=== PATIENT | male | born 1960 | race Hispanic/Latino ===

== ENCOUNTER 2016-09-03 15:39 | Emergency (ER) | payer MEDICAID ==
[2016-09-03 15:47] VITALS: BP 128/63; PULSE 74; RESP 16; TEMP 97.8; O2SAT 99
--- NOTE | 2016-09-03 17:23 | ED PDOC ---
Lower Extremity Pain/Injury Time Seen by Provider: 09/03/16 17:20 Chief Complaint (Nursing): Lower Extremity Problem/Injury Chief Complaint (Provider): leg injury History Per: Patient History/Exam Limitations: no limitations Additional Complaint(s): 56yo M in Ed homeless with c/o of b/l feet complaints. pt has been in Ed with similar complaints of feet pain state that his feet often gets wet, attempts to change his socks, but may accidentally step into puddles or get rained on. pt dneies known hx of DM or neuropathy. denies fever or chills. denies swelling or numbness to feet. - Ankle/Foot Feet: 1 - plantar surface of feet b/l with maceration right with some bleeding. Past Medical History Reviewed: Historical Data, Nursing Documentation, Vital Signs Vital Signs: Last Vital Signs Temp 97.8 F 09/03/16 15:43 Pulse 74 09/03/16 15:43 Resp 16 09/03/16 15:43 BP 128/63 09/03/16 15:43 Pulse Ox 99 09/03/16 15:43 - Medical History PMH: Depression, Schizophrenia Denies: Diabetes, Hepatitis, HIV, HTN, Seizures, Sexually Transmitted Disease - Family History Family History: States: Unknown Family Hx - Immunization History Hx Tetanus Toxoid Vaccination: Yes Hx Influenza Vaccination: No Hx Pneumococcal Vaccination: No - Home Medications Home Medications: Ambulatory Orders Medication Instructions Recorded Clotrimazole 1% Cream [Lotrimin 1% 1 applic TOP BID #2 tube 08/17/16 CREAM] Clotrimazole 1% [Lotrimin AF 1%] 10 applic TOP BID #1 bottle 08/23/16 - Allergies Allergies/Adverse Reactions: Allergies Allergy/AdvReac Type Severity Reaction Status Date / Time No Known Allergies Allergy Verified 08/23/16 22:07 Review of Systems ROS Statement: Except As Marked, All Systems Reviewed And Found Negative Constitutional: Negative for: Fever, Chills Musculoskeletal: Positive for: Foot Pain Physical Exam - Reviewed Nursing Documentation Reviewed: Yes Vital Signs Reviewed: Yes - Physical Exam Appears: Positive for: Well, Non-toxic, No Acute Distress Head Exam: Positive for: ATRAUMATIC, NORMAL INSPECTION, NORMOCEPHALIC Skin: Positive for: Normal Color, Warm, DRY Cardiovascular/Chest: Positive for: Regular Rate, Rhythm Respiratory: Positive for: CNT, Normal Breath Sounds Extremity: Positive for: Other (b/l feet: plantar surface-left/right calluses noted, right plantar noted with bleeding and maceration.no foul smell noted. tenderness noted to touch. neruovasc intact) Neurologic/Psych: Positive for: Alert, Oriented - ECG O2 Sat by Pulse Oximetry: 99 - Progress ED Course And Treament: podiatry consulted Medical Decision Making Medical Decision Making: podiatry evaluated pt-pt feet cleaned with NS, scrub and dressing applied with clotrimazole-pt [facility]. Pt given EMLA for pain . pt strongly advise to f.u with podiatry weekly Disposition - Clinical Impression Clinical Impression: Skin maceration, Fungal infection of foot - Patient ED Disposition Is Patient to be Admitted: No Counseled Patient/Family Regarding: Need For Followup - Disposition Referrals: Podiatry Clinic [Outside] Disposition: Routine/Home Disposition Time: 18:57 Condition: STABLE Instructions: Antifungals (On the skin)
--- NOTE | 2016-09-03 18:26 | CP.PCM.CON ---
History of Present Illness - History of Present Illness History of Present Illness: 56 year old homeless male with PMhx of depression was seen in the ED regarding bilateral foot pain. Patient states that he has had this pain for about a month. His feet get wet due to the snow and rain and he does not get to change his shoes and socks often. He states that this problem has happened to him before. He told me he followed up with podiatry clinic a few weeks ago, but no note is seen in [facility]. He states that he got 2 prescriptions for medication for his feet but due to the weather they were destroyed. He admits to some numbness to his feet b/l. He denies n/v/f/c/sob/cp. Past Patient History - Past Social History Smoking Status: Light Smoker < 10 Cigarettes Daily - CARDIAC Hx Hypertension: No - PULMONARY Hx Tuberculosis: No - NEUROLOGICAL Hx Seizures: No - HEMATOLOGICAL/ONCOLOGICAL Hx Human Immunodeficiency Virus (HIV): No - GENITOURINARY/GYNECOLOGICAL Hx Sexually Transmitted Disorders: No - PSYCHIATRIC Hx Depression: Yes Hx Schizophrenia: Yes Hx Substance Use: No - SURGICAL HISTORY Hx Surgeries: No - ANESTHESIA Hx Anesthesia: No Meds Allergies/Adverse Reactions: Allergies Allergy/AdvReac Type Severity Reaction Status Date / Time No Known Allergies Allergy Verified 08/23/16 22:07 Physical Exam - Constitutional Appears: Well, Non-toxic, No Acute Distress - Extremities Exam Additional comments: Vasc: DP and PT pulses palpable 2/4 b/l. CFT < 3 seconds to all digits b/l. Skin temperature warm to warm from proximal to distal b/l. Neuro: Gross sensation intact b/l. Ortho: Tenderness on palpation to plantar aspect of metataral heads and digits, most to 4th digit on the right. Derm: Nails 1-5 b/l are thickened, elongated, discolored, dystrophic. Webspaces 1-4 on the right and 1 on the left are macerated. Plantar aspect of foot are macerated with hyperkeratotic tissue. Right foot has patches of redness over the plantar aspect of the digits and forefoot. Heels b/l are xerotic. - Neurological Exam Neurological exam: Alert, Oriented x3 - Psychiatric Exam Psychiatric exam: Normal Affect, Normal Mood Results - Vital Signs Recent Vital Signs: Last Vital Signs Temp 97.8 F 03/25/17 15:43 Pulse 74 09/03/16 15:43 Resp 16 09/03/16 15:43 BP 128/63 09/03/16 15:43 Pulse Ox 99 09/03/16 17:29 Assessment & Plan - Assessment and Plan (Free Text) Assessment: 56 year old male with painful feet due to cold weather exposure Plan: Patient examined and evaluated Chart and vitals reviewed Discussed in detail with attending, Dr. Davis Patient feet were washed with warm soapy water and toweled dry Macerated webspaces and plantar aspect of the foot cleansed with betadine Rx for clortrimazole given by PA Patient to keep feet clean, and dry, and change socks daily Patient to follow up in Podiatry clinic on Monday, patient to call to make an appointment
[2016-09-03] MEDS ORDERED: Lidocaine/Prilocaine CREAM 5GM TP STA (18:53)
[2016-09-03] MEDS ORDERED: Lidocaine/Prilocaine CREAM 5GM TP ONE (18:55)
== END 2016-09-03 20:02 | disposition home or self-care (01) ==
LOC: H.ER 15:39
DX: B35.3 Tinea pedis (principal); L98.8 Other specified disorders of the skin and subcutaneous tissue; F20.9 Schizophrenia, unspecified; E11.9 Type 2 diabetes mellitus without complications

== ENCOUNTER 2016-09-09 20:33 | Emergency (ER) | payer MEDICAID ==
[2016-09-09 20:44] VITALS: BP 138/80; PULSE 72; RESP 16; TEMP 96; O2SAT 98
--- NOTE | 2016-09-09 22:42 | ED PDOC ---
HPI: General Adult Time Seen by Provider: 09/09/16 22:40 Chief Complaint (Nursing): Medical Clearance Chief Complaint (Provider): medical eval History Per: Patient History/Exam Limitations: no limitations Additional Complaint(s): 56yo M in ED homeless states he is in ED because he is not eating and not sleeping, however it isn't bothering him. he has actual complaint, states he has schizophrenia taking his medication. Pt has been in ed for foot fungal infxn an referred to podiatry clinic for appt but has not followed up. Past Medical History Reviewed: Historical Data, Nursing Documentation, Vital Signs Vital Signs: Last Vital Signs Temp 96.0 F L 09/09/16 20:42 Pulse 72 09/09/16 20:42 Resp 16 09/09/16 20:42 BP 138/80 09/09/16 20:42 Pulse Ox 98 09/09/16 23:35 - Medical History PMH: Depression, Schizophrenia Denies: Diabetes, Hepatitis, HIV, HTN, Seizures, Sexually Transmitted Disease - Family History Family History: States: Unknown Family Hx - Immunization History Hx Tetanus Toxoid Vaccination: Yes Hx Influenza Vaccination: No Hx Pneumococcal Vaccination: No - Home Medications Home Medications: Ambulatory Orders Medication Instructions Recorded Clotrimazole 1% Cream [Lotrimin 1% 1 applic TOP BID #2 tube 08/17/16 CREAM] Clotrimazole 1% [Lotrimin AF 1%] 10 applic TOP BID #1 bottle 08/23/16 Clotrimazole 1% Cream [Lotrimin 1% 1 applic TOP BID #1 tube 09/19/16 CREAM] - Allergies Allergies/Adverse Reactions: Allergies Allergy/AdvReac Type Severity Reaction Status Date / Time No Known Allergies Allergy Verified 08/23/16 22:07 Review of Systems ROS Statement: Except As Marked, All Systems Reviewed And Found Negative Constitutional: Negative for: Fever Cardiovascular: Negative for: Chest Pain Respiratory: Negative for: Cough Gastrointestinal: Negative for: Nausea, Vomiting, Diarrhea, Constipation, Melena , Hematochezia, Hematemesis, Rectal Pain Genitourinary Male: Negative for: Dysuria Physical Exam - Reviewed Nursing Documentation Reviewed: Yes Vital Signs Reviewed: Yes - Physical Exam Appears: Positive for: Well, Non-toxic, No Acute Distress Head Exam: Positive for: ATRAUMATIC, NORMAL INSPECTION, NORMOCEPHALIC Skin: Positive for: Normal Color, Warm, DRY Cardiovascular/Chest: Positive for: Regular Rate, Rhythm Respiratory: Positive for: CNT, Normal Breath Sounds Gastrointestinal/Abdominal: Positive for: Normal Exam, Bowel Sounds, Soft Back: Positive for: Normal Inspection Extremity: Positive for: Normal ROM Neurologic/Psych: Positive for: Alert, Oriented - ECG O2 Sat by Pulse Oximetry: 98 Medical Decision Making Medical Decision Making: pt was evaluated by crisis. pt is in fact following up with outpt tx for mental health. pt states he simply wants to sleep. Disposition - Clinical Impression Clinical Impression: Fungal infection of foot - Disposition Disposition Time: 23:00 Condition: STABLE
== END 2016-09-10 00:05 | disposition home or self-care (01) ==
LOC: H.ER 20:33
DX: F20.9 Schizophrenia, unspecified (principal)

== ENCOUNTER 2016-09-19 04:11 | Emergency (ER) | payer MEDICAID ==
[2016-09-19 04:33] VITALS: BP 139/90; PULSE 78; RESP 17; TEMP 99; O2SAT 98
--- NOTE | 2016-09-19 04:59 | ED PDOC ---
Lower Extremity Pain/Injury Time Seen by Provider: 09/19/16 04:39 Chief Complaint (Nursing): Lower Extremity Problem/Injury Chief Complaint (Provider): foot pain History Per: Patient Additional Complaint(s): pt is homeless, c/o B/L foot aching, burning x several months. no redness, warmth, drainage, numbness, weakness distally. was supposed to see podiatry this past week but did not make appt. Past Medical History Reviewed: Historical Data, Nursing Documentation, Vital Signs Vital Signs: Last Vital Signs Temp 99.0 F 09/19/16 04:31 Pulse 78 09/19/16 04:31 Resp 17 09/19/16 04:31 BP 139/90 09/19/16 04:31 Pulse Ox 98 09/19/16 04:31 - Medical History PMH: Depression, Schizophrenia Denies: Diabetes, Hepatitis, HIV, HTN, Seizures, Sexually Transmitted Disease - Family History Family History: States: No Known Family Hx - Social History Current smoker - smoking cessation education provided: Yes Alcohol: > 2 Drinks/Day Drugs: Denies - Immunization History Hx Tetanus Toxoid Vaccination: Yes Hx Influenza Vaccination: No Hx Pneumococcal Vaccination: No - Home Medications Home Medications: Ambulatory Orders Medication Instructions Recorded Clotrimazole 1% Cream [Lotrimin 1% 1 applic TOP BID #2 tube 08/17/16 CREAM] Clotrimazole 1% [Lotrimin AF 1%] 10 applic TOP BID #1 bottle 08/23/16 Clotrimazole 1% Cream [Lotrimin 1% 1 applic TOP BID #1 tube 09/19/16 CREAM] - Allergies Allergies/Adverse Reactions: Allergies Allergy/AdvReac Type Severity Reaction Status Date / Time No Known Allergies Allergy Verified 08/23/16 22:07 Review of Systems ROS Statement: Except As Marked, All Systems Reviewed And Found Negative Musculoskeletal: Positive for: Foot Pain Physical Exam - Reviewed Nursing Documentation Reviewed: Yes Vital Signs Reviewed: Yes - Physical Exam Appears: Positive for: Well, Non-toxic, No Acute Distress Skin: Positive for: Normal Color, Warm, DRY Cardiovascular/Chest: Positive for: Regular Rate, Rhythm Respiratory: Positive for: CNT, Normal Breath Sounds Gastrointestinal/Abdominal: Positive for: Normal Exam, Bowel Sounds, Soft. Negative for: Tenderness Extremity: Positive for: Other (B/L feet malodorous, scaling, cracking, yellowed. nails thickened, yellow. ) Neurologic/Psych: Positive for: Alert, Oriented. Negative for: Motor/Sensory Deficits - ECG O2 Sat by Pulse Oximetry: 98 Disposition - Clinical Impression Clinical Impression: Fungal infection of foot - Patient ED Disposition Is Patient to be Admitted: No - Disposition Referrals: Podiatry Clinic [Outside] [facility] [Outside] Disposition: Routine/Home Disposition Time: 05:01 Condition: GOOD Prescriptions: Clotrimazole 1% Cream [Lotrimin 1% CREAM] 1 applic TOP BID #1 tube Instructions: Tinea Pedis (ED)
== END 2016-09-19 06:08 | disposition home or self-care (01) ==
LOC: H.ER 04:11
DX: B35.3 Tinea pedis (principal)

== ENCOUNTER 2016-10-08 15:00 | Emergency (ER) | payer MEDICAID ==
--- NOTE | 2016-10-08 15:35 | ED PDOC ---
Lower Extremity Pain/Injury Time Seen by Provider: 10/08/16 15:30 Chief Complaint (Nursing): Lower Extremity Problem/Injury Chief Complaint (Provider): Bilateral Foot Pain History Per: Patient History/Exam Limitations: no limitations Onset/Duration Of Symptoms: Days (chronic) Current Symptoms Are (Timing): Still Present Severity: Moderate Additional Complaint(s): Nazario Lopez is a 56 year old homeless male, with no pertinent past medical history, who presents to the ED on 10/08/16 for the evaluation of moderate acute on chronic bilateral foot pain. Associated feelings of dehydration/ exhaustion also reported, though patient denies any additional complaints. Of note, patient was evaluated within this ED a few days ago for similar, at which time he had been discharged home with Rx for clotramizole cream. Patient admits to not having filled the prescription and has also not yet followed up with the referred clinic as previously instructed. PMD: none Past Medical History Reviewed: Historical Data, Nursing Documentation, Vital Signs Vital Signs: Last Vital Signs Temp 97.5 F L 10/08/16 15:15 Pulse 80 10/08/16 15:15 Resp 20 10/08/16 15:15 BP 121/66 10/08/16 15:15 Pulse Ox 98 10/08/16 15:15 - Medical History PMH: Depression, Schizophrenia Denies: Diabetes, Hepatitis, HIV, HTN, Chronic Kidney Disease, Seizures, Sexually Transmitted Disease - Family History Family History: States: Unknown Family Hx - Immunization History Hx Tetanus Toxoid Vaccination: Yes Hx Influenza Vaccination: No Hx Pneumococcal Vaccination: No - Home Medications Home Medications: Ambulatory Orders Medication Instructions Recorded Clotrimazole 1% Cream [Lotrimin 1% 1 applic TOP BID #2 tube 08/17/16 CREAM] Clotrimazole 1% [Lotrimin AF 1%] 10 applic TOP BID #1 bottle 08/23/16 Clotrimazole 1% Cream [Lotrimin 1% 1 applic TOP BID #1 tube 09/19/16 CREAM] - Allergies Allergies/Adverse Reactions: Allergies Allergy/AdvReac Type Severity Reaction Status Date / Time No Known Allergies Allergy Verified 08/23/16 22:07 Review of Systems Constitutional: Positive for: Other (generalized feelings of dehydration/ exhaustion) Musculoskeletal: Positive for: Foot Pain (bilateral, acute on chronic) Physical Exam - Reviewed Nursing Documentation Reviewed: Yes Vital Signs Reviewed: Yes - Physical Exam Appears: Positive for: Non-toxic, No Acute Distress (disheveled/unkempt) Head Exam: Positive for: ATRAUMATIC, NORMOCEPHALIC Skin: Positive for: Normal Color, Warm, Dry Extremity: Positive for: Normal ROM (FROM x4 extremities). Negative for: Deformity, Swelling (no notable edema/induration to b/l feet, poor podiatric hygeine) Neurologic/Psych: Positive for: Alert, Oriented - Laboratory Results Result Diagrams: 10/08/16 17:25 10/08/16 17:25 Urine dip results: Positive for: Ketones (trace). Negative for: Leukocyte Esterase, Blood, Nitrate, Glucose, Bilirubin, Protein - ECG O2 Sat by Pulse Oximetry: 98 (RA) Pulse Ox Interpretation: Normal Medical Decision Making Medical Decision Makin:30 Initial Impression: acute on chronic foot pain Initial Plan: * Udip * Reevaluation 17:08 Udip shows evidence of trace ketones, will order labs as well as administration of IV NS 1000ml at 1000mls/hr. Scribe Attestation: Documented by Laya Frank, acting as a scribe for Maliha Hathaway MD. Provider Scribe Attestation: All medical record entries made by the Scribe were at my direction and personally dictated by me. I have reviewed the chart and agree that the record accurately reflects my personal performance of the history, physical exam, medical decision making, and the department course for this patient. I have also personally directed, reviewed, and agree with the discharge instructions and disposition. Disposition - Clinical Impression Clinical Impression: Fungal infection of foot - Patient ED Disposition Is Patient to be Admitted: No - Disposition Referrals: [facility] [Outside] Disposition: Routine/Home Disposition Time: 17:52 Condition: STABLE Additional Instructions: FILL PRESCRIPTION YOU RECEIVED. Instructions: Tinea Pedis (ED)
[2016-10-08] MEDS ORDERED: Sodium Chloride 0.9% 1,000 ML IV STA (17:08)
[2016-10-08 17:35] LABS: BASO % 0.2 % (0.0-2.0); EOS # 0.2 K/uL (0.0-0.7); EOS % 3.7 % (0.0-4.0); HEMATOCRIT 49.6 % (35.0-51.0); LYMPH # 2.1 K/uL (1.0-4.3); LYMPH % 37.3 % (20.0-40.0); MEAN CORPUSCULAR HEMOGLOBIN 29.5 pg (27.0-31.0); MEAN CORPUSCULAR HGB CONC 33.5 g/dL (33.0-37.0); MEAN PLATELET VOLUME 7.6 fl (7.2-11.7); MONO # 0.5 K/uL (0.0-0.8); MONO % 9.6 % (0.0-10.0); NEUT # 2.8 K/uL (1.8-7.0); NEUT % 49.2 % (50.0-75.0); NRBC % 0.1 % (0.0-0.0); RED CELL DISTRIBUTION WIDTH 13.5 % (11.5-14.5); WHITE BLOOD COUNT 5.6 K/uL (4.8-10.8)
[2016-10-08 17:49] LABS: ALB/GLOB RATIO 1.1 (1.0-2.1); ALKALINE PHOSPHATASE 65 U/L (38-126); ALT/SGPT 19 U/L (21-72); AST/SGOT 17 U/L (17-59); BILIRUBIN,TOTAL 0.5 mg/dl (0.2-1.3); BLOOD UREA NITROGEN 12 mg/dl (9-20); CARBON DIOXIDE 26 mmol/L (22-30); CHLORIDE 107 mmol/L (98-107); GFR AFRICAN-AMERICAN > 60; GLUCOSE,RANDOM 88 mg/dL (75-110); POTASSIUM 4.1 MMOL/L (3.6-5.0); SODIUM 140 mmol/l (132-148); TOTAL PROTEIN 7.1 G/DL (6.3-8.2)
[2016-10-08 18:11] VITALS: BP 122/71; PULSE 78; RESP 16; TEMP 97
[2016-10-10 10:05] VITALS: O2SAT 98
== END 2016-10-08 18:11 | disposition home or self-care (01) ==
LOC: H.ER 15:00
DX: B35.3 Tinea pedis (principal)

== ENCOUNTER 2016-10-23 00:45 | Emergency (ER) | payer MEDICAID ==
[2016-10-23 01:46] VITALS: BP 132/67; PULSE 69; RESP 14; TEMP 98; O2SAT 98
--- NOTE | 2016-10-23 01:51 | ED PDOC ---
Lower Extremity Pain/Injury Time Seen by Provider: 10/23/16 01:00 Chief Complaint (Nursing): Lower Extremity Problem/Injury History Per: Patient Additional Complaint(s): Pt. states for the past several months he's had pain to both feet along with redness. Reports that he was prescribed a cream but has yet to get prescription filled. Denies fever, calf pain. Past Medical History Reviewed: Historical Data, Nursing Documentation, Vital Signs Vital Signs: Last Vital Signs Temp 98 F 10/23/16 01:45 Pulse 69 10/23/16 01:45 Resp 14 10/23/16 01:45 BP 132/67 10/23/16 01:45 Pulse Ox 98 10/23/16 01:45 - Medical History PMH: Depression, Schizophrenia Denies: Diabetes, Hepatitis, HIV, HTN, Chronic Kidney Disease, Seizures, Sexually Transmitted Disease - Family History Family History: States: No Known Family Hx - Immunization History Hx Tetanus Toxoid Vaccination: Yes Hx Influenza Vaccination: No Hx Pneumococcal Vaccination: No - Home Medications Home Medications: Ambulatory Orders Medication Instructions Recorded Clotrimazole 1% Cream [Lotrimin 1% 1 applic TOP BID #2 tube 08/17/16 CREAM] Clotrimazole 1% [Lotrimin AF 1%] 10 applic TOP BID #1 bottle 08/23/16 Clotrimazole 1% Cream [Lotrimin 1% 1 applic TOP BID #1 tube 09/19/16 CREAM] - Allergies Allergies/Adverse Reactions: Allergies Allergy/AdvReac Type Severity Reaction Status Date / Time No Known Allergies Allergy Verified 08/23/16 22:07 Review of Systems ROS Statement: Except As Marked, All Systems Reviewed And Found Negative Musculoskeletal: Positive for: Foot Pain Physical Exam - Physical Exam Appears: Positive for: Well, Non-toxic, No Acute Distress Skin: Positive for: Normal Color, Warm. Negative for: Rash Pulses-Dorsalis Pedis (L): 2+ Pulses-Dorsalis Pedis (R): 2+ Extremity: Positive for: Other (b/l plantar surface of feet with scaling but no discharge, streaking, or swelling) - ECG O2 Sat by Pulse Oximetry: 98 - Progress ED Course And Treament: Pt. given clotrimazole in ED. Disposition - Clinical Impression Clinical Impression: Tinea pedis - Patient ED Disposition Is Patient to be Admitted: No - Disposition Referrals: [facility] [Outside] Disposition: Routine/Home Disposition Time: 03:05 Condition: STABLE Additional Instructions: Apply Clotrimazole cream to both feet BID x 10 days Instructions: Tinea Pedis (ED)
== END 2016-10-23 06:03 | disposition home or self-care (01) ==
LOC: H.ER 00:45
DX: B35.3 Tinea pedis (principal); F20.9 Schizophrenia, unspecified

== ENCOUNTER 2016-11-29 02:46 | Emergency (ER) | payer MEDICAID ==
[2016-11-29 03:43] VITALS: BP 149/92; PULSE 71; RESP 16; TEMP 97.9; O2SAT 96
--- NOTE | 2016-11-29 04:15 | ED PDOC ---
Lower Extremity Pain/Injury Time Seen by Provider: 11/29/16 04:11 Chief Complaint (Nursing): Dental Pain Chief Complaint (Provider): foot pain History Per: Patient History/Exam Limitations: no limitations Onset/Duration Of Symptoms: Days Current Symptoms Are (Timing): Still Present Additional History Per: Patient Additional Complaint(s): 56 y/o male presents for eval of pain to bottom of both feet x weeks. Patient states he is homeless and does not get to change his socks often. Denies fever , f nausea/vomiting, numbness/weakness lower extremities, calf pain/swelling. Past Medical History Reviewed: Historical Data, Nursing Documentation, Vital Signs Vital Signs: Last Vital Signs Temp 97.9 F 11/29/16 03:40 Pulse 71 11/29/16 03:40 Resp 16 11/29/16 03:40 BP 149/92 H 11/29/16 03:40 Pulse Ox 96 11/29/16 03:40 - Medical History PMH: Depression, Schizophrenia Denies: Diabetes, Hepatitis, HIV, HTN, Chronic Kidney Disease, Seizures, Sexually Transmitted Disease - Family History Family History: States: Unknown Family Hx - Immunization History Hx Tetanus Toxoid Vaccination: Yes Hx Influenza Vaccination: No Hx Pneumococcal Vaccination: No - Home Medications Home Medications: Ambulatory Orders Medication Instructions Recorded Clotrimazole 1% Cream [Lotrimin 1% 1 applic TOP BID #2 tube 08/17/16 CREAM] Clotrimazole 1% [Lotrimin AF 1%] 10 applic TOP BID #1 bottle 08/23/16 Clotrimazole 1% Cream [Lotrimin 1% 1 applic TOP BID #1 tube 09/19/16 CREAM] Clotrimazole 1% Cream [Lotrimin 1%] 1 applic TP BID #1 tube 11/29/16 Ibuprofen [Motrin Tab] 1 tab PO Q6 PRN #15 tab 11/29/16 - Allergies Allergies/Adverse Reactions: Allergies Allergy/AdvReac Type Severity Reaction Status Date / Time No Known Allergies Allergy Verified 08/23/16 22:07 Review of Systems ROS Statement: Except As Marked, All Systems Reviewed And Found Negative Musculoskeletal: Positive for: Foot Pain Physical Exam - Reviewed Nursing Documentation Reviewed: Yes Vital Signs Reviewed: Yes - Physical Exam Appears: Positive for: Well, Non-toxic, No Acute Distress (sleeping) Head Exam: Positive for: ATRAUMATIC, NORMAL INSPECTION, NORMOCEPHALIC Cardiovascular/Chest: Positive for: Regular Rate, Rhythm Respiratory: Positive for: Normal Breath Sounds Pulses-Dorsalis Pedis (L): 2+ Pulses-Dorsalis Pedis (R): 2+ Pulses-Post. Tibialis (L): 2+ Pulses-Post. Tibialis (R): 2+ Extremity: Positive for: Normal ROM, Other (maceration noted inbetween digits. b /l plantar surface with skin softening/blistering (due to moisture?). ) Neurologic/Psych: Positive for: Alert, Oriented - ECG O2 Sat by Pulse Oximetry: 96 - Progress ED Course And Treament: ibuprofen PO Patient given clean pair of socks, educated on keeping feet dry. Rx clotrimazole, ibuprofen provided. Follow up podiatry. Return to ED for worsening/concerning symptoms. Disposition - Clinical Impression Clinical Impression: Foot pain, bilateral, Fungal infection of foot - Patient ED Disposition Is Patient to be Admitted: No Counseled Patient/Family Regarding: Studies Performed, Diagnosis, Need For Followup, Rx Given - Disposition Referrals: Podiatry Clinic [Outside] Disposition: Routine/Home Disposition Time: 05:06 Condition: STABLE Prescriptions: Clotrimazole 1% Cream [Lotrimin 1%] 1 applic TP BID #1 tube Ibuprofen [Motrin Tab] 1 tab PO Q6 PRN #15 tab PRN Reason: Pain, Moderate (4-7) Instructions: Tinea Pedis (ED), Arthralgia (ED)
== END 2016-11-29 05:24 | disposition home or self-care (01) ==
LOC: H.ER 02:46
DX: B35.3 Tinea pedis (principal); F20.9 Schizophrenia, unspecified; F32.9 Major depressive disorder, single episode, unspecified

== ENCOUNTER 2016-12-05 02:44 | Emergency (ER) | payer MEDICAID ==
[2016-12-05 03:03] VITALS: BP 100/63; PULSE 86; RESP 16; TEMP 98; O2SAT 98
--- NOTE | 2016-12-05 03:13 | ED PDOC ---
Lower Extremity Pain/Injury Time Seen by Provider: 12/05/16 02:59 Chief Complaint (Nursing): Lower Extremity Problem/Injury Chief Complaint (Provider): Foot pain History Per: Patient Additional Complaint(s): 56 y/o male presents for eval of pain to bottom of both feet x weeks. Patient states he is homeless and does not get to change his socks often. Denies fever , f nausea/vomiting, numbness/weakness lower extremities, calf pain/swelling. Past Medical History Reviewed: Historical Data, Nursing Documentation, Vital Signs Vital Signs: Last Vital Signs Temp 98.0 F 12/05/16 03:01 Pulse 86 12/05/16 03:01 Resp 16 12/05/16 03:01 BP 100/63 12/05/16 03:01 Pulse Ox 98 12/05/16 03:01 - Medical History PMH: Depression, Schizophrenia Denies: Diabetes, Hepatitis, HIV, HTN, Chronic Kidney Disease, Seizures, Sexually Transmitted Disease - Surgical History Surgical History: No Surg Hx - Family History Family History: States: Unknown Family Hx - Living Arrangements Living Arrangements: Other - Social History Current smoker - smoking cessation education provided: No Alcohol: None Drugs: Denies - Immunization History Hx Tetanus Toxoid Vaccination: Yes Hx Influenza Vaccination: No Hx Pneumococcal Vaccination: No - Home Medications Home Medications: Ambulatory Orders Medication Instructions Recorded Clotrimazole 1% Cream [Lotrimin 1% 1 applic TOP BID #2 tube 08/17/16 CREAM] Clotrimazole 1% [Lotrimin AF 1%] 10 applic TOP BID #1 bottle 08/23/16 Clotrimazole 1% Cream [Lotrimin 1% 1 applic TOP BID #1 tube 09/19/16 CREAM] Clotrimazole 1% Cream [Lotrimin 1%] 1 applic TP BID #1 tube 11/29/16 Ibuprofen [Motrin Tab] 1 tab PO Q6 PRN #15 tab 11/29/16 - Allergies Allergies/Adverse Reactions: Allergies Allergy/AdvReac Type Severity Reaction Status Date / Time No Known Allergies Allergy Verified 08/23/16 22:07 Review of Systems ROS Statement: Except As Marked, All Systems Reviewed And Found Negative Physical Exam - Reviewed Nursing Documentation Reviewed: Yes Vital Signs Reviewed: Yes - Physical Exam Appears: Positive for: Well, Non-toxic, No Acute Distress Head Exam: Positive for: ATRAUMATIC, NORMAL INSPECTION, NORMOCEPHALIC Skin: Positive for: Normal Color, Warm, DRY Eye Exam: Positive for: EOMI, Normal appearance, PERRL ENT: Positive for: Normal ENT Inspection Neck: Positive for: Normal, Painless ROM Cardiovascular/Chest: Positive for: Regular Rate, Rhythm Respiratory: Positive for: CNT, Normal Breath Sounds Gastrointestinal/Abdominal: Positive for: Normal Exam, Bowel Sounds, Soft Back: Positive for: Normal Inspection Extremity: Positive for: Normal ROM Neurologic/Psych: Positive for: Alert, Oriented - ECG O2 Sat by Pulse Oximetry: 98 Medical Decision Making Medical Decision Making: medicated while in ED. Stable for discharge in am Disposition - Clinical Impression Clinical Impression: Trench foot - Patient ED Disposition Is Patient to be Admitted: No - Disposition Disposition: Routine/Home Disposition Time: 05:34 Condition: STABLE Instructions: Tinea Pedis (ED)
== END 2016-12-05 06:04 | disposition home or self-care (01) ==
LOC: H.ER 02:44
DX: T69.021A Immersion foot, right foot, initial encounter (principal); T69.022A Immersion foot, left foot, initial encounter

== ENCOUNTER 2017-01-13 10:00 | Emergency (ER) | payer MEDICAID ==
[2017-01-13 10:16] VITALS: BP 140/64; PULSE 70; RESP 20; TEMP 98.5; O2SAT 98
--- NOTE | 2017-01-13 10:58 | ED PDOC ---
HPI: General Adult Time Seen by Provider: 01/13/17 10:28 Chief Complaint (Nursing): Lower Extremity Problem/Injury History Per: Patient Additional Complaint(s): Pt. states for > 6 months he's had b/l foot irritation, redness, and swelling. Reports that last night while it was raining his feet became wet and is concerned that his condition has worsened. Reports that he's had a difficult time getting to the podiatry clinic as he is currently homeless. He has used Clotrimazole cream in the past without much relief. Denies fever, trauma, numbness, tingling, hx of DM. Past Medical History Reviewed: Historical Data, Nursing Documentation, Vital Signs Vital Signs: Last Vital Signs Temp 98.5 F 01/13/17 10:16 Pulse 70 01/13/17 10:16 Resp 20 01/13/17 10:16 BP 140/64 01/13/17 10:16 Pulse Ox 98 01/13/17 12:21 - Medical History PMH: Depression, Schizophrenia Denies: Diabetes, Hepatitis, HIV, HTN, Chronic Kidney Disease, Seizures, Sexually Transmitted Disease - Family History Family History: States: No Known Family Hx - Immunization History Hx Tetanus Toxoid Vaccination: Yes Hx Influenza Vaccination: No Hx Pneumococcal Vaccination: No - Allergies Allergies/Adverse Reactions: Allergies Allergy/AdvReac Type Severity Reaction Status Date / Time No Known Allergies Allergy Verified 08/23/16 22:07 Review of Systems ROS Statement: Except As Marked, All Systems Reviewed And Found Negative Physical Exam - Physical Exam Appears: Positive for: Well, Non-toxic, No Acute Distress Skin: Positive for: Normal Color, Warm. Negative for: Rash Pulses-Dorsalis Pedis (L): 2+ Pulses-Dorsalis Pedis (R): 2+ Extremity: Positive for: Other (b/l plantar surface of feet with erythema and maceration; hyperpigmentation to all nails). Negative for: Pedal Edema (b/l), Calf Tenderness (b/l) - ECG O2 Sat by Pulse Oximetry: 98 - Progress ED Course And Treament: Pt. evaluated by podiatry resident, Ceci, who discussed case with Dr. Marquez who trimmed pt.'s nails and cleaned pt.'s foot. Requests that pt. be prescribed Clotrimazole cream. Clotrimazole cream given in ED. Disposition - Clinical Impression Clinical Impression: Tinea pedis - Patient ED Disposition Is Patient to be Admitted: No - Disposition Referrals: Podiatry Clinic [Outside] Disposition: Routine/Home Disposition Time: 12:00 Condition: STABLE Instructions: Tinea Pedis (ED) Forms: [employer] (Turkmen)
--- NOTE | 2017-01-13 11:40 | CP.PCM.CON ---
History of Present Illness - History of Present Illness History of Present Illness: 56 year old homeless male with PMhx of depression and schizophrenia was seen in the ED for bilaterally foot pain. Patient states the pain started in Mar 2016. Describes the pain as a burning pain on his feet. Worse with weather changes or when it's raining like today. He reports his socks and shoes getting wet. Patient denies any surgical history and is currently not taking any medications. Asked about prescription prescribed in the last ED visit for similar problem but states he did not get them. Denies f/sob/cp/chills or v. Reports being nausea. Haven't had much to eaten. PSH: denies Allergies: NKDA FH: denies SH: smokes 5 cigs/day for +10 years Meds: denies Past Patient History - Infectious Disease Hx of Infectious Diseases: None - Past Social History Smoking Status: Light Smoker < 10 Cigarettes Daily - CARDIAC Hx Hypertension: No - PULMONARY Hx Respiratory Disorders: No Hx Tuberculosis: No - NEUROLOGICAL Hx Seizures: No - HEENT Hx HEENT Problems: No - RENAL Hx Chronic Kidney Disease: No - ENDOCRINE/METABOLIC Hx Endocrine Disorders: No - HEMATOLOGICAL/ONCOLOGICAL Hx Human Immunodeficiency Virus (HIV): No - INTEGUMENTARY Hx Dermatological Problems: No - MUSCULOSKELETAL/RHEUMATOLOGICAL Hx Musculoskeletal Disorders: No - GASTROINTESTINAL Hx Gastrointestinal Disorders: No - GENITOURINARY/GYNECOLOGICAL Hx Sexually Transmitted Disorders: No - PSYCHIATRIC Hx Depression: Yes Hx Schizophrenia: Yes - SURGICAL HISTORY Hx Surgeries: No - ANESTHESIA Hx Anesthesia: No Meds Allergies/Adverse Reactions: Allergies Allergy/AdvReac Type Severity Reaction Status Date / Time No Known Allergies Allergy Verified 08/23/16 22:07 Physical Exam - Constitutional Appears: Well, Non-toxic, No Acute Distress - Extremities Exam Additional comments: Vasc: DP and PT pulses palpable 2/4 b/l. CFT < 3 seconds to all digits b/l. Skin temperature warm to warm from proximal to distal b/l. Neuro: Gross sensation intact b/l. Ortho: Moderate tenderness elicited with palpation of the plantar feel and dorsal digits bilaterally, MM is 5/5 in all four compartments bilaterally Derm: Nails 1-5 b/l are thickened, elongated, discolored, dystrophic. Webspaces 1-4 on the right and 1 on the left are mildly macerated. Plantar aspect of foot are macerated with hyperkeratotic tissue, intact with open lesions. Redness over the entire plantar aspect of the bilaterally foot. Superfical abrasions on dorsum L digits 2nd, 4th and 5th digits and R 5th digit. Heels b/l are xerotic. No flucatance, no malodor, no ascending streaking noted. - Neurological Exam Neurological exam: Alert, Oriented x3 - Psychiatric Exam Psychiatric exam: Flat Affect, Normal Mood Results - Vital Signs Recent Vital Signs: Last Vital Signs Temp 98.5 F 01/13/17 10:16 Pulse 70 01/13/17 10:16 Resp 20 01/13/17 10:16 BP 140/64 01/13/17 10:16 Pulse Ox 98 01/13/17 10:59 Assessment & Plan - Assessment and Plan (Free Text) Assessment: 56 year old male with clinical signs most consistent with painful tinea pedis bilaterally. Plan: Patient examined and evaluated Chart and vitals reviewed Discussed plan in detail with attending, Dr. Marquez Patient's feet were washed with warm soapy water and toweled dry Macerated webspaces and plantar aspect of the foot cleansed with betadine Rx for clortrimazole given by ELIZABETH Clotrimazole applied to bilaterally feet Patient instructed to keep feet clean, and dry, and change socks daily Patient to follow up in Podiatry clinic
[2017-01-13] MEDS ORDERED: Povidone Iodine Topical 10% Sol ONE (12:00)
== END 2017-01-13 13:02 | disposition home or self-care (01) ==
LOC: H.ER 10:00
DX: B35.3 Tinea pedis (principal); Z59.0 Homelessness; F20.9 Schizophrenia, unspecified

== ENCOUNTER 2017-01-14 09:34 | Emergency (ER) | payer MEDICAID ==
[2017-01-14 09:42] VITALS: BMI 21.5
[2017-01-14 09:43] VITALS: BP 152/83; PULSE 72; RESP 17; TEMP 97.6; O2SAT 97
--- NOTE | 2017-01-14 10:05 | ED PDOC ---
Lower Extremity Pain/Injury Time Seen by Provider: 01/14/17 09:52 Chief Complaint (Nursing): Lower Extremity Problem/Injury Chief Complaint (Provider): Lower Extremity Problem/Injury History Per: Patient History/Exam Limitations: no limitations Onset/Duration Of Symptoms: Days Current Symptoms Are (Timing): Still Present Additional Complaint(s): 56 y/o female presents to the emergency department with a complaint of a soreness, blistering, and painful sensation to the feet bilaterally. States pain to the left is greater than the right. Patient was seen here multiple times for the same symptoms. Denies fever. Past Medical History Vital Signs: Last Vital Signs Temp 97.6 F 01/14/17 09:41 Pulse 72 01/14/17 09:41 Resp 17 01/14/17 09:41 BP 152/83 H 01/14/17 09:41 Pulse Ox 97 01/14/17 09:41 - Medical History PMH: Depression, Schizophrenia Denies: Diabetes, Hepatitis, HIV, HTN, Chronic Kidney Disease, Seizures, Sexually Transmitted Disease - Family History Family History: States: Unknown Family Hx - Immunization History Hx Tetanus Toxoid Vaccination: Yes Hx Influenza Vaccination: No Hx Pneumococcal Vaccination: No - Home Medications Home Medications: Ambulatory Orders Medication Instructions Recorded Clotrimazole 1% Cream [Lotrimin 1% 15 applic EXT BID #1 tube 01/14/17 CREAM] - Allergies Allergies/Adverse Reactions: Allergies Allergy/AdvReac Type Severity Reaction Status Date / Time No Known Allergies Allergy Verified 01/14/17 09:53 Review of Systems ROS Statement: Except As Marked, All Systems Reviewed And Found Negative Constitutional: Negative for: Fever Musculoskeletal: Positive for: Foot Pain (Soreness, blistering and pain of the foot bilaterally) Physical Exam - Reviewed Nursing Documentation Reviewed: Yes Vital Signs Reviewed: Yes - Physical Exam Appears: Positive for: Well, Non-toxic, No Acute Distress Head Exam: Positive for: ATRAUMATIC, NORMOCEPHALIC Skin: Positive for: Normal Color, Warm, Dry Extremity: Positive for: Normal ROM, Other (Erythema and cracking between the toes. Excoriations with multple fungal changes to nails (all digits). ) Neurologic/Psych: Positive for: Alert, Oriented - ECG O2 Sat by Pulse Oximetry: 97 (RA) Pulse Ox Interpretation: Normal Medical Decision Making Medical Decision Making: Time: 09:52 Initial impression: Soreness and blistering of feet bilaterally Time: 10:30 Patient is medically stable, and requires no further treatment in the ED at this time. Patient will be discharged home with Rx for Lotrimin 1 % Cream. Counseling was provided and all questions were answered regarding diagnosis and need for follow up with podiatry clinic. There is agreement to discharge plan. Return if symptoms persist or worsen. Clinical Impression: Tinea Pedis Scribe Attestation: Documented by Lora Bender, acting as a scribe for Tr Liao MD. Provider Scribe Attestation: All medical record entries made by the Scribe were at my direction and personally dictated by me. I have reviewed the chart and agree that the record accurately reflects my personal performance of the history, physical exam, medical decision making, and the department course for this patient. I have also personally directed, reviewed, and agree with the discharge instructions and disposition. Disposition - Clinical Impression Clinical Impression: Tinea pedis - Patient ED Disposition Is Patient to be Admitted: No Counseled Patient/Family Regarding: Diagnosis, Need For Followup, Rx Given - Disposition Referrals: Podiatry Clinic [Outside] Disposition: Routine/Home Disposition Time: 10:30 Condition: FAIR Prescriptions: Clotrimazole 1% Cream [Lotrimin 1% CREAM] 15 applic EXT BID #1 tube Instructions: Tinea Pedis (ED) Forms: [employer] (British)
[2017-01-14] MEDS ORDERED: Povidone Iodine Oint 10% Foilpak UD ONE (10:19)
--- NOTE | 2017-01-14 10:41 | CP.PCM.CON ---
History of Present Illness - History of Present Illness History of Present Illness: Patient is a 56 year old male who presents to the ED today complaining of pain in his feet when he walks. Patient is a relatively poor historian but states that this pain has been present for many weeks now, especially when he walks. He states that he came to the ED yesterday complaining of the same problem and was given a cream to put on his feet. Patient denies any pertinent past medical history, medications, allergies, or surgical history. Patient admits to living in a homeless group home. Patient admits to smoking roughly 8 cigarettes a day for multiple years and denies EtOH consumption. Patient denies any further pedal complaints at this time. Patient denies V/F/C/CP/SOB. Review of Systems - Review of Systems Review of Systems: Review of systems unremarkable outside of HPI Past Patient History - Infectious Disease Hx of Infectious Diseases: None - Past Social History Smoking Status: Light Smoker < 10 Cigarettes Daily - CARDIAC Hx Hypertension: No - PULMONARY Hx Respiratory Disorders: No Hx Tuberculosis: No - NEUROLOGICAL Hx Seizures: No - HEENT Hx HEENT Problems: No - RENAL Hx Chronic Kidney Disease: No - ENDOCRINE/METABOLIC Hx Endocrine Disorders: No - HEMATOLOGICAL/ONCOLOGICAL Hx Human Immunodeficiency Virus (HIV): No - INTEGUMENTARY Hx Dermatological Problems: No - MUSCULOSKELETAL/RHEUMATOLOGICAL Hx Musculoskeletal Disorders: No - GASTROINTESTINAL Hx Gastrointestinal Disorders: No - GENITOURINARY/GYNECOLOGICAL Hx Sexually Transmitted Disorders: No - PSYCHIATRIC Hx Depression: Yes Hx Schizophrenia: Yes - SURGICAL HISTORY Hx Surgeries: No - ANESTHESIA Hx Anesthesia: No Meds Home Medications: Home Medication List Medication Instructions Recorded Confirmed Type Clotrimazole 1% Cream [Lotrimin 1% 15 applic EXT BID #1 tube 01/14/17 Rx CREAM] Allergies/Adverse Reactions: Allergies Allergy/AdvReac Type Severity Reaction Status Date / Time No Known Allergies Allergy Verified 01/14/17 09:53 Physical Exam - Constitutional Appears: Non-toxic, No Acute Distress, Unkempt - Extremities Exam Additional comments: Bilateral lower extremity focused exam: Vasc: DP/PT pulses fully palpable 2/4 b/l. CFT<3 seconds to digits 1-5 b/l. Skin temperature warm to warm from proximal to distal Neuro: Epicritic and protective sensation grossly intact Derm: Multiple superficial abrasions not to b/l LE. No erythema, drainage, malodor or other clincal signs of infection noted to abrasions at this time. Diffuse areas of hypertrophic macerated skin noted to plantar aspect of b/l feet and in interdigital spaces. Chronic onychomycosis and tinea pedis noted to distal digits and nails. Nails noted to be hypertrophic, elongated and dystrophic as well. MSK: Mild POP noted diffusely to b/l LE. ROM at b/l ankle and STJ limited. Muscle strength 4/5 to all major muscle groups secondary to b/l LE pain. - Neurological Exam Neurological exam: Oriented x3 - Psychiatric Exam Psychiatric exam: Normal Affect, Normal Mood Results - Vital Signs Recent Vital Signs: Last Vital Signs Temp 97.6 F 01/14/17 09:41 Pulse 72 01/14/17 09:41 Resp 17 01/14/17 09:41 BP 152/83 H 01/14/17 09:41 Pulse Ox 97 01/14/17 10:31 Assessment & Plan - Assessment and Plan (Free Text) Assessment: 56 year old male with clinical signs most consistent with painful tinea pedis bilaterally. Plan: Patient examined and evaluated Chart and vitals reviewed Macerated webspaces and plantar aspect of the foot cleansed with betadine Rx for clortrimazole given Clean pair of socks given to patient Patient instructed to keep feet clean, and dry, and change socks daily Patient to follow up in Podiatry clinic - Date & Time Date: 01/14/17 Time: 10:50
== END 2017-01-14 11:14 | disposition home or self-care (01) ==
LOC: H.ER 09:34
DX: B35.3 Tinea pedis (principal); F20.9 Schizophrenia, unspecified; F32.9 Major depressive disorder, single episode, unspecified

== ENCOUNTER 2017-01-16 14:10 | Emergency (ER) | payer MEDICAID ==
[2017-01-16 14:11] VITALS: BMI 21.5
[2017-01-16 14:17] VITALS: BP 139/74; PULSE 83; RESP 18; TEMP 98; O2SAT 97
--- NOTE | 2017-01-16 14:30 | ED PDOC ---
Lower Extremity Pain/Injury Time Seen by Provider: 01/16/17 14:17 Chief Complaint (Nursing): Lower Extremity Problem/Injury Chief Complaint (Provider): Bilat foot rash History Per: Patient History/Exam Limitations: no limitations Current Symptoms Are (Timing): Still Present Additional Complaint(s): Nazario Lopez is a 56 y/o non-domiciled male, with a past medical history of chronic fungal infection to his feet bilaterally, presenting today to the ER on 01/16/2017 with a rash on his feet that has been exacerbated because of the rain. He states the rain worsened the rash because he has been walking around with wet socks. Denies any fever or chills. Patient is able to ambulate without limitations. Past Medical History Reviewed: Historical Data, Nursing Documentation, Vital Signs Vital Signs: Last Vital Signs Temp 98.0 F 01/16/17 14:14 Pulse 83 01/16/17 14:14 Resp 18 01/16/17 14:14 BP 139/74 01/16/17 14:14 Pulse Ox 97 01/16/17 14:14 - Medical History PMH: Depression, Schizophrenia, Sexually Transmitted Disease - Surgical History Surgical History: No Surg Hx - Family History Family History: States: No Known Family Hx - Living Arrangements Living Arrangements: Other (non-domiciled) - Social History Current smoker - smoking cessation education provided: Yes Alcohol: None Drugs: Denies - Home Medications Home Medications: Ambulatory Orders Medication Instructions Recorded Clotrimazole 1% Cream [Lotrimin 1% 15 applic EXT BID #1 tube 01/14/17 CREAM] Clotrimazole 1% Cream [Lotrimin 1% 15 applic TOP BID #1 tube 01/16/17 CREAM] - Allergies Allergies/Adverse Reactions: Allergies Allergy/AdvReac Type Severity Reaction Status Date / Time No Known Allergies Allergy Verified 01/14/17 09:53 Wells Criteria for PE - Wells Criteria for Pulmonary Embolism Clinical Signs and Symptoms of DVT: No P.E is #1 Diagnosis, or Equally Likely: No Heart Rate >100: No Immobilization at least 3 days;Surgery previous 4 weeks: No Previous, objectively diagnosed PE or DVT: No Hemoptysis: No Malignancy w/treatment within 6 months, or palliative: No Total Score: 0 Review of Systems ROS Statement: Except As Marked, All Systems Reviewed And Found Negative Constitutional: Negative for: Fever, Chills Skin: Positive for: Rash ((+) feet b/l ) Physical Exam - Reviewed Nursing Documentation Reviewed: Yes Vital Signs Reviewed: Yes - Physical Exam Appears: Positive for: Non-toxic, No Acute Distress Head Exam: Positive for: ATRAUMATIC, NORMOCEPHALIC Eye Exam: Positive for: Normal appearance Neck: Positive for: Painless ROM, Supple Cardiovascular/Chest: Positive for: Regular Rate, Rhythm. Negative for: Murmur Respiratory: Positive for: Normal Breath Sounds. Negative for: Respiratory Distress Extremity: Positive for: Normal ROM, Other (Chronic tinea pedis noted to both feet with no acute suppurative infection ). Negative for: Deformity, Swelling Neurologic/Psych: Positive for: Alert, Oriented, Gait (steady ). Negative for: Motor/Sensory Deficits - ECG O2 Sat by Pulse Oximetry: 97 Pulse Ox Interpretation: Normal Medical Decision Making Medical Decision Makin:17 Initial Impression- 56 y/o male with bilat foot rash Previous records reviewed. Patient was seen for same complaint 2 days ago and was seen in ED by podiatry who recommended rx lotrimin cream and follow up with clinic. Patient states he lost the rx for the cream given on his last visit. Plan: Pt will be given Clotrimazole cream and referred to the podiatry clinic for a follow-up. Patient was also given new pair of socks. Documented by Anthony Paige, acting as a scribe for Cristal Avila PA-C All medical record entries made by the Scribe were at my direction and personally dictated by me. I have reviewed the chart and agree that the record accurately reflects my personal performance of the history, physical exam, medical decision making, and the department course for this patient. I have also personally directed, reviewed, and agree with the discharge instructions and disposition. Disposition - Clinical Impression Clinical Impression: Fungal infection of foot - Patient ED Disposition Is Patient to be Admitted: No Counseled Patient/Family Regarding: Diagnosis, Need For Followup, Rx Given - Disposition Referrals: Podiatry Clinic [Outside] Disposition: Routine/Home Disposition Time: 14:37 Condition: STABLE Additional Instructions: Apply cream as directed. Follow up with podiatry clinic in 2-3 days. Prescriptions: Clotrimazole 1% Cream [Lotrimin 1% CREAM] 15 applic TOP BID #1 tube Instructions: Tinea Pedis (ED) Forms: [employer] (Estonian)
== END 2017-01-16 14:42 | disposition home or self-care (01) ==
LOC: H.ER 14:10
DX: B35.3 Tinea pedis (principal)

== ENCOUNTER 2017-01-24 16:19 | Emergency (ER) | payer MEDICAID ==
[2017-01-24 16:19] VITALS: BMI 21.5
[2017-01-24 16:28] VITALS: PULSE 76; RESP 16; TEMP 97.6; O2SAT 100
--- NOTE | 2017-01-24 17:24 | ED PDOC ---
HPI: CCC, URI, Sore Throat Time Seen by Provider: 01/24/17 16:28 Chief Complaint (Nursing): ENT Problem Chief Complaint (Provider): Sore throat History Per: Patient History/Exam Limitations: no limitations Have you had recent travel within the past 21 days to any of the following countries: [place], [place], [place] or [place]?: No Onset/Duration Of Symptoms: Days Current Symptoms Are (Timing): Gone Now Location Of Pain: Throat Sick Contacts (Context): None Associated Symptoms: denies: Fever Additional Complaint(s): The patient is a 56yo male, presents to the ED complaining of throat irritation because he felt as if there was " a vegetable stuck" in his throat. He denies any throat. Patient currently states he does not have any pain or discomfort at present but is feeling a little anxious. No other medical complaints. Past Medical History Reviewed: Historical Data, Nursing Documentation, Vital Signs Vital Signs: Last Vital Signs Temp 97.6 F 01/24/17 16:25 Pulse 76 01/24/17 16:25 Resp 16 01/24/17 16:25 BP 157/78 H 01/24/17 16:25 Pulse Ox 100 01/24/17 16:25 - Medical History PMH: Depression, Schizophrenia, Sexually Transmitted Disease Denies: Diabetes, Hepatitis, HIV, HTN, Chronic Kidney Disease, Seizures - Surgical History Surgical History: No Surg Hx - Family History Family History: States: Unknown Family Hx - Immunization History Hx Tetanus Toxoid Vaccination: Yes Hx Influenza Vaccination: No Hx Pneumococcal Vaccination: No - Home Medications Home Medications: Ambulatory Orders Medication Instructions Recorded Clotrimazole 1% Cream [Lotrimin 1% 15 applic EXT BID #1 tube 01/14/17 CREAM] Clotrimazole 1% Cream [Lotrimin 1% 15 applic TOP BID #1 tube 01/16/17 CREAM] - Allergies Allergies/Adverse Reactions: Allergies Allergy/AdvReac Type Severity Reaction Status Date / Time No Known Allergies Allergy Verified 01/14/17 09:53 Review of Systems ROS Statement: Except As Marked, All Systems Reviewed And Found Negative Constitutional: Negative for: Fever ENT: Positive for: Throat Pain (thought he had vegetable in his throat, symptoms gone now) Psych: Positive for: Anxiety Physical Exam - Reviewed Nursing Documentation Reviewed: Yes Vital Signs Reviewed: Yes - Physical Exam Appears: Positive for: Non-toxic Head Exam: Positive for: ATRAUMATIC Skin: Positive for: Normal Color Eye Exam: Positive for: Normal appearance ENT: Positive for: Normal ENT Inspection Neck: Positive for: Normal Respiratory: Negative for: Respiratory Distress Neurologic/Psych: Positive for: Alert, Oriented. Negative for: Motor/Sensory Deficits - ECG O2 Sat by Pulse Oximetry: 100 (RA) Pulse Ox Interpretation: Normal Medical Decision Making Medical Decision Making: Time: 1700 Impression: Throat irritation Plan: -- Ativan 1 mg PO Reassess Scribe Attestation: Documented by Leia Lassiter acting as a scribe for ELIZABETH Solano Provider Attestation: All medical record entries made by the Scribe were at my direction and personally dictated by me. I have reviewed the chart and agree that the record accurately reflects my personal performance of the history, physical exam, medical decision making, and the department course for this patient. I have also personally directed, reviewed, and agree with the discharge instructions and disposition. Disposition - Disposition Forms: [employer] (Saudi Arabian)
[2017-01-24 17:35] VITALS: BP 139/87
== END 2017-01-24 17:34 | disposition home or self-care (01) ==
LOC: H.ER 16:19
DX: J02.9 Acute pharyngitis, unspecified (principal)

== ENCOUNTER 2017-02-07 23:47 | Emergency (ER) | payer MEDICAID ==
[2017-02-07 23:48] VITALS: BMI 21.5
[2017-02-07 23:56] VITALS: BP 122/67; PULSE 86; RESP 16; TEMP 98; O2SAT 100
--- NOTE | 2017-02-08 00:36 | ED PDOC ---
HPI: Abdomen Time Seen by Provider: 02/08/17 00:01 Chief Complaint (Nursing): Abdominal Pain Chief Complaint (Provider): Abdominal pain History Per: Patient History/Exam Limitations: no limitations Onset/Duration Of Symptoms: Days Outside of [place] travel?: No Current Symptoms Are (Timing): Still Present Location Of Pain/Discomfort: Diffuse Additional History Per: Patient Additional Complaint(s): The patient is a 56yo male, well known to the ED by staff and provider for multiple visits, presents to the ED today with complaints of abdominal pain present for the past week. Patient also reports he is tired as he has been outside in the rain all day today; patient states he needs a dry place to stay and is currently asking for food. Patient was sleeping under the blanket in room and upon examination, had to be physically aroused to answer questions. He does not offer any other medical complaints. Past Medical History Reviewed: Historical Data, Nursing Documentation, Vital Signs Vital Signs: Last Vital Signs Temp 98.0 F 02/07/17 23:54 Pulse 86 02/07/17 23:54 Resp 16 02/07/17 23:54 BP 122/67 02/07/17 23:54 Pulse Ox 100 02/08/17 03:02 - Medical History PMH: Depression, Schizophrenia, Sexually Transmitted Disease Denies: Diabetes, Hepatitis, HIV, HTN, Chronic Kidney Disease, Seizures - Surgical History Surgical History: No Surg Hx - Family History Family History: States: Unknown Family Hx - Immunization History Hx Tetanus Toxoid Vaccination: Yes Hx Influenza Vaccination: No Hx Pneumococcal Vaccination: No - Home Medications Home Medications: Ambulatory Orders Medication Instructions Recorded Clotrimazole 1% Cream [Lotrimin 1% 15 applic EXT BID #1 tube 01/14/17 CREAM] Clotrimazole 1% Cream [Lotrimin 1% 15 applic TOP BID #1 tube 01/16/17 CREAM] - Allergies Allergies/Adverse Reactions: Allergies Allergy/AdvReac Type Severity Reaction Status Date / Time No Known Allergies Allergy Verified 02/07/17 23:54 Review of Systems ROS Statement: Except As Marked, All Systems Reviewed And Found Negative Gastrointestinal: Positive for: Abdominal Pain Physical Exam - Reviewed Nursing Documentation Reviewed: Yes Vital Signs Reviewed: Yes - Physical Exam Appears: Positive for: Non-toxic, No Acute Distress. Negative for: Well ( patient with poor hygeine, disheveled) Head Exam: Positive for: ATRAUMATIC, NORMAL INSPECTION, NORMOCEPHALIC Skin: Positive for: Normal Color Eye Exam: Positive for: Normal appearance Neck: Positive for: Normal Cardiovascular/Chest: Positive for: Regular Rate, Rhythm Respiratory: Positive for: Normal Breath Sounds. Negative for: Respiratory Distress Gastrointestinal/Abdominal: Positive for: Soft. Negative for: Tenderness Neurologic/Psych: Positive for: Alert, Oriented. Negative for: Motor/Sensory Deficits - ECG O2 Sat by Pulse Oximetry: 100 (RA) Pulse Ox Interpretation: Normal Medical Decision Making Medical Decision Making: Time: 9 Impression: Homelessness Plan: -- Maalox plus 30ml PO -- Pepcid 20 mg PO -- Lidocaine 2% viscous 15ml PO Reassess Scribe Attestation: Documented by Leia Lassiter acting as a scribe for Yevgeniy Morris MD. Provider Attestation: All medical record entries made by the Scribe were at my direction and personally dictated by me. I have reviewed the chart and agree that the record accurately reflects my personal performance of the history, physical exam, medical decision making, and the department course for this patient. I have also personally directed, reviewed, and agree with the discharge instructions and disposition. ED OBSERVATION Date of observation admission: 02/08/17 Time of observation admission: 01:00 - Progress Note Progress Note: 02/08/17 01:00 Patient resting in room, vitals stable. 02/08/17 02:30 Patient resting in room, vitals stable. Disposition - Clinical Impression Clinical Impression: Homelessness - Disposition Disposition Time: 04:56 Condition: STABLE Instructions: Acute Abdominal Pain (ED) Forms: [employer] (Luxembourgish)
[2017-02-08] MEDS ORDERED: Alum-Mag Hydrox-Simethicone Susp (30 mL) ONE (01:01)
[2017-02-08] MEDS: Alum-Mag Hydrox-Simethicone Susp (30 mL) PO STA (01:05)
== END 2017-02-08 05:18 | disposition home or self-care (01) ==
LOC: H.ER 23:47
DX: R10.9 Unspecified abdominal pain (principal); Z59.0 Homelessness; F20.9 Schizophrenia, unspecified; F32.9 Major depressive disorder, single episode, unspecified

== ENCOUNTER 2017-02-12 05:34 | Emergency (ER) | payer MEDICAID ==
[2017-02-12 05:34] VITALS: BMI 21.5
--- NOTE | 2017-02-12 05:56 | ED PDOC ---
HPI: Abdomen Time Seen by Provider: 02/12/17 05:47 Chief Complaint (Provider): burning abdominal pain History Per: Patient History/Exam Limitations: no limitations Onset/Duration Of Symptoms: Days (2 weeks), Waxing/Waning, Intermittent Episodes Outside of US travel?: No Current Symptoms Are (Timing): Still Present Context: Other (hunger) Severity: Moderate Pain Scale Rating Of: 5 Associated Symptoms: denies: Fever, Nausea, Vomiting, Diarrhea, Constipation, Urinary Symptoms Exacerbating Factors: Other (hunger) Alleviating Factors: Other (food) Additional History Per: Patient Additional Complaint(s): 56 y/o pleasant homeless male, well known to the [facility] ER presenting with burning intermittent abdominal pain for the past 2 weeks. Not associated with n/ v/d/bloody stools/f/c/sob/cp. Pain aggravated by hunger, alleviated by antacids and food. He does not offer any other medical complaints. Past Medical History Vital Signs: Last Vital Signs Temp 98.7 F 02/12/17 06:00 Pulse 97 H 02/12/17 06:00 Resp 16 02/12/17 06:00 BP 152/87 H 02/12/17 06:00 Pulse Ox 100 02/12/17 06:00 - Medical History PMH: Depression, Schizophrenia, Sexually Transmitted Disease Denies: Diabetes, Hepatitis, HIV, HTN, Chronic Kidney Disease, Seizures - Family History Family History: States: Unknown Family Hx - Immunization History Hx Tetanus Toxoid Vaccination: Yes Hx Influenza Vaccination: No Hx Pneumococcal Vaccination: No - Home Medications Home Medications: Ambulatory Orders Medication Instructions Recorded Clotrimazole 1% Cream [Lotrimin 1% 15 applic EXT BID #1 tube 01/14/17 CREAM] Clotrimazole 1% Cream [Lotrimin 1% 15 applic TOP BID #1 tube 01/16/17 CREAM] - Allergies Allergies/Adverse Reactions: Allergies Allergy/AdvReac Type Severity Reaction Status Date / Time No Known Allergies Allergy Verified 02/07/17 23:54 Review of Systems ROS Statement: Except As Marked, All Systems Reviewed And Found Negative Physical Exam - Reviewed Vital Signs Reviewed: Yes - Physical Exam Appears: Positive for: Non-toxic, No Acute Distress (disheveled) Head Exam: Positive for: ATRAUMATIC Cardiovascular/Chest: Positive for: Regular Rate, Rhythm Respiratory: Positive for: Normal Breath Sounds Gastrointestinal/Abdominal: Positive for: Bowel Sounds, Soft. Negative for: Tenderness, Distended, Guarding Back: Negative for: L CVA Tenderness, R CVA Tenderness - Progress ED Course And Treament: Burning abdominal pain pepcid 40 mg PO Maalox plus 30 ml sandwiches given as patient is homeless Re-evaluation Time: 06:20 Condition: Re-examined, Improving,but remains with symptoms Disposition - Clinical Impression Clinical Impression: Abdominal pain, Gastritis - Patient ED Disposition Is Patient to be Admitted: No - Disposition Referrals: Vonda Pham MD [Medical Doctor] - Disposition: Routine/Home Disposition Time: 08:30 Condition: STABLE Additional Instructions: Patient urged to make appt at [facility] for further follow up of abdominal pain as outpatient Forms: [employer] (Monegasque) Print Language: PORTUGUESE
[2017-02-12 06:03] VITALS: O2SAT 100
[2017-02-12] MEDS ORDERED: Alum-Mag Hydrox-Simethicone Susp (30 mL) PO ONE (06:07)
[2017-02-12 08:42] VITALS: BP 130/75; PULSE 80; RESP 18; TEMP 98
== END 2017-02-12 08:42 | disposition home or self-care (01) ==
LOC: H.ER 05:34
DX: K29.70 Gastritis, unspecified, without bleeding (principal); F20.9 Schizophrenia, unspecified; F32.9 Major depressive disorder, single episode, unspecified

== ENCOUNTER 2017-02-16 05:53 | Emergency (ER) | payer MEDICAID ==
[2017-02-16 05:53] VITALS: BMI 21.5
[2017-02-16 06:24] VITALS: RESP 18; O2SAT 99
--- NOTE | 2017-02-16 06:46 | ED PDOC ---
HPI: Abdomen Chief Complaint (Provider): Abdominal pain History Per: Patient History/Exam Limitations: no limitations Onset/Duration Of Symptoms: Persistent Outside of US travel?: No Current Symptoms Are (Timing): Still Present Additional History Per: Patient <Eloisa Kee - Last Filed: 02/16/17 06:46> <Kaushal Gottlieb Jr. - Last Filed: 02/16/17 08:37> Time Seen by Provider: 02/16/17 06:28 Chief Complaint (Nursing): Abdominal Pain Additional Complaint(s): The patient is a 56yo male, well known to the ED by staff and provider for multiple visits, presents to the ED today with complaints of abdominal pain present for the past week. Pt also reports he has a dry cough and sore throat, similar to his previous presentations. He denies any nausea, vomiting, diarrhea , fever, chills. Pt is requesting food as well as place to sleep. He does not offer any other medical complaints. (ChilangoEloisa Johnson) Past Medical History Reviewed: Historical Data, Nursing Documentation, Vital Signs - Medical History PMH: Depression, Schizophrenia, Sexually Transmitted Disease Denies: Diabetes, Hepatitis, HIV, HTN, Chronic Kidney Disease, Seizures - Surgical History Surgical History: No Surg Hx - Family History Family History: States: Unknown Family Hx - Social History Current smoker - smoking cessation education provided: No Alcohol: None Drugs: Denies - Immunization History Hx Tetanus Toxoid Vaccination: Yes Hx Influenza Vaccination: No Hx Pneumococcal Vaccination: No <Jhonathan Keetona Johnson - Last Filed: 02/16/17 06:46> <Kaushal Gottlieb Jr. - Last Filed: 02/16/17 08:37> Vital Signs: Last Vital Signs Temp 98.7 F 02/16/17 06:20 Pulse 86 02/16/17 06:20 Resp 18 02/16/17 06:20 BP 143/81 02/16/17 06:20 Pulse Ox 99 02/16/17 06:58 - Home Medications Home Medications: Ambulatory Orders Medication Instructions Recorded Clotrimazole 1% Cream [Lotrimin 1% 15 applic EXT BID #1 tube 01/14/17 CREAM] Clotrimazole 1% Cream [Lotrimin 1% 15 applic TOP BID #1 tube 01/16/17 CREAM] Ranitidine HCl [Zantac] 1 tab PO BID #30 tablet 02/16/17 - Allergies Allergies/Adverse Reactions: Allergies Allergy/AdvReac Type Severity Reaction Status Date / Time No Known Allergies Allergy Verified 02/07/17 23:54 Review of Systems ROS Statement: Except As Marked, All Systems Reviewed And Found Negative Constitutional: Negative for: Fever, Chills ENT: Positive for: Throat Pain Gastrointestinal: Positive for: Abdominal Pain. Negative for: Nausea, Vomiting , Diarrhea <Eloisa Kee A - Last Filed: 02/16/17 06:46> Physical Exam - Reviewed Nursing Documentation Reviewed: Yes Vital Signs Reviewed: Yes - Physical Exam Appears: Positive for: Non-toxic. Negative for: Well (disheveled) Head Exam: Positive for: ATRAUMATIC, NORMAL INSPECTION, NORMOCEPHALIC Skin: Positive for: Normal Color Eye Exam: Positive for: Normal appearance ENT: Positive for: Normal ENT Inspection. Negative for: Pharyngeal Erythema, Tonsillar Exudate, Tonsillar Swelling Neck: Positive for: Normal Cardiovascular/Chest: Positive for: Regular Rate, Rhythm Respiratory: Positive for: Normal Breath Sounds. Negative for: Respiratory Distress Gastrointestinal/Abdominal: Positive for: Normal Exam, Soft. Negative for: Tenderness Extremity: Positive for: Normal ROM. Negative for: Deformity, Swelling Neurologic/Psych: Positive for: Alert, Oriented. Negative for: Motor/Sensory Deficits <Eloisa Kee A - Last Filed: 02/16/17 06:46> - ECG O2 Sat by Pulse Oximetry: 99 (RA) Pulse Ox Interpretation: Normal <Eloisa Kee A - Last Filed: 02/16/17 06:46> Medical Decision Making <Eloisa Kee A - Last Filed: 02/16/17 06:46> <Kaushal Gottlieb Jr. - Last Filed: 02/16/17 08:37> Medical Decision Making: Time: 0640 Impression: Chronic abdominal pain Plan: -- Pepcid 20 mg PO -- Maalox 30 ml PO --Reassess Time: 0700 Pt to be signed out to Dr. Gottlieb pending re-evaluation and disposition. Scribe Attestation: Documented by Leia Lassiter acting as a scribe for Eloisa Kee MD Provider Scribe Attestation: All medical record entries made by the Scribe were at my direction and personally dictated by me. I have reviewed the chart and agree that the record accurately reflects my personal performance of the history, physical exam, medical decision making, and the department course for this patient. I have also personally directed, reviewed, and agree with the discharge instructions and disposition. (Eloisa Kee) Disposition - Patient ED Disposition Is Patient to be Admitted: Transfer of Care - Disposition Disposition: Transfer of Care Disposition Time: 07:00 Patient Signed Over To: Kaushal Gottlieb Jr. Handoff Comments: Pending reeval and dispo <Eloisa Kee - Last Filed: 02/16/17 06:46> - Patient ED Disposition Is Patient to be Admitted: No Counseled Patient/Family Regarding: Diagnosis, Need For Followup - Disposition Disposition: Routine/Home - POA Present On Arrival: None <Kaushal Gottlieb Jr. - Last Filed: 02/16/17 08:37> - Clinical Impression Clinical Impression: Abdominal discomfort - Disposition Referrals: [facility] [Outside] Condition: STABLE Additional Instructions: Mr. Cooley, thank you for letting us take care of you today. Return to the ER if your symptoms worsen, or if any problems. Take the medication listed below as prescribed. Call the [facility] at the phone number listed below to make a follow up appointment. Prescriptions: Ranitidine HCl [Zantac] 1 tab PO BID #30 tablet Instructions: Abdominal Pain (ED) Print Language: SIER[place] LEONEAN
[2017-02-16] MEDS ORDERED: Alum-Mag Hydrox-Simethicone Susp (30 mL) PO ONE (06:56)
[2017-02-16] MEDS ORDERED: Alum-Mag Hydrox-Simethicone Susp (30 mL) ONE (07:10)
[2017-02-16 08:47] VITALS: BP 138/78; PULSE 8; TEMP 98
== END 2017-02-16 08:50 | disposition home or self-care (01) ==
LOC: H.ER 05:53
DX: R10.9 Unspecified abdominal pain (principal)

== ENCOUNTER 2017-03-25 20:07 | Emergency (ER) | payer MEDICAID ==
[2017-03-25 20:07] VITALS: BMI 21.5
[2017-03-25 20:12] VITALS: BP 119/55; PULSE 96; RESP 18; O2SAT 99
--- NOTE | 2017-03-25 20:24 | ED PDOC ---
HPI: General Adult Time Seen by Provider: 03/25/17 20:13 Chief Complaint (Nursing): Lower Extremity Problem/Injury History Per: Patient Onset/Duration Of Symptoms: Unknown Current Symptoms Are (Timing): Still Present Additional History Per: Patient Additional Complaint(s): 57 y/o male who states that he is homeless. He complains that he has difficulty finding a restroom and after some time is unable to hold his urine. When he has ready access to a facility, the patient denies any trouble with holding urine. Denies any leg swelling, but reports that his pants are heavy secondary to being soaked with urine. Denies any back pain, abdominal pain, dysuria, hematuria, fecal incontinence, calf pain, or calf swelling. No other complaints at this time. Pt. is requesting food and clothing. Past Medical History Reviewed: Historical Data, Nursing Documentation, Vital Signs Vital Signs: Last Vital Signs Temp Pulse 96 H 03/25/17 20:09 Resp 18 03/25/17 20:09 BP 119/55 L 03/25/17 20:09 Pulse Ox 99 03/25/17 21:20 - Medical History PMH: Depression, Schizophrenia, Sexually Transmitted Disease Denies: Diabetes, Hepatitis, HIV, HTN, Chronic Kidney Disease, Seizures - Family History Family History: States: No Known Family Hx - Immunization History Hx Tetanus Toxoid Vaccination: Yes Hx Influenza Vaccination: No Hx Pneumococcal Vaccination: No - Home Medications Home Medications: Ambulatory Orders Medication Instructions Recorded Clotrimazole 1% Cream [Lotrimin 1% 15 applic EXT BID #1 tube 01/14/17 CREAM] Clotrimazole 1% Cream [Lotrimin 1% 15 applic TOP BID #1 tube 01/16/17 CREAM] Ranitidine HCl [Zantac] 1 tab PO BID #30 tablet 02/16/17 - Allergies Allergies/Adverse Reactions: Allergies Allergy/AdvReac Type Severity Reaction Status Date / Time No Known Allergies Allergy Verified 02/07/17 23:54 Review of Systems ROS Statement: Except As Marked, All Systems Reviewed And Found Negative Constitutional: Negative for: Fever Gastrointestinal: Negative for: Abdominal Pain Genitourinary Male: Negative for: Incontinence, Hematuria Musculoskeletal: Negative for: Back Pain, Leg Pain Physical Exam - Physical Exam Appears: Positive for: No Acute Distress (disheveled) Skin: Positive for: Normal Color, Warm, Dry Pulses-Dorsalis Pedis (L): 2+ Pulses-Dorsalis Pedis (R): 2+ Gastrointestinal/Abdominal: Positive for: Normal Exam, Bowel Sounds, Soft. Negative for: Tenderness Back: Positive for: Normal Inspection. Negative for: L CVA Tenderness, R CVA Tenderness Extremity: Positive for: Normal ROM. Negative for: Tenderness, Calf Tenderness (b/l), Deformity, Swelling - Laboratory Results Urine dip results: Positive for: Ketones (trace). Negative for: Leukocyte Esterase, Blood, Nitrate, Glucose, Bilirubin, Protein - ECG O2 Sat by Pulse Oximetry: 99 Medical Decision Making Medical Decision Making: Plan: - UA ~ Scribe Attestation: Documented by~Ella Hairston, acting as a scribe for ELIZABETH Morgan. Provider Scribe Attestation: All medical record entries made by the Scribe were at my direction and personally dictated by me. I have reviewed the chart and agree that the record accurately reflects my personal performance of the history, physical exam, medical decision making, and the department course for this patient. I have also personally directed, reviewed, and agree with the discharge instructions and disposition. Disposition - Clinical Impression Clinical Impression: Homeless - Patient ED Disposition Is Patient to be Admitted: No - Disposition Disposition: Routine/Home Disposition Time: 21:19 Condition: STABLE Instructions: Normal Exam (ED) Forms: [employer] (Greenlandic)
== END 2017-03-25 21:54 | disposition home or self-care (01) ==
LOC: H.ER 20:07
DX: Z59.0 Homelessness (principal); Z86.59 Personal history of other mental and behavioral disorders

== ENCOUNTER 2017-03-27 06:07 | Emergency (ER) | payer MEDICAID ==
[2017-03-27 06:07] VITALS: BMI 21.5
--- NOTE | 2017-03-27 06:31 | ED PDOC ---
HPI: Male Pain Time Seen by Provider: 03/27/17 06:17 Chief Complaint (Nursing): Male Genitourinary Chief Complaint (Provider): urinary incontinence, abdominal pain, and chills for the last two days History Per: Patient History/Exam Limitations: no limitations Onset/Duration Of Symptoms: Days (2) Current Symptoms Are (Timing): Still Present Severity: Moderate Quality Of Discomfort: "Pain" Associated Symptoms: Chills, Back Pain, Urinary Symptoms. denies: Fever, Nausea , Vomiting, Diarrhea, Loss Of Appetite, Chest Pain, Constipation Alleviating Factors: None Additional History Per: Patient Additional Complaint(s): 57 y/o male who is well known for multiple visits. Today he presents complaining of urinary incontinence, back pain, abdominal pain, and chills for the last two days. Patient denies fever, vomiting, nausea, or diarrhea. He also complains of nonproductive cough and also has a history of COPD. Past Medical History Vital Signs: Last Vital Signs Temp 97.9 F 03/27/17 06:11 Pulse 69 03/27/17 06:11 Resp 16 03/27/17 06:11 BP 132/69 03/27/17 06:11 Pulse Ox 96 03/27/17 06:11 - Medical History PMH: COPD, Depression, Schizophrenia, Sexually Transmitted Disease Denies: Diabetes, Hepatitis, HIV, HTN, Chronic Kidney Disease, Seizures - Surgical History Surgical History: No Surg Hx - Family History Family History: States: Unknown Family Hx - Living Arrangements Living Arrangements: Other (Homeless) - Social History Current smoker - smoking cessation education provided: Yes - Immunization History Hx Tetanus Toxoid Vaccination: Yes Hx Influenza Vaccination: No Hx Pneumococcal Vaccination: No - Home Medications Home Medications: Ambulatory Orders Medication Instructions Recorded Clotrimazole 1% Cream [Lotrimin 1% 15 applic EXT BID #1 tube 01/14/17 CREAM] Clotrimazole 1% Cream [Lotrimin 1% 15 applic TOP BID #1 tube 01/16/17 CREAM] Ranitidine HCl [Zantac] 1 tab PO BID #30 tablet 02/16/17 - Allergies Allergies/Adverse Reactions: Allergies Allergy/AdvReac Type Severity Reaction Status Date / Time No Known Allergies Allergy Verified 02/07/17 23:54 Review of Systems ROS Statement: Except As Marked, All Systems Reviewed And Found Negative Constitutional: Positive for: Chills Gastrointestinal: Positive for: Abdominal Pain Genitourinary Male: Positive for: Incontinence Musculoskeletal: Positive for: Back Pain Physical Exam - Reviewed Nursing Documentation Reviewed: Yes Vital Signs Reviewed: Yes - Physical Exam Appears: Positive for: No Acute Distress (Poor hygiene ) Head Exam: Positive for: ATRAUMATIC, NORMAL INSPECTION, NORMOCEPHALIC Skin: Positive for: Normal Color, Warm, DRY Eye Exam: Positive for: EOMI, Normal appearance, PERRL ENT: Positive for: Normal ENT Inspection Neck: Positive for: Normal, Painless ROM Cardiovascular/Chest: Positive for: Regular Rate, Rhythm Respiratory: Positive for: CNT, Normal Breath Sounds Gastrointestinal/Abdominal: Positive for: Normal Exam, Bowel Sounds, Soft, Tenderness (suprapubic) Back: Positive for: Normal Inspection, R CVA Tenderness Extremity: Positive for: Normal ROM Neurologic/Psych: Positive for: Alert, Oriented - ECG O2 Sat by Pulse Oximetry: 96 (RA) Pulse Ox Interpretation: Normal Medical Decision Making Medical Decision Making: Impression: 57 y/o male with urinary symptoms, chills, and abdominal pain Plan: - Labs - XR - EKG Patient s/o to Dr Kee at 7AM Scribe Attestation: Documented by Ella Hairston, acting as a scribe for Navjot Mehta MD Provider Scribe Attestation: All medical record entries made by the Scribe were at my direction and personally dictated by me. I have reviewed the chart and agree that the record accurately reflects my personal performance of the history, physical exam, medical decision making, and the department course for this patient. I have also personally directed, reviewed, and agree with the discharge instructions and disposition. Disposition - Clinical Impression Clinical Impression: Urinary incontinence - Patient ED Disposition Is Patient to be Admitted: Transfer of Care - Disposition Disposition: Transfer of Care Disposition Time: 07:00 Condition: FAIR Forms: [employer] ([place]) Patient Signed Over To: Eloisa Kee Handoff Comments: pending labs and re-evaluation
--- NOTE | 2017-03-27 07:28 | ED PDOC ---
- Laboratory Results Result Diagrams: 03/27/17 07:24 03/27/17 08:24 - ECG O2 Sat by Pulse Oximetry: 96 (RA) Pulse Ox Interpretation: Normal Medical Decision Making Medical Decision Makin:00 Patient signed over to me from Dr. Mehta. Labs pending. 09:01 Chest X-ray reviewed. Findings noted as follows: LUNGS: No active pulmonary disease. PLEURA: No significant pleural effusion identified, no pneumothorax apparent. CARDIOVASCULAR: Normal. OSSEOUS STRUCTURES: No significant abnormalities. VISUALIZED UPPER ABDOMEN: Normal. OTHER FINDINGS: None. IMPRESSION: No interval acute cardiopulmonary disease appreciated. 09:22 CT A/P scan reviewed. Findings noted as follows: LOWER THORAX: Unremarkable. LIVER: Unremarkable. No gross lesion or ductal dilatation. GALLBLADDER AND BILE DUCTS: Gallbladder is contracted. No radiodense cholelithiasis is related. PANCREAS: Unremarkable. No gross lesion or ductal dilatation. SPLEEN: Unremarkable. ADRENALS: Unremarkable. No massA 2.3 x 2.1 cm lucent lesion is seen at the left adrenal gland measuring -3 Hounsfield units compatible with a benign adrenal adenoma. The right adrenal gland appears normal. . KIDNEYS AND URETERS: Unremarkable. No hydronephrosis. No radiodense urolithiasis. VASCULATURE: Minimally atherosclerotic abdominal aorta and bilateral visualized iliofemoral arteries. BOWEL: Unremarkable. No obstruction. No gross mural thickening. APPENDIX: Retrocecal normal appearing appendix appreciated. PERITONEUM: Unremarkable. No free fluid. No free air. LYMPH NODES: Unremarkable. No enlarged lymph nodes. BLADDER: Inderjit bladder appears somewhat thick-walled and moderately distended. Consider potential cystitis though this is not definite. Clinically correlate further. No pericystic reactive change or peritoneal fluid collection identified. REPRODUCTIVE: Mildly enlarged prostate gland is appreciated. BONES: No acute fracture. OTHER FINDINGS: None. IMPRESSION: 1. No obstructive uropathy or radiodense urolithiasis appreciated bilaterally. 2. A mildly thick-walled urinary bladder is identified without pericystic reaction or radiodense urolithiasis associated. No focal nodularity or other masslike appearance. Clinically correlate nevertheless for potential cystitis though this is not definite. 3. Mildly enlarged prostate gland. 4. 2.3 cm benign adrenal adenoma left adrenal gland. 5. No bowel obstruction, mesenteric edema, ascites or free intrarenal gas. No definite colonic diverticulosis. Scribe Attestation: Documented by Alexus Harrington, acting as a scribe for Eloisa Kee MD. Provider Scribe Attestation: All medical record entries made by the Scribe were at my direction and personally dictated by me. I have reviewed the chart and agree that the record accurately reflects my personal performance of the history, physical exam, medical decision making, and the department course for this patient. I have also personally directed, reviewed, and agree with the discharge instructions and disposition. Disposition Doctor Will See Patient In The: Office Counseled Patient/Family Regarding: Studies Performed, Diagnosis, Need For Followup - Clinical Impression Clinical Impression: Urinary incontinence, Urinary tract infection - POA Present On Arrival: None - Disposition Referrals: [facility] [Outside] Disposition: Routine/Home Disposition Time: 12:38 Condition: GOOD Additional Instructions: Follow up with your PCP in 2-3 days. Prescriptions: Nitrofurantoin Macrocrystals [Macrobid] 100 mg PO BID #14 cap Instructions: Urinary Tract Infection in Men (DC)
[2017-03-27 07:56] LABS: BASO # 0.1 K/uL (0.0-0.2); BASO % 1.5 % (0.0-2.0); EOS # 0.2 K/uL (0.0-0.7); HEMATOCRIT 46.2 % (35.0-51.0); LYMPH # 2.3 K/uL (1.0-4.3); LYMPH % 32.9 % (20.0-40.0); MEAN CELL VOLUME 87.6 fl (80.0-94.0); MEAN CORPUSCULAR HEMOGLOBIN 29.5 pg (27.0-31.0); MEAN CORPUSCULAR HGB CONC 33.6 g/dL (33.0-37.0); MEAN PLATELET VOLUME 7.9 fl (7.2-11.7); MONO # 0.6 K/uL (0.0-0.8); MONO % 8.1 % (0.0-10.0); NEUT # 3.8 K/uL (1.8-7.0); NEUT % 54.5 % (50.0-75.0); NRBC % 0.1 % (0.0-0.0); RED CELL DISTRIBUTION WIDTH 13.6 % (11.5-14.5); WHITE BLOOD COUNT 6.9 K/uL (4.8-10.8)
[2017-03-27 08:11] LABS: ALB/GLOB RATIO 1.3 (1.0-2.1); ALKALINE PHOSPHATASE 73 U/L (38-126); ALT/SGPT 16 U/L (21-72); AST/SGOT 19 U/L (17-59); BILIRUBIN,TOTAL 0.2 mg/dl (0.2-1.3); BLOOD UREA NITROGEN 11 mg/dl (9-20); CARBON DIOXIDE 28 mmol/L (22-30); CHLORIDE 104 mmol/L (98-107); GFR AFRICAN-AMERICAN > 60; GLUCOSE,RANDOM 114 mg/dL (75-110); POTASSIUM 3.5 MMOL/L (3.6-5.0); SODIUM 142 mmol/l (132-148); TOTAL PROTEIN 6.4 G/DL (6.3-8.2)
[2017-03-27 08:31] LABS: RBC URINE < 1 /hpf (0-3); URINE BILIRUBIN NEGATIVE (NEGATIVE); URINE BLOOD NEGATIVE (NEGATIVE); URINE COLOR YELLOW (YELLOW); URINE GLUCOSE (UA) NEG (Normal); URINE KETONE NEGATIVE (NEGATIVE); URINE LEUKOCYTE ESTERASE NEG Leu/uL (Negative); URINE PROTEIN NEGATIVE (NEGATIVE); WBC URINE 1 /hpf (0-5)
--- NOTE | 2017-03-27 09:02 | RAD ---
HISTORY: chills COMPARISON: Chest radiograph 05/21/2013. FINDINGS: LUNGS: No active pulmonary disease. PLEURA: No significant pleural effusion identified, no pneumothorax apparent. CARDIOVASCULAR: Normal. OSSEOUS STRUCTURES: No significant abnormalities. VISUALIZED UPPER ABDOMEN: Normal. OTHER FINDINGS: None. IMPRESSION: No interval acute cardiopulmonary disease appreciated.
--- NOTE | 2017-03-27 09:23 | CT ---
PROCEDURE: CT Abdomen and Pelvis without intravenous contrast HISTORY: lower abd pain COMPARISON: None. TECHNIQUE: [employer] Helical CT of the abdomen and pelvis was performed without oral or intravenous contrast as per referring physician request . Contrast Dose: None Radiation dose: Total exam DLP = 1153.93 mGy-cm. This CT exam was performed using one or more of the following dose reduction techniques: Automated exposure control, adjustment of the mA and/or kV according to patient size, and/or use of iterative reconstruction technique. FINDINGS: LOWER THORAX: Unremarkable. LIVER: Unremarkable. No gross lesion or ductal dilatation. GALLBLADDER AND BILE DUCTS: Gallbladder is contracted. No radiodense cholelithiasis is related. PANCREAS: Unremarkable. No gross lesion or ductal dilatation. SPLEEN: Unremarkable. ADRENALS: Unremarkable. No massA 2.3 x 2.1 cm lucent lesion is seen at the left adrenal gland measuring -3 Hounsfield units compatible with a benign adrenal adenoma. The right adrenal gland appears normal. . KIDNEYS AND URETERS: Unremarkable. No hydronephrosis. No radiodense urolithiasis. VASCULATURE: Minimally atherosclerotic abdominal aorta and bilateral visualized iliofemoral arteries. BOWEL: Unremarkable. No obstruction. No gross mural thickening. APPENDIX: Retrocecal normal appearing appendix appreciated. PERITONEUM: Unremarkable. No free fluid. No free air. LYMPH NODES: Unremarkable. No enlarged lymph nodes. BLADDER: Inderjit bladder appears somewhat thick-walled and moderately distended. Consider potential cystitis though this is not definite. Clinically correlate further. No pericystic reactive change or peritoneal fluid collection identified. REPRODUCTIVE: Mildly enlarged prostate gland is appreciated. BONES: No acute fracture. OTHER FINDINGS: None. IMPRESSION: 1. No obstructive uropathy or radiodense urolithiasis appreciated bilaterally. 2. A mildly thick-walled urinary bladder is identified without pericystic reaction or radiodense urolithiasis associated. No focal nodularity or other masslike appearance. Clinically correlate nevertheless for potential cystitis though this is not definite. 3. Mildly enlarged prostate gland. 4. 2.3 cm benign adrenal adenoma left adrenal gland. 5. No bowel obstruction, mesenteric edema, ascites or free intrarenal gas. No definite colonic diverticulosis.
[2017-03-27 12:59] VITALS: BP 133/70; PULSE 76; RESP 18; TEMP 98; O2SAT 100
--- NOTE | 2017-03-27 16:30 | CARD ---
APPROVED REPORT EKG Measurement Heart [id number] <Conclusion> Normal sinus rhythm ? Lateral Wall HI Abnormal ECG
== END 2017-03-27 13:00 | disposition home or self-care (01) ==
LOC: H.ER 06:07
DX: R32 Unspecified urinary incontinence (principal); N39.0 Urinary tract infection, site not specified; F20.9 Schizophrenia, unspecified; F17.200 Nicotine dependence, unspecified, uncomplicated; F32.9 Major depressive disorder, single episode, unspecified; J44.9 Chronic obstructive pulmonary disease, unspecified

== ENCOUNTER 2017-03-28 01:44 | Emergency (ER) | payer MEDICAID ==
[2017-03-28 01:45] VITALS: BMI 21.5
[2017-03-28 02:02] VITALS: BP 138/78; PULSE 82; RESP 16; TEMP 98.7; O2SAT 98
--- NOTE | 2017-03-28 02:14 | ED PDOC ---
HPI: General Adult Time Seen by Provider: 03/28/17 02:12 Chief Complaint (Nursing): Upper Extremity Problem/Injury Chief Complaint (Provider): COLD History Per: Patient (57 Y/O MALE UNDOMICILED HERE FOR RETIREMENT. STATES HE HAS BEEN OUTSIDE IN COLD 'FOR TOO LONG' AND DOES NOT FEEL HE CAN WITHSTAND 12-14 HOURS.) Past Medical History Reviewed: Historical Data, Nursing Documentation, Vital Signs Vital Signs: Last Vital Signs Temp 98.7 F 03/28/17 02:01 Pulse 82 03/28/17 02:01 Resp 16 03/28/17 02:01 BP 138/78 03/28/17 02:01 Pulse Ox 98 03/28/17 02:01 - Medical History PMH: COPD, Depression, Schizophrenia, Sexually Transmitted Disease Denies: Diabetes, Hepatitis, HIV, HTN, Chronic Kidney Disease, Seizures - Family History Family History: States: Unknown Family Hx - Immunization History Hx Tetanus Toxoid Vaccination: Yes Hx Influenza Vaccination: No Hx Pneumococcal Vaccination: No - Home Medications Home Medications: Ambulatory Orders Medication Instructions Recorded Clotrimazole 1% Cream [Lotrimin 1% 15 applic EXT BID #1 tube 01/14/17 CREAM] Clotrimazole 1% Cream [Lotrimin 1% 15 applic TOP BID #1 tube 01/16/17 CREAM] Ranitidine HCl [Zantac] 1 tab PO BID #30 tablet 02/16/17 Nitrofurantoin Macrocrystals 100 mg PO BID #14 cap 03/27/17 [Macrobid] - Allergies Allergies/Adverse Reactions: Allergies Allergy/AdvReac Type Severity Reaction Status Date / Time No Known Allergies Allergy Verified 02/07/17 23:54 Review of Systems ROS Statement: Except As Marked, All Systems Reviewed And Found Negative Physical Exam - Reviewed Nursing Documentation Reviewed: Yes Vital Signs Reviewed: Yes - Physical Exam Appears: Positive for: Well, Non-toxic, No Acute Distress Head Exam: Positive for: ATRAUMATIC, NORMAL INSPECTION, NORMOCEPHALIC Skin: Positive for: Normal Color, Warm, DRY Eye Exam: Positive for: EOMI, Normal appearance, PERRL ENT: Positive for: Normal ENT Inspection Neck: Positive for: Normal, Painless ROM Cardiovascular/Chest: Positive for: Regular Rate, Rhythm Respiratory: Positive for: CNT, Normal Breath Sounds Gastrointestinal/Abdominal: Positive for: Normal Exam, Bowel Sounds, Soft Back: Positive for: Normal Inspection Extremity: Positive for: Normal ROM Neurologic/Psych: Positive for: Alert, Oriented - ECG O2 Sat by Pulse Oximetry: 98 Disposition - Clinical Impression Clinical Impression: Homeless - Patient ED Disposition Is Patient to be Admitted: No - Disposition Disposition: Routine/Home Disposition Time: 02:19 Condition: GOOD Instructions: Normal Exam (ED)
== END 2017-03-28 05:16 | disposition home or self-care (01) ==
LOC: H.ER 01:44
DX: Z59.0 Homelessness (principal); F20.9 Schizophrenia, unspecified; F32.9 Major depressive disorder, single episode, unspecified; J44.9 Chronic obstructive pulmonary disease, unspecified

== ENCOUNTER 2017-04-04 21:58 | Emergency (ER) | payer MEDICAID ==
[2017-04-04 21:59] VITALS: BMI 21.5
[2017-04-04 22:18] VITALS: BP 136/80; PULSE 78; RESP 18; TEMP 98.2; O2SAT 98
--- NOTE | 2017-04-04 23:43 | ED PDOC ---
Upper Extremity Pain/Injury Time Seen by Provider: 04/04/17 22:21 Chief Complaint (Nursing): Upper Extremity Problem/Injury Past Medical History Vital Signs: Last Vital Signs Temp 98.2 F 04/04/17 22:14 Pulse 78 04/04/17 22:14 Resp 18 04/04/17 22:14 BP 136/80 04/04/17 22:14 Pulse Ox 98 04/04/17 22:14 - Medical History PMH: COPD, Depression, Schizophrenia, Sexually Transmitted Disease Denies: Diabetes, Hepatitis, HIV, HTN, Chronic Kidney Disease, Seizures - Family History Family History: States: Unknown Family Hx - Immunization History Hx Tetanus Toxoid Vaccination: Yes Hx Influenza Vaccination: No Hx Pneumococcal Vaccination: No - Home Medications Home Medications: Ambulatory Orders Medication Instructions Recorded Clotrimazole 1% Cream [Lotrimin 1% 15 applic EXT BID #1 tube 01/14/17 CREAM] Clotrimazole 1% Cream [Lotrimin 1% 15 applic TOP BID #1 tube 01/16/17 CREAM] Ranitidine HCl [Zantac] 1 tab PO BID #30 tablet 02/16/17 Nitrofurantoin Macrocrystals 100 mg PO BID #14 cap 03/27/17 [Macrobid] - Allergies Allergies/Adverse Reactions: Allergies Allergy/AdvReac Type Severity Reaction Status Date / Time No Known Allergies Allergy Verified 02/07/17 23:54 - ECG O2 Sat by Pulse Oximetry: 98 Medical Decision Making Medical Decision Making: EKG - Normal Disposition - Clinical Impression Clinical Impression: Chronic shoulder pain - Patient ED Disposition Is Patient to be Admitted: No Counseled Patient/Family Regarding: Diagnosis, Need For Followup - Disposition Disposition: Routine/Home Disposition Time: 23:43 Condition: GOOD Instructions: Chronic Pain (ED) Forms: [employer] (Lao)
== END 2017-04-04 23:56 | disposition home or self-care (01) ==
LOC: H.ER 21:58
DX: M25.512 Pain in left shoulder (principal)

== ENCOUNTER 2017-04-06 05:16 | Emergency (ER) | payer MEDICAID ==
[2017-04-06 05:17] VITALS: BMI 21.5
[2017-04-06 05:37] VITALS: BP 114/62; PULSE 89; RESP 16; TEMP 98; O2SAT 98
--- NOTE | 2017-04-06 05:46 | ED PDOC ---
HPI: Male Pain Time Seen by Provider: 04/06/17 05:28 Chief Complaint (Nursing): Male Genitourinary Chief Complaint (Provider): urinary incontinence History Per: Patient History/Exam Limitations: no limitations Onset/Duration Of Symptoms: Persistent Current Symptoms Are (Timing): Still Present Associated Symptoms: Other (difficulty walking) Additional Complaint(s): 57 year old male presents to the ED with a chief complaint of urinary incontinence that has been persistent for the past couple of weeks. The patient has a history of multiple ED visits and displays bed seeking behavior because the patient is homeless. Of note, patient was seen a week ago, had a full workup with no acute findings and was discharged home. (+) back pain, gait difficulty, urinary incontinence. Past Medical History Reviewed: Historical Data, Nursing Documentation, Vital Signs Vital Signs: Last Vital Signs Temp 98 F 04/06/17 05:35 Pulse 89 04/06/17 05:35 Resp 16 04/06/17 05:35 BP 114/62 04/06/17 05:35 Pulse Ox 98 04/06/17 05:35 - Medical History PMH: COPD, Depression, Schizophrenia, Sexually Transmitted Disease Denies: Diabetes, Hepatitis, HIV, HTN, Chronic Kidney Disease, Seizures - Surgical History Surgical History: No Surg Hx - Family History Family History: States: Unknown Family Hx - Living Arrangements Living Arrangements: Alone - Social History Current smoker - smoking cessation education provided: Yes - Immunization History Hx Tetanus Toxoid Vaccination: Yes Hx Influenza Vaccination: No Hx Pneumococcal Vaccination: No - Home Medications Home Medications: Ambulatory Orders Medication Instructions Recorded Clotrimazole 1% Cream [Lotrimin 1% 15 applic EXT BID #1 tube 01/14/17 CREAM] Clotrimazole 1% Cream [Lotrimin 1% 15 applic TOP BID #1 tube 01/16/17 CREAM] Ranitidine HCl [Zantac] 1 tab PO BID #30 tablet 02/16/17 Nitrofurantoin Macrocrystals 100 mg PO BID #14 cap 03/27/17 [Macrobid] Tamsulosin [Flomax] 0.4 mg PO DAILY #10 cap 04/06/17 - Allergies Allergies/Adverse Reactions: Allergies Allergy/AdvReac Type Severity Reaction Status Date / Time No Known Allergies Allergy Verified 04/06/17 05:35 Review of Systems ROS Statement: Except As Marked, All Systems Reviewed And Found Negative Constitutional: Positive for: Fever Genitourinary Male: Positive for: Incontinence Musculoskeletal: Positive for: Back Pain, Other (difficulty walking) Physical Exam - Reviewed Nursing Documentation Reviewed: Yes Vital Signs Reviewed: Yes - Physical Exam Appears: Positive for: No Acute Distress (Poor Hygiene; Disheveled) Head Exam: Positive for: ATRAUMATIC, NORMAL INSPECTION, NORMOCEPHALIC Skin: Positive for: Normal Color, Warm, DRY Eye Exam: Positive for: Normal appearance Neck: Positive for: Normal, Supple Cardiovascular/Chest: Positive for: Regular Rate, Rhythm Respiratory: Positive for: Normal Breath Sounds Gastrointestinal/Abdominal: Positive for: Normal Exam, Soft Extremity: Positive for: Normal ROM Neurologic/Psych: Positive for: Alert, Oriented, Motor/Sensory Deficits - ECG O2 Sat by Pulse Oximetry: 98 (RA) Pulse Ox Interpretation: Normal Medical Decision Making Medical Decision Making: Time: 527 Initial Impression: old male, urinary complaint, bed seeking behavior Initial Plan: --UDip --Culture Urine --Urinalysis --Reassess U dip reviewed WNL; provider reinforced need for patient to follow up with [facility]; urology referral also provided Dx BPH, Bed seeking behavior Stable Scribe Attestation: Documented by Haris Ball acting as a scribe for Tyson Bryant MD. Provider Scribe Attestation: All medical record entries made by the Scribe were at my direction and personally dictated by me. I have reviewed the chart and agree that the record accurately reflects my personal performance of the history, physical exam, medical decision making, and the department course for this patient. I have also personally directed, reviewed, and agree with the discharge instructions and disposition. Disposition - Clinical Impression Clinical Impression: BPH associated with nocturia, Malingering - Disposition Referrals: [facility] [Outside] Ophelia Case MD [Medical Doctor] - Disposition: Routine/Home Disposition Time: 06:00 Condition: STABLE Prescriptions: Tamsulosin [Flomax] 0.4 mg PO DAILY #10 cap Instructions: Benign Prostatic Hypertrophy (ED) Forms: [employer] (Paraguayan)
[2017-04-06 06:16] LABS: RBC URINE 1 /hpf (0-3); URINE BACTERIA RARE (<OCC); URINE BILIRUBIN NEGATIVE (NEGATIVE); URINE BLOOD NEGATIVE (NEGATIVE); URINE COLOR YELLOW (YELLOW); URINE GLUCOSE (UA) NEG (Normal); URINE KETONE NEGATIVE (NEGATIVE); URINE LEUKOCYTE ESTERASE NEG Leu/uL (Negative); URINE PROTEIN NEGATIVE (NEGATIVE); URINE UROBILINOGEN 0.2-1.0 mg/dL (0.2-1.0); WBC URINE 1 /hpf (0-5)
== END 2017-04-06 06:31 | disposition home or self-care (01) ==
LOC: H.ER 05:16
DX: N40.1 Benign prostatic hyperplasia with lower urinary tract symptoms (principal); Z76.5 Malingerer [conscious simulation]; F20.9 Schizophrenia, unspecified; F32.9 Major depressive disorder, single episode, unspecified; J44.9 Chronic obstructive pulmonary disease, unspecified

== ENCOUNTER 2017-04-06 19:08 | Emergency (ER) | payer MEDICAID ==
[2017-04-06 19:08] VITALS: BMI 21.5
[2017-04-06 19:17] VITALS: BP 160/82; PULSE 89; RESP 18; TEMP 98; O2SAT 99
--- NOTE | 2017-04-06 20:01 | ED PDOC ---
HPI: Abdomen Time Seen by Provider: 04/06/17 19:31 Chief Complaint (Nursing): Abdominal Pain Chief Complaint (Provider): Abdominal Pain History Per: Patient History/Exam Limitations: no limitations Onset/Duration Of Symptoms: Persistent (several months) Current Symptoms Are (Timing): Still Present Additional Complaint(s): Nazario Cooley is a 57 year old non-domiciled male that presents to the ED with a chief complaint of abdominal pain and incontinence when he needs to urinate. Patient reports that he has had this for several months and had a workup in the ED one week ago, which was unremarkable. He reports that he has not followed up with any doctors since then and has not taken any medication for his pain. Past Medical History Reviewed: Historical Data, Nursing Documentation, Vital Signs Vital Signs: Last Vital Signs Temp 98 F 04/06/17 19:14 Pulse 89 04/06/17 19:14 Resp 18 04/06/17 19:14 BP 160/82 H 04/06/17 19:14 Pulse Ox 99 04/06/17 20:44 - Medical History PMH: COPD, Depression, Schizophrenia, Sexually Transmitted Disease Denies: Diabetes, Hepatitis, HIV, HTN, Chronic Kidney Disease, Seizures - Family History Family History: States: Unknown Family Hx - Living Arrangements Living Arrangements: Other (non-domiciled) - Immunization History Hx Tetanus Toxoid Vaccination: Yes Hx Influenza Vaccination: No Hx Pneumococcal Vaccination: No - Home Medications Home Medications: Ambulatory Orders Medication Instructions Recorded Clotrimazole 1% Cream [Lotrimin 1% 15 applic EXT BID #1 tube 01/14/17 CREAM] Clotrimazole 1% Cream [Lotrimin 1% 15 applic TOP BID #1 tube 01/16/17 CREAM] Ranitidine HCl [Zantac] 1 tab PO BID #30 tablet 02/16/17 Nitrofurantoin Macrocrystals 100 mg PO BID #14 cap 03/27/17 [Macrobid] Dicyclomine [Bentyl] 20 mg PO BID PRN #30 tab 04/06/17 Ibuprofen [Motrin Tab] 600 mg PO Q8 PRN #60 tab 04/06/17 Tamsulosin [Flomax] 0.4 mg PO DAILY #10 cap 04/06/17 - Allergies Allergies/Adverse Reactions: Allergies Allergy/AdvReac Type Severity Reaction Status Date / Time No Known Allergies Allergy Verified 04/06/17 05:35 Review of Systems ROS Statement: Except As Marked, All Systems Reviewed And Found Negative Gastrointestinal: Positive for: Abdominal Pain Genitourinary Male: Positive for: Incontinence (when urinating) Physical Exam - Reviewed Nursing Documentation Reviewed: Yes Vital Signs Reviewed: Yes - Physical Exam Appears: Positive for: No Acute Distress (dissheveled and unkempt) Head Exam: Positive for: ATRAUMATIC, NORMOCEPHALIC Eye Exam: Positive for: EOMI, PERRL Gastrointestinal/Abdominal: Positive for: Bowel Sounds, Soft, Tenderness (mild suprapubic and distractible). Negative for: Mass, Distended, Guarding, Rebound Back: Negative for: L CVA Tenderness, R CVA Tenderness - ECG O2 Sat by Pulse Oximetry: 99 (RA) Pulse Ox Interpretation: Normal Medical Decision Making Medical Decision Making: Impression: Chronic Abdominal Pain and Urinary Incontinence Plan: * Tylenol 975 mg PO * Bentyl 20 mg PO * Reevaluation Advised patient to follow up with PMD as well as a urologist. Scribe Attestation: Documented by Altagracia Charles, acting as a scribe for Cristal Acuna MD. Provider Scribe Attestation: All medical record entries made by the Scribe were at my direction and personally dictated by me. I have reviewed the chart and agree that the record accurately reflects my personal performance of the history, physical exam, medical decision making, and the department course for this patient. I have also personally directed, reviewed, and agree with the discharge instructions and disposition. Disposition - Clinical Impression Clinical Impression: Abdominal pain Counseled Patient/Family Regarding: Diagnosis, Need For Followup, Rx Given - Disposition Referrals: [facility] [Outside] - 04/07/17 (YOU NEED TO VISIT THE CLINIC FOR REFERRAL TO THE UROLOGIST) Disposition: Routine/Home Disposition Time: 19:45 Condition: STABLE Prescriptions: Dicyclomine [Bentyl] 20 mg PO BID PRN #30 tab PRN Reason: abdominal pain Ibuprofen [Motrin Tab] 600 mg PO Q8 PRN #60 tab PRN Reason: Pain, Moderate (4-7) Instructions: Abdominal Pain (ED)
== END 2017-04-06 21:54 | disposition home or self-care (01) ==
LOC: H.ER 19:08
DX: R10.9 Unspecified abdominal pain (principal); G89.29 Other chronic pain; F20.9 Schizophrenia, unspecified; F32.9 Major depressive disorder, single episode, unspecified; J44.9 Chronic obstructive pulmonary disease, unspecified; R32 Unspecified urinary incontinence

== ENCOUNTER 2017-04-09 16:57 | Emergency (ER) | payer MEDICAID ==
[2017-04-09 16:57] VITALS: BMI 21.5
[2017-04-09 18:05] VITALS: BP 134/78; PULSE 82; RESP 16; TEMP 98.1; O2SAT 99
--- NOTE | 2017-04-09 18:08 | ED PDOC ---
HPI: General Adult Time Seen by Provider: 04/09/17 17:03 Chief Complaint (Nursing): Abdominal Pain Chief Complaint (Provider): "I need a shower" because I have wet clothing History Per: Patient History/Exam Limitations: no limitations Onset/Duration Of Symptoms: Mins Have you had recent travel within the past 21 days to any of the following countries: [place], [place], [place] or [place]?: No Current Symptoms Are (Timing): Still Present Additional Complaint(s): Denies pain, fever/chills. Also requesting food. Past Medical History Reviewed: Historical Data, Nursing Documentation, Vital Signs Vital Signs: Last Vital Signs Temp 98.1 F 04/09/17 17:30 Pulse 82 04/09/17 17:30 Resp 16 04/09/17 17:30 BP 134/78 04/09/17 17:30 Pulse Ox 99 04/09/17 17:30 - Medical History PMH: COPD, Depression, Schizophrenia, Sexually Transmitted Disease Denies: Diabetes, Hepatitis, HIV, HTN, Chronic Kidney Disease, Seizures - Surgical History Surgical History: No Surg Hx - Family History Family History: States: Unknown Family Hx - Living Arrangements Living Arrangements: With Family - Social History Current smoker - smoking cessation education provided: No Alcohol: None Drugs: Denies - Immunization History Hx Tetanus Toxoid Vaccination: Yes Hx Influenza Vaccination: No Hx Pneumococcal Vaccination: No - Home Medications Home Medications: Ambulatory Orders Medication Instructions Recorded Clotrimazole 1% Cream [Lotrimin 1% 15 applic EXT BID #1 tube 01/14/17 CREAM] Clotrimazole 1% Cream [Lotrimin 1% 15 applic TOP BID #1 tube 01/16/17 CREAM] Ranitidine HCl [Zantac] 1 tab PO BID #30 tablet 02/16/17 Nitrofurantoin Macrocrystals 100 mg PO BID #14 cap 03/27/17 [Macrobid] Dicyclomine [Bentyl] 20 mg PO BID PRN #30 tab 04/06/17 Ibuprofen [Motrin Tab] 600 mg PO Q8 PRN #60 tab 04/06/17 Tamsulosin [Flomax] 0.4 mg PO DAILY #10 cap 04/06/17 - Allergies Allergies/Adverse Reactions: Allergies Allergy/AdvReac Type Severity Reaction Status Date / Time No Known Allergies Allergy Verified 04/08/17 05:55 Review of Systems ROS Statement: Except As Marked, All Systems Reviewed And Found Negative Constitutional: Negative for: Fever, Chills Cardiovascular: Negative for: Chest Pain Respiratory: Negative for: Cough Gastrointestinal: Negative for: Nausea, Vomiting, Abdominal Pain Skin: Negative for: Bruising Psych: Negative for: Depression, Suicidal ideation Physical Exam - Reviewed Nursing Documentation Reviewed: Yes Vital Signs Reviewed: Yes - Physical Exam Appears: Positive for: Well, Non-toxic, No Acute Distress Head Exam: Positive for: ATRAUMATIC, NORMAL INSPECTION, NORMOCEPHALIC Skin: Positive for: Normal Color, Warm, DRY Eye Exam: Positive for: Normal appearance ENT: Positive for: Normal ENT Inspection Neck: Positive for: Normal, Painless ROM Cardiovascular/Chest: Positive for: Regular Rate, Rhythm Respiratory: Positive for: CNT, Normal Breath Sounds Gastrointestinal/Abdominal: Positive for: Normal Exam, Bowel Sounds, Soft. Negative for: Tenderness Back: Positive for: Normal Inspection Extremity: Positive for: Normal ROM Neurologic/Psych: Positive for: Alert, Oriented - ECG O2 Sat by Pulse Oximetry: 99 Pulse Ox Interpretation: Normal Medical Decision Making Medical Decision Making: Pt given a shower and new clothing in ER. Disposition - Clinical Impression Clinical Impression: Homelessness - Disposition Disposition Time: 18:08 Condition: STABLE Forms: [employer] (Danish)
[2017-04-09] MEDS ORDERED: Acetaminophen 160 mg/5 ml UD ONE (22:36)
== END 2017-04-09 18:43 | disposition home or self-care (01) ==
LOC: H.ER 16:57
DX: R10.9 Unspecified abdominal pain (principal); Z59.0 Homelessness; F20.9 Schizophrenia, unspecified; F32.9 Major depressive disorder, single episode, unspecified; J44.9 Chronic obstructive pulmonary disease, unspecified

== ENCOUNTER 2017-04-12 06:36 | Emergency (ER) | payer MEDICAID ==
[2017-04-12 06:36] VITALS: BMI 21.5
[2017-04-12 06:47] VITALS: BP 116/73; PULSE 85; RESP 16; TEMP 97.6; O2SAT 99
--- NOTE | 2017-04-12 07:44 | ED PDOC ---
HPI: Abdomen Time Seen by Provider: 04/12/17 07:03 Chief Complaint (Nursing): Abdominal Pain Chief Complaint (Provider): Abominal Pain History Per: Patient History/Exam Limitations: no limitations Onset/Duration Of Symptoms: Days Current Symptoms Are (Timing): Still Present Location Of Pain/Discomfort: Epigastric Quality Of Discomfort: "Pain" Associated Symptoms: denies: Loss Of Appetite, Back Pain, Constipation, Urinary Symptoms Additional History Per: Prior Records Additional Complaint(s): 57 year old male, with PMHx of COPD, depression, schizophrenia, STD, presents to ED for evaluation of chronic epigastric abdominal pain. Denies any associated vomiting, diarrhea, or fever. No other complaints. Note, pt has multiple visits in the ED for similar complaints. Past Medical History Reviewed: Historical Data, Nursing Documentation, Vital Signs Vital Signs: Last Vital Signs Temp 97.6 F 04/12/17 06:44 Pulse 85 04/12/17 06:44 Resp 16 04/12/17 06:44 BP 116/73 04/12/17 06:44 Pulse Ox 99 04/12/17 07:50 - Medical History PMH: COPD, Depression, Schizophrenia, Sexually Transmitted Disease Denies: Diabetes, Hepatitis, HIV, HTN, Chronic Kidney Disease, Seizures - Family History Family History: States: Unknown Family Hx - Immunization History Hx Tetanus Toxoid Vaccination: Yes Hx Influenza Vaccination: No Hx Pneumococcal Vaccination: No - Home Medications Home Medications: Ambulatory Orders Medication Instructions Recorded Clotrimazole 1% Cream [Lotrimin 1% 15 applic EXT BID #1 tube 01/14/17 CREAM] Clotrimazole 1% Cream [Lotrimin 1% 15 applic TOP BID #1 tube 01/16/17 CREAM] Ranitidine HCl [Zantac] 1 tab PO BID #30 tablet 02/16/17 Nitrofurantoin Macrocrystals 100 mg PO BID #14 cap 03/27/17 [Macrobid] Dicyclomine [Bentyl] 20 mg PO BID PRN #30 tab 04/06/17 Ibuprofen [Motrin Tab] 600 mg PO Q8 PRN #60 tab 04/06/17 Tamsulosin [Flomax] 0.4 mg PO DAILY #10 cap 04/06/17 Famotidine [Pepcid] 20 mg PO Q12 #20 tab 04/12/17 - Allergies Allergies/Adverse Reactions: Allergies Allergy/AdvReac Type Severity Reaction Status Date / Time No Known Allergies Allergy Verified 04/08/17 05:55 Review of Systems ROS Statement: Except As Marked, All Systems Reviewed And Found Negative Constitutional: Negative for: Fever, Chills Gastrointestinal: Positive for: Abdominal Pain. Negative for: Vomiting, Diarrhea, Constipation Genitourinary Male: Negative for: Dysuria, Frequency, Hematuria Physical Exam - Reviewed Nursing Documentation Reviewed: Yes Vital Signs Reviewed: Yes - Physical Exam Appears: Positive for: Non-toxic, No Acute Distress Head Exam: Positive for: ATRAUMATIC, NORMOCEPHALIC Skin: Positive for: Normal Color, Warm, DRY Eye Exam: Positive for: EOMI, Normal appearance, PERRL Neck: Positive for: Normal, Painless ROM, Supple Cardiovascular/Chest: Positive for: Regular Rate, Rhythm Respiratory: Positive for: Normal Breath Sounds. Negative for: Respiratory Distress Gastrointestinal/Abdominal: Positive for: Bowel Sounds, Soft, Tenderness (mild epigastric). Negative for: Guarding, Rebound Back: Positive for: Normal Inspection Extremity: Positive for: Normal ROM. Negative for: Calf Tenderness, Deformity Neurologic/Psych: Positive for: Alert, Oriented Comments: Poor Hygiene - Laboratory Results Result Diagrams: 04/12/17 07:50 04/12/17 07:50 - ECG O2 Sat by Pulse Oximetry: 99 Pulse Ox Interpretation: Normal Medical Decision Making Medical Decision Making: Plan: * CMP, CBC * Pepcid * Reassess and disposition Scribe Attestation: Documented by Micki Donato, acting as a scribe for Tr Liao MD Provider Scribe Attestation: All medical record entries made by the Scribe were at my direction and personally dictated by me. I have reviewed the chart and agree that the record accurately reflects my personal performance of the history, physical exam, medical decision making, and the department course for this patient. I have also personally directed, reviewed, and agree with the discharge instructions and disposition. Disposition - Clinical Impression Clinical Impression: Gastritis - Patient ED Disposition Is Patient to be Admitted: No Counseled Patient/Family Regarding: Studies Performed, Diagnosis, Need For Followup, Rx Given - Disposition Referrals: [facility] [Outside] Disposition: Routine/Home Disposition Time: 08:35 Condition: FAIR Prescriptions: Famotidine [Pepcid] 20 mg PO Q12 #20 tab Instructions: Gastritis (ED) Forms: [facility] (Mohawk)
[2017-04-12 08:07] LABS: BASO % 0.5 % (0.0-2.0); EOS # 0.2 K/uL (0.0-0.7); EOS % 3.6 % (0.0-4.0); HEMATOCRIT 45.4 % (35.0-51.0); LYMPH # 1.7 K/uL (1.0-4.3); LYMPH % 24.9 % (20.0-40.0); MEAN CELL VOLUME 87.8 fl (80.0-94.0); MEAN CORPUSCULAR HEMOGLOBIN 29.2 pg (27.0-31.0); MEAN CORPUSCULAR HGB CONC 33.3 g/dL (33.0-37.0); MEAN PLATELET VOLUME 7.5 fl (7.2-11.7); MONO # 0.6 K/uL (0.0-0.8); MONO % 8.8 % (0.0-10.0); NEUT # 4.1 K/uL (1.8-7.0); NEUT % 62.2 % (50.0-75.0); NRBC % 0.1 % (0.0-0.0); RED CELL DISTRIBUTION WIDTH 13.7 % (11.5-14.5); WHITE BLOOD COUNT 6.6 K/uL (4.8-10.8)
[2017-04-12 08:14] LABS: ALB/GLOB RATIO 1.2 (1.0-2.1); ALKALINE PHOSPHATASE 80 U/L (38-126); ALT/SGPT 21 U/L (21-72); AST/SGOT 14 U/L (17-59); BILIRUBIN,TOTAL 0.2 mg/dl (0.2-1.3); BLOOD UREA NITROGEN 9 mg/dl (9-20); CALCIUM 8.4 mg/dL (8.4-10.2); CARBON DIOXIDE 27 mmol/L (22-30); CHLORIDE 106 mmol/L (98-107); GFR AFRICAN-AMERICAN > 60; GLUCOSE,RANDOM 127 mg/dL (75-110); POTASSIUM 4.5 MMOL/L (3.6-5.0); SODIUM 139 mmol/l (132-148); TOTAL PROTEIN 6.2 G/DL (6.3-8.2)
== END 2017-04-12 09:30 | disposition home or self-care (01) ==
LOC: H.ER 06:36
DX: K29.70 Gastritis, unspecified, without bleeding (principal); F20.9 Schizophrenia, unspecified; F32.9 Major depressive disorder, single episode, unspecified; J44.9 Chronic obstructive pulmonary disease, unspecified

== ENCOUNTER 2017-05-09 23:16 | Emergency (ER) | payer MEDICAID ==
[2017-05-09 23:17] VITALS: BMI 21.5
[2017-05-09 23:21] VITALS: O2SAT 98
--- NOTE | 2017-05-10 03:32 | ED PDOC ---
HPI: General Adult Time Seen by Provider: 05/10/17 00:27 Chief Complaint (Nursing): Lower Extremity Problem/Injury Chief Complaint (Provider): foot pain Additional Complaint(s): 57yo M seen in ED regularly for various chronic complaints in ER for b/l feet pain x several weeks. denies recent injury admits he wants to rest. no other complaints. Past Medical History Reviewed: Historical Data, Nursing Documentation, Vital Signs Vital Signs: Last Vital Signs Temp 98.7 F 05/09/17 23:18 Pulse 82 05/09/17 23:18 Resp 18 05/09/17 23:18 BP 140/60 05/09/17 23:18 Pulse Ox 98 05/10/17 03:32 - Medical History PMH: Back Problems, COPD, Depression, Schizophrenia Denies: Diabetes, Hepatitis, HIV, HTN, Chronic Kidney Disease, Seizures - Family History Family History: States: Unknown Family Hx - Immunization History Hx Tetanus Toxoid Vaccination: Yes Hx Influenza Vaccination: No Hx Pneumococcal Vaccination: No - Home Medications Home Medications: Ambulatory Orders Medication Instructions Recorded Clotrimazole 1% Cream [Lotrimin 1% 15 applic EXT BID #1 tube 01/14/17 CREAM] Clotrimazole 1% Cream [Lotrimin 1% 15 applic TOP BID #1 tube 01/16/17 CREAM] Ranitidine HCl [Zantac] 1 tab PO BID #30 tablet 02/16/17 Nitrofurantoin Macrocrystals 100 mg PO BID #14 cap 03/27/17 [Macrobid] Dicyclomine [Bentyl] 20 mg PO BID PRN #30 tab 04/06/17 Ibuprofen [Motrin Tab] 600 mg PO Q8 PRN #60 tab 04/06/17 Tamsulosin [Flomax] 0.4 mg PO DAILY #10 cap 04/06/17 Famotidine [Pepcid] 20 mg PO Q12 #20 tab 04/12/17 Clotrimazole 1% Cream [Lotrimin 1%] 1 applic TP BID #1 tube 04/18/17 Cyclobenzaprine [Cyclobenzaprine 10 mg PO TID PRN #15 tab 04/22/17 HCl] Acetaminophen [Tylenol 325mg tab] 650 mg PO TID #30 tab 05/01/17 Clotrimazole 1% [Lotrimin AF 1%] 10 applic TOP BID #1 bottle 05/02/17 - Allergies Allergies/Adverse Reactions: Allergies Allergy/AdvReac Type Severity Reaction Status Date / Time No Known Allergies Allergy Verified 04/30/17 20:43 Review of Systems ROS Statement: Except As Marked, All Systems Reviewed And Found Negative Constitutional: Negative for: Fever Gastrointestinal: Negative for: Nausea, Vomiting Physical Exam - Reviewed Nursing Documentation Reviewed: Yes Vital Signs Reviewed: Yes - Physical Exam Appears: Positive for: Well, Non-toxic, No Acute Distress Skin: Positive for: Normal Color, Warm, DRY Cardiovascular/Chest: Positive for: Regular Rate, Rhythm Respiratory: Positive for: CNT, Normal Breath Sounds Extremity: Negative for: Pedal Edema, Deformity, Swelling Neurologic/Psych: Positive for: Alert, Oriented - ECG O2 Sat by Pulse Oximetry: 98 - Progress ED Course And Treament: no action ER intervention required at this time. Medical Decision Making Medical Decision Making: PT will be d/c Disposition - Clinical Impression Clinical Impression: Normal exam, Homelessness - Patient ED Disposition Is Patient to be Admitted: No Counseled Patient/Family Regarding: Diagnosis, Need For Followup - Disposition Disposition: Routine/Home Disposition Time: 05:28 Condition: STABLE Instructions: Arthralgia (ED) Forms: [employer] (Maori)
[2017-05-10 05:54] VITALS: BP 117/79; PULSE 86; RESP 16; TEMP 97.8
== END 2017-05-10 05:50 | disposition home or self-care (01) ==
LOC: H.ER 23:16
DX: Z59.0 Homelessness (principal); F20.9 Schizophrenia, unspecified; F32.9 Major depressive disorder, single episode, unspecified; J44.9 Chronic obstructive pulmonary disease, unspecified

== ENCOUNTER 2017-05-13 22:28 | Emergency (ER) | payer MEDICAID ==
[2017-05-13 22:28] VITALS: BMI 21.5
--- NOTE | 2017-05-13 22:39 | ED PDOC ---
HPI:Nausea, Vomiting, Diarrhea Time Seen by Provider: 05/13/17 22:35 Chief Complaint (Nursing): Back Pain Chief Complaint (Provider): Malingering Disorder, Bed seeking behavior History Per: Patient History/Exam Limitations: no limitations Current Symptoms Are (Timing): Still Present Additional Complaint(s): 57 y/o male, well known to the provider and ED for multiple visits because the patient is homeless and displays bed-seeking behavior, who presents to the ED with multiple complaints, specifically diarrhea on arrival. After speaking with the provider, the patient admits to just wanting a bed, and denies of any complaints. Past Medical History Vital Signs: Last Vital Signs Temp Pulse Resp 16 05/13/17 22:32 BP Pulse Ox - Medical History PMH: Back Problems, COPD, Depression, Schizophrenia Denies: Diabetes, Hepatitis, HIV, HTN, Chronic Kidney Disease, Seizures Other PMH: Malingering Disorder, Bed Seeking behavior - Surgical History Surgical History: No Surg Hx - Family History Family History: States: Unknown Family Hx - Living Arrangements Living Arrangements: Alone - Social History Current smoker - smoking cessation education provided: Yes SMOKER/PACKS PER DAY:: 10 (less than 10 cigarettes daily) Alcohol: None Drugs: Denies - Immunization History Hx Tetanus Toxoid Vaccination: Yes Hx Influenza Vaccination: No Hx Pneumococcal Vaccination: No - Home Medications Home Medications: Ambulatory Orders Medication Instructions Recorded Clotrimazole 1% Cream [Lotrimin 1% 15 applic EXT BID #1 tube 01/14/17 CREAM] Clotrimazole 1% Cream [Lotrimin 1% 15 applic TOP BID #1 tube 01/16/17 CREAM] Ranitidine HCl [Zantac] 1 tab PO BID #30 tablet 02/16/17 Nitrofurantoin Macrocrystals 100 mg PO BID #14 cap 03/27/17 [Macrobid] Dicyclomine [Bentyl] 20 mg PO BID PRN #30 tab 04/06/17 Ibuprofen [Motrin Tab] 600 mg PO Q8 PRN #60 tab 04/06/17 Tamsulosin [Flomax] 0.4 mg PO DAILY #10 cap 04/06/17 Famotidine [Pepcid] 20 mg PO Q12 #20 tab 04/12/17 Clotrimazole 1% Cream [Lotrimin 1%] 1 applic TP BID #1 tube 04/18/17 Cyclobenzaprine [Cyclobenzaprine 10 mg PO TID PRN #15 tab 04/22/17 HCl] Acetaminophen [Tylenol 325mg tab] 650 mg PO TID #30 tab 05/01/17 Clotrimazole 1% [Lotrimin AF 1%] 10 applic TOP BID #1 bottle 05/02/17 - Allergies Allergies/Adverse Reactions: Allergies Allergy/AdvReac Type Severity Reaction Status Date / Time No Known Allergies Allergy Verified 04/30/17 20:43 Review of Systems ROS Statement: Except As Marked, All Systems Reviewed And Found Negative Constitutional: Negative for: Fever Gastrointestinal: Negative for: Diarrhea Physical Exam - Reviewed Nursing Documentation Reviewed: Yes Vital Signs Reviewed: Yes - Physical Exam Appears: Positive for: Well (Poor hygiene), Non-toxic, No Acute Distress Head Exam: Positive for: ATRAUMATIC, NORMOCEPHALIC Skin: Positive for: Normal Color, Warm Eye Exam: Positive for: Normal appearance, EOMI, PERRL Neck: Positive for: Normal, Painless ROM, Supple Cardiovascular/Chest: Positive for: Regular Rate, Rhythm. Negative for: Murmur Respiratory: Positive for: Normal Breath Sounds. Negative for: Respiratory Distress Gastrointestinal/Abdominal: Positive for: Normal Exam, Soft. Negative for: Tenderness Back: Positive for: Normal Inspection Extremity: Positive for: Normal ROM. Negative for: Pedal Edema, Deformity Neurologic/Psych: Positive for: Alert, Oriented. Negative for: Motor/Sensory Deficits - ECG O2 Sat by Pulse Oximetry: 99 (RA) Pulse Ox Interpretation: Normal Medical Decision Making Medical Decision Making: Time: --22:35 Impression: --57 y/o male with malingering disorder and bed-seeking behavior Plan --Discharge Patient Reassess Time: 01:00 --Patient is stable for discharge home. Scribe Attestation: Documented by Haris Ball acting as a scribe for Navjot Mehta MD. Provider Attestation: All medical record entries made by the Scribe were at my direction and personally dictated by me. I have reviewed the chart and agree that the record accurately reflects my personal performance of the history, physical exam, medical decision making, and the department course for this patient. I have also personally directed, reviewed, and agree with the discharge instructions and disposition. Disposition - Clinical Impression Clinical Impression: Homelessness, Malingering - Patient ED Disposition Is Patient to be Admitted: No - Disposition Disposition: Routine/Home Disposition Time: 01:00 Condition: STABLE Forms: [facility] (Andorran)
[2017-05-13 22:59] VITALS: PULSE 88; RESP 18; TEMP 97.1; O2SAT 99
[2017-05-13 23:00] VITALS: BP 121/64
--- NOTE | 2017-05-13 23:17 | ED PDOC ---
HPI: General Adult Time Seen by Provider: 05/13/17 22:35 Chief Complaint (Nursing): Back Pain History Per: Patient Additional Complaint(s): Pt. c/o atraumatic low back pain. Pt. requesting to sleep in bed. Pt. is well known to ED. Denies incontinence, trauma, dysuria, hematuria. Past Medical History Reviewed: Historical Data, Nursing Documentation, Vital Signs Vital Signs: Last Vital Signs Temp 97.1 F L 05/13/17 22:58 Pulse 88 05/13/17 22:58 Resp 18 05/13/17 22:58 BP 121/64 05/13/17 22:59 Pulse Ox 99 05/13/17 23:42 - Medical History PMH: Back Problems, COPD, Depression, Schizophrenia Denies: Diabetes, Hepatitis, HIV, HTN, Chronic Kidney Disease, Seizures - Family History Family History: States: Unknown Family Hx - Immunization History Hx Tetanus Toxoid Vaccination: Yes Hx Influenza Vaccination: No Hx Pneumococcal Vaccination: No - Home Medications Home Medications: Ambulatory Orders Medication Instructions Recorded Clotrimazole 1% Cream [Lotrimin 1% 15 applic EXT BID #1 tube 01/14/17 CREAM] Clotrimazole 1% Cream [Lotrimin 1% 15 applic TOP BID #1 tube 01/16/17 CREAM] Ranitidine HCl [Zantac] 1 tab PO BID #30 tablet 02/16/17 Nitrofurantoin Macrocrystals 100 mg PO BID #14 cap 03/27/17 [Macrobid] Dicyclomine [Bentyl] 20 mg PO BID PRN #30 tab 04/06/17 Ibuprofen [Motrin Tab] 600 mg PO Q8 PRN #60 tab 04/06/17 Tamsulosin [Flomax] 0.4 mg PO DAILY #10 cap 04/06/17 Famotidine [Pepcid] 20 mg PO Q12 #20 tab 04/12/17 Clotrimazole 1% Cream [Lotrimin 1%] 1 applic TP BID #1 tube 04/18/17 Cyclobenzaprine [Cyclobenzaprine 10 mg PO TID PRN #15 tab 04/22/17 HCl] Acetaminophen [Tylenol 325mg tab] 650 mg PO TID #30 tab 05/01/17 Clotrimazole 1% [Lotrimin AF 1%] 10 applic TOP BID #1 bottle 05/02/17 - Allergies Allergies/Adverse Reactions: Allergies Allergy/AdvReac Type Severity Reaction Status Date / Time No Known Allergies Allergy Verified 04/30/17 20:43 Review of Systems ROS Statement: Except As Marked, All Systems Reviewed And Found Negative Musculoskeletal: Positive for: Back Pain Physical Exam - Physical Exam Appears: Positive for: Well, Non-toxic, No Acute Distress Skin: Positive for: Normal Color, Warm. Negative for: Rash Eye Exam: Positive for: Normal appearance Cardiovascular/Chest: Positive for: Regular Rate, Rhythm Respiratory: Positive for: CNT, Normal Breath Sounds Gastrointestinal/Abdominal: Positive for: Normal Exam, Bowel Sounds, Soft. Negative for: Tenderness Back: Positive for: Normal Inspection. Negative for: L CVA Tenderness, R CVA Tenderness Neurologic/Psych: Positive for: Alert, Oriented - ECG O2 Sat by Pulse Oximetry: 99 Disposition - Clinical Impression Clinical Impression: Homelessness, Malingering - Patient ED Disposition Is Patient to be Admitted: No - Disposition Disposition: Routine/Home Disposition Time: 23:00 Condition: STABLE Forms: [employer] (Serbian)
== END 2017-05-13 23:54 | disposition home or self-care (01) ==
LOC: H.ER 22:28
DX: Z59.0 Homelessness (principal); Z76.5 Malingerer [conscious simulation]; F20.9 Schizophrenia, unspecified; F32.9 Major depressive disorder, single episode, unspecified; J44.9 Chronic obstructive pulmonary disease, unspecified

== ENCOUNTER 2017-05-15 21:56 | Emergency (ER) | payer MEDICAID ==
[2017-05-15 21:56] VITALS: BMI 21.5
[2017-05-15 22:23] VITALS: BP 119/60; PULSE 84; RESP 18; TEMP 98.6; O2SAT 97
--- NOTE | 2017-05-16 03:58 | ED PDOC ---
HPI: Back Time Seen by Provider: 05/16/17 03:50 Chief Complaint (Nursing): Back Pain Chief Complaint (Provider): back pain History Per: Patient (57 y/o male undomiciled in ED for back pain ongoing. Noted sleeping in waiting room. Denies any fevers/chills/ urinary symptoms. Denies any falls.) Past Medical History Reviewed: Historical Data, Nursing Documentation, Vital Signs Vital Signs: Last Vital Signs Temp 98.6 F 05/15/17 22:15 Pulse 84 05/15/17 22:15 Resp 18 05/15/17 22:15 BP 119/60 05/15/17 22:15 Pulse Ox 97 05/15/17 22:15 - Medical History PMH: Back Problems, COPD, Depression, Schizophrenia Denies: Diabetes, Hepatitis, HIV, HTN, Chronic Kidney Disease, Seizures - Family History Family History: States: Unknown Family Hx - Immunization History Hx Tetanus Toxoid Vaccination: Yes Hx Influenza Vaccination: No Hx Pneumococcal Vaccination: No - Home Medications Home Medications: Ambulatory Orders Medication Instructions Recorded Clotrimazole 1% Cream [Lotrimin 1% 15 applic EXT BID #1 tube 01/14/17 CREAM] Clotrimazole 1% Cream [Lotrimin 1% 15 applic TOP BID #1 tube 01/16/17 CREAM] Ranitidine HCl [Zantac] 1 tab PO BID #30 tablet 02/16/17 Nitrofurantoin Macrocrystals 100 mg PO BID #14 cap 03/27/17 [Macrobid] Dicyclomine [Bentyl] 20 mg PO BID PRN #30 tab 04/06/17 Ibuprofen [Motrin Tab] 600 mg PO Q8 PRN #60 tab 04/06/17 Tamsulosin [Flomax] 0.4 mg PO DAILY #10 cap 04/06/17 Famotidine [Pepcid] 20 mg PO Q12 #20 tab 04/12/17 Clotrimazole 1% Cream [Lotrimin 1%] 1 applic TP BID #1 tube 04/18/17 Cyclobenzaprine [Cyclobenzaprine 10 mg PO TID PRN #15 tab 04/22/17 HCl] Acetaminophen [Tylenol 325mg tab] 650 mg PO TID #30 tab 05/01/17 Clotrimazole 1% [Lotrimin AF 1%] 10 applic TOP BID #1 bottle 05/02/17 - Allergies Allergies/Adverse Reactions: Allergies Allergy/AdvReac Type Severity Reaction Status Date / Time No Known Allergies Allergy Verified 05/15/17 22:23 Review of Systems ROS Statement: Except As Marked, All Systems Reviewed And Found Negative Physical Exam - Reviewed Nursing Documentation Reviewed: Yes Vital Signs Reviewed: Yes - Physical Exam Appears: Positive for: Well, Non-toxic, No Acute Distress Head Exam: Positive for: ATRAUMATIC, NORMAL INSPECTION, NORMOCEPHALIC Skin: Positive for: Normal Color, Warm, DRY Eye Exam: Positive for: EOMI, Normal appearance, PERRL ENT: Positive for: Normal ENT Inspection Neck: Positive for: Normal, Painless ROM Cardiovascular/Chest: Positive for: Regular Rate, Rhythm Respiratory: Positive for: CNT, Normal Breath Sounds Gastrointestinal/Abdominal: Positive for: Normal Exam, Bowel Sounds, Soft Back: Positive for: Normal Inspection Extremity: Positive for: Normal ROM Neurologic/Psych: Positive for: Alert, Oriented - ECG O2 Sat by Pulse Oximetry: 97 - Progress ED Course And Treament: Patient sleeping comfortably in ED. No distress noted. Disposition - Clinical Impression Clinical Impression: Low back pain - Patient ED Disposition Is Patient to be Admitted: No - Disposition Referrals: [facility] [Outside] Disposition: Routine/Home Disposition Time: 03:58 Condition: FAIR Instructions: Acute Low Back Pain (DC)
== END 2017-05-16 07:00 | disposition home or self-care (01) ==
LOC: H.ER 21:56
DX: M54.5 Low back pain (principal); F20.9 Schizophrenia, unspecified; F32.9 Major depressive disorder, single episode, unspecified; J44.9 Chronic obstructive pulmonary disease, unspecified

== ENCOUNTER 2017-05-16 21:24 | Emergency (ER) | payer MEDICAID ==
[2017-05-16 21:24] VITALS: BMI 21.5
[2017-05-16 21:52] VITALS: BP 120/65; PULSE 80; RESP 16; TEMP 97.1; O2SAT 99
--- NOTE | 2017-05-16 22:04 | ED PDOC ---
HPI: Back Time Seen by Provider: 05/16/17 21:34 Chief Complaint (Nursing): Back Pain Chief Complaint (Provider): Chronic back pain, denies new injury or trauma Onset/Duration Of Symptoms: Days Current Symptoms Are (Timing): Still Present Additional Complaint(s): Seen frequently in ER for the same. Past Medical History Reviewed: Historical Data, Nursing Documentation, Vital Signs Vital Signs: Last Vital Signs Temp 97.1 F L 05/16/17 21:52 Pulse 80 05/16/17 21:52 Resp 16 05/16/17 21:52 BP 120/65 05/16/17 21:52 Pulse Ox 99 05/16/17 21:52 - Medical History PMH: Back Problems, COPD, Depression, Schizophrenia Denies: Diabetes, Hepatitis, HIV, HTN, Chronic Kidney Disease, Seizures - Surgical History Surgical History: No Surg Hx - Family History Family History: States: Unknown Family Hx - Living Arrangements Living Arrangements: With Family - Social History Current smoker - smoking cessation education provided: No - Immunization History Hx Tetanus Toxoid Vaccination: Yes Hx Influenza Vaccination: No Hx Pneumococcal Vaccination: No - Home Medications Home Medications: Ambulatory Orders Medication Instructions Recorded Clotrimazole 1% Cream [Lotrimin 1% 15 applic EXT BID #1 tube 01/14/17 CREAM] Clotrimazole 1% Cream [Lotrimin 1% 15 applic TOP BID #1 tube 01/16/17 CREAM] Ranitidine HCl [Zantac] 1 tab PO BID #30 tablet 02/16/17 Nitrofurantoin Macrocrystals 100 mg PO BID #14 cap 03/27/17 [Macrobid] Dicyclomine [Bentyl] 20 mg PO BID PRN #30 tab 04/06/17 Ibuprofen [Motrin Tab] 600 mg PO Q8 PRN #60 tab 04/06/17 Tamsulosin [Flomax] 0.4 mg PO DAILY #10 cap 04/06/17 Famotidine [Pepcid] 20 mg PO Q12 #20 tab 04/12/17 Clotrimazole 1% Cream [Lotrimin 1%] 1 applic TP BID #1 tube 04/18/17 Cyclobenzaprine [Cyclobenzaprine 10 mg PO TID PRN #15 tab 04/22/17 HCl] Acetaminophen [Tylenol 325mg tab] 650 mg PO TID #30 tab 05/01/17 Clotrimazole 1% [Lotrimin AF 1%] 10 applic TOP BID #1 bottle 05/02/17 - Allergies Allergies/Adverse Reactions: Allergies Allergy/AdvReac Type Severity Reaction Status Date / Time No Known Allergies Allergy Verified 05/15/17 22:23 Review of Systems ROS Statement: Except As Marked, All Systems Reviewed And Found Negative Constitutional: Negative for: Fever, Chills Musculoskeletal: Positive for: Back Pain Physical Exam - Reviewed Nursing Documentation Reviewed: Yes Vital Signs Reviewed: Yes - Physical Exam Appears: Positive for: Well, Non-toxic, No Acute Distress Head Exam: Positive for: ATRAUMATIC, NORMAL INSPECTION, NORMOCEPHALIC Skin: Positive for: Normal Color, Warm, DRY Eye Exam: Positive for: Normal appearance ENT: Positive for: Normal ENT Inspection Neck: Positive for: Normal, Painless ROM Cardiovascular/Chest: Positive for: Regular Rate, Rhythm Respiratory: Positive for: CNT, Normal Breath Sounds Gastrointestinal/Abdominal: Positive for: Normal Exam, Bowel Sounds, Soft Back: Positive for: Normal Inspection Extremity: Positive for: Normal ROM Neurologic/Psych: Positive for: Alert, Oriented - ECG O2 Sat by Pulse Oximetry: 99 Disposition - Clinical Impression Clinical Impression: Chronic back pain - Patient ED Disposition Is Patient to be Admitted: No Counseled Patient/Family Regarding: Diagnosis, Need For Followup - Disposition Disposition: Routine/Home Disposition Time: 22:05 Condition: STABLE Instructions: Back Pain (ED)
== END 2017-05-16 23:37 | disposition home or self-care (01) ==
LOC: H.ER 21:24
DX: M54.9 Dorsalgia, unspecified (principal); F20.9 Schizophrenia, unspecified; F32.9 Major depressive disorder, single episode, unspecified; G89.29 Other chronic pain; J44.9 Chronic obstructive pulmonary disease, unspecified

== ENCOUNTER 2017-05-17 08:18 | Emergency (ER) | payer MEDICAID ==
[2017-05-17 08:18] VITALS: BMI 21.5
--- NOTE | 2017-05-17 10:01 | ED PDOC ---
HPI: Back Time Seen by Provider: 05/17/17 09:00 Chief Complaint (Nursing): Back Pain Chief Complaint (Provider): back pain, chronic History Per: Patient History/Exam Limitations: no limitations Onset/Duration Of Symptoms: Days (years) Current Symptoms Are (Timing): Still Present Severity: Mild Additional Complaint(s): Pt is undomiciled and states today was cold and he has pain all over his body. no cough or fever. states also that he has chronic back pain. been in this ER multiple times for the same. Past Medical History Vital Signs: Last Vital Signs Temp 96.2 F L 05/17/17 08:46 Pulse 71 05/17/17 08:46 Resp 16 05/17/17 08:46 BP 165/84 H 05/17/17 08:46 Pulse Ox 98 05/17/17 08:46 - Medical History PMH: Back Problems, COPD, Depression, Schizophrenia Denies: Diabetes, Hepatitis, HIV, HTN, Chronic Kidney Disease, Seizures - Surgical History Surgical History: No Surg Hx - Family History Family History: States: Unknown Family Hx - Social History Current smoker - smoking cessation education provided: No Alcohol: None Drugs: Denies - Immunization History Hx Tetanus Toxoid Vaccination: Yes Hx Influenza Vaccination: No Hx Pneumococcal Vaccination: No - Home Medications Home Medications: Ambulatory Orders Medication Instructions Recorded Ranitidine HCl [Zantac] 1 tab PO BID #30 tablet 02/16/17 Dicyclomine [Bentyl] 20 mg PO BID PRN #30 tab 04/06/17 Ibuprofen [Motrin Tab] 600 mg PO Q8 PRN #60 tab 04/06/17 Tamsulosin [Flomax] 0.4 mg PO DAILY #10 cap 04/06/17 Famotidine [Pepcid] 20 mg PO Q12 #20 tab 04/12/17 Cyclobenzaprine [Cyclobenzaprine 10 mg PO TID PRN #15 tab 04/22/17 HCl] Acetaminophen [Tylenol 325mg tab] 650 mg PO TID #30 tab 05/01/17 Clotrimazole 1% [Lotrimin AF 1%] 10 applic TOP BID #1 bottle 05/02/17 Clotrimazole/Betamethasone 15 gm EXT BID #1 tube 05/18/17 [Lotrisone] - Allergies Allergies/Adverse Reactions: Allergies Allergy/AdvReac Type Severity Reaction Status Date / Time No Known Allergies Allergy Verified 05/18/17 10:59 Physical Exam - Physical Exam Appears: Positive for: Well, Non-toxic, No Acute Distress Head Exam: Positive for: ATRAUMATIC, NORMAL INSPECTION, NORMOCEPHALIC Skin: Positive for: Normal Color, Warm, DRY Cardiovascular/Chest: Positive for: Regular Rate, Rhythm Respiratory: Positive for: CNT, Normal Breath Sounds Gastrointestinal/Abdominal: Positive for: Normal Exam, Bowel Sounds, Soft Extremity: Positive for: Normal ROM Neurologic/Psych: Positive for: Alert, Oriented - Laboratory Results Result Diagrams: 05/17/17 12:25 05/17/17 12:25 - ECG ECG Rhythm: Positive for: Sinus Bradycardia. Negative for: ST/T Changes (No ST elevation) Rate: 51 O2 Sat by Pulse Oximetry: 98 Medical Decision Making Medical Decision Making: chief complaint of body pain. pt without fever o rocugh unlikely infectious etiology pt will be given tylenol and reeval 1140 -Patient's temperature was low. His initial vital was 96.2. He was given blankets. Labs were sent out to rule out sepsis. 1350 -Vitals improved and labs are normal. Patient ate a full meal and will b discharged home. Disposition - Clinical Impression Clinical Impression: Back disorder - Patient ED Disposition Is Patient to be Admitted: No - Disposition Referrals: [facility] [Outside] [facility] [Outside] Disposition Time: 13:55 Condition: IMPROVED Additional Instructions: follow up with your primary doctor in 1-2 days return to the ED with any worsening or concerning symptoms. Instructions: Chronic Back Pain (ED), Back Pain (ED) Forms: [employer] (Latvian)
[2017-05-17 11:46] VITALS: BP 131/67; RESP 18
[2017-05-17 11:58] VITALS: O2SAT 98
--- NOTE | 2017-05-17 12:05 | RAD ---
HISTORY: Sepsis Patient COMPARISON: 03/27/2017. FINDINGS: LUNGS: The lungs are well inflated and clear. PLEURA: No significant pleural effusion identified, no pneumothorax apparent. CARDIOVASCULAR: Normal. OSSEOUS STRUCTURES: No significant abnormalities. VISUALIZED UPPER ABDOMEN: Normal. OTHER FINDINGS: None. IMPRESSION: No active pulmonary disease.
[2017-05-17 12:22] LABS: VENOUS BLOOD GAS BASE EXCESS 0.3 mmol/L (0.0-2.0); VENOUS BLOOD GAS PCO2 48 mmHg (40-60); VENOUS BLOOD PH 7.35 (7.32-7.43)
[2017-05-17 12:33] LABS: BASO # 0.1 K/uL (0.0-0.2); BASO % 1.7 % (0.0-2.0); EOS # 0.1 K/uL (0.0-0.7); EOS % 2.5 % (0.0-4.0); LYMPH # 2.6 K/uL (1.0-4.3); LYMPH % 44.8 % (20.0-40.0); MEAN CELL VOLUME 87.5 fl (80.0-94.0); MEAN CORPUSCULAR HEMOGLOBIN 29.1 pg (27.0-31.0); MEAN CORPUSCULAR HGB CONC 33.3 g/dL (33.0-37.0); MEAN PLATELET VOLUME 7.3 fl (7.2-11.7); MONO # 0.4 K/uL (0.0-0.8); MONO % 7.7 % (0.0-10.0); NEUT # 2.5 K/uL (1.8-7.0); NEUT % 43.3 % (50.0-75.0); NRBC % 0.1 % (0.0-0.0); RED CELL DISTRIBUTION WIDTH 13.2 % (11.5-14.5); WHITE BLOOD COUNT 5.8 K/uL (4.8-10.8)
[2017-05-17 12:48] LABS: ALB/GLOB RATIO 1.2 (1.0-2.1); ALKALINE PHOSPHATASE 59 U/L (38-126); ALT/SGPT 21 U/L (21-72); AST/SGOT 22 U/L (17-59); BILIRUBIN,TOTAL 0.7 mg/dl (0.2-1.3); BLOOD UREA NITROGEN 8 mg/dl (9-20); CALCIUM 8.6 mg/dL (8.4-10.2); CARBON DIOXIDE 26 mmol/L (22-30); CHLORIDE 106 mmol/L (98-107); GFR AFRICAN-AMERICAN > 60; GLUCOSE,RANDOM 91 mg/dL (75-110); POTASSIUM 4.2 MMOL/L (3.6-5.0); SODIUM 138 mmol/l (132-148); TOTAL PROTEIN 6.8 G/DL (6.3-8.2)
[2017-05-17 15:19] VITALS: TEMP 97.7
--- NOTE | 2017-05-18 10:40 | CARD ---
APPROVED REPORT EKG Measurement Heart [id number] <Conclusion> Sinus bradycardia with sinus arrhythmia Otherwise normal ECG
[2017-05-18 17:24] VITALS: PULSE 51
== END 2017-05-17 12:00 | disposition home or self-care (01) ==
LOC: H.ER 08:18
DX: M54.9 Dorsalgia, unspecified (principal); G89.29 Other chronic pain; F20.9 Schizophrenia, unspecified; F32.9 Major depressive disorder, single episode, unspecified; J44.9 Chronic obstructive pulmonary disease, unspecified

== ENCOUNTER 2017-05-18 10:31 | Emergency (ER) | payer MEDICAID ==
[2017-05-18 10:37] VITALS: BMI 20.7
[2017-05-18 10:40] VITALS: BP 128/58; PULSE 77; RESP 17; TEMP 97.4; O2SAT 98
--- NOTE | 2017-05-18 10:53 | ED PDOC ---
Lower Extremity Pain/Injury Time Seen by Provider: 05/18/17 10:44 Chief Complaint (Provider): Feet pain History Per: Patient History/Exam Limitations: no limitations Onset/Duration Of Symptoms: Days (x 2) Current Symptoms Are (Timing): Still Present Additional Complaint(s): Nazario Lopez is a 57-year-old non-domiciled male who presents complaining of pain, cracking, and redness to bilateral feet. States he stepped in puddle and has been walking in wet shoes and socks for 2 days. No fever or chills. Past Medical History Reviewed: Historical Data, Nursing Documentation, Vital Signs Vital Signs: Last Vital Signs Temp 97.4 F L 05/18/17 10:38 Pulse 77 05/18/17 10:38 Resp 17 05/18/17 10:38 BP 128/58 L 05/18/17 10:38 Pulse Ox 98 05/18/17 10:38 - Medical History PMH: Back Problems, COPD, Depression, Schizophrenia Denies: Diabetes, Hepatitis, HIV, HTN, Chronic Kidney Disease, Seizures - Surgical History Surgical History: No Surg Hx - Family History Family History: States: Unknown Family Hx - Living Arrangements Living Arrangements: Other (Non domiciled) - Social History Current smoker - smoking cessation education provided: Yes Alcohol: None Drugs: Denies - Immunization History Hx Tetanus Toxoid Vaccination: Yes Hx Influenza Vaccination: No Hx Pneumococcal Vaccination: No - Home Medications Home Medications: Ambulatory Orders Medication Instructions Recorded Ranitidine HCl [Zantac] 1 tab PO BID #30 tablet 02/16/17 Dicyclomine [Bentyl] 20 mg PO BID PRN #30 tab 04/06/17 Ibuprofen [Motrin Tab] 600 mg PO Q8 PRN #60 tab 04/06/17 Tamsulosin [Flomax] 0.4 mg PO DAILY #10 cap 04/06/17 Famotidine [Pepcid] 20 mg PO Q12 #20 tab 04/12/17 Cyclobenzaprine [Cyclobenzaprine 10 mg PO TID PRN #15 tab 04/22/17 HCl] Acetaminophen [Tylenol 325mg tab] 650 mg PO TID #30 tab 05/01/17 Clotrimazole 1% [Lotrimin AF 1%] 10 applic TOP BID #1 bottle 05/02/17 Clotrimazole/Betamethasone 15 gm EXT BID #1 tube 05/18/17 [Lotrisone] - Allergies Allergies/Adverse Reactions: Allergies Allergy/AdvReac Type Severity Reaction Status Date / Time No Known Allergies Allergy Verified 05/18/17 10:59 Review of Systems ROS Statement: Except As Marked, All Systems Reviewed And Found Negative Constitutional: Negative for: Fever, Chills Musculoskeletal: Positive for: Foot Pain (b/l, with cracking and drainage) Physical Exam - Reviewed Nursing Documentation Reviewed: Yes Vital Signs Reviewed: Yes - Physical Exam Appears: Positive for: Non-toxic, No Acute Distress Head Exam: Positive for: ATRAUMATIC, NORMAL INSPECTION, NORMOCEPHALIC Skin: Positive for: Normal Color, Warm, Dry Eye Exam: Positive for: EOMI, Normal appearance, PERRL Neck: Positive for: Normal, Supple Extremity: Positive for: Other (erythema with drainage, cracking, interdigital webbing of feet bilaterally) Neurologic/Psych: Positive for: Alert, Oriented. Negative for: Motor/Sensory Deficits - ECG O2 Sat by Pulse Oximetry: 98 (RA) Pulse Ox Interpretation: Normal Medical Decision Making Medical Decision Making: Time: 10:50 Initial Plan: * Clotrimazole 1% cream applied * Pending reevaluation Upon provider evaluation patient is medically stable, and requires no further treatment in the ED at this time. Patient will be discharged home. Counseling was provided and all questions were answered regarding diagnosis and need for follow up. There is agreement to discharge plan. Return if symptoms persist or worsen. Scribe Attestation: Documented by Brooke Lanza, acting as a scribe for Tr Liao MD Provider Scribe Attestation: All medical record entries made by the Scribe were at my direction and personally dictated by me. I have reviewed the chart and agree that the record accurately reflects my personal performance of the history, physical exam, medical decision making, and the department course for this patient. I have also personally directed, reviewed, and agree with the discharge instructions and disposition. Disposition - Clinical Impression Clinical Impression: Tinea pedis - Patient ED Disposition Is Patient to be Admitted: No Counseled Patient/Family Regarding: Diagnosis, Need For Followup, Rx Given - Disposition [facility]errals: [facility] [Outside] Disposition: Routine/Home Disposition Time: 12:01 Condition: FAIR Prescriptions: Clotrimazole/Betamethasone [Lotrisone] 15 gm EXT BID #1 tube Instructions: Tinea Pedis (ED)
== END 2017-05-18 12:38 | disposition home or self-care (01) ==
LOC: H.ER 10:31
DX: B35.3 Tinea pedis (principal); F20.9 Schizophrenia, unspecified; F32.9 Major depressive disorder, single episode, unspecified; J44.9 Chronic obstructive pulmonary disease, unspecified; F17.200 Nicotine dependence, unspecified, uncomplicated

== ENCOUNTER 2017-05-19 22:58 | Emergency (ER) | payer MEDICAID ==
[2017-05-19 22:58] VITALS: BMI 20.7
[2017-05-19 23:15] VITALS: BP 133/60; PULSE 79; RESP 16; TEMP 98.2; O2SAT 96
--- NOTE | 2017-05-19 23:17 | ED PDOC ---
HPI: Back Time Seen by Provider: 05/19/17 23:16 Chief Complaint (Nursing): Lower Extremity Problem/Injury Chief Complaint (Provider): back pain History Per: Patient Additional Complaint(s): 57-year-old undomiciled male presents to emergency department for evaluation of lower back pain that radiates down his legs. Patient is well-known to the emergency department for frequent visits for same complaints. He denies any recent fall or trauma. Past Medical History Reviewed: Historical Data, Nursing Documentation, Vital Signs Vital Signs: Last Vital Signs Temp 98.2 F 05/19/17 23:11 Pulse 79 05/19/17 23:11 Resp 16 05/19/17 23:11 BP 133/60 05/19/17 23:11 Pulse Ox 96 05/19/17 23:11 - Medical History PMH: Back Problems, COPD, Depression, Schizophrenia - Family History Family History: States: No Known Family Hx - Living Arrangements Living Arrangements: Other (non-domiciled) - Social History Current smoker - smoking cessation education provided: Yes Alcohol: None Drugs: Denies - Home Medications Home Medications: Ambulatory Orders Medication Instructions Recorded Ranitidine HCl [Zantac] 1 tab PO BID #30 tablet 02/16/17 Dicyclomine [Bentyl] 20 mg PO BID PRN #30 tab 04/06/17 Ibuprofen [Motrin Tab] 600 mg PO Q8 PRN #60 tab 04/06/17 Tamsulosin [Flomax] 0.4 mg PO DAILY #10 cap 04/06/17 Famotidine [Pepcid] 20 mg PO Q12 #20 tab 04/12/17 Cyclobenzaprine [Cyclobenzaprine 10 mg PO TID PRN #15 tab 04/22/17 HCl] Acetaminophen [Tylenol 325mg tab] 650 mg PO TID #30 tab 05/01/17 Clotrimazole 1% [Lotrimin AF 1%] 10 applic TOP BID #1 bottle 05/02/17 Clotrimazole/Betamethasone 15 gm EXT BID #1 tube 05/18/17 [Lotrisone] Ibuprofen [Motrin] 600 mg PO Q6 PRN #15 tab 05/19/17 - Allergies Allergies/Adverse Reactions: Allergies Allergy/AdvReac Type Severity Reaction Status Date / Time No Known Allergies Allergy Verified 05/19/17 23:11 Review of Systems ROS Statement: Except As Marked, All Systems Reviewed And Found Negative Constitutional: Negative for: Fever Cardiovascular: Negative for: Chest Pain Respiratory: Negative for: Shortness of Breath Musculoskeletal: Positive for: Back Pain Physical Exam - Reviewed Nursing Documentation Reviewed: Yes Vital Signs Reviewed: Yes - Physical Exam Appears: Positive for: Well, No Acute Distress Skin: Positive for: Normal Color. Negative for: Rash Eye Exam: Positive for: Normal appearance Back: Positive for: Vertebral Tenderness (lumbar) Neurologic/Psych: Positive for: Alert, Oriented, Gait (steady) - ECG O2 Sat by Pulse Oximetry: 96 Pulse Ox Interpretation: Normal Medical Decision Making Medical Decision Making: Impression: chronic back pain Plan: PO motrin Patient is ambulatory with steady gait. Patient was provided with prescription for Motrin and was referred to clinic for follow-up. Disposition - Clinical Impression Clinical Impression: Back pain - Patient ED Disposition Is Patient to be Admitted: No Counseled Patient/Family Regarding: Diagnosis, Need For Followup, Rx Given - Disposition Referrals: [facility] [Outside] Disposition: Routine/Home Disposition Time: 23:27 Condition: STABLE Additional Instructions: Take rx meds as directed. Follow up with clinic. Prescriptions: Ibuprofen [Motrin] 600 mg PO Q6 PRN #15 tab PRN Reason: Pain, Moderate (4-7) Instructions: Back Pain (ED) Forms: [employer] (Macanese)
== END 2017-05-19 23:51 | disposition home or self-care (01) ==
LOC: H.ER 22:58
DX: M54.9 Dorsalgia, unspecified (principal); F20.9 Schizophrenia, unspecified; F32.9 Major depressive disorder, single episode, unspecified; G89.29 Other chronic pain; J44.9 Chronic obstructive pulmonary disease, unspecified

== ENCOUNTER 2017-05-20 12:15 | Emergency (ER) | payer MEDICAID ==
[2017-05-20 12:15] VITALS: BMI 20.7
[2017-05-20 12:23] VITALS: BP 139/80; PULSE 91; RESP 16; TEMP 96.1; O2SAT 100
--- NOTE | 2017-05-20 13:02 | ED PDOC ---
HPI: Back Time Seen by Provider: 05/20/17 12:29 Chief Complaint (Nursing): Back Pain Chief Complaint (Provider): "Homeless and Needs Someplae To Stay" History Per: Patient History/Exam Limitations: no limitations Additional Complaint(s): Nazario Lopez, a 57 year old male, presents to the ED stating that he is homeless and would like a place to stay while it is currently snowing outside. Patient offers no medical complaints at this time. Patient is well known to provider and ED. - Risk Factors AAA Risk Factors: Pos: Older Than 49 Years Of Age Past Medical History Reviewed: Historical Data, Nursing Documentation, Vital Signs Vital Signs: Last Vital Signs Temp 96.1 F L 05/20/17 12:19 Pulse 91 H 05/20/17 12:19 Resp 16 05/20/17 12:19 BP 139/80 05/20/17 12:19 Pulse Ox 100 05/20/17 12:19 - Medical History PMH: Back Problems, COPD, Depression, Schizophrenia Denies: Diabetes, Hepatitis, HIV, HTN, Chronic Kidney Disease, Seizures - Surgical History Surgical History: No Surg Hx - Family History Family History: States: Unknown Family Hx - Social History Current smoker - smoking cessation education provided: Yes (Light Smoker < 10 Cigarettes Daily) Ex-Smoker (has not smoked in the last 12 months): Yes Alcohol: None Drugs: Denies - Immunization History Hx Tetanus Toxoid Vaccination: Yes Hx Influenza Vaccination: No Hx Pneumococcal Vaccination: No - Home Medications Home Medications: Ambulatory Orders Medication Instructions Recorded Ranitidine HCl [Zantac] 1 tab PO BID #30 tablet 02/16/17 Dicyclomine [Bentyl] 20 mg PO BID PRN #30 tab 04/06/17 Ibuprofen [Motrin Tab] 600 mg PO Q8 PRN #60 tab 04/06/17 Tamsulosin [Flomax] 0.4 mg PO DAILY #10 cap 04/06/17 Famotidine [Pepcid] 20 mg PO Q12 #20 tab 04/12/17 Cyclobenzaprine [Cyclobenzaprine 10 mg PO TID PRN #15 tab 04/22/17 HCl] Acetaminophen [Tylenol 325mg tab] 650 mg PO TID #30 tab 05/01/17 Clotrimazole 1% [Lotrimin AF 1%] 10 applic TOP BID #1 bottle 05/02/17 Clotrimazole/Betamethasone 15 gm EXT BID #1 tube 05/18/17 [Lotrisone] Ibuprofen [Motrin] 600 mg PO Q6 PRN #15 tab 05/19/17 - Allergies Allergies/Adverse Reactions: Allergies Allergy/AdvReac Type Severity Reaction Status Date / Time No Known Allergies Allergy Verified 05/19/17 23:11 Review of Systems ROS Statement: Except As Marked, All Systems Reviewed And Found Negative ( patient offers no complaints at this time) Musculoskeletal: Negative for: Back Pain Physical Exam - Reviewed Nursing Documentation Reviewed: Yes Vital Signs Reviewed: Yes - Physical Exam Appears: Positive for: Non-toxic, No Acute Distress Head Exam: Positive for: ATRAUMATIC, NORMAL INSPECTION, NORMOCEPHALIC Skin: Positive for: Normal Color Eye Exam: Positive for: Normal appearance Neck: Positive for: Normal, Painless ROM. Negative for: Decreased ROM Cardiovascular/Chest: Positive for: Regular Rate, Rhythm, Chest Non Tender. Negative for: Tachycardia Respiratory: Positive for: Normal Breath Sounds. Negative for: Wheezing, Respiratory Distress Back: Positive for: Normal Inspection. Negative for: L CVA Tenderness, R CVA Tenderness, Vertebral Tenderness, Decreased ROM, Muscle Spasm Extremity: Positive for: Normal ROM Neurologic/Psych: Positive for: Alert, Oriented, Gait. Negative for: Motor/ Sensory Deficits - ECG O2 Sat by Pulse Oximetry: 100 (RA) Pulse Ox Interpretation: Normal Medical Decision Making Medical Decision Makin Initial Impression 57 y/o male presenting Initial Plan: * Reevaluation Upon provider evaluation patient is medically stable requires no further treatment in the ED at this time. Patient will be discharged home. Scribe Attestation Documented by Diane Stewart acting as a scribe for Grady Yueng PA-C. Scribe Attestation All medical record entries made by the Scribe were at my direction and personally dictated by me. I have reviewed the chart and agree that the record accurately reflects my personal performance of the history, physical exam, medical decision making, and the department course for this patient. I have also personally directed, reviewed, and agree with the discharge instructions and disposition. Disposition - Clinical Impression Clinical Impression: Homelessness - Patient ED Disposition Is Patient to be Admitted: No Counseled Patient/Family Regarding: Studies Performed - Disposition Disposition: Routine/Home Disposition Time: 12:45 Condition: STABLE Instructions: Normal Exam (ED) Forms: [employer] ([place]inyar[place]anda) - POA Present On Arrival: None
== END 2017-05-20 21:20 | disposition home or self-care (01) ==
LOC: H.ER 12:15
DX: Z59.0 Homelessness (principal); F20.9 Schizophrenia, unspecified; F32.9 Major depressive disorder, single episode, unspecified; J44.9 Chronic obstructive pulmonary disease, unspecified; F17.210 Nicotine dependence, cigarettes, uncomplicated

== ENCOUNTER 2017-09-04 21:14 | Emergency (ER) | payer MEDICAID ==
[2017-09-04 22:53] VITALS: BMI 21.5
[2017-09-04 22:56] VITALS: BP 140/56; PULSE 78; RESP 16; TEMP 98.1; O2SAT 97
--- NOTE | 2017-09-05 01:31 | ED PDOC ---
HPI: Back Time Seen by Provider: 09/04/17 21:20 Chief Complaint (Nursing): Back Pain Chief Complaint (Provider): Bed-seeking History Per: Patient History/Exam Limitations: no limitations Onset/Duration Of Symptoms: Sudden Onset Current Symptoms Are (Timing): Still Present Additional Complaint(s): 57 year old homeless male, in a poor state of hygiene, with a past medical history of COPD, who is presenting to the ER with complaints of feeling cold and bed seeking behavior. Patient was in the two nights with the same complaint. He denies any chest pain, shortness of breath, fevers, cough, or nausea, or vomiting. Patient offers no other medical complaints at this time. PMD: none provided Past Medical History Reviewed: Historical Data, Nursing Documentation, Vital Signs Vital Signs: Last Vital Signs Temp 98.1 F 09/04/17 22:54 Pulse 78 09/04/17 22:54 Resp 16 09/04/17 22:54 BP 140/56 L 09/04/17 22:54 Pulse Ox 97 09/04/17 22:54 - Medical History PMH: Back Problems, COPD, Depression, Schizophrenia Denies: Diabetes, Hepatitis, HIV, HTN, Chronic Kidney Disease, Seizures - Surgical History Surgical History: No Surg Hx - Family History Family History: States: Unknown Family Hx - Living Arrangements Living Arrangements: Alone - Social History Current smoker - smoking cessation education provided: Yes (light ) Ex-Smoker (has not smoked in the last 12 months): No Alcohol: Other (yes) Drugs: Other (yes) - Immunization History Hx Tetanus Toxoid Vaccination: Yes Hx Influenza Vaccination: No Hx Pneumococcal Vaccination: No - Home Medications Home Medications: Ambulatory Orders Medication Instructions Recorded Ranitidine HCl [Zantac] 1 tab PO BID #30 tablet 02/16/17 Dicyclomine [Bentyl] 20 mg PO BID PRN #30 tab 04/06/17 Ibuprofen [Motrin Tab] 600 mg PO Q8 PRN #60 tab 04/06/17 Tamsulosin [Flomax] 0.4 mg PO DAILY #10 cap 04/06/17 Famotidine [Pepcid] 20 mg PO Q12 #20 tab 04/12/17 Cyclobenzaprine [Cyclobenzaprine 10 mg PO TID PRN #15 tab 04/22/17 HCl] Acetaminophen [Tylenol 325mg tab] 650 mg PO TID #30 tab 05/01/17 Clotrimazole 1% [Lotrimin AF 1%] 10 applic TOP BID #1 bottle 05/02/17 Clotrimazole/Betamethasone 15 gm EXT BID #1 tube 05/18/17 [Lotrisone] Ibuprofen [Motrin] 600 mg PO Q6 PRN #15 tab 05/19/17 Oseltamivir [Tamiflu] 75 mg PO BID #10 cap 07/08/17 Oseltamivir Phosphate [Tamiflu] 75 mg PO BID #10 capsule 07/10/17 Ciprofloxacin [Cipro] 500 mg PO BID 7 Days tab 07/12/17 Famotidine [Pepcid] 20 mg PO Q12 #20 tab 08/25/17 - Allergies Allergies/Adverse Reactions: Allergies Allergy/AdvReac Type Severity Reaction Status Date / Time No Known Allergies Allergy Verified 09/04/17 22:53 Review of Systems ROS Statement: Except As Marked, All Systems Reviewed And Found Negative Constitutional: Negative for: Fever Cardiovascular: Negative for: Chest Pain Respiratory: Negative for: Cough, Shortness of Breath Gastrointestinal: Negative for: Nausea, Vomiting Physical Exam - Reviewed Nursing Documentation Reviewed: Yes Vital Signs Reviewed: Yes - Physical Exam Appears: Positive for: Well, Non-toxic, No Acute Distress Head Exam: Positive for: ATRAUMATIC, NORMAL INSPECTION, NORMOCEPHALIC Skin: Positive for: Normal Color, Warm, DRY Eye Exam: Positive for: EOMI, Normal appearance, PERRL ENT: Positive for: Normal ENT Inspection Neck: Positive for: Normal, Painless ROM Cardiovascular/Chest: Positive for: Regular Rate, Rhythm. Negative for: Murmur Respiratory: Positive for: Normal Breath Sounds. Negative for: Respiratory Distress Gastrointestinal/Abdominal: Positive for: Normal Exam, Soft. Negative for: Tenderness Back: Positive for: Normal Inspection Extremity: Positive for: Normal ROM. Negative for: Pedal Edema, Deformity Neurologic/Psych: Positive for: Alert, Oriented. 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 Provider Attestation: All medical record entries made by the Scribe were at my direction and personally dictated by me. I have reviewed the chart and agree that the record accurately reflects my personal performance of the history, physical exam, medical decision making, and the department course for this patient. I have also personally directed, reviewed, and agree with the discharge instructions and disposition. Disposition - Clinical Impression Clinical Impression: Malingering - Disposition Disposition: Routine/Home Disposition Time: 00:55 Condition: STABLE Forms: [employer] ([place])
== END 2017-09-05 03:45 | disposition home or self-care (01) ==
LOC: H.ER 21:14
DX: Z76.5 Malingerer [conscious simulation] (principal); Z86.59 Personal history of other mental and behavioral disorders; F17.200 Nicotine dependence, unspecified, uncomplicated; Z59.0 Homelessness; J44.9 Chronic obstructive pulmonary disease, unspecified

== ENCOUNTER 2017-09-08 22:56 | Emergency (ER) | payer MEDICAID ==
[2017-09-08 22:56] VITALS: BMI 21.5
[2017-09-08 23:01] VITALS: BP 135/92; PULSE 87; RESP 16; TEMP 97; O2SAT 97
--- NOTE | 2017-09-08 23:33 | ED PDOC ---
HPI: Back Time Seen by Provider: 09/08/17 23:09 Chief Complaint (Nursing): Back Pain History Per: Patient Additional Complaint(s): 57 yo homeless M reports atraumatic pain in the R lower back with no other associated symptoms. Reports no other complaints. Reports not taking any medication for his pain. Otherwise: (-) urinary symptoms, (-) abdominal pain, ( -) paresthesias, (-) weakness, (-) acute bowel or bladder dysfunction, (-) fever. Past Medical History Vital Signs: Last Vital Signs Temp 97 F L 09/08/17 22:58 Pulse 87 09/08/17 22:58 Resp 16 09/08/17 22:58 BP 135/92 H 09/08/17 22:58 Pulse Ox 97 09/08/17 22:58 - Medical History PMH: Back Problems, COPD, Depression, Schizophrenia Denies: Diabetes, Hepatitis, HIV, HTN, Chronic Kidney Disease, Seizures - Family History Family History: States: No Known Family Hx, Unknown Family Hx - Immunization History Hx Tetanus Toxoid Vaccination: Yes Hx Influenza Vaccination: No Hx Pneumococcal Vaccination: No - Home Medications Home Medications: Ambulatory Orders Medication Instructions Recorded Ranitidine HCl [Zantac] 1 tab PO BID #30 tablet 02/16/17 Dicyclomine [Bentyl] 20 mg PO BID PRN #30 tab 04/06/17 Ibuprofen [Motrin Tab] 600 mg PO Q8 PRN #60 tab 04/06/17 Tamsulosin [Flomax] 0.4 mg PO DAILY #10 cap 04/06/17 Famotidine [Pepcid] 20 mg PO Q12 #20 tab 04/12/17 Cyclobenzaprine [Cyclobenzaprine 10 mg PO TID PRN #15 tab 04/22/17 HCl] Acetaminophen [Tylenol 325mg tab] 650 mg PO TID #30 tab 05/01/17 Clotrimazole 1% [Lotrimin AF 1%] 10 applic TOP BID #1 bottle 05/02/17 Clotrimazole/Betamethasone 15 gm EXT BID #1 tube 05/18/17 [Lotrisone] Ibuprofen [Motrin] 600 mg PO Q6 PRN #15 tab 05/19/17 Oseltamivir [Tamiflu] 75 mg PO BID #10 cap 07/08/17 Oseltamivir Phosphate [Tamiflu] 75 mg PO BID #10 capsule 07/10/17 Ciprofloxacin [Cipro] 500 mg PO BID 7 Days tab 07/12/17 Famotidine [Pepcid] 20 mg PO Q12 #20 tab 08/25/17 - Allergies Allergies/Adverse Reactions: Allergies Allergy/AdvReac Type Severity Reaction Status Date / Time No Known Allergies Allergy Verified 09/04/17 22:53 Review of Systems Constitutional: Negative for: Fever, Chills Cardiovascular: Negative for: Chest Pain, Palpitations, Edema Respiratory: Negative for: Cough, Shortness of Breath Gastrointestinal: Negative for: Vomiting, Abdominal Pain Genitourinary Male: Negative for: Dysuria, Frequency, Incontinence Musculoskeletal: Positive for: Back Pain. Negative for: Neck Pain, Hand Pain, Leg Pain Skin: Negative for: Rash, Lesions, Jaundice Neurological: Negative for: Weakness, Numbness Physical Exam - Physical Exam Comments: GENERAL APPEARANCE: Patient is awake, alert, oriented x 3, in mild painful distress. Patient ambulatory in the emergency room. SKIN: Warm, dry; (-) cyanosis. EYES: (-) conjunctival pallor. ENMT: Mucous membranes moist. NECK: (-) tenderness, (-) stiffness, (-) lymphadenopathy. CHEST AND RESPIRATORY: (-) rales, (-) rhonchi, (-) wheezes; breath sounds equal bilaterally. HEART AND CARDIOVASCULAR: (-) irregularity; (-) murmur, (-) gallop. ABDOMEN AND GI: Soft; (-) tenderness; (-) palpable mass. BACK: (+) mild R paravertebral tenderness, (-) spasm, (-) direct bony tenderness, (-) deformity. EXTREMITIES: (-) deformity, (-) tenderness. Distal pulses good bilaterally. NEURO AND PSYCH: Mental status as above. Intact sensation bilaterally; normal strength in extension of the knees, plantar and dorsiflexion of the toes. - ECG O2 Sat by Pulse Oximetry: 97 Medical Decision Making Medical Decision Making: Impression : low back pain Plan : - Tylenol 975 mg PO Patient ambulatory in the ER. Stable for discharge. Disposition - Clinical Impression Clinical Impression: Low back pain - Patient ED Disposition Is Patient to be Admitted: No Counseled Patient/Family Regarding: Diagnosis, Need For Followup - Disposition Referrals: [facility] [Outside] Disposition: Routine/Home Disposition Time: 23:30 Condition: STABLE Instructions: Low Back Pain in Adults Forms: [employer] (Moroccan)
== END 2017-09-08 23:36 | disposition home or self-care (01) ==
LOC: H.ER 22:56
DX: M54.5 Low back pain (principal); F20.9 Schizophrenia, unspecified; F32.9 Major depressive disorder, single episode, unspecified; J44.9 Chronic obstructive pulmonary disease, unspecified; Z59.0 Homelessness

== ENCOUNTER 2017-09-09 06:03 | Emergency (ER) | payer MEDICAID ==
[2017-09-09 06:04] VITALS: BMI 21.5
[2017-09-09 06:16] VITALS: RESP 16; TEMP 97.3
--- NOTE | 2017-09-09 08:17 | ED PDOC ---
HPI: General Adult Time Seen by Provider: 09/09/17 07:00 Chief Complaint (Nursing): Upper Extremity Problem/Injury Chief Complaint (Provider): "Im hangin in there" History Per: Patient History/Exam Limitations: physical impairment (poor historian) Recently: Seen In ED Additional Complaint(s): 57yo male known to ED for frequent visits presents c/o body aches and need to sleep. He suffers from ongoing lower extremity pains, denies new falls, fever, injury or focal weakness. Sleeping on my arrival to room, on arousal stated he "was hanging in there, just need to sleep". Past Medical History Reviewed: Historical Data, Nursing Documentation, Vital Signs Vital Signs: Last Vital Signs Temp 97.3 F L 09/09/17 06:10 Pulse 89 09/09/17 09:30 Resp 16 09/09/17 09:30 BP 125/80 09/09/17 09:30 Pulse Ox 99 09/09/17 09:30 - Medical History PMH: Back Problems, COPD, Depression, Schizophrenia Denies: Diabetes, Hepatitis, HIV, HTN, Chronic Kidney Disease, Seizures - Family History Family History: States: Unknown Family Hx - Living Arrangements Living Arrangements: Other (homeless) - Immunization History Hx Tetanus Toxoid Vaccination: Yes Hx Influenza Vaccination: No Hx Pneumococcal Vaccination: No - Home Medications Home Medications: Ambulatory Orders Medication Instructions Recorded Ranitidine HCl [Zantac] 1 tab PO BID #30 tablet 02/16/17 Dicyclomine [Bentyl] 20 mg PO BID PRN #30 tab 04/06/17 Ibuprofen [Motrin Tab] 600 mg PO Q8 PRN #60 tab 04/06/17 Tamsulosin [Flomax] 0.4 mg PO DAILY #10 cap 04/06/17 Famotidine [Pepcid] 20 mg PO Q12 #20 tab 04/12/17 Cyclobenzaprine [Cyclobenzaprine 10 mg PO TID PRN #15 tab 04/22/17 HCl] Acetaminophen [Tylenol 325mg tab] 650 mg PO TID #30 tab 05/01/17 Clotrimazole 1% [Lotrimin AF 1%] 10 applic TOP BID #1 bottle 05/02/17 Clotrimazole/Betamethasone 15 gm EXT BID #1 tube 05/18/17 [Lotrisone] Ibuprofen [Motrin] 600 mg PO Q6 PRN #15 tab 05/19/17 Oseltamivir [Tamiflu] 75 mg PO BID #10 cap 07/08/17 Oseltamivir Phosphate [Tamiflu] 75 mg PO BID #10 capsule 07/10/17 Ciprofloxacin [Cipro] 500 mg PO BID 7 Days tab 07/12/17 Famotidine [Pepcid] 20 mg PO Q12 #20 tab 08/25/17 - Allergies Allergies/Adverse Reactions: Allergies Allergy/AdvReac Type Severity Reaction Status Date / Time No Known Allergies Allergy Verified 09/10/17 04:23 Review of Systems Constitutional: Negative for: Fever Respiratory: Negative for: Shortness of Breath Gastrointestinal: Negative for: Abdominal Pain Musculoskeletal: Negative for: Neck Pain Skin: Positive for: Lesions. Negative for: Rash Neurological: Negative for: Weakness, Headache, Dizziness Psych: Negative for: Suicidal ideation Physical Exam - Reviewed Nursing Documentation Reviewed: Yes Vital Signs Reviewed: Yes - Physical Exam Appears: Positive for: Non-toxic (poor hygiene) Head Exam: Positive for: ATRAUMATIC, NORMAL INSPECTION, NORMOCEPHALIC Skin: Positive for: Normal Color, Warm, DRY Eye Exam: Positive for: EOMI, Normal appearance, PERRL Neck: Positive for: Normal, Painless ROM Cardiovascular/Chest: Negative for: Tachycardia Respiratory: Negative for: Wheezing, Respiratory Distress Pulses-Radial (L): 2+ Pulses-Radial (R): 2+ Gastrointestinal/Abdominal: Positive for: Bowel Sounds, Soft. Negative for: Tenderness Back: Positive for: Normal Inspection Extremity: Positive for: Swelling (chroic appearing trace LE edema/erythema). Negative for: Deformity Neurologic/Psych: Positive for: Alert, Oriented, Other (moves all ext with equal tone). Negative for: Motor/Sensory Deficits - ECG O2 Sat by Pulse Oximetry: 98 Medical Decision Making Medical Decision Making: allowed to sleep in ED on re-eval 845a awake, no complaints/ DC from ED Disposition - Clinical Impression Clinical Impression: Chronic back pain - Patient ED Disposition Is Patient to be Admitted: No Counseled Patient/Family Regarding: Studies Performed, Diagnosis, Need For Followup - Disposition Referrals: [facility] [Outside] Disposition: Routine/Home Disposition Time: 09:00 Condition: STABLE Instructions: Chronic Pain Forms: [employer] (Syriac)
[2017-09-09 10:00] VITALS: BP 125/80; PULSE 89
[2017-09-10 12:41] VITALS: O2SAT 98
== END 2017-09-09 10:04 | disposition home or self-care (01) ==
LOC: H.ER 06:03
DX: M54.9 Dorsalgia, unspecified (principal); F20.9 Schizophrenia, unspecified; F32.9 Major depressive disorder, single episode, unspecified; G89.29 Other chronic pain

== ENCOUNTER 2017-09-10 03:59 | Emergency (ER) | payer MEDICAID ==
[2017-09-10 03:59] VITALS: BMI 21.5
[2017-09-10 04:27] VITALS: BP 137/90; PULSE 95; RESP 18; TEMP 98.2; O2SAT 95
--- NOTE | 2017-09-10 05:37 | ED PDOC ---
Lower Extremity Pain/Injury Time Seen by Provider: 09/10/17 04:32 Chief Complaint (Nursing): Lower Extremity Problem/Injury Chief Complaint (Provider): Lower Extremity Problem/Injury History Per: Patient History/Exam Limitations: no limitations Onset/Duration Of Symptoms: Mins (prior to arrival) Current Symptoms Are (Timing): Still Present Additional Complaint(s): Nazario Lopez is a 57 year old homeless male, well known to the ER, with a past medical history of psychiatric and musculoskeletal disorders, who is presenting to the ED with complaints of leg pain. Patient states he walked a lot today and is looking for a place to rest. He offers no other medical complaints at this time. Denies any SOB, cough, dyspnea, abdominal pain, fever, chills, N/V/D, or chest pain. PMD: none provided Past Medical History Reviewed: Historical Data, Nursing Documentation, Vital Signs Vital Signs: Last Vital Signs Temp 98.2 F 09/10/17 04:24 Pulse 95 H 09/10/17 04:24 Resp 18 09/10/17 04:24 BP 137/90 09/10/17 04:24 Pulse Ox 95 09/10/17 04:24 - Medical History PMH: Back Problems, COPD, Depression, Schizophrenia Denies: Diabetes, Hepatitis, HIV, HTN, Chronic Kidney Disease, Seizures - Surgical History Surgical History: No Surg Hx - Family History Family History: States: Unknown Family Hx - Immunization History Hx Tetanus Toxoid Vaccination: Yes - Home Medications Home Medications: Ambulatory Orders Medication Instructions Recorded Ranitidine HCl [Zantac] 1 tab PO BID #30 tablet 02/16/17 Dicyclomine [Bentyl] 20 mg PO BID PRN #30 tab 04/06/17 Ibuprofen [Motrin Tab] 600 mg PO Q8 PRN #60 tab 04/06/17 Tamsulosin [Flomax] 0.4 mg PO DAILY #10 cap 04/06/17 Famotidine [Pepcid] 20 mg PO Q12 #20 tab 04/12/17 Cyclobenzaprine [Cyclobenzaprine 10 mg PO TID PRN #15 tab 04/22/17 HCl] Acetaminophen [Tylenol 325mg tab] 650 mg PO TID #30 tab 05/01/17 Clotrimazole 1% [Lotrimin AF 1%] 10 applic TOP BID #1 bottle 05/02/17 Clotrimazole/Betamethasone 15 gm EXT BID #1 tube 05/18/17 [Lotrisone] Ibuprofen [Motrin] 600 mg PO Q6 PRN #15 tab 05/19/17 Oseltamivir [Tamiflu] 75 mg PO BID #10 cap 07/08/17 Oseltamivir Phosphate [Tamiflu] 75 mg PO BID #10 capsule 07/10/17 Ciprofloxacin [Cipro] 500 mg PO BID 7 Days tab 07/12/17 Famotidine [Pepcid] 20 mg PO Q12 #20 tab 08/25/17 - Allergies Allergies/Adverse Reactions: Allergies Allergy/AdvReac Type Severity Reaction Status Date / Time No Known Allergies Allergy Verified 09/10/17 04:23 Review of Systems ROS Statement: Except As Marked, All Systems Reviewed And Found Negative Constitutional: Positive for: Other (tired, looking for a place to rest) Musculoskeletal: Positive for: Leg Pain Physical Exam - Reviewed Nursing Documentation Reviewed: Yes Vital Signs Reviewed: Yes - Physical Exam Comments: GENERAL APPEARANCE: Patient is awake, alert, oriented x 3, in no acute distress SKIN: Warm, dry; (-) cyanosis. EYES: (-) conjunctival pallor, (-) scleral icterus. ENMT: Mucous membranes moist. NECK: Supple (-) tenderness, (-) stiffness CHEST AND RESPIRATORY: (-) rales, (-) rhonchi, (-) wheezes; breath sounds equal bilaterally. Respirations even and nonlabored. HEART AND CARDIOVASCULAR: (-) irregularity; (-) murmur, (-) gallop. ABDOMEN AND GI: (-) distention (-) tenderness, (-) guarding, (-) rebound (-) CVA tenderness. EXTREMITIES: (-) deformity, (-) edema, (+) distal pulses, (+) ambulatory in ED , (+) full ROM of lower extremities. (-) calf swelling, tenderness. (-) palpable cord. NEURO AND PSYCH: Mental status as above; (-) focal findings, (+) steady gait. - ECG O2 Sat by Pulse Oximetry: 95 (RA) Pulse Ox Interpretation: Normal Medical Decision Making Medical Decision Making: Time: 5:15 Impression: musculoskeletal leg pain, homelessness Based on history, exam and diagnostic results, plan will be for outpatient follow up. Patient instructed to follow-up with pmd / referral provided / the clinic in 1- 2 days without fail. Advised to take OTC medication as needed. Return to the emergency room at any time for any new or worsening symptoms. Patient states he fully agrees with and understands discharge instructions. States that he agrees with the plan and disposition. Verbalized and repeated discharge instructions and plan. I have given the patient opportunity to ask any additional questions. Scribe Attestation: Documented by Angela sEpinoza acting as a scribe for Flor Garcia PA-C., MD Scribe Attestation: All medical record entries made by the Scribe were at my direction and personally dictated by me. I have reviewed the chart and agree that the record accurately reflects my personal performance of the history, physical exam, medical decision making, and the department course for this patient. I have also personally directed, reviewed, and agree with the discharge instructions and disposition. Disposition - Clinical Impression Clinical Impression: Homelessness, Malingering, Musculoskeletal leg pain - Patient ED Disposition Is Patient to be Admitted: No Counseled Patient/Family Regarding: Diagnosis, Need For Followup - Disposition Referrals: [facility] [Outside] Disposition: Routine/Home Disposition Time: 05:40 Condition: FAIR Instructions: Muscle and Bone Pain (DC), General (DC) Forms: [employer] (Croatian) Print Language: ROMANIAN - POA Present On Arrival: None
== END 2017-09-10 06:32 | disposition home or self-care (01) ==
LOC: H.ER 03:59
DX: M79.604 Pain in right leg (principal); Z59.0 Homelessness; Z76.5 Malingerer [conscious simulation]

== ENCOUNTER 2017-09-13 02:02 | Emergency (ER) | payer MEDICAID ==
[2017-09-13 02:02] VITALS: BMI 21.5
[2017-09-13 02:28] VITALS: BP 136/89; PULSE 87; RESP 16; TEMP 98.9; O2SAT 98
--- NOTE | 2017-09-13 03:17 | ED PDOC ---
HPI: General Adult Time Seen by Provider: 09/13/17 02:05 Chief Complaint (Nursing): ENT Problem Chief Complaint (Provider): Cold History Per: Patient History/Exam Limitations: no limitations Onset/Duration Of Symptoms: Hrs Current Symptoms Are (Timing): Still Present Recently: Seen In ED Additional Complaint(s): 57 year old undomiciled male well known to ED complains of being wet. He is known for bed seeking tendencies. PMD: none provided Past Medical History Reviewed: Historical Data, Nursing Documentation, Vital Signs Vital Signs: Last Vital Signs Temp 98.9 F 09/13/17 02:25 Pulse 87 09/13/17 02:25 Resp 16 09/13/17 02:25 BP 136/89 09/13/17 02:25 Pulse Ox 98 09/13/17 03:20 - Medical History PMH: Back Problems, COPD, Depression, Schizophrenia Denies: Diabetes, Hepatitis, HIV, HTN, Chronic Kidney Disease, Seizures - Surgical History Surgical History: No Surg Hx - Family History Family History: States: Unknown Family Hx - Immunization History Hx Tetanus Toxoid Vaccination: Yes Hx Influenza Vaccination: No Hx Pneumococcal Vaccination: No - Home Medications Home Medications: Ambulatory Orders Medication Instructions Recorded Ranitidine HCl [Zantac] 1 tab PO BID #30 tablet 02/16/17 Dicyclomine [Bentyl] 20 mg PO BID PRN #30 tab 04/06/17 Ibuprofen [Motrin Tab] 600 mg PO Q8 PRN #60 tab 04/06/17 Tamsulosin [Flomax] 0.4 mg PO DAILY #10 cap 04/06/17 Famotidine [Pepcid] 20 mg PO Q12 #20 tab 04/12/17 Cyclobenzaprine [Cyclobenzaprine 10 mg PO TID PRN #15 tab 04/22/17 HCl] Acetaminophen [Tylenol 325mg tab] 650 mg PO TID #30 tab 05/01/17 Clotrimazole 1% [Lotrimin AF 1%] 10 applic TOP BID #1 bottle 05/02/17 Clotrimazole/Betamethasone 15 gm EXT BID #1 tube 05/18/17 [Lotrisone] Ibuprofen [Motrin] 600 mg PO Q6 PRN #15 tab 05/19/17 Oseltamivir [Tamiflu] 75 mg PO BID #10 cap 07/08/17 Oseltamivir Phosphate [Tamiflu] 75 mg PO BID #10 capsule 07/10/17 Ciprofloxacin [Cipro] 500 mg PO BID 7 Days tab 07/12/17 Famotidine [Pepcid] 20 mg PO Q12 #20 tab 08/25/17 - Allergies Allergies/Adverse Reactions: Allergies Allergy/AdvReac Type Severity Reaction Status Date / Time No Known Allergies Allergy Verified 09/10/17 04:23 Review of Systems ROS Statement: Except As Marked, All Systems Reviewed And Found Negative ENT: Positive for: Throat Pain Physical Exam - Reviewed Nursing Documentation Reviewed: Yes Vital Signs Reviewed: Yes - Physical Exam Appears: Positive for: No Acute Distress Head Exam: Positive for: ATRAUMATIC, NORMOCEPHALIC Skin: Positive for: Normal Color, Warm, Dry Neck: Positive for: Normal, Painless ROM Cardiovascular/Chest: Positive for: Regular Rate, Rhythm. Negative for: Murmur Respiratory: Positive for: Normal Breath Sounds. Negative for: Respiratory Distress Gastrointestinal/Abdominal: Positive for: Normal Exam, Soft Extremity: Positive for: Normal ROM. Negative for: Deformity Neurologic/Psych: Positive for: Alert, Oriented - ECG O2 Sat by Pulse Oximetry: 98 (RA) Pulse Ox Interpretation: Normal Medical Decision Making Medical Decision Making: Time; 03:19 pt given socks and will be discharged home. Disposition - Clinical Impression Clinical Impression: Homeless - Patient ED Disposition Is Patient to be Admitted: No - Disposition Referrals: [facility] [Outside] [facility] [Outside] Disposition: Routine/Home Disposition Time: 03:00 Condition: IMPROVED Additional Instructions: follow up with your primary doctor in 1-2 days return to the ED with any worsening or concerning symptoms Forms: [employer] (Italian)
== END 2017-09-13 05:39 | disposition home or self-care (01) ==
LOC: H.ER 02:02
DX: Z59.0 Homelessness (principal); Z86.59 Personal history of other mental and behavioral disorders; J44.9 Chronic obstructive pulmonary disease, unspecified

== ENCOUNTER 2017-09-19 20:34 | Emergency (ER) | payer MEDICAID ==
[2017-09-19 20:34] VITALS: BMI 21.5
[2017-09-19 22:09] VITALS: BP 109/71; PULSE 85; RESP 20; TEMP 97.9; O2SAT 95
--- NOTE | 2017-09-19 23:03 | ED PDOC ---
HPI: General Adult Time Seen by Provider: 09/19/17 22:17 Chief Complaint (Nursing): Lower Extremity Problem/Injury Chief Complaint (Provider): cold History Per: Patient Additional Complaint(s): 57 y/o male presents to ED stating he is cold. Patient states he got caught in the rain yesterday and his clothes are wet. Patient requesting to warm up in ED for a little. 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 Past Medical History Reviewed: Historical Data, Nursing Documentation, Vital Signs Vital Signs: Last Vital Signs Temp 97.9 F 09/19/17 22:07 Pulse 85 09/19/17 22:07 Resp 20 09/19/17 22:07 BP 109/71 09/19/17 22:07 Pulse Ox 95 09/19/17 23:03 - Medical History PMH: Back Problems, COPD, Depression, Schizophrenia Denies: Diabetes, Hepatitis, HIV, HTN, Chronic Kidney Disease, Seizures - Family History Family History: States: Unknown Family Hx - Immunization History Hx Tetanus Toxoid Vaccination: Yes Hx Influenza Vaccination: No Hx Pneumococcal Vaccination: No - Home Medications Home Medications: Ambulatory Orders Medication Instructions Recorded Ranitidine HCl [Zantac] 1 tab PO BID #30 tablet 02/16/17 Dicyclomine [Bentyl] 20 mg PO BID PRN #30 tab 04/06/17 Ibuprofen [Motrin Tab] 600 mg PO Q8 PRN #60 tab 04/06/17 Tamsulosin [Flomax] 0.4 mg PO DAILY #10 cap 04/06/17 Famotidine [Pepcid] 20 mg PO Q12 #20 tab 04/12/17 Cyclobenzaprine [Cyclobenzaprine 10 mg PO TID PRN #15 tab 04/22/17 HCl] Acetaminophen [Tylenol 325mg tab] 650 mg PO TID #30 tab 05/01/17 Clotrimazole 1% [Lotrimin AF 1%] 10 applic TOP BID #1 bottle 05/02/17 Clotrimazole/Betamethasone 15 gm EXT BID #1 tube 05/18/17 [Lotrisone] Ibuprofen [Motrin] 600 mg PO Q6 PRN #15 tab 05/19/17 Oseltamivir [Tamiflu] 75 mg PO BID #10 cap 07/08/17 Oseltamivir Phosphate [Tamiflu] 75 mg PO BID #10 capsule 07/10/17 Ciprofloxacin [Cipro] 500 mg PO BID 7 Days tab 07/12/17 Famotidine [Pepcid] 20 mg PO Q12 #20 tab 08/25/17 - Allergies Allergies/Adverse Reactions: Allergies Allergy/AdvReac Type Severity Reaction Status Date / Time No Known Allergies Allergy Verified 09/10/17 04:23 Review of Systems ROS Statement: Except As Marked, All Systems Reviewed And Found Negative Physical Exam - Reviewed Nursing Documentation Reviewed: Yes Vital Signs Reviewed: Yes - Physical Exam Appears: Positive for: Well, Non-toxic, Uncomfortable (unkempt) Head Exam: Positive for: ATRAUMATIC, NORMAL INSPECTION, NORMOCEPHALIC Skin: Positive for: Normal Color Eye Exam: Positive for: Normal appearance ENT: Positive for: Normal ENT Inspection Cardiovascular/Chest: Positive for: Regular Rate, Rhythm Respiratory: Positive for: Normal Breath Sounds Back: Positive for: Normal Inspection Extremity: Positive for: Normal ROM Neurologic/Psych: Positive for: Alert, Oriented - ECG O2 Sat by Pulse Oximetry: 95 - Progress ED Course And Treament: Patient refusing change of clothes, requesting sandwich and juice. Patient states he is feeling better and is stable for discharge. Disposition - Clinical Impression Clinical Impression: Malingerer, Homelessness - Patient ED Disposition Is Patient to be Admitted: No Counseled Patient/Family Regarding: Diagnosis, Need For Followup - Disposition Disposition: Routine/Home Disposition Time: 00:00 Condition: IMPROVED
== END 2017-09-20 00:35 | disposition home or self-care (01) ==
LOC: H.ER 20:34
DX: Z59.0 Homelessness (principal); Z86.59 Personal history of other mental and behavioral disorders; Z76.5 Malingerer [conscious simulation]

== ENCOUNTER 2017-09-25 07:51 | Emergency (ER) | payer MEDICAID ==
[2017-09-25 07:51] VITALS: BMI 21.5
[2017-09-25 08:09] VITALS: BP 155/71; PULSE 78; RESP 19; TEMP 98.4; O2SAT 97
--- NOTE | 2017-09-25 11:12 | ED PDOC ---
HPI: General Adult Time Seen by Provider: 09/25/17 08:11 Chief Complaint (Nursing): Abdominal Pain History Per: Patient History/Exam Limitations: no limitations Onset/Duration Of Symptoms: Days (x 3) Current Symptoms Are (Timing): Still Present Additional Complaint(s): 57-year-old male with generalized body aches and fatigue for 3 days. Denies vomiting, diarrhea or fever. PMD: No Family Provider Past Medical History Reviewed: Historical Data, Nursing Documentation, Vital Signs Vital Signs: Last Vital Signs Temp 98.4 F 09/25/17 08:08 Pulse 78 09/25/17 08:08 Resp 19 09/25/17 08:08 BP 155/71 H 09/25/17 08:08 Pulse Ox 97 09/25/17 11:13 - Medical History PMH: Back Problems, COPD, Depression, Schizophrenia Denies: Diabetes, Hepatitis, HIV, HTN, Chronic Kidney Disease, Seizures - Family History Family History: States: Unknown Family Hx - Immunization History Hx Tetanus Toxoid Vaccination: Yes Hx Influenza Vaccination: No Hx Pneumococcal Vaccination: No - Home Medications Home Medications: Ambulatory Orders Medication Instructions Recorded Ranitidine HCl [Zantac] 1 tab PO BID #30 tablet 02/16/17 Dicyclomine [Bentyl] 20 mg PO BID PRN #30 tab 04/06/17 Ibuprofen [Motrin Tab] 600 mg PO Q8 PRN #60 tab 04/06/17 Tamsulosin [Flomax] 0.4 mg PO DAILY #10 cap 04/06/17 Famotidine [Pepcid] 20 mg PO Q12 #20 tab 04/12/17 Cyclobenzaprine [Cyclobenzaprine 10 mg PO TID PRN #15 tab 04/22/17 HCl] Acetaminophen [Tylenol 325mg tab] 650 mg PO TID #30 tab 05/01/17 Clotrimazole 1% [Lotrimin AF 1%] 10 applic TOP BID #1 bottle 05/02/17 Clotrimazole/Betamethasone 15 gm EXT BID #1 tube 05/18/17 [Lotrisone] Ibuprofen [Motrin] 600 mg PO Q6 PRN #15 tab 05/19/17 Oseltamivir [Tamiflu] 75 mg PO BID #10 cap 07/08/17 Oseltamivir Phosphate [Tamiflu] 75 mg PO BID #10 capsule 07/10/17 Ciprofloxacin [Cipro] 500 mg PO BID 7 Days tab 07/12/17 Famotidine [Pepcid] 20 mg PO Q12 #20 tab 08/25/17 - Allergies Allergies/Adverse Reactions: Allergies Allergy/AdvReac Type Severity Reaction Status Date / Time No Known Allergies Allergy Verified 09/10/17 04:23 Review of Systems ROS Statement: Except As Marked, All Systems Reviewed And Found Negative Constitutional: Positive for: Other (Generalized body aches, fatigue). Negative for: Fever Gastrointestinal: Negative for: Vomiting, Diarrhea Physical Exam - Reviewed Nursing Documentation Reviewed: Yes Vital Signs Reviewed: Yes - Physical Exam Appears: Positive for: Non-toxic Head Exam: Positive for: ATRAUMATIC, NORMAL INSPECTION, NORMOCEPHALIC Skin: Positive for: Normal Color, Warm, Dry Eye Exam: Positive for: Normal appearance, EOMI, PERRL ENT: Positive for: Normal ENT Inspection Neck: Positive for: Normal Cardiovascular/Chest: Positive for: Regular Rate, Rhythm Respiratory: Positive for: Normal Breath Sounds. Negative for: Respiratory Distress Gastrointestinal/Abdominal: Positive for: Normal Exam Back: Positive for: Normal Inspection Extremity: Positive for: Normal ROM. Negative for: Deformity Neurologic/Psych: Positive for: Alert, Oriented (x 3) - ECG O2 Sat by Pulse Oximetry: 97 (RA) Pulse Ox Interpretation: Normal Disposition - Clinical Impression Clinical Impression: Chronic leg pain - Patient ED Disposition Is Patient to be Admitted: No - Disposition Referrals: [facility] [Outside] Disposition: Routine/Home Disposition Time: 12:06 Condition: FAIR Instructions: Low Back Pain (DC) Forms: [employer] (Thai)
== END 2017-09-25 12:51 | disposition home or self-care (01) ==
LOC: H.ER 07:51
DX: M79.606 Pain in leg, unspecified (principal); G89.29 Other chronic pain; F20.9 Schizophrenia, unspecified; F32.9 Major depressive disorder, single episode, unspecified; J44.9 Chronic obstructive pulmonary disease, unspecified

== ENCOUNTER 2017-09-26 05:20 | Emergency (ER) | payer MEDICAID ==
[2017-09-26 05:20] VITALS: BMI 21.5
[2017-09-26 05:43] VITALS: BP 116/72; RESP 18; TEMP 97.6
--- NOTE | 2017-09-26 05:57 | ED PDOC ---
HPI: General Adult Time Seen by Provider: 09/26/17 05:44 Chief Complaint (Nursing): Finger,Hand,&Wrist Chief Complaint (Provider): Bed-Seeking History Per: Patient History/Exam Limitations: no limitations Onset/Duration Of Symptoms: Sudden Onset Additional Complaint(s): 57 year old homeless male, in a poor state of hygiene, with a past medical history of COPD, who is presenting to the ER with complaints of feeling cold and bed seeking behavior. He denies any chest pain, shortness of breath, fevers, cough, or nausea, or vomiting. Patient offers no other medical complaints at this time. Past Medical History Reviewed: Historical Data, Nursing Documentation, Vital Signs Vital Signs: Last Vital Signs Temp 97.6 F 09/26/17 05:41 Pulse 66 09/26/17 05:41 Resp 18 09/26/17 05:41 BP 116/72 09/26/17 05:41 Pulse Ox 96 09/26/17 05:41 - Medical History PMH: Back Problems, COPD, Depression, Schizophrenia Denies: Diabetes, Hepatitis, HIV, HTN, Chronic Kidney Disease, Seizures - Surgical History Surgical History: No Surg Hx - Family History Family History: States: Unknown Family Hx - Social History Current smoker - smoking cessation education provided: Yes Ex-Smoker (has not smoked in the last 12 months): No Alcohol: Other (yes) Drugs: Other (yes) - Immunization History Hx Tetanus Toxoid Vaccination: Yes Hx Influenza Vaccination: No Hx Pneumococcal Vaccination: No - Home Medications Home Medications: Ambulatory Orders Medication Instructions Recorded Ranitidine HCl [Zantac] 1 tab PO BID #30 tablet 02/16/17 Dicyclomine [Bentyl] 20 mg PO BID PRN #30 tab 04/06/17 Ibuprofen [Motrin Tab] 600 mg PO Q8 PRN #60 tab 04/06/17 Tamsulosin [Flomax] 0.4 mg PO DAILY #10 cap 04/06/17 Famotidine [Pepcid] 20 mg PO Q12 #20 tab 04/12/17 Cyclobenzaprine [Cyclobenzaprine 10 mg PO TID PRN #15 tab 04/22/17 HCl] Acetaminophen [Tylenol 325mg tab] 650 mg PO TID #30 tab 05/01/17 Clotrimazole 1% [Lotrimin AF 1%] 10 applic TOP BID #1 bottle 05/02/17 Clotrimazole/Betamethasone 15 gm EXT BID #1 tube 05/18/17 [Lotrisone] Ibuprofen [Motrin] 600 mg PO Q6 PRN #15 tab 05/19/17 Oseltamivir [Tamiflu] 75 mg PO BID #10 cap 07/08/17 Oseltamivir Phosphate [Tamiflu] 75 mg PO BID #10 capsule 07/10/17 Ciprofloxacin [Cipro] 500 mg PO BID 7 Days tab 07/12/17 Famotidine [Pepcid] 20 mg PO Q12 #20 tab 08/25/17 - Allergies Allergies/Adverse Reactions: Allergies Allergy/AdvReac Type Severity Reaction Status Date / Time No Known Allergies Allergy Verified 09/27/17 02:18 Review of Systems ROS Statement: Except As Marked, All Systems Reviewed And Found Negative Constitutional: Positive for: Other (cold, needs a place to stay). Negative for : Fever Cardiovascular: Negative for: Chest Pain Respiratory: Negative for: Cough, Shortness of Breath Gastrointestinal: Negative for: Nausea, Vomiting Physical Exam - Reviewed Nursing Documentation Reviewed: Yes Vital Signs Reviewed: Yes - Physical Exam Appears: Positive for: Well, Non-toxic, No Acute Distress Head Exam: Positive for: ATRAUMATIC, NORMAL INSPECTION, NORMOCEPHALIC Skin: Positive for: Normal Color, Warm, DRY Eye Exam: Positive for: EOMI, Normal appearance, PERRL ENT: Positive for: Normal ENT Inspection Neck: Positive for: Normal, Painless ROM Cardiovascular/Chest: Positive for: Regular Rate, Rhythm. Negative for: Murmur Respiratory: Positive for: Normal Breath Sounds. Negative for: Respiratory Distress Gastrointestinal/Abdominal: Positive for: Normal Exam, Soft. Negative for: Tenderness Back: Positive for: Normal Inspection Extremity: Positive for: Normal ROM. Negative for: Pedal Edema, Deformity Neurologic/Psych: Positive for: Alert, Oriented. 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 Provider Attestation: All medical record entries made by the Scribe were at my direction and personally dictated by me. I have reviewed the chart and agree that the record accurately reflects my personal performance of the history, physical exam, medical decision making, and the department course for this patient. I have also personally directed, reviewed, and agree with the discharge instructions and disposition. Disposition - Clinical Impression Clinical Impression: Malingerer - Disposition Disposition: Routine/Home Disposition Time: 06:30 Condition: STABLE Forms: [employer] (Kittitian)
[2017-09-26 06:22] VITALS: PULSE 66; O2SAT 96
== END 2017-09-26 06:54 | disposition home or self-care (01) ==
LOC: H.ER 05:20
DX: Z76.5 Malingerer [conscious simulation] (principal); Z59.0 Homelessness

== ENCOUNTER 2017-09-27 02:05 | Emergency (ER) | payer MEDICAID ==
[2017-09-27 02:06] VITALS: BMI 21.5
--- NOTE | 2017-09-27 02:16 | ED PDOC ---
HPI: General Adult Time Seen by Provider: 09/27/17 02:14 History Per: Patient History/Exam Limitations: no limitations Additional Complaint(s): 57 year old undomiciled male with medical history of COPD, presents to the emergency department with complaints of feeling cold associated with bed seeking behavior. He denies any chest pain, shortness of breath, fevers, cough, or nausea, or vomiting. PMD: none provided Past Medical History Reviewed: Historical Data, Nursing Documentation, Vital Signs Vital Signs: Last Vital Signs Temp 98.9 F 09/27/17 02:18 Pulse 79 09/27/17 02:18 Resp 16 09/27/17 02:18 BP 140/89 09/27/17 02:18 Pulse Ox 100 09/27/17 02:18 - Medical History PMH: Back Problems, COPD, Depression, Schizophrenia Denies: Diabetes, Hepatitis, HIV, HTN, Chronic Kidney Disease, Seizures - Family History Family History: States: Unknown Family Hx - Immunization History Hx Tetanus Toxoid Vaccination: Yes Hx Influenza Vaccination: No Hx Pneumococcal Vaccination: No - Home Medications Home Medications: Ambulatory Orders Medication Instructions Recorded Ranitidine HCl [Zantac] 1 tab PO BID #30 tablet 02/16/17 Dicyclomine [Bentyl] 20 mg PO BID PRN #30 tab 04/06/17 Ibuprofen [Motrin Tab] 600 mg PO Q8 PRN #60 tab 04/06/17 Tamsulosin [Flomax] 0.4 mg PO DAILY #10 cap 04/06/17 Famotidine [Pepcid] 20 mg PO Q12 #20 tab 04/12/17 Cyclobenzaprine [Cyclobenzaprine 10 mg PO TID PRN #15 tab 04/22/17 HCl] Acetaminophen [Tylenol 325mg tab] 650 mg PO TID #30 tab 05/01/17 Clotrimazole 1% [Lotrimin AF 1%] 10 applic TOP BID #1 bottle 05/02/17 Clotrimazole/Betamethasone 15 gm EXT BID #1 tube 05/18/17 [Lotrisone] Ibuprofen [Motrin] 600 mg PO Q6 PRN #15 tab 05/19/17 Oseltamivir [Tamiflu] 75 mg PO BID #10 cap 07/08/17 Oseltamivir Phosphate [Tamiflu] 75 mg PO BID #10 capsule 07/10/17 Ciprofloxacin [Cipro] 500 mg PO BID 7 Days tab 07/12/17 Famotidine [Pepcid] 20 mg PO Q12 #20 tab 08/25/17 - Allergies Allergies/Adverse Reactions: Allergies Allergy/AdvReac Type Severity Reaction Status Date / Time No Known Allergies Allergy Verified 09/27/17 02:18 Review of Systems ROS Statement: Except As Marked, All Systems Reviewed And Found Negative Constitutional: Positive for: Chills. Negative for: Fever Cardiovascular: Negative for: Chest Pain Respiratory: Negative for: Cough, Shortness of Breath Gastrointestinal: Negative for: Nausea, Vomiting Physical Exam - Reviewed Nursing Documentation Reviewed: Yes Vital Signs Reviewed: Yes - Physical Exam Appears: Positive for: No Acute Distress Head Exam: Positive for: ATRAUMATIC, NORMAL INSPECTION, NORMOCEPHALIC Skin: Positive for: Normal Color Eye Exam: Positive for: Normal appearance ENT: Positive for: Normal ENT Inspection. Negative for: Pharyngeal Erythema Neck: Positive for: Normal Cardiovascular/Chest: Positive for: Regular Rate, Rhythm, Chest Non Tender Respiratory: Positive for: Normal Breath Sounds. Negative for: Decreased Breath Sounds, Wheezing, Respiratory Distress Gastrointestinal/Abdominal: Positive for: Normal Exam, Soft. Negative for: Tenderness Extremity: Positive for: Normal ROM (upper/lower). Negative for: Deformity ( upper/lower) Neurologic/Psych: Positive for: Alert, Oriented. Negative for: Motor/Sensory Deficits Medical Decision Making Medical Decision Making: Initial Impression: 57 y/o undomiciled male with malingering disorder in setting of known COPD Scribe Attestation: Documented by Amie Mcguire, acting as a scribe for Navjot Mehta MD. Provider Scribe Attestation: All medical record entries made by the Scribe were at my direction and personally dictated by me. I have reviewed the chart and agree that the record accurately reflects my personal performance of the history, physical exam, medical decision making, and the department course for this patient. I have also personally directed, reviewed, and agree with the discharge instructions and disposition. Disposition - Clinical Impression Clinical Impression: Malingerer - Disposition Disposition: Routine/Home Disposition Time: 02:30 Condition: STABLE Instructions: General (DC) Forms: [employer] (Gibraltarian)
[2017-09-27 02:20] VITALS: BP 140/89; PULSE 79; RESP 16; TEMP 98.9; O2SAT 100
== END 2017-09-27 03:12 | disposition home or self-care (01) ==
LOC: H.ER 02:05
DX: Z76.5 Malingerer [conscious simulation] (principal); F20.9 Schizophrenia, unspecified; F32.9 Major depressive disorder, single episode, unspecified; J44.9 Chronic obstructive pulmonary disease, unspecified

== ENCOUNTER 2017-09-29 02:47 | Emergency (ER) | payer MEDICAID ==
[2017-09-29 02:48] VITALS: BMI 21.5
[2017-09-29 03:16] VITALS: BP 140/90; PULSE 89; RESP 17; TEMP 98.9; O2SAT 100
--- NOTE | 2017-09-29 03:29 | ED PDOC ---
HPI: General Adult Time Seen by Provider: 09/29/17 03:16 Chief Complaint (Nursing): Medical Clearance Chief Complaint (Provider): eval History Per: Patient Additional Complaint(s): 57 year old non-domiciled male presents to ED stating he is tired and needs to rest. He denies any acute medical or psychiatric complaints. Patient is well known to ED for frequent visits. Past Medical History Reviewed: Historical Data, Nursing Documentation, Vital Signs Vital Signs: Last Vital Signs Temp 98.9 F 09/29/17 03:01 Pulse 89 09/29/17 03:01 Resp 17 09/29/17 03:01 BP 140/90 09/29/17 03:01 Pulse Ox 100 09/29/17 03:01 - Medical History PMH: Back Problems, COPD, Depression, Schizophrenia - Family History Family History: States: No Known Family Hx - Living Arrangements Living Arrangements: Other (non-domiciled) - Social History Current smoker - smoking cessation education provided: No Alcohol: None Drugs: Denies - Home Medications Home Medications: Ambulatory Orders Medication Instructions Recorded Ranitidine HCl [Zantac] 1 tab PO BID #30 tablet 02/16/17 Dicyclomine [Bentyl] 20 mg PO BID PRN #30 tab 04/06/17 Ibuprofen [Motrin Tab] 600 mg PO Q8 PRN #60 tab 04/06/17 Tamsulosin [Flomax] 0.4 mg PO DAILY #10 cap 04/06/17 Famotidine [Pepcid] 20 mg PO Q12 #20 tab 04/12/17 Cyclobenzaprine [Cyclobenzaprine 10 mg PO TID PRN #15 tab 04/22/17 HCl] Acetaminophen [Tylenol 325mg tab] 650 mg PO TID #30 tab 05/01/17 Clotrimazole 1% [Lotrimin AF 1%] 10 applic TOP BID #1 bottle 05/02/17 Clotrimazole/Betamethasone 15 gm EXT BID #1 tube 05/18/17 [Lotrisone] Ibuprofen [Motrin] 600 mg PO Q6 PRN #15 tab 05/19/17 Oseltamivir [Tamiflu] 75 mg PO BID #10 cap 07/08/17 Oseltamivir Phosphate [Tamiflu] 75 mg PO BID #10 capsule 07/10/17 Ciprofloxacin [Cipro] 500 mg PO BID 7 Days tab 07/12/17 Famotidine [Pepcid] 20 mg PO Q12 #20 tab 08/25/17 - Allergies Allergies/Adverse Reactions: Allergies Allergy/AdvReac Type Severity Reaction Status Date / Time No Known Allergies Allergy Verified 09/27/17 02:18 Review of Systems ROS Statement: Except As Marked, All Systems Reviewed And Found Negative Constitutional: Negative for: Fever Cardiovascular: Negative for: Chest Pain Respiratory: Negative for: Cough Gastrointestinal: Negative for: Nausea, Vomiting Musculoskeletal: Positive for: Leg Pain Neurological: Negative for: Weakness, Headache, Dizziness Psych: Negative for: Suicidal ideation Physical Exam - Reviewed Nursing Documentation Reviewed: Yes Vital Signs Reviewed: Yes - Physical Exam Appears: Positive for: Well, Non-toxic, No Acute Distress Skin: Negative for: Rash Eye Exam: Positive for: Normal appearance Cardiovascular/Chest: Positive for: Regular Rate, Rhythm Respiratory: Positive for: Normal Breath Sounds Extremity: Positive for: Normal ROM Neurologic/Psych: Positive for: Alert, Oriented, Gait (steady) - ECG O2 Sat by Pulse Oximetry: 100 Pulse Ox Interpretation: Normal Medical Decision Making Medical Decision Makin57 year old male with leg pain Patient was offered pain meds but he declined. Patient has steady gait, stable vital signs, he is stable for discharge. Disposition - Clinical Impression Clinical Impression: Leg pain - Patient ED Disposition Is Patient to be Admitted: No Counseled Patient/Family Regarding: Need For Followup - Disposition Referrals: [facility] [Outside] Disposition: Routine/Home Disposition Time: 03:25 Condition: STABLE Additional Instructions: Follow up with clinic.
== END 2017-09-29 03:30 | disposition home or self-care (01) ==
LOC: H.ER 02:47
DX: M79.606 Pain in leg, unspecified (principal); Z86.59 Personal history of other mental and behavioral disorders; J44.9 Chronic obstructive pulmonary disease, unspecified; Z59.0 Homelessness

== ENCOUNTER 2017-10-05 13:02 | Emergency (ER) | payer MEDICAID ==
[2017-10-05 13:03] VITALS: BMI 21.5
[2017-10-05 13:21] VITALS: BP 144/68; PULSE 88; RESP 16; TEMP 98; O2SAT 84
--- NOTE | 2017-10-05 13:29 | ED PDOC ---
HPI: General Adult Time Seen by Provider: 10/05/17 13:26 Chief Complaint (Nursing): Medical Clearance Chief Complaint (Provider): eval History Per: Patient, EMS Additional Complaint(s): 57 year old non-domiciled male presents to ED via ambulance. Patient was noted to be sleeping in a park and bystander called police and patient was brought her. Patient states he feels very tired and needs to rest. Past Medical History Reviewed: Historical Data, Nursing Documentation, Vital Signs Vital Signs: Last Vital Signs Temp 98.0 F 10/05/17 13:19 Pulse 88 10/05/17 13:19 Resp 16 10/05/17 13:19 BP 144/68 10/05/17 13:19 Pulse Ox 84 L 10/05/17 13:29 - Medical History PMH: Back Problems, COPD, Depression, Schizophrenia - Family History Family History: States: No Known Family Hx - Living Arrangements Living Arrangements: Other (non-domiciled) - Social History Current smoker - smoking cessation education provided: Yes Alcohol: None Drugs: Denies - Home Medications Home Medications: Ambulatory Orders Medication Instructions Recorded Ranitidine HCl [Zantac] 1 tab PO BID #30 tablet 02/16/17 Dicyclomine [Bentyl] 20 mg PO BID PRN #30 tab 04/06/17 Ibuprofen [Motrin Tab] 600 mg PO Q8 PRN #60 tab 04/06/17 Tamsulosin [Flomax] 0.4 mg PO DAILY #10 cap 04/06/17 Famotidine [Pepcid] 20 mg PO Q12 #20 tab 04/12/17 Cyclobenzaprine [Cyclobenzaprine 10 mg PO TID PRN #15 tab 04/22/17 HCl] Acetaminophen [Tylenol 325mg tab] 650 mg PO TID #30 tab 05/01/17 Clotrimazole 1% [Lotrimin AF 1%] 10 applic TOP BID #1 bottle 05/02/17 Clotrimazole/Betamethasone 15 gm EXT BID #1 tube 05/18/17 [Lotrisone] Ibuprofen [Motrin] 600 mg PO Q6 PRN #15 tab 05/19/17 Oseltamivir [Tamiflu] 75 mg PO BID #10 cap 07/08/17 Oseltamivir Phosphate [Tamiflu] 75 mg PO BID #10 capsule 07/10/17 Ciprofloxacin [Cipro] 500 mg PO BID 7 Days tab 07/12/17 Famotidine [Pepcid] 20 mg PO Q12 #20 tab 08/25/17 - Allergies Allergies/Adverse Reactions: Allergies Allergy/AdvReac Type Severity Reaction Status Date / Time No Known Allergies Allergy Verified 09/27/17 02:18 Review of Systems ROS Statement: Except As Marked, All Systems Reviewed And Found Negative Constitutional: Positive for: Other (fatigue) Psych: Negative for: Depression, Suicidal ideation Physical Exam - Reviewed Nursing Documentation Reviewed: Yes Vital Signs Reviewed: Yes - Physical Exam Appears: Positive for: No Acute Distress. Negative for: Well (unkempt appearing ) Head Exam: Positive for: ATRAUMATIC Skin: Positive for: Normal Color. Negative for: Rash Eye Exam: Positive for: Normal appearance Cardiovascular/Chest: Positive for: Regular Rate, Rhythm Respiratory: Negative for: Wheezing, Respiratory Distress Back: Positive for: Normal Inspection Extremity: Positive for: Normal ROM Neurologic/Psych: Positive for: Alert, Oriented - ECG O2 Sat by Pulse Oximetry: 84 Medical Decision Making Medical Decision Makin57 year old non-domiciled male with fatigue. Patient is well known to ED. Fingerstick: 88 Patient tolerated tray of food without difficulty. He was observed 3 hours, his condition remained stable throughout his stay. 4:30 PM: patient is awake, alert has steady gait, stable for discharge Disposition - Clinical Impression Clinical Impression: Normal exam - Patient ED Disposition Is Patient to be Admitted: No - Disposition Referrals: [facility] [Outside] Disposition: Routine/Home Disposition Time: 16:27 Condition: STABLE Instructions: General (DC) Forms: [employer] (South Korean)
== END 2017-10-05 18:38 | disposition home or self-care (01) ==
LOC: H.ER 13:02
DX: Z00.00 Encounter for general adult medical examination without abnormal findings (principal); F17.200 Nicotine dependence, unspecified, uncomplicated; F20.9 Schizophrenia, unspecified; F32.9 Major depressive disorder, single episode, unspecified; J44.9 Chronic obstructive pulmonary disease, unspecified

== ENCOUNTER 2017-10-06 22:26 | Emergency (ER) | payer MEDICAID ==
[2017-10-06 22:26] VITALS: BMI 21.5
[2017-10-06 22:42] VITALS: RESP 16
--- NOTE | 2017-10-07 00:25 | ED PDOC ---
HPI: General Adult Time Seen by Provider: 10/06/17 23:05 Chief Complaint (Nursing): Lower Extremity Problem/Injury Chief Complaint (Provider): Homelessness History Per: Patient History/Exam Limitations: no limitations Onset/Duration Of Symptoms: Hrs Have you had recent travel within the past 21 days to any of the following countries: [place], [place], [place] or [place]?: No Additional Complaint(s): 57 year old male with medical history of COPD, depression, and schizophrenia presents to the emergency department with complaints of feeling cold and wet from the rain, secondary to being homeless. Patient is well known to ED staff for bed seeking behavior. He denies any chest pain, shortness of breath, fevers , cough, or nausea, or vomiting. PMD: none provided Past Medical History Reviewed: Historical Data, Nursing Documentation, Vital Signs Vital Signs: Last Vital Signs Temp 97.4 F L 10/06/17 22:40 Pulse 88 10/06/17 22:40 Resp 16 10/06/17 22:40 BP 132/90 10/06/17 22:40 Pulse Ox 96 10/07/17 01:44 - Medical History PMH: Back Problems, COPD, Depression, Schizophrenia - Family History Family History: States: Unknown Family Hx - Living Arrangements Living Arrangements: Other (homeless) - Social History Current smoker - smoking cessation education provided: Yes - Home Medications Home Medications: Ambulatory Orders Medication Instructions Recorded Ranitidine HCl [Zantac] 1 tab PO BID #30 tablet 02/16/17 Dicyclomine [Bentyl] 20 mg PO BID PRN #30 tab 04/06/17 Ibuprofen [Motrin Tab] 600 mg PO Q8 PRN #60 tab 04/06/17 Tamsulosin [Flomax] 0.4 mg PO DAILY #10 cap 04/06/17 Famotidine [Pepcid] 20 mg PO Q12 #20 tab 04/12/17 Cyclobenzaprine [Cyclobenzaprine 10 mg PO TID PRN #15 tab 04/22/17 HCl] Acetaminophen [Tylenol 325mg tab] 650 mg PO TID #30 tab 05/01/17 Clotrimazole 1% [Lotrimin AF 1%] 10 applic TOP BID #1 bottle 05/02/17 Clotrimazole/Betamethasone 15 gm EXT BID #1 tube 05/18/17 [Lotrisone] Ibuprofen [Motrin] 600 mg PO Q6 PRN #15 tab 05/19/17 Oseltamivir [Tamiflu] 75 mg PO BID #10 cap 07/08/17 Oseltamivir Phosphate [Tamiflu] 75 mg PO BID #10 capsule 07/10/17 Ciprofloxacin [Cipro] 500 mg PO BID 7 Days tab 07/12/17 Famotidine [Pepcid] 20 mg PO Q12 #20 tab 08/25/17 - Allergies Allergies/Adverse Reactions: Allergies Allergy/AdvReac Type Severity Reaction Status Date / Time No Known Allergies Allergy Verified 09/27/17 02:18 Review of Systems ROS Statement: Except As Marked, All Systems Reviewed And Found Negative Physical Exam - Reviewed Nursing Documentation Reviewed: Yes Vital Signs Reviewed: Yes - Physical Exam Appears: Positive for: Non-toxic (disheveled), No Acute Distress Head Exam: Positive for: NORMOCEPHALIC Eye Exam: Positive for: EOMI, PERRL Neck: Positive for: Painless ROM, Supple Cardiovascular/Chest: Positive for: Regular Rate, Rhythm Respiratory: Positive for: Normal Breath Sounds. Negative for: Decreased Breath Sounds, Accessory Muscle Use, Respiratory Distress Gastrointestinal/Abdominal: Positive for: Soft. Negative for: Tenderness, Mass , Distended, Guarding, Rebound Back: Negative for: L CVA Tenderness, R CVA Tenderness Extremity: Positive for: Normal ROM Neurologic/Psych: Positive for: Alert, Oriented (x3), Gait (steady in ED). Negative for: Aphasia, Facial Droop - ECG O2 Sat by Pulse Oximetry: 96 (RA) Pulse Ox Interpretation: Normal Medical Decision Making Medical Decision Making: Clinical Impression: Homelessness, Malingering PLAN: -Fingerstick= 89 Patient was observed in ED for 3 hours with improvement of symptoms. On exam, patient remains AAOx3, in no acute distress. Lungs clear to auscultation, cardiac RRR, abdomen soft, non-tender, repeat neuro exam shows no focal findings. VSS, stable for discharge. Based on history, exam and diagnostic results, plan will be for outpatient follow up. Patient instructed to follow-up with pmd / referral provided / the clinic in 1- 2 days without fail. Return to the emergency room at any time for any new or worsening symptoms. Patient states he fully agrees with and understands discharge instructions. States that he agrees with the plan and disposition. Verbalized and repeated discharge instructions and plan. I have given the patient opportunity to ask any additional questions. Disposition - Clinical Impression Clinical Impression: Homelessness - Patient ED Disposition Is Patient to be Admitted: No Counseled Patient/Family Regarding: Diagnosis, Need For Followup - Disposition Referrals: [facility] [Outside] Disposition: Routine/Home Disposition Time: 01:41 Condition: STABLE Instructions: General (DC) Forms: [employer] (Lao) Print Language: BOTSWANAN - POA Present On Arrival: None
[2017-10-07 02:45] VITALS: BP 128/86; PULSE 86; TEMP 97.9; O2SAT 98
== END 2017-10-07 02:44 | disposition home or self-care (01) ==
LOC: H.ER 22:26
DX: Z59.0 Homelessness (principal)

== ENCOUNTER 2017-10-22 05:48 | Emergency (ER) | payer MEDICAID ==
[2017-10-22 05:48] VITALS: BMI 21.5
[2017-10-22 06:07] VITALS: BP 143/82; PULSE 73; TEMP 97.6; O2SAT 95
--- NOTE | 2017-10-22 06:39 | ED PDOC ---
HPI: Abdomen Time Seen by Provider: 10/22/17 06:00 Chief Complaint (Nursing): Back Pain Chief Complaint (Provider): Back Pain History Per: Patient History/Exam Limitations: no limitations Onset/Duration Of Symptoms: Sudden Onset Additional Complaint(s): 57 year old undomiciled male, well-known to ED and provider for bed-seeking behavior, presents to the emergency department with complaints of bodyaches, abdominal pain, diarrhea and chills, onset prior to arrival. Patient states he slept in the rain and ate bad food. He denies any nausea or vomiting. PMD: none provided Past Medical History Reviewed: Historical Data, Nursing Documentation, Vital Signs Vital Signs: Last Vital Signs Temp 97.6 F 10/22/17 06:06 Pulse 73 10/22/17 06:06 Resp BP 143/82 10/22/17 06:06 Pulse Ox 95 10/22/17 06:06 - Medical History PMH: Back Problems, COPD, Depression, Schizophrenia - Family History Family History: States: Unknown Family Hx - Home Medications Home Medications: Ambulatory Orders Medication Instructions Recorded Ranitidine HCl [Zantac] 1 tab PO BID #30 tablet 02/16/17 Dicyclomine [Bentyl] 20 mg PO BID PRN #30 tab 04/06/17 Ibuprofen [Motrin Tab] 600 mg PO Q8 PRN #60 tab 04/06/17 Tamsulosin [Flomax] 0.4 mg PO DAILY #10 cap 04/06/17 Famotidine [Pepcid] 20 mg PO Q12 #20 tab 04/12/17 Cyclobenzaprine [Cyclobenzaprine 10 mg PO TID PRN #15 tab 04/22/17 HCl] Acetaminophen [Tylenol 325mg tab] 650 mg PO TID #30 tab 05/01/17 Clotrimazole 1% [Lotrimin AF 1%] 10 applic TOP BID #1 bottle 05/02/17 Clotrimazole/Betamethasone 15 gm EXT BID #1 tube 05/18/17 [Lotrisone] Ibuprofen [Motrin] 600 mg PO Q6 PRN #15 tab 05/19/17 Oseltamivir [Tamiflu] 75 mg PO BID #10 cap 07/08/17 Oseltamivir Phosphate [Tamiflu] 75 mg PO BID #10 capsule 07/10/17 Ciprofloxacin [Cipro] 500 mg PO BID 7 Days tab 07/12/17 Famotidine [Pepcid] 20 mg PO Q12 #20 tab 08/25/17 - Allergies Allergies/Adverse Reactions: Allergies Allergy/AdvReac Type Severity Reaction Status Date / Time No Known Allergies Allergy Verified 09/27/17 02:18 Review of Systems ROS Statement: Except As Marked, All Systems Reviewed And Found Negative Constitutional: Positive for: Chills, Other (bodyaches) Gastrointestinal: Positive for: Abdominal Pain, Diarrhea. Negative for: Nausea , Vomiting Physical Exam - Reviewed Nursing Documentation Reviewed: Yes Vital Signs Reviewed: Yes - Physical Exam Appears: Positive for: Non-toxic, No Acute Distress (with poor state of hygiene) Head Exam: Positive for: ATRAUMATIC, NORMAL INSPECTION, NORMOCEPHALIC Skin: Positive for: Normal Color Eye Exam: Positive for: Normal appearance ENT: Positive for: Normal ENT Inspection Neck: Positive for: Normal, Painless ROM Cardiovascular/Chest: Positive for: Regular Rate, Rhythm Respiratory: Positive for: Normal Breath Sounds. Negative for: Wheezing, Respiratory Distress Gastrointestinal/Abdominal: Positive for: Normal Exam, Soft. Negative for: Tenderness Back: Positive for: Normal Inspection. Negative for: L CVA Tenderness, R CVA Tenderness Extremity: Positive for: Normal ROM (upper/lower). Negative for: Deformity ( upper/lower) Neurologic/Psych: Positive for: Alert, Oriented - ECG O2 Sat by Pulse Oximetry: 95 (RA) Pulse Ox Interpretation: Normal Medical Decision Making Medical Decision Making: Initial Impression: Initial Plan: * Tylenol * Bentyl Scribe Attestation: Documented by Amie Mcguire, acting as a scribe for Navjot Mehta MD. Provider Scribe Attestation: All medical record entries made by the Scribe were at my direction and personally dictated by me. I have reviewed the chart and agree that the record accurately reflects my personal performance of the history, physical exam, medical decision making, and the department course for this patient. I have also personally directed, reviewed, and agree with the discharge instructions and disposition. Disposition - Clinical Impression Clinical Impression: Gastroenteritis - Patient ED Disposition Is Patient to be Admitted: No Counseled Patient/Family Regarding: Diagnosis, Need For Followup - Disposition Disposition: Routine/Home Disposition Time: 06:32 Condition: STABLE Instructions: Gastroenteritis (ED) Forms: [facility] ([place] Arabian)
== END 2017-10-22 06:35 | disposition home or self-care (01) ==
LOC: H.ER 05:48
DX: K52.9 Noninfective gastroenteritis and colitis, unspecified (principal); F20.9 Schizophrenia, unspecified; F32.9 Major depressive disorder, single episode, unspecified; J44.9 Chronic obstructive pulmonary disease, unspecified

== ENCOUNTER 2017-10-23 00:58 | Emergency (ER) | payer MEDICAID ==
--- NOTE | 2017-10-23 02:15 | ED PDOC ---
HPI: General Adult Time Seen by Provider: 10/23/17 01:24 Chief Complaint (Nursing): Lower Extremity Problem/Injury Chief Complaint (Provider): chills History Per: Patient History/Exam Limitations: no limitations Onset/Duration Of Symptoms: Persistent Current Symptoms Are (Timing): Still Present Additional Complaint(s): 57 year old undomiciled male, well-known to ED and provider for bed-seeking behavior, presents with complaints of feeling cold. He denies any further medical complaints. PMD: none provided Past Medical History Reviewed: Historical Data, Nursing Documentation, Vital Signs Vital Signs: Last Vital Signs Temp 97.8 F 10/23/17 06:08 Pulse 70 10/23/17 06:08 Resp 16 10/23/17 06:08 BP 141/86 10/23/17 06:08 Pulse Ox 95 10/23/17 06:08 - Medical History PMH: Back Problems, COPD, Depression, Schizophrenia - Surgical History Surgical History: No Surg Hx - Family History Family History: States: Unknown Family Hx - Social History Alcohol: None Drugs: Denies - Home Medications Home Medications: Ambulatory Orders Medication Instructions Recorded Ranitidine HCl [Zantac] 1 tab PO BID #30 tablet 02/16/17 Dicyclomine [Bentyl] 20 mg PO BID PRN #30 tab 04/06/17 Ibuprofen [Motrin Tab] 600 mg PO Q8 PRN #60 tab 04/06/17 Tamsulosin [Flomax] 0.4 mg PO DAILY #10 cap 04/06/17 Famotidine [Pepcid] 20 mg PO Q12 #20 tab 04/12/17 Cyclobenzaprine [Cyclobenzaprine 10 mg PO TID PRN #15 tab 04/22/17 HCl] Acetaminophen [Tylenol 325mg tab] 650 mg PO TID #30 tab 05/01/17 Clotrimazole 1% [Lotrimin AF 1%] 10 applic TOP BID #1 bottle 05/02/17 Clotrimazole/Betamethasone 15 gm EXT BID #1 tube 05/18/17 [Lotrisone] Ibuprofen [Motrin] 600 mg PO Q6 PRN #15 tab 05/19/17 Oseltamivir [Tamiflu] 75 mg PO BID #10 cap 07/08/17 Oseltamivir Phosphate [Tamiflu] 75 mg PO BID #10 capsule 07/10/17 Ciprofloxacin [Cipro] 500 mg PO BID 7 Days tab 07/12/17 Famotidine [Pepcid] 20 mg PO Q12 #20 tab 08/25/17 - Allergies Allergies/Adverse Reactions: Allergies Allergy/AdvReac Type Severity Reaction Status Date / Time No Known Allergies Allergy Verified 10/23/17 01:27 Review of Systems ROS Statement: Except As Marked, All Systems Reviewed And Found Negative Constitutional: Positive for: Chills Physical Exam - Reviewed Nursing Documentation Reviewed: Yes Vital Signs Reviewed: Yes - Physical Exam Appears: Positive for: Non-toxic, No Acute Distress (poorly groomed) Head Exam: Positive for: ATRAUMATIC, NORMAL INSPECTION, NORMOCEPHALIC Skin: Positive for: Normal Color Eye Exam: Positive for: Normal appearance Neck: Positive for: Normal, Painless ROM, Supple Cardiovascular/Chest: Positive for: Regular Rate, Rhythm Respiratory: Positive for: Normal Breath Sounds. Negative for: Wheezing, Respiratory Distress Gastrointestinal/Abdominal: Positive for: Normal Exam, Soft. Negative for: Tenderness Extremity: Positive for: Normal ROM (upper/lower). Negative for: Deformity ( upper/lower) Neurologic/Psych: Positive for: Alert (x3), Oriented. Negative for: Motor/ Sensory Deficits - ECG O2 Sat by Pulse Oximetry: 98 (RA) Pulse Ox Interpretation: Normal Medical Decision Making Medical Decision Making: Initial Impression: Malingering disorder stable for discharge home Scribe Attestation: Documented by Amie Mcguire, acting as a scribe for Navjot Mehta MD. Provider Scribe Attestation: All medical record entries made by the Scribe were at my direction and personally dictated by me. I have reviewed the chart and agree that the record accurately reflects my personal performance of the history, physical exam, medical decision making, and the department course for this patient. I have also personally directed, reviewed, and agree with the discharge instructions and disposition. Disposition - Clinical Impression Clinical Impression: Homelessness, Malingering - Disposition Disposition: Routine/Home Disposition Time: 04:00 Condition: STABLE Forms: [employer] [facility] [employer] [facility] [employer] (Khmer)
[2017-10-23 06:09] VITALS: BP 141/86; PULSE 70; RESP 16; TEMP 97.8
[2017-10-23 06:44] VITALS: O2SAT 98
== END 2017-10-23 06:07 | disposition home or self-care (01) ==
LOC: H.ER 00:58
DX: Z76.5 Malingerer [conscious simulation] (principal); Z59.0 Homelessness

== ENCOUNTER 2017-10-26 06:39 | Emergency (ER) | payer MEDICAID ==
--- NOTE | 2017-10-26 07:52 | ED PDOC ---
HPI: General Adult Time Seen by Provider: 10/26/17 07:16 Chief Complaint (Nursing): Back Pain Chief Complaint (Provider): General Medical History Per: Patient History/Exam Limitations: no limitations Onset/Duration Of Symptoms: Days (10/26/17) Additional Complaint(s): 57 year old undomiciled male presents to the ED complaining he feels cold and tired. States he was in the rain all night. Denies any other complaints. PMD: no PCP Past Medical History Reviewed: Historical Data, Nursing Documentation, Vital Signs Vital Signs: Last Vital Signs Temp 98.6 F 10/26/17 11:00 Pulse 87 10/26/17 11:00 Resp 19 10/26/17 11:00 BP 132/74 10/26/17 11:00 Pulse Ox 96 11/03/17 16:32 - Medical History PMH: Back Problems, COPD, Depression, Schizophrenia - Family History Family History: States: Unknown Family Hx - Social History Current smoker - smoking cessation education provided: Yes (Light Smoker < 10 Cigarettes Daily) - Home Medications Home Medications: Ambulatory Orders Medication Instructions Recorded Ranitidine HCl [Zantac] 1 tab PO BID #30 tablet 02/16/17 Dicyclomine [Bentyl] 20 mg PO BID PRN #30 tab 04/06/17 Ibuprofen [Motrin Tab] 600 mg PO Q8 PRN #60 tab 04/06/17 Tamsulosin [Flomax] 0.4 mg PO DAILY #10 cap 04/06/17 Famotidine [Pepcid] 20 mg PO Q12 #20 tab 04/12/17 Cyclobenzaprine [Cyclobenzaprine 10 mg PO TID PRN #15 tab 04/22/17 HCl] Acetaminophen [Tylenol 325mg tab] 650 mg PO TID #30 tab 05/01/17 Clotrimazole 1% [Lotrimin AF 1%] 10 applic TOP BID #1 bottle 05/02/17 Clotrimazole/Betamethasone 15 gm EXT BID #1 tube 05/18/17 [Lotrisone] Ibuprofen [Motrin] 600 mg PO Q6 PRN #15 tab 05/19/17 Oseltamivir [Tamiflu] 75 mg PO BID #10 cap 07/08/17 Oseltamivir Phosphate [Tamiflu] 75 mg PO BID #10 capsule 07/10/17 Ciprofloxacin [Cipro] 500 mg PO BID 7 Days tab 07/12/17 Famotidine [Pepcid] 20 mg PO Q12 #20 tab 08/25/17 - Allergies Allergies/Adverse Reactions: Allergies Allergy/AdvReac Type Severity Reaction Status Date / Time No Known Allergies Allergy Verified 10/26/17 07:00 Review of Systems ROS Statement: Except As Marked, All Systems Reviewed And Found Negative Constitutional: Positive for: Other (cold) Physical Exam - Reviewed Nursing Documentation Reviewed: Yes Vital Signs Reviewed: Yes - Physical Exam Appears: Positive for: Well (appears disheveled), Non-toxic, No Acute Distress Head Exam: Positive for: ATRAUMATIC, NORMAL INSPECTION, NORMOCEPHALIC Skin: Positive for: Normal Color, Warm, Dry Eye Exam: Positive for: EOMI, Normal appearance, PERRL ENT: Positive for: Normal ENT Inspection Neck: Positive for: Normal, Painless ROM, Supple. Negative for: Decreased ROM Cardiovascular/Chest: Positive for: Regular Rate, Rhythm. Negative for: Murmur Respiratory: Positive for: Normal Breath Sounds. Negative for: Decreased Breath Sounds, Accessory Muscle Use, Respiratory Distress Gastrointestinal/Abdominal: Positive for: Normal Exam, Bowel Sounds, Soft. Negative for: Tenderness, Guarding, Rebound Extremity: Positive for: Normal ROM. Negative for: Tenderness, Pedal Edema, Deformity Neurologic/Psych: Positive for: Alert, Oriented (x3) - ECG O2 Sat by Pulse Oximetry: 96 (RA) Pulse Ox Interpretation: Normal Medical Decision Making Medical Decision Making: Time: 715 Initial Plan: --Reevaluation Scribe Attestation: Documented by Angella Robertson, acting as a scribe for Maliha Hathaway MD Provider Scribe Attestation: All medical record entries made by the Scribe were at my direction and personally dictated by me. I have reviewed the chart and agree that the record accurately reflects my personal performance of the history, physical exam, medical decision making, and the department course for this patient. I have also personally directed, reviewed, and agree with the discharge instructions and disposition. Disposition - Clinical Impression Clinical Impression: Chronic pain - Disposition Referrals: [facility] [Outside] Disposition: Routine/Home Disposition Time: 10:53 Condition: STABLE Instructions: Chronic Pain (DC) Forms: [employer] (Niuean) - PA / [employer]PERVISOR / Resident Statement MD/DO has reviewed & agrees with the documentation as recorded. MD/DO has examined the patient and agrees with the treatment plan.
[2017-10-26 11:20] VITALS: BP 132/74; PULSE 87; RESP 19; TEMP 98.6
[2017-11-03 16:29] VITALS: O2SAT 96
== END 2017-10-26 11:55 | disposition home or self-care (01) ==
LOC: H.ER 06:39
DX: G89.29 Other chronic pain (principal); F17.210 Nicotine dependence, cigarettes, uncomplicated; Z86.59 Personal history of other mental and behavioral disorders; J44.9 Chronic obstructive pulmonary disease, unspecified

== ENCOUNTER 2017-10-28 12:37 | Emergency (ER) | payer MEDICAID ==
--- NOTE | 2017-10-28 13:57 | ED PDOC ---
HPI: Back Time Seen by Provider: 10/28/17 12:40 Chief Complaint (Nursing): Lower Extremity Problem/Injury Chief Complaint (Provider): Foot pain, months History Per: Patient History/Exam Limitations: no limitations Onset/Duration Of Symptoms: Days Current Symptoms Are (Timing): Still Present Quality Of Discomfort: Dull Additional Complaint(s): 57 yo homeless male with COPD presents with bilateral foot pain for months. Pt was seen outside prior to visit using the restroom and smoking a cigarette outside. Pt states he got wet while he was smoking and then became cold so he came to ER Past Medical History Reviewed: Historical Data, Nursing Documentation, Vital Signs Vital Signs: Last Vital Signs Temp 97 F L 10/28/17 13:00 Pulse 72 10/28/17 13:00 Resp 16 10/28/17 13:00 BP 131/75 10/28/17 13:00 Pulse Ox 100 10/28/17 13:00 - Medical History PMH: Back Problems, COPD, Depression, Schizophrenia - Family History Family History: States: Unknown Family Hx - Home Medications Home Medications: Ambulatory Orders Medication Instructions Recorded Ranitidine HCl [Zantac] 1 tab PO BID #30 tablet 02/16/17 Dicyclomine [Bentyl] 20 mg PO BID PRN #30 tab 04/06/17 Ibuprofen [Motrin Tab] 600 mg PO Q8 PRN #60 tab 04/06/17 Tamsulosin [Flomax] 0.4 mg PO DAILY #10 cap 04/06/17 Famotidine [Pepcid] 20 mg PO Q12 #20 tab 04/12/17 Cyclobenzaprine [Cyclobenzaprine 10 mg PO TID PRN #15 tab 04/22/17 HCl] Acetaminophen [Tylenol 325mg tab] 650 mg PO TID #30 tab 05/01/17 Clotrimazole 1% [Lotrimin AF 1%] 10 applic TOP BID #1 bottle 05/02/17 Clotrimazole/Betamethasone 15 gm EXT BID #1 tube 05/18/17 [Lotrisone] Ibuprofen [Motrin] 600 mg PO Q6 PRN #15 tab 05/19/17 Oseltamivir [Tamiflu] 75 mg PO BID #10 cap 07/08/17 Oseltamivir Phosphate [Tamiflu] 75 mg PO BID #10 capsule 07/10/17 Ciprofloxacin [Cipro] 500 mg PO BID 7 Days tab 07/12/17 Famotidine [Pepcid] 20 mg PO Q12 #20 tab 08/25/17 - Allergies Allergies/Adverse Reactions: Allergies Allergy/AdvReac Type Severity Reaction Status Date / Time No Known Allergies Allergy Verified 10/26/17 07:00 Review of Systems ROS Statement: Except As Marked, All Systems Reviewed And Found Negative Constitutional: Negative for: Fever, Chills Musculoskeletal: Positive for: Foot Pain Skin: Positive for: Other Neurological: Negative for: Weakness, Numbness Physical Exam - Reviewed Nursing Documentation Reviewed: Yes Vital Signs Reviewed: Yes - Physical Exam Appears: Positive for: Well, Non-toxic, No Acute Distress Head Exam: Positive for: ATRAUMATIC, NORMAL INSPECTION, NORMOCEPHALIC Skin: Positive for: Normal Color, Warm, DRY Eye Exam: Positive for: Normal appearance ENT: Positive for: Normal ENT Inspection Neck: Positive for: Normal, Painless ROM Cardiovascular/Chest: Positive for: Regular Rate, Rhythm Respiratory: Positive for: CNT, Normal Breath Sounds Back: Positive for: Normal Inspection Extremity: Positive for: Normal ROM Neurologic/Psych: Positive for: Alert, Oriented - ECG O2 Sat by Pulse Oximetry: 100 Medical Decision Making Medical Decision Making: Tylenol given in ER. Disposition - Clinical Impression Clinical Impression: Foot pain, Homelessness - Patient ED Disposition Is Patient to be Admitted: No Counseled Patient/Family Regarding: Diagnosis, Need For Followup - Disposition Disposition: Routine/Home Disposition Time: 13:58 Condition: STABLE Instructions: Muscle and Bone Pain (DC)
[2017-10-28 14:40] VITALS: BP 126/78; PULSE 74; RESP 18; TEMP 97.2; O2SAT 98
== END 2017-10-28 15:20 | disposition home or self-care (01) ==
LOC: H.ER 12:37
DX: M79.672 Pain in left foot (principal); Z59.0 Homelessness; F20.9 Schizophrenia, unspecified; F32.9 Major depressive disorder, single episode, unspecified; J44.9 Chronic obstructive pulmonary disease, unspecified

== ENCOUNTER 2017-11-01 03:16 | Emergency (ER) | payer MEDICAID ==
[2017-11-01 03:38] VITALS: PULSE 83; RESP 16; TEMP 98; O2SAT 99
[2017-11-01 03:40] VITALS: BP 138/85
--- NOTE | 2017-11-01 03:42 | ED PDOC ---
HPI: General Adult Time Seen by Provider: 11/01/17 03:31 Chief Complaint (Nursing): Back Pain History Per: Patient History/Exam Limitations: no limitations Onset/Duration Of Symptoms: Mins Additional Complaint(s): Patient well known to ER, presenting with leg pain from "Being in the rain", denies injury. No other complaints. Past Medical History Reviewed: Historical Data, Nursing Documentation, Vital Signs Vital Signs: Last Vital Signs Temp 98.0 F 11/01/17 03:31 Pulse 83 11/01/17 03:31 Resp 16 11/01/17 03:31 BP 138/85 11/01/17 03:31 Pulse Ox 99 11/01/17 03:31 - Medical History PMH: Back Problems, COPD, Depression, Schizophrenia - Family History Family History: States: Unknown Family Hx - Home Medications Home Medications: Ambulatory Orders Medication Instructions Recorded Ranitidine HCl [Zantac] 1 tab PO BID #30 tablet 02/16/17 Dicyclomine [Bentyl] 20 mg PO BID PRN #30 tab 04/06/17 Ibuprofen [Motrin Tab] 600 mg PO Q8 PRN #60 tab 04/06/17 Tamsulosin [Flomax] 0.4 mg PO DAILY #10 cap 04/06/17 Famotidine [Pepcid] 20 mg PO Q12 #20 tab 04/12/17 Cyclobenzaprine [Cyclobenzaprine 10 mg PO TID PRN #15 tab 04/22/17 HCl] Acetaminophen [Tylenol 325mg tab] 650 mg PO TID #30 tab 05/01/17 Clotrimazole 1% [Lotrimin AF 1%] 10 applic TOP BID #1 bottle 05/02/17 Clotrimazole/Betamethasone 15 gm EXT BID #1 tube 05/18/17 [Lotrisone] Ibuprofen [Motrin] 600 mg PO Q6 PRN #15 tab 05/19/17 Oseltamivir [Tamiflu] 75 mg PO BID #10 cap 07/08/17 Oseltamivir Phosphate [Tamiflu] 75 mg PO BID #10 capsule 07/10/17 Ciprofloxacin [Cipro] 500 mg PO BID 7 Days tab 07/12/17 Famotidine [Pepcid] 20 mg PO Q12 #20 tab 08/25/17 - Allergies Allergies/Adverse Reactions: Allergies Allergy/AdvReac Type Severity Reaction Status Date / Time No Known Allergies Allergy Verified 10/26/17 07:00 Review of Systems ROS Statement: Except As Marked, All Systems Reviewed And Found Negative Musculoskeletal: Positive for: Leg Pain Physical Exam - Physical Exam Appears: Positive for: Well, Non-toxic, No Acute Distress Head Exam: Positive for: ATRAUMATIC, NORMAL INSPECTION, NORMOCEPHALIC Extremity: Positive for: Normal ROM. Negative for: Tenderness, Pedal Edema, Calf Tenderness, Capillary Refill, Deformity, Swelling - ECG O2 Sat by Pulse Oximetry: 99 Pulse Ox Interpretation: Normal Medical Decision Making Medical Decision Making: Patient having MSK pain from rain, no acute abnormality appreciated. Patient to receive NSAID and f/u w/ PMD. Disposition - Clinical Impression Clinical Impression: Homelessness, Musculoskeletal pain - Patient ED Disposition Is Patient to be Admitted: No - Disposition Referrals: [facility] [Outside] Disposition: Routine/Home Disposition Time: 03:42 Condition: STABLE Instructions: Muscle and Bone Pain (DC)
== END 2017-11-01 05:18 | disposition home or self-care (01) ==
LOC: H.ER 03:16
DX: M79.1 Myalgia (principal); Z59.0 Homelessness

== ENCOUNTER 2017-11-05 08:43 | Emergency (ER) | payer MEDICAID ==
[2017-11-05 08:51] VITALS: BP 132/71; PULSE 78; RESP 20; TEMP 98.1; O2SAT 97
--- NOTE | 2017-11-05 09:19 | ED PDOC ---
HPI: General Adult Time Seen by Provider: 11/05/17 09:10 Chief Complaint (Nursing): Back Pain Chief Complaint (Provider): body pain History Per: Patient History/Exam Limitations: no limitations Onset/Duration Of Symptoms: Other (for years, worse today) Have you had recent travel within the past 21 days to any of the following countries: [place], [place], [place] or [place]?: No Current Symptoms Are (Timing): Still Present Severity: Moderate Additional History Per: Prior Records Additional Complaint(s): pt p/w + years onset of lower back pain; pt is homeless and was sleeping out in the public when the rain fell on him this morning; pt states rain/weather changes seems to worsen his lower back pain; pt also states worsening body cramps/aches where his legs are cramping up on him; pt states no fever/chills/ sweats, no cp/sob/palpitations, persistent mid abd pain, no n/v, no numbness/ tingling, no urinary/bowel changes, no fall/trauma/sick contact, no travel; pt denied other complaints; pt is here for further eval. pt states he does not take medications prescribed to him (unable to afford them? ) pt states NO SI/HI, no hallucinations PCP: NONE pt is homeless Past Medical History Reviewed: Historical Data, Nursing Documentation, Vital Signs Vital Signs: Last Vital Signs Temp 98.1 F 11/05/17 08:51 Pulse 78 11/05/17 08:51 Resp 20 11/05/17 08:51 BP 132/71 11/05/17 08:51 Pulse Ox 97 11/05/17 11:15 - Medical History PMH: Back Problems, COPD, Depression, Schizophrenia - Family History Family History: States: Unknown Family Hx - Living Arrangements Living Arrangements: Other (homelessness) - Social History Current smoker - smoking cessation education provided: Yes Alcohol: Occasional Drugs: Denies - Home Medications Home Medications: Ambulatory Orders Medication Instructions Recorded Ranitidine HCl [Zantac] 1 tab PO BID #30 tablet 02/16/17 Dicyclomine [Bentyl] 20 mg PO BID PRN #30 tab 04/06/17 Ibuprofen [Motrin Tab] 600 mg PO Q8 PRN #60 tab 04/06/17 Tamsulosin [Flomax] 0.4 mg PO DAILY #10 cap 04/06/17 Famotidine [Pepcid] 20 mg PO Q12 #20 tab 04/12/17 Cyclobenzaprine [Cyclobenzaprine 10 mg PO TID PRN #15 tab 04/22/17 HCl] Acetaminophen [Tylenol 325mg tab] 650 mg PO TID #30 tab 05/01/17 Clotrimazole 1% [Lotrimin AF 1%] 10 applic TOP BID #1 bottle 05/02/17 Clotrimazole/Betamethasone 15 gm EXT BID #1 tube 05/18/17 [Lotrisone] Ibuprofen [Motrin] 600 mg PO Q6 PRN #15 tab 05/19/17 Oseltamivir [Tamiflu] 75 mg PO BID #10 cap 07/08/17 Oseltamivir Phosphate [Tamiflu] 75 mg PO BID #10 capsule 07/10/17 Ciprofloxacin [Cipro] 500 mg PO BID 7 Days tab 07/12/17 Famotidine [Pepcid] 20 mg PO Q12 #20 tab 08/25/17 Acetaminophen [Tylenol] 650 mg PO QID PRN #30 capsule 11/05/17 traMADol [Ultram] 50 mg PO TID PRN #10 tab 11/05/17 - Allergies Allergies/Adverse Reactions: Allergies Allergy/AdvReac Type Severity Reaction Status Date / Time No Known Allergies Allergy Verified 11/05/17 08:58 Review of Systems ROS Statement: Except As Marked, All Systems Reviewed And Found Negative Constitutional: Negative for: Fever, Chills, Sweats Eyes: Negative for: Pain ENT: Negative for: Ear Pain Cardiovascular: Negative for: Chest Pain Respiratory: Negative for: Cough, Shortness of Breath Gastrointestinal: Negative for: Nausea, Vomiting, Abdominal Pain Genitourinary Male: Negative for: Dysuria Musculoskeletal: Positive for: Back Pain. Negative for: Neck Pain Skin: Negative for: Rash Neurological: Negative for: Weakness, Headache Physical Exam - Reviewed Nursing Documentation Reviewed: Yes Vital Signs Reviewed: Yes (WNL) - Physical Exam Comments: General: alert/awake, GCS = 15, oriented x 2 (not to date/time), resting in bed , uncomfortable, cooperative, interactive; NAD; unkempt Head: NC/AT; mild bi-temporal wasting EYE: PERRLA, EOMI, sclera anicteric, no nystagmus, no photophobia; visual field intact b/l Facial: WNL Oral: uvula/tongue are midline, no exudate/lesions, no drooling/stridor, no dysphonia; poor dentitions; mild dry oral mucosa NECK: intact ROM, no midline tenderness, no nuchal rigidity, no meningeal signs ; no step off Chest: CTA b/l, no w/r/r; no tachypenia, no accessory muscle use noted; no focal tenderness on exam; no crepitus; no gross deformities noted Cardiac: +S1, +S2, no m/r/r, no tachycardia Abdominal: +BS, soft/nd/nt, well nourished patient; no masses/rebound/guarding/ rigidity; no sims's sign, no mcburney's point tenderness Extremities: intact ROM, strength 5/5 grossly intact in all limbs, neurovasc intact b/l; + ambulatory, able to stand and bear weight with ease; reflex +2/2; intact distal pulses noted BACK: no step off, no midline tenderness, NO crepitus, no gross deformities noted; Intact ROM SKIN: cap refill ~ 1 sec, no ulcerations, no petechiae, no rashes NEURO: CNII-XII WNL, no facial asymmetries, no slurr speech, oriented x 2 (not to date/time) NIH stroke scale ~ 0 Psych: normal insight, flat affect; slight poor concentration; follows command with ease - ECG O2 Sat by Pulse Oximetry: 97 Pulse Ox Interpretation: Normal - Radiology X-Ray: Viewed By Me, Read By Radiologist - Progress ED Course And Treament: PROCEDURE: Radiographs of the Lumbar Spine. HISTORY: atrumatic lower back pain COMPARISON: No prior. FINDINGS: BONES: There is normal alignment of the lumbar vertebral bodies. There is normal lumbar lordosis. There is no acute fracture, spondylolysis or spondylolisthesis. Bone mineralization is normal. DISC SPACES: There is multilevel degenerative disc disease with anterior osteophytes, reduced disc heights and multilevel facet arthropathy, worse at L5-S1. OTHER FINDINGS: There are no pathologic soft tissue calcifications. Both sacroiliac joints are normal. IMPRESSION: No acute fracture, spondylolysis or spondylolisthesis. Multilevel degenerative disc disease, worse at L5-S1. pt is soundly asleep in his bed pt tolerated po pt is comfortable, NOT in any distress pt remains ambulatory, able to bear weight with ease 11:15am - pt is made aware of his medical results pt is encouraged no heavy lifting pt is encouraged no prolonged standing/walking pt is encouraged to go to the nearest [facility] pt will f/u as directed pt will be discharged home Re-evaluation Time: 11:18 Condition: Improved Medical Decision Making Medical Decision Making: Impression: lower back pain (chronic); homelessness, medication non-compliance i have consider all the differential diagnosis regarding pt's chief medical complaints/clinical findings, including but are not limited to: lower back pain (chronic); homelessness, medication non-compliance A/P: lower back pain (chronic); homelessness, medication non-compliance - xray - ua? - supportive care - observe/reevaluation Disposition - Clinical Impression Clinical Impression: Lower back pain, General medical exam, Homeless, Non compliance w medication regimen - Patient ED Disposition Is Patient to be Admitted: No Counseled Patient/Family Regarding: Studies Performed, Diagnosis, Need For Followup, Rx Given - Disposition Referrals: [facility],NO [[facility]Staff[facility] [Outside] [facility] [Outside] [facility] [Outside] Disposition: Routine/Home Disposition Time: 11:30 Condition: STABLE Additional Instructions: Make sure to see your doctor in 1-2 days DRINK PLENTY OF FLUIDS take your medications as prescribed RETURN TO ED IF worse pain, cant breath, persistent vomiting, high fever >101- 102 for hours, altered behavior, slurr speech, facial changes, focal weakness ( arm/leg or both), unable to urinate, heavy/persistent bleeding, passing out, chest pain, or other medical emergencies Prescriptions: Acetaminophen [Tylenol] 650 mg PO QID PRN #30 capsule PRN Reason: Pain, Mild (1-3) traMADol [Ultram] 50 mg PO TID PRN #10 tab PRN Reason: Pain, Moderate (4-7) Instructions: Low Back Pain in Adults, Chronic Pain, Yearly Physical for Adults Forms: [employer] (Latvian) Print Language: OCCITAN
--- NOTE | 2017-11-05 09:47 | RAD ---
PROCEDURE: Radiographs of the Lumbar Spine. HISTORY: atrumatic lower back pain COMPARISON: No prior. FINDINGS: BONES: There is normal alignment of the lumbar vertebral bodies. There is normal lumbar lordosis. There is no acute fracture, spondylolysis or spondylolisthesis. Bone mineralization is normal. DISC SPACES: There is multilevel degenerative disc disease with anterior osteophytes, reduced disc heights and multilevel facet arthropathy, worse at L5-S1. OTHER FINDINGS: There are no pathologic soft tissue calcifications. Both sacroiliac joints are normal. IMPRESSION: No acute fracture, spondylolysis or spondylolisthesis. Multilevel degenerative disc disease, worse at L5-S1.
[2017-11-05 11:10] LABS: URINE BILIRUBIN NEGATIVE (NEGATIVE); URINE BLOOD NEGATIVE (NEGATIVE); URINE CLARITY SLIGHTY-CLOUDY (Clear); URINE COLOR AMBER (YELLOW); URINE GLUCOSE (UA) NEG (Normal); URINE LEUKOCYTE ESTERASE NEG Leu/uL (Negative); URINE PROTEIN NEGATIVE (NEGATIVE)
== END 2017-11-05 14:55 | disposition home or self-care (01) ==
LOC: H.ER 08:43
DX: M54.5 Low back pain (principal); Z59.0 Homelessness; Z91.14 Patient's other noncompliance with medication regimen; F20.9 Schizophrenia, unspecified; F32.9 Major depressive disorder, single episode, unspecified; G89.29 Other chronic pain; J44.9 Chronic obstructive pulmonary disease, unspecified; M51.37 Other intervertebral disc degeneration, lumbosacral region; F17.200 Nicotine dependence, unspecified, uncomplicated

== ENCOUNTER 2017-11-06 04:23 | Emergency (ER) | payer MEDICAID ==
[2017-11-06 04:41] VITALS: RESP 18
--- NOTE | 2017-11-06 04:46 | ED PDOC ---
HPI: General Adult Time Seen by Provider: 11/06/17 04:26 Chief Complaint (Nursing): Lower Extremity Problem/Injury Chief Complaint (Provider): Tired, cold History Per: Patient History/Exam Limitations: no limitations Onset/Duration Of Symptoms: Days Have you had recent travel within the past 21 days to any of the following countries: [place], [place], [place] or [place]?: No Current Symptoms Are (Timing): Still Present Additional Complaint(s): 57 yo male, well known to ER, presents after being outside in the cold because he is tired and cold. Pt also asks for information for dental clinic and health clinic. Past Medical History Reviewed: Historical Data, Nursing Documentation, Vital Signs Vital Signs: Last Vital Signs Temp 96 F L 11/06/17 04:37 Pulse 70 11/06/17 04:37 Resp 18 11/06/17 04:37 BP 134/71 11/06/17 04:37 Pulse Ox 99 11/06/17 04:37 - Medical History PMH: Back Problems, COPD, Depression, Schizophrenia - Surgical History Surgical History: No Surg Hx - Family History Family History: States: Unknown Family Hx - Living Arrangements Living Arrangements: With Family - Social History Current smoker - smoking cessation education provided: No - Home Medications Home Medications: Ambulatory Orders Medication Instructions Recorded Ranitidine HCl [Zantac] 1 tab PO BID #30 tablet 02/16/17 Dicyclomine [Bentyl] 20 mg PO BID PRN #30 tab 04/06/17 Ibuprofen [Motrin Tab] 600 mg PO Q8 PRN #60 tab 04/06/17 Tamsulosin [Flomax] 0.4 mg PO DAILY #10 cap 04/06/17 Famotidine [Pepcid] 20 mg PO Q12 #20 tab 04/12/17 Cyclobenzaprine [Cyclobenzaprine 10 mg PO TID PRN #15 tab 04/22/17 HCl] Acetaminophen [Tylenol 325mg tab] 650 mg PO TID #30 tab 05/01/17 Clotrimazole 1% [Lotrimin AF 1%] 10 applic TOP BID #1 bottle 05/02/17 Clotrimazole/Betamethasone 15 gm EXT BID #1 tube 05/18/17 [Lotrisone] Ibuprofen [Motrin] 600 mg PO Q6 PRN #15 tab 05/19/17 Oseltamivir [Tamiflu] 75 mg PO BID #10 cap 07/08/17 Oseltamivir Phosphate [Tamiflu] 75 mg PO BID #10 capsule 07/10/17 Ciprofloxacin [Cipro] 500 mg PO BID 7 Days tab 07/12/17 Famotidine [Pepcid] 20 mg PO Q12 #20 tab 08/25/17 Acetaminophen [Tylenol] 650 mg PO QID PRN #30 capsule 11/05/17 traMADol [Ultram] 50 mg PO TID PRN #10 tab 11/05/17 - Allergies Allergies/Adverse Reactions: Allergies Allergy/AdvReac Type Severity Reaction Status Date / Time No Known Allergies Allergy Verified 11/06/17 04:37 Review of Systems ROS Statement: Except As Marked, All Systems Reviewed And Found Negative Constitutional: Negative for: Fever, Chills ENT: Negative for: Ear Pain, Ear Discharge Cardiovascular: Negative for: Chest Pain, Palpitations Respiratory: Negative for: Cough Skin: Negative for: Rash Psych: Positive for: Other Physical Exam - Reviewed Nursing Documentation Reviewed: Yes Vital Signs Reviewed: Yes - Physical Exam Appears: Positive for: Well, Non-toxic, No Acute Distress Head Exam: Positive for: ATRAUMATIC, NORMAL INSPECTION, NORMOCEPHALIC Skin: Positive for: Normal Color, Warm, DRY Eye Exam: Positive for: Normal appearance ENT: Positive for: Normal ENT Inspection Neck: Positive for: Normal, Painless ROM Cardiovascular/Chest: Positive for: Regular Rate, Rhythm Respiratory: Positive for: CNT, Normal Breath Sounds Gastrointestinal/Abdominal: Positive for: Normal Exam, Soft Back: Positive for: Normal Inspection Extremity: Positive for: Normal ROM Neurologic/Psych: Positive for: Alert, Oriented Medical Decision Making Medical Decision Making: PT seen and examined by Dr. Mehta. Disposition - Clinical Impression Clinical Impression: Homelessness - Patient ED Disposition Is Patient to be Admitted: No - Disposition Referrals: [facility] [Outside] Disposition: Routine/Home Disposition Time: 04:50 Condition: STABLE
[2017-11-06 05:59] VITALS: BP 156/77; PULSE 63; TEMP 96.4; O2SAT 98
== END 2017-11-06 06:05 | disposition home or self-care (01) ==
LOC: H.ER 04:23
DX: R25.2 Cramp and spasm (principal)

== ENCOUNTER 2017-11-06 20:49 | Emergency (ER) | payer MEDICAID ==
--- NOTE | 2017-11-06 21:08 | ED PDOC ---
Lower Extremity Pain/Injury Time Seen by Provider: 11/06/17 21:02 Chief Complaint (Nursing): Lower Extremity Problem/Injury Chief Complaint (Provider): leg pain History Per: Patient Additional Complaint(s): 57 year old non-domiciled male presents to ED with chronic low back and bilateral leg pain ongoing for several months. Patient denies any fall or trauma. He was seen here for same yesterday and the day before and was given rx for pain meds but he did not fill the meds. Patient is well known to ED for frequent visits. PMD: none Past Medical History Reviewed: Historical Data, Nursing Documentation, Vital Signs Vital Signs: Last Vital Signs Temp 97.9 F 11/06/17 20:52 Pulse 77 11/06/17 20:52 Resp 18 11/06/17 20:52 BP 172/96 H 11/06/17 20:52 Pulse Ox 100 11/06/17 20:52 - Medical History PMH: Back Problems, COPD, Depression, Schizophrenia - Family History Family History: States: No Known Family Hx - Living Arrangements Living Arrangements: Other (non-domiciled) - Social History Current smoker - smoking cessation education provided: Yes Alcohol: > 2 Drinks/Day - Home Medications Home Medications: Ambulatory Orders Medication Instructions Recorded Ranitidine HCl [Zantac] 1 tab PO BID #30 tablet 02/16/17 Dicyclomine [Bentyl] 20 mg PO BID PRN #30 tab 04/06/17 Ibuprofen [Motrin Tab] 600 mg PO Q8 PRN #60 tab 04/06/17 Tamsulosin [Flomax] 0.4 mg PO DAILY #10 cap 04/06/17 Famotidine [Pepcid] 20 mg PO Q12 #20 tab 04/12/17 Cyclobenzaprine [Cyclobenzaprine 10 mg PO TID PRN #15 tab 04/22/17 HCl] Acetaminophen [Tylenol 325mg tab] 650 mg PO TID #30 tab 05/01/17 Clotrimazole 1% [Lotrimin AF 1%] 10 applic TOP BID #1 bottle 05/02/17 Clotrimazole/Betamethasone 15 gm EXT BID #1 tube 05/18/17 [Lotrisone] Ibuprofen [Motrin] 600 mg PO Q6 PRN #15 tab 05/19/17 Oseltamivir [Tamiflu] 75 mg PO BID #10 cap 07/08/17 Oseltamivir Phosphate [Tamiflu] 75 mg PO BID #10 capsule 07/10/17 Ciprofloxacin [Cipro] 500 mg PO BID 7 Days tab 07/12/17 Famotidine [Pepcid] 20 mg PO Q12 #20 tab 08/25/17 Acetaminophen [Tylenol] 650 mg PO QID PRN #30 capsule 11/05/17 traMADol [Ultram] 50 mg PO TID PRN #10 tab 11/05/17 - Allergies Allergies/Adverse Reactions: Allergies Allergy/AdvReac Type Severity Reaction Status Date / Time No Known Allergies Allergy Verified 11/06/17 04:37 Wells Criteria for PE - Wells Criteria for Pulmonary Embolism Clinical Signs and Symptoms of DVT: No P.E is #1 Diagnosis, or Equally Likely: No Heart Rate >100: No Immobilization at least 3 days;Surgery previous 4 weeks: No Previous, objectively diagnosed PE or DVT: No Hemoptysis: No Malignancy w/treatment within 6 months, or palliative: No Total Score: 0 Review of Systems ROS Statement: Except As Marked, All Systems Reviewed And Found Negative Constitutional: Negative for: Fever Cardiovascular: Negative for: Chest Pain Respiratory: Negative for: Cough Gastrointestinal: Negative for: Nausea, Vomiting Musculoskeletal: Positive for: Back Pain, Leg Pain Neurological: Negative for: Headache, Dizziness Physical Exam - Reviewed Nursing Documentation Reviewed: Yes Vital Signs Reviewed: Yes - Physical Exam Appears: Positive for: Non-toxic, No Acute Distress. Negative for: Well ( unkempt) Head Exam: Positive for: ATRAUMATIC, NORMAL INSPECTION, NORMOCEPHALIC Skin: Negative for: Rash Eye Exam: Positive for: Normal appearance Cardiovascular/Chest: Positive for: Regular Rate, Rhythm Respiratory: Positive for: Normal Breath Sounds Neurologic/Psych: Positive for: Alert, Oriented, Gait (steady gait) - ECG O2 Sat by Pulse Oximetry: 100 Pulse Ox Interpretation: Normal Medical Decision Making Medical Decision Makin57 year old non-domiciled male with chronic leg and back pain Plan: ED observation Disposition - Clinical Impression Clinical Impression: Leg pain - Patient ED Disposition Is Patient to be Admitted: Transfer of Care - Disposition Disposition: Transfer of Care Disposition Time: 23:55 Condition: FAIR Forms: [employer] ([place]) Patient Signed Over To: Krystina Reynolds Handoff Comments: pending final disposition
--- NOTE | 2017-11-07 05:15 | ED PDOC ---
- ECG O2 Sat by Pulse Oximetry: 100 - Progress ED Course And Treament: Case endorsed to card writer hand from Margarita ARRIAGA pending re-eval Patient ambulating with steady gait on re-eval Stable for discharge Disposition - Clinical Impression Clinical Impression: Leg pain - POA Present On Arrival: None - Disposition Disposition: Routine/Home Disposition Time: 03:00 Condition: STABLE Instructions: Muscle and Bone Pain (DC)
[2017-11-07 06:09] VITALS: RESP 16
[2017-11-07 06:11] VITALS: BP 126/76; PULSE 76; TEMP 97.8; O2SAT 95
== END 2017-11-07 05:40 | disposition home or self-care (01) ==
LOC: H.ER 20:49
DX: M79.606 Pain in leg, unspecified (principal); F20.9 Schizophrenia, unspecified; F32.9 Major depressive disorder, single episode, unspecified; J44.9 Chronic obstructive pulmonary disease, unspecified; F17.200 Nicotine dependence, unspecified, uncomplicated

== ENCOUNTER 2017-11-13 01:04 | Emergency (ER) | payer MEDICAID ==
--- NOTE | 2017-11-13 02:24 | ED PDOC ---
HPI: General Adult Time Seen by Provider: 11/13/17 01:18 Chief Complaint (Nursing): Medical Clearance Chief Complaint (Provider): Medical Clearance History Per: Patient History/Exam Limitations: no limitations Additional Complaint(s): 57 year old male presents to ED seeking fpc from the rain and denies having any medical complaints. Patient is well known to this provider for multiple ED visits and bed-seeking behavior. PCP: None Past Medical History Reviewed: Historical Data, Nursing Documentation, Vital Signs Vital Signs: Last Vital Signs Temp 97.9 F 11/13/17 05:38 Pulse 71 11/13/17 05:38 Resp BP 162/72 H 11/13/17 05:38 Pulse Ox 89 L 11/13/17 05:38 - Medical History PMH: Back Problems, COPD, Depression, Schizophrenia - Family History Family History: States: Unknown Family Hx - Living Arrangements Living Arrangements: Other (Homeless) - Home Medications Home Medications: Ambulatory Orders Medication Instructions Recorded Ranitidine HCl [Zantac] 1 tab PO BID #30 tablet 02/16/17 Dicyclomine [Bentyl] 20 mg PO BID PRN #30 tab 04/06/17 Ibuprofen [Motrin Tab] 600 mg PO Q8 PRN #60 tab 04/06/17 Tamsulosin [Flomax] 0.4 mg PO DAILY #10 cap 04/06/17 Famotidine [Pepcid] 20 mg PO Q12 #20 tab 04/12/17 Cyclobenzaprine [Cyclobenzaprine 10 mg PO TID PRN #15 tab 04/22/17 HCl] Acetaminophen [Tylenol 325mg tab] 650 mg PO TID #30 tab 05/01/17 Clotrimazole 1% [Lotrimin AF 1%] 10 applic TOP BID #1 bottle 05/02/17 Clotrimazole/Betamethasone 15 gm EXT BID #1 tube 05/18/17 [Lotrisone] Ibuprofen [Motrin] 600 mg PO Q6 PRN #15 tab 05/19/17 Oseltamivir [Tamiflu] 75 mg PO BID #10 cap 07/08/17 Oseltamivir Phosphate [Tamiflu] 75 mg PO BID #10 capsule 07/10/17 Ciprofloxacin [Cipro] 500 mg PO BID 7 Days tab 07/12/17 Famotidine [Pepcid] 20 mg PO Q12 #20 tab 08/25/17 Acetaminophen [Tylenol] 650 mg PO QID PRN #30 capsule 11/05/17 traMADol [Ultram] 50 mg PO TID PRN #10 tab 11/05/17 - Allergies Allergies/Adverse Reactions: Allergies Allergy/AdvReac Type Severity Reaction Status Date / Time No Known Allergies Allergy Verified 11/13/17 01:08 Review of Systems ROS Statement: Except As Marked, All Systems Reviewed And Found Negative (No medical complaints) Physical Exam - Reviewed Nursing Documentation Reviewed: Yes Vital Signs Reviewed: Yes - Physical Exam Appears: Positive for: Non-toxic, No Acute Distress Skin: Positive for: Normal Color, Warm, Dry Cardiovascular/Chest: Positive for: Regular Rate, Rhythm. Negative for: Bradycardia Respiratory: Positive for: Normal Breath Sounds. Negative for: Respiratory Distress Gastrointestinal/Abdominal: Positive for: Normal Exam, Soft. Negative for: Tenderness Neurologic/Psych: Positive for: Alert, Oriented. Negative for: Motor/Sensory Deficits - ECG O2 Sat by Pulse Oximetry: 98 (RA) Pulse Ox Interpretation: Normal Medical Decision Making Medical Decision Makin Initial impression: homelessness Initial plan: Plan for discharge Scribe Attestation: Documented by Margaret Ma acting as a scribe for Yevgeniy Morris MD. Scribe Attestation: All medical record entries made by the Scribe were at my direction and personally dictated by me. I have reviewed the chart and agree that the record accurately reflects my personal performance of the history, physical exam, medical decision making, and the department course for this patient. I have also personally directed, reviewed, and agree with the discharge instructions and disposition. Disposition - Clinical Impression Clinical Impression: Homelessness - Disposition Referrals: [facility] [Outside] Disposition Time: :18 Condition: STABLE Instructions: General (DC) Forms: [employer] (Nigerien)
[2017-11-13 05:38] VITALS: BP 162/72; PULSE 71; TEMP 97.9
[2017-11-13 05:53] VITALS: O2SAT 98
[2017-11-13 06:40] VITALS: RESP 18
== END 2017-11-13 06:05 | disposition home or self-care (01) ==
LOC: H.ER 01:04
DX: Z76.5 Malingerer [conscious simulation] (principal); Z59.0 Homelessness; Z86.59 Personal history of other mental and behavioral disorders; J44.9 Chronic obstructive pulmonary disease, unspecified

== ENCOUNTER 2017-12-27 06:17 | Emergency (ER) | payer MEDICAID ==
[2017-12-27 07:16] VITALS: RESP 18
--- NOTE | 2017-12-27 07:26 | ED PDOC ---
Lower Extremity Pain/Injury Time Seen by Provider: 12/27/17 07:02 Chief Complaint (Nursing): Lower Extremity Problem/Injury Chief Complaint (Provider): b/l feet pain History Per: Patient History/Exam Limitations: no limitations Onset/Duration Of Symptoms: Days (chronic) Current Symptoms Are (Timing): Still Present Additional Complaint(s): Nazario Lopez is a 57 year old male, with a past medical history of back problems and COPD, who presents to the emergency department complaining of a chronic bilateral foot pain. Patient is nondomicile and denies any injuries. He denies any fever, chills or other medical complaints. PMD: None Past Medical History Reviewed: Historical Data, Nursing Documentation, Vital Signs Vital Signs: Last Vital Signs Temp 98.1 F 12/27/17 06:34 Pulse 60 12/27/17 06:34 Resp 18 12/27/17 06:34 BP 129/74 12/27/17 06:34 Pulse Ox 94 L 12/27/17 06:34 - Medical History PMH: Back Problems, COPD, Depression, Schizophrenia - Surgical History Surgical History: No Surg Hx - Family History Family History: States: Unknown Family Hx - Social History Current smoker - smoking cessation education provided: Yes (light smoker <10 cigarettes daily) - Home Medications Home Medications: Ambulatory Orders Medication Instructions Recorded Ranitidine HCl [Zantac] 1 tab PO BID #30 tablet 02/16/17 Dicyclomine [Bentyl] 20 mg PO BID PRN #30 tab 04/06/17 Ibuprofen [Motrin Tab] 600 mg PO Q8 PRN #60 tab 04/06/17 Tamsulosin [Flomax] 0.4 mg PO DAILY #10 cap 04/06/17 Famotidine [Pepcid] 20 mg PO Q12 #20 tab 04/12/17 Cyclobenzaprine [Cyclobenzaprine 10 mg PO TID PRN #15 tab 04/22/17 HCl] Acetaminophen [Tylenol 325mg tab] 650 mg PO TID #30 tab 05/01/17 Clotrimazole 1% [Lotrimin AF 1%] 10 applic TOP BID #1 bottle 05/02/17 Clotrimazole/Betamethasone 15 gm EXT BID #1 tube 05/18/17 [Lotrisone] Ibuprofen [Motrin] 600 mg PO Q6 PRN #15 tab 05/19/17 Oseltamivir [Tamiflu] 75 mg PO BID #10 cap 07/08/17 Oseltamivir Phosphate [Tamiflu] 75 mg PO BID #10 capsule 07/10/17 Ciprofloxacin [Cipro] 500 mg PO BID 7 Days tab 07/12/17 Famotidine [Pepcid] 20 mg PO Q12 #20 tab 08/25/17 Acetaminophen [Tylenol] 650 mg PO QID PRN #30 capsule 11/05/17 traMADol [Ultram] 50 mg PO TID PRN #10 tab 11/05/17 Clotrimazole 1% Cream [Lotrimin 1%] 1 appful TP BID #1 tube 12/27/17 - Allergies Allergies/Adverse Reactions: Allergies Allergy/AdvReac Type Severity Reaction Status Date / Time No Known Allergies Allergy Verified 12/27/17 06:36 Review of Systems ROS Statement: Except As Marked, All Systems Reviewed And Found Negative Constitutional: Negative for: Fever, Chills Musculoskeletal: Positive for: Foot Pain (b/l ) Physical Exam - Reviewed Nursing Documentation Reviewed: Yes Vital Signs Reviewed: Yes - Physical Exam Appears: Positive for: Non-toxic, No Acute Distress Head Exam: Positive for: ATRAUMATIC, NORMAL INSPECTION, NORMOCEPHALIC Skin: Positive for: Normal Color, Warm, Dry Eye Exam: Positive for: Normal appearance, EOMI, PERRL Neck: Positive for: Painless ROM Respiratory: Negative for: Respiratory Distress Extremity: Positive for: Normal ROM (upper and lower extremities), Other (Mild excoriation to lower extremities. Poor hygiene, no blisters, no drainage or infection). Negative for: Deformity, Swelling Neurologic/Psych: Positive for: Alert, Oriented. Negative for: Motor/Sensory Deficits - ECG O2 Sat by Pulse Oximetry: 94 (RA) Pulse Ox Interpretation: Abnormal Medical Decision Making Medical Decision Making: Time: 07:02 Initial Impression: Chronic feet pain Initial Plan: --Reevaluation ----- Scribe Attestation: Documented by Carlos Price, acting as a scribe for Tr Liao MD. Provider Scribe Attestation: All medical record entries made by the Scribe were at my direction and personally dictated by me. I have reviewed the chart and agree that the record accurately reflects my personal performance of the history, physical exam, medical decision making, and the department course for this patient. I have also personally directed, reviewed, and agree with the discharge instructions and disposition. Disposition - Clinical Impression Clinical Impression: Tinea pedis - Patient ED Disposition Is Patient to be Admitted: No - Disposition Referrals: [facility]iatry Clinic [Outside] Disposition: Routine/Home Disposition Time: 07:41 Condition: FAIR Prescriptions: Clotrimazole 1% Cream [Lotrimin 1%] 1 appful TP BID #1 tube Instructions: Athlete's Foot Forms: [facility] (Austrian)
[2017-12-27 09:34] VITALS: BP 122/70; PULSE 61; TEMP 98.2; O2SAT 96
== END 2017-12-27 10:58 | disposition home or self-care (01) ==
LOC: H.ER 06:17
DX: B35.3 Tinea pedis (principal)

== ENCOUNTER 2017-12-30 23:01 | Emergency (ER) | payer MEDICAID ==
--- NOTE | 2017-12-31 02:18 | ED PDOC ---
HPI: Trauma/Fall - HPI Time Seen by Provider: 12/30/17 23:37 Chief Complaint (Nursing): Trauma Chief Complaint (Provider): Trauma History Per: Patient History/Exam Limitations: no limitations Onset/Duration Of Symptoms: Mins Additional Complaint(s): 57 y/o male presents to the ED complaining of lower back pain s/p fall, onset prior to arrival. Patient states it was raining outside when he slipped and fell thus injuring his lower back and hitting his head. Patient is not sure if he passed out. Patient also reports of headache. Otherwise: (-) nausea, (-) neck pain, (-) chest pain, (-) abdominal pain, (-) other injuries/complaints. Past Medical History Reviewed: Historical Data, Nursing Documentation, Vital Signs Vital Signs: Last Vital Signs Temp 97 F L 12/30/17 23:24 Pulse 72 12/30/17 23:24 Resp 20 12/30/17 23:24 BP 129/70 12/30/17 23:24 Pulse Ox 98 12/30/17 23:24 - Medical History PMH: Back Problems, COPD, Depression, Schizophrenia - Surgical History Surgical History: No Surg Hx - Family History Family History: States: Unknown Family Hx - Home Medications Home Medications: Ambulatory Orders Medication Instructions Recorded Ranitidine HCl [Zantac] 1 tab PO BID #30 tablet 02/16/17 Dicyclomine [Bentyl] 20 mg PO BID PRN #30 tab 04/06/17 Ibuprofen [Motrin Tab] 600 mg PO Q8 PRN #60 tab 04/06/17 Tamsulosin [Flomax] 0.4 mg PO DAILY #10 cap 04/06/17 Famotidine [Pepcid] 20 mg PO Q12 #20 tab 04/12/17 Cyclobenzaprine [Cyclobenzaprine 10 mg PO TID PRN #15 tab 04/22/17 HCl] Acetaminophen [Tylenol 325mg tab] 650 mg PO TID #30 tab 05/01/17 Clotrimazole 1% [Lotrimin AF 1%] 10 applic TOP BID #1 bottle 05/02/17 Clotrimazole/Betamethasone 15 gm EXT BID #1 tube 05/18/17 [Lotrisone] Ibuprofen [Motrin] 600 mg PO Q6 PRN #15 tab 05/19/17 Oseltamivir [Tamiflu] 75 mg PO BID #10 cap 07/08/17 Oseltamivir Phosphate [Tamiflu] 75 mg PO BID #10 capsule 07/10/17 Ciprofloxacin [Cipro] 500 mg PO BID 7 Days tab 07/12/17 Famotidine [Pepcid] 20 mg PO Q12 #20 tab 08/25/17 Acetaminophen [Tylenol] 650 mg PO QID PRN #30 capsule 11/05/17 traMADol [Ultram] 50 mg PO TID PRN #10 tab 11/05/17 Clotrimazole 1% Cream [Lotrimin 1%] 1 appful TP BID #1 tube 12/27/17 - Allergies Allergies/Adverse Reactions: Allergies Allergy/AdvReac Type Severity Reaction Status Date / Time No Known Allergies Allergy Verified 12/30/17 23:22 Review of Systems ROS Statement: Except As Marked, All Systems Reviewed And Found Negative Gastrointestinal: Negative for: Nausea Musculoskeletal: Positive for: Back Pain (low). Negative for: Neck Pain Neurological: Positive for: Headache Physical Exam - Reviewed Nursing Documentation Reviewed: Yes Vital Signs Reviewed: Yes - Physical Exam Comments: GENERAL APPEARANCE: Patient is awake, alert, oriented x 3, in no acute distress , ill kempt. SKIN: Warm, dry; (-) cyanosis. HEAD: (-) swelling and tenderness, with no palpable bony defect. EYES: (-) conjunctival pallor, (-) scleral icterus, (-) nystagmus. ENMT: Mucous membranes moist. Nose: (-) tenderness. Pharynx clear. Airway patent : (-) stridor. Full ROM of mandible without pain. NECK: (-) vertebral tenderness, (-) lymphadenopathy. CHEST AND RESPIRATORY: (-) chest wall tenderness. Lungs: (-) rales, (-) rhonchi , (-) wheezes; breath sounds equal bilaterally. HEART AND CARDIOVASCULAR: (-) irregularity; (-) murmur, (-) gallop. ABDOMEN AND GI: Soft; (-) tenderness. BACK: (+) tenderness to lumbar spine. EXTREMITIES: (-) deformity, (-) tenderness, (-) edema, (-) ecchymosis, (-) limitation of motion, distal pulses 2+. NEURO AND PSYCH: GCS=15. Mental status as above. Has full memory of episode; rn disease management : Pupils equal & reactive . EOMI. (-) facial asymmetry. Strength 5/5 in all extremities. No gross sensory deficits. - ECG O2 Sat by Pulse Oximetry: 98 (RA) Pulse Ox Interpretation: Normal Medical Decision Making Medical Decision Making: Time: 47 Plan: -- CT Head w/o Contrast -- Tylenol 650 mg PO -- LS Spine AP/LAT XR Time: 135 CT HEAD : FINDINGS: Brain: Prominence of the sulci and ventricular system consistent with atrophy. Hypodensity in the white matter consistent with chronic small vessel ischemic change. No intracranial mass, mass effect, or midline shift. No hemorrhage. Ventricles: Unremarkable. No ventriculomegaly. Bones/joints: Unremarkable. No acute fracture. Soft tissues: Unremarkable. Sinuses: Unremarkable as visualized. No acute sinusitis. Mastoid air cells: Unremarkable as visualized. No mastoid effusion. IMPRESSION: No acute intracranial abnormality. Thank you for allowing us to participate in the care of your patient. Dictated and Authenticated by: Stew Dubois MD 12/31/2017 1:36 AM Eastern Time ([place] & [place]) XR L spine : no fracture, as read by ELIZABETH. On re-evaluation, patient remains AAOx3, in no acute distress. Offers no additional complaints at this time. Diagnostic results d/w the patient in great detail. Based on history, exam and diagnostic results, plan will be for outpatient follow up. Patient instructed to follow-up with the clinic in 1-2 days without fail. Return to the emergency room at any time for any new or worsening symptoms. Patient states he fully agrees with and understands discharge instructions. States that he agrees with the plan and disposition. Verbalized and repeated discharge instructions and plan. I have given the patient opportunity to ask any additional questions. Scribe Attestation: Documented by Teresa Mason acting as a scribe for Stefania Diaz PA-C. Provider Scribe Attestation: All medical record entries made by the Scribe were at my direction and personally dictated by me. I have reviewed the chart and agree that the record accurately reflects my personal performance of the history, physical exam, medical decision making, and the department course for this patient. I have also personally directed, reviewed, and agree with the discharge instructions and disposition. Disposition - Clinical Impression Clinical Impression: Low back pain, Fall, Head injury - Patient ED Disposition Is Patient to be Admitted: No Counseled Patient/Family Regarding: Studies Performed, Diagnosis, Need For Followup - Disposition Referrals: [facility] [Outside] Disposition: Routine/Home Disposition Time: 02:30 Condition: STABLE Instructions: Low Back Pain (DC), Closed Head Injury (DC) Forms: [facility] (Albanian)
[2017-12-31 06:12] VITALS: BP 122/68; PULSE 82; RESP 18; TEMP 97.8; O2SAT 99
--- NOTE | 2017-12-31 11:59 | RAD ---
Date of service: 12/31/2017 PROCEDURE: Radiographs of the Lumbar Spine. HISTORY: pain COMPARISON: No prior. FINDINGS: BONES: Normal alignment. No listhesis. No fracture. DISC SPACES: Unremarkable. OTHER FINDINGS: None. IMPRESSION: Unremarkable radiographs of the lumbar spine.
--- NOTE | 2017-12-31 13:58 | CT ---
Date of service: 12/31/2017 PROCEDURE: CT HEAD WITHOUT CONTRAST. HISTORY: fall COMPARISON: 05/21/2013 TECHNIQUE: Axial computed tomography images were obtained through the head/brain without intravenous contrast. Radiation dose: Total exam DLP = 924.35 mGy-cm. This CT exam was performed using one or more of the following dose reduction techniques: Automated exposure control, adjustment of the mA and/or kV according to patient size, and/or use of iterative reconstruction technique. FINDINGS: HEMORRHAGE: No intracranial hemorrhage. BRAIN: No mass effect or edema. No atrophy or chronic microvascular ischemic changes. VENTRICLES: Unremarkable. No hydrocephalus. CALVARIUM: Unremarkable. PARANASAL SINUSES: Unremarkable as visualized. No significant inflammatory changes. MASTOID AIR CELLS: Unremarkable as visualized. No inflammatory changes. OTHER FINDINGS: None. IMPRESSION: No intracranial hemorrhage. Unremarkable examination. The preliminary findings for this examination were reported by [email or web address] at 1:36 a.m. on 12/31/2017. There is concurrence of this report with the preliminary findings.
== END 2017-12-31 06:11 | disposition home or self-care (01) ==
LOC: H.ER 23:01
DX: S09.90XA Unspecified injury of head, initial encounter (principal); M54.5 Low back pain; Z86.59 Personal history of other mental and behavioral disorders; J44.9 Chronic obstructive pulmonary disease, unspecified; W01.0XXA Fall on same level from slipping, tripping and stumbling without subsequent striking against object, initial encounter

== ENCOUNTER 2018-01-13 00:10 | Emergency (ER) | payer MEDICAID ==
[2018-01-13 00:20] VITALS: BP 127/70; PULSE 82; RESP 18; TEMP 97.9; O2SAT 97
[2018-01-13] MEDS ORDERED: Alum-Mag Hydrox-Simethicone Susp (30 mL) PO STA (00:52)
--- NOTE | 2018-01-13 01:00 | ED PDOC ---
HPI: Abdomen Time Seen by Provider: 01/13/18 00:26 Chief Complaint (Nursing): Abdominal Pain Chief Complaint (Provider): Abdominal Pain History Per: Patient History/Exam Limitations: no limitations Onset/Duration Of Symptoms: Hrs Additional Complaint(s): Patient is a 57 y/o male well known to this ED for multiple visits with various complaints including body ache who presents today complaining of abdominal pain with associated urinary problems which he believes is from an infection. Patient reports his last meal was several hours ago and does not want anything to eat or drink at this time. He denies fever, cough, headache, or chest pain. PMD: none provided Past Medical History Reviewed: Historical Data, Nursing Documentation, Vital Signs Vital Signs: Last Vital Signs Temp 97.9 F 01/13/18 00:18 Pulse 82 01/13/18 00:18 Resp 18 01/13/18 00:18 BP 127/70 01/13/18 00:18 Pulse Ox 97 01/13/18 01:05 - Medical History PMH: Back Problems, COPD, Depression, Gastritis, Schizophrenia - Surgical History Surgical History: No Surg Hx - Family History Family History: States: Unknown Family Hx - Social History Current smoker - smoking cessation education provided: Yes Alcohol: None - Home Medications Home Medications: Ambulatory Orders Medication Instructions Recorded Ranitidine HCl [Zantac] 1 tab PO BID #30 tablet 02/16/17 Dicyclomine [Bentyl] 20 mg PO BID PRN #30 tab 04/06/17 Ibuprofen [Motrin Tab] 600 mg PO Q8 PRN #60 tab 04/06/17 Tamsulosin [Flomax] 0.4 mg PO DAILY #10 cap 04/06/17 Famotidine [Pepcid] 20 mg PO Q12 #20 tab 04/12/17 Cyclobenzaprine [Cyclobenzaprine 10 mg PO TID PRN #15 tab 04/22/17 HCl] Acetaminophen [Tylenol 325mg tab] 650 mg PO TID #30 tab 05/01/17 Clotrimazole 1% [Lotrimin AF 1%] 10 applic TOP BID #1 bottle 05/02/17 Clotrimazole/Betamethasone 15 gm EXT BID #1 tube 05/18/17 [Lotrisone] Ibuprofen [Motrin] 600 mg PO Q6 PRN #15 tab 05/19/17 Oseltamivir [Tamiflu] 75 mg PO BID #10 cap 07/08/17 Oseltamivir Phosphate [Tamiflu] 75 mg PO BID #10 capsule 07/10/17 Ciprofloxacin [Cipro] 500 mg PO BID 7 Days tab 07/12/17 Famotidine [Pepcid] 20 mg PO Q12 #20 tab 08/25/17 Acetaminophen [Tylenol] 650 mg PO QID PRN #30 capsule 11/05/17 traMADol [Ultram] 50 mg PO TID PRN #10 tab 11/05/17 Clotrimazole 1% Cream [Lotrimin 1%] 1 appful TP BID #1 tube 12/27/17 - Allergies Allergies/Adverse Reactions: Allergies Allergy/AdvReac Type Severity Reaction Status Date / Time No Known Allergies Allergy Verified 12/30/17 23:22 Review of Systems ROS Statement: Except As Marked, All Systems Reviewed And Found Negative Constitutional: Negative for: Fever Cardiovascular: Negative for: Chest Pain Respiratory: Negative for: Cough Gastrointestinal: Positive for: Abdominal Pain Genitourinary Male: Positive for: Dysuria Neurological: Negative for: Headache Physical Exam - Reviewed Nursing Documentation Reviewed: Yes Vital Signs Reviewed: Yes - Physical Exam Appears: Positive for: Non-toxic, No Acute Distress (disheveled) Head Exam: Positive for: ATRAUMATIC, NORMOCEPHALIC Skin: Positive for: Normal Color, Warm, Dry Eye Exam: Positive for: Normal appearance, EOMI, PERRL ENT: Positive for: Normal ENT Inspection Neck: Positive for: Normal, Painless ROM, Supple Cardiovascular/Chest: Positive for: Regular Rate, Rhythm. Negative for: Murmur Respiratory: Positive for: Normal Breath Sounds. Negative for: Respiratory Distress Gastrointestinal/Abdominal: Positive for: Normal Exam, Soft, Tenderness ( epigastric and suprapubic) Extremity: Positive for: Normal ROM. Negative for: Pedal Edema, Deformity Neurologic/Psych: Positive for: Alert, Oriented. Negative for: Motor/Sensory Deficits - Laboratory Results Result Diagrams: 01/13/18 01:15 01/13/18 01:15 - ECG O2 Sat by Pulse Oximetry: 97 (RA) Pulse Ox Interpretation: Normal - Progress Re-evaluation Time: 04:00 Condition: Re-examined, Improved Medical Decision Making Medical Decision Making: Time: 00:52 Initial Impression: abdominal pain Differential diagnosis included but not limited to acute and chronic gastritis, UTI; r/o pancreatitis and other abdominal pathologies Initial Plan: --CMP --Lipase --CBC w/ differential --Lidocaine --Maalox --Pepcid Scribe Attestation: Documented by Chip Vinson, acting as a scribe for Eloisa Kee MD. Provider Scribe Attestation: All medical record entries made by the Scribe were at my direction and personally dictated by me. I have reviewed the chart and agree that the record accurately reflects my personal performance of the history, physical exam, medical decision making, and the department course for this patient. I have also personally directed, reviewed, and agree with the discharge instructions and disposition. Disposition - Clinical Impression Clinical Impression: Abdominal pain - Patient ED Disposition Is Patient to be Admitted: No - Disposition Referrals: [facility] [Outside] Disposition: Routine/Home Disposition Time: 04:00 Condition: GOOD Additional Instructions: Follow up with your PCP in 2-3 days. Instructions: Stomach Ache and Stomach Upset
[2018-01-13] MEDS ORDERED: Alum-Mag Hydrox-Simethicone Susp (30 mL) ONE (01:08)
[2018-01-13 01:20] LABS: BASO # 0.1 K/uL (0.0-0.2); EOS # 0.2 K/uL (0.0-0.7); EOS % 3.2 % (0.0-4.0); HEMOGLOBIN 14.4 g/dL (12.0-18.0); LYMPH # 1.7 K/uL (1.0-4.3); LYMPH % 24.9 % (20.0-40.0); MEAN CELL VOLUME 87.3 fl (80.0-94.0); MEAN CORPUSCULAR HEMOGLOBIN 30.5 pg (27.0-31.0); MEAN PLATELET VOLUME 7.4 fl (7.2-11.7); MONO # 0.5 K/uL (0.0-0.8); MONO % 7.6 % (0.0-10.0); NEUT # 4.3 K/uL (1.8-7.0); NEUT % 62.3 % (50.0-75.0); RBC 4.72 Mil/uL (4.40-5.90); RED CELL DISTRIBUTION WIDTH 13.9 % (11.5-14.5); WHITE BLOOD COUNT 6.9 K/uL (4.8-10.8)
[2018-01-13 01:29] LABS: ALB/GLOB RATIO 1.3 (1.0-2.1); ALBUMIN 3.6 g/dL (3.5-5.0); ALT/SGPT 17 U/L (21-72); AST/SGOT 12 U/L (17-59); BLOOD UREA NITROGEN 8 mg/dl (9-20); CALCIUM 8.5 mg/dL (8.4-10.2); GFR AFRICAN-AMERICAN > 60; GFR NON-AFRICAN AMERICAN > 60; LIPASE 73 U/L (23-300)
== END 2018-01-13 05:34 | disposition home or self-care (01) ==
LOC: H.ER 00:10
DX: R10.9 Unspecified abdominal pain (principal)

== ENCOUNTER 2018-01-23 10:19 | Emergency (ER) | payer MEDICAID ==
[2018-01-23 10:41] VITALS: BMI 20.7
[2018-01-23 13:18] LABS: URINE BACTERIA RARE (<OCC); URINE BILIRUBIN NEGATIVE (NEGATIVE); URINE BLOOD NEGATIVE (NEGATIVE); URINE CLARITY SLIGHTY-CLOUDY (Clear); URINE COLOR YELLOW (YELLOW); URINE GLUCOSE (UA) NEG (Normal); URINE LEUKOCYTE ESTERASE NEG Leu/uL (Negative); URINE PROTEIN NEGATIVE (NEGATIVE)
--- NOTE | 2018-01-23 13:19 | ED PDOC ---
HPI: Abdomen Time Seen by Provider: 01/23/18 10:39 Chief Complaint (Nursing): Abdominal Pain History Per: Patient Additional Complaint(s): Pt. states since yesterday he's had urinary frequency and pelvic pain. Reports he noticed that symptoms developed while it was raining yesterday. Denies dysuria, hematuria, back pain, N/V/D, fever, chest pain, SOB, abdominal pain, incontinence, flank pain. Past Medical History Vital Signs: Last Vital Signs Temp 97.3 F L 01/23/18 14:56 Pulse 77 01/23/18 16:19 Resp 17 01/23/18 16:19 BP 154/78 H 01/23/18 16:19 Pulse Ox 98 01/23/18 16:19 - Medical History PMH: Back Problems, COPD, Depression, Gastritis, Schizophrenia - Family History Family History: States: Unknown Family Hx - Home Medications Home Medications: Ambulatory Orders Medication Instructions Recorded Ranitidine HCl [Zantac] 1 tab PO BID #30 tablet 02/16/17 Dicyclomine [Bentyl] 20 mg PO BID PRN #30 tab 04/06/17 Ibuprofen [Motrin Tab] 600 mg PO Q8 PRN #60 tab 04/06/17 Tamsulosin [Flomax] 0.4 mg PO DAILY #10 cap 04/06/17 Famotidine [Pepcid] 20 mg PO Q12 #20 tab 04/12/17 Cyclobenzaprine [Cyclobenzaprine 10 mg PO TID PRN #15 tab 04/22/17 HCl] Acetaminophen [Tylenol 325mg tab] 650 mg PO TID #30 tab 05/01/17 Clotrimazole 1% [Lotrimin AF 1%] 10 applic TOP BID #1 bottle 05/02/17 Clotrimazole/Betamethasone 15 gm EXT BID #1 tube 05/18/17 [Lotrisone] Ibuprofen [Motrin] 600 mg PO Q6 PRN #15 tab 05/19/17 Oseltamivir [Tamiflu] 75 mg PO BID #10 cap 07/08/17 Oseltamivir Phosphate [Tamiflu] 75 mg PO BID #10 capsule 07/10/17 Ciprofloxacin [Cipro] 500 mg PO BID 7 Days tab 07/12/17 Famotidine [Pepcid] 20 mg PO Q12 #20 tab 08/25/17 Acetaminophen [Tylenol] 650 mg PO QID PRN #30 capsule 11/05/17 traMADol [Ultram] 50 mg PO TID PRN #10 tab 11/05/17 Clotrimazole 1% Cream [Lotrimin 1%] 1 appful TP BID #1 tube 12/27/17 - Allergies Allergies/Adverse Reactions: Allergies Allergy/AdvReac Type Severity Reaction Status Date / Time No Known Allergies Allergy Verified 12/30/17 23:22 Review of Systems ROS Statement: Except As Marked, All Systems Reviewed And Found Negative Genitourinary Male: Positive for: Frequency Physical Exam - Physical Exam Appears: Positive for: Well, Non-toxic, No Acute Distress Skin: Positive for: Normal Color, Warm. Negative for: Rash Eye Exam: Positive for: Normal appearance Cardiovascular/Chest: Positive for: Regular Rate, Rhythm Respiratory: Positive for: Normal Breath Sounds. Negative for: Respiratory Distress Gastrointestinal/Abdominal: Positive for: Normal Exam, Soft. Negative for: Tenderness Back: Positive for: Normal Inspection. Negative for: L CVA Tenderness, R CVA Tenderness Extremity: Negative for: Calf Tenderness (b/l) Neurologic/Psych: Positive for: Alert, Oriented, Gait (steady, unassisted). Negative for: Aphasia, Facial Droop - ECG O2 Sat by Pulse Oximetry: 98 Disposition - Clinical Impression Clinical Impression: Frequency of urination - Patient ED Disposition Is Patient to be Admitted: No - Disposition Disposition: Routine/Home Disposition Time: 15:59 Condition: STABLE Additional Instructions: YAHAIRA PETTIT, thank you for letting us take care of you today. Your provider was Maliha Hathaway MD and you were treated for ABD PAIN. The emergency medical care you received today was directed at your acute symptoms. If you were prescribed any medication, please fill it and take as directed. It may take several days for your symptoms to resolve. Return to the Emergency Department if your symptoms worsen, do not improve, or if you have any other problems. Please contact your doctor or call one of the physicians/clinics you have been referred to that are listed on the Patient Visit Information form that is included in your discharge packet. Bring any paperwork you were given at discharge with you along with any medications you are taking to your follow up visit. Our treatment cannot replace ongoing medical care by a primary care provider outside of the emergency department. Thank you for allowing the [facility] team to be part of your care today. If you had an X-Ray or CT scan: A Radiologist will review the ED reading if any change in treatment is needed we will contact you. If you had a blood, urine, or wound culture: It will take several days for the results, if any change in treatment is needed we will contact you. If you had an STI test: It will take 48 hours for the results. Please call after 1 week if you have not heard back. Forms: [facility] (Malian) Print Language: POLISH
[2018-01-23 15:10] VITALS: TEMP 97.3
[2018-01-23 16:19] VITALS: BP 154/78; PULSE 77; RESP 17; O2SAT 98
== END 2018-01-23 16:21 | disposition home or self-care (01) ==
LOC: H.ER 10:19
DX: R35.0 Frequency of micturition (principal); Z86.59 Personal history of other mental and behavioral disorders; J44.9 Chronic obstructive pulmonary disease, unspecified

== ENCOUNTER 2018-02-10 03:48 | Emergency (ER) | payer MEDICAID ==
[2018-02-10 03:48] VITALS: BMI 20.7
[2018-02-10 04:33] VITALS: O2SAT 98
--- NOTE | 2018-02-10 05:09 | ED PDOC ---
History of Present Illness History of Present Illness: 57 year old homeless male well known to the ED for frequent visits and bed seeking behavior presents to the ED for evaluation of generalized body aches. Patient has no other complaints at this time. PMD: none provided HPI: Influenza Time Seen by Provider: 02/10/18 03:57 Chief Complaint: Cough, Cold, Congestion Chief Complaint (Provider): Body Aches History Per: Patient Exam Limitations: no limitations Onset/Duration Of Symptoms: Days (x1) Past Medical History Reviewed: Historical Data, Nursing Documentation, Vital Signs Vital Signs: Last Vital Signs Temp 98.0 F 02/10/18 03:54 Pulse 67 02/10/18 03:54 Resp 17 02/10/18 03:54 BP 120/73 02/10/18 03:54 Pulse Ox 98 02/10/18 03:54 - Medical History PMH: Back Problems, COPD, Depression, Gastritis, Schizophrenia - Surgical History Surgical History: No Surg Hx - Family History Family History: States: Unknown Family Hx - Social History Current smoker - smoking cessation education provided: No Alcohol: None Drugs: Denies - Home Medications Home Medications: Ambulatory Orders Medication Instructions Recorded Ranitidine HCl [Zantac] 1 tab PO BID #30 tablet 02/16/17 Dicyclomine [Bentyl] 20 mg PO BID PRN #30 tab 04/06/17 Ibuprofen [Motrin Tab] 600 mg PO Q8 PRN #60 tab 04/06/17 Tamsulosin [Flomax] 0.4 mg PO DAILY #10 cap 04/06/17 Famotidine [Pepcid] 20 mg PO Q12 #20 tab 04/12/17 Cyclobenzaprine [Cyclobenzaprine 10 mg PO TID PRN #15 tab 04/22/17 HCl] Acetaminophen [Tylenol 325mg tab] 650 mg PO TID #30 tab 05/01/17 Clotrimazole 1% [Lotrimin AF 1%] 10 applic TOP BID #1 bottle 05/02/17 Clotrimazole/Betamethasone 15 gm EXT BID #1 tube 05/18/17 [Lotrisone] Ibuprofen [Motrin] 600 mg PO Q6 PRN #15 tab 05/19/17 Oseltamivir [Tamiflu] 75 mg PO BID #10 cap 07/08/17 Oseltamivir Phosphate [Tamiflu] 75 mg PO BID #10 capsule 07/10/17 Ciprofloxacin [Cipro] 500 mg PO BID 7 Days tab 07/12/17 Famotidine [Pepcid] 20 mg PO Q12 #20 tab 08/25/17 Acetaminophen [Tylenol] 650 mg PO QID PRN #30 capsule 11/05/17 traMADol [Ultram] 50 mg PO TID PRN #10 tab 11/05/17 Clotrimazole 1% Cream [Lotrimin 1%] 1 appful TP BID #1 tube 12/27/17 - Allergies Allergies/Adverse Reactions: Allergies Allergy/AdvReac Type Severity Reaction Status Date / Time No Known Allergies Allergy Verified 12/30/17 23:22 Review of Systems ROS Statement: Except As Marked, All Systems Reviewed And Found Negative Constitutional: Positive for: Other (body aches) Physical Exam - Reviewed Nursing Documentation Reviewed: Yes Vital Signs Reviewed: Yes - Physical Exam Appears: Positive for: No Acute Distress (but poor hygiene) Head Exam: Positive for: ATRAUMATIC, NORMOCEPHALIC Skin: Positive for: Normal Color, Warm, Dry Eye Exam: Positive for: Normal appearance ENT: Positive for: Normal ENT Inspection Neck: Positive for: Normal, Painless ROM, Supple Cardiovascular/Chest: Positive for: Regular Rate, Rhythm Respiratory: Positive for: Normal Breath Sounds Gastrointestinal/Abdominal: Positive for: Normal Exam, Soft. 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 Scribe Attestation: Documented by Daysi Recinos, acting as a scribe for Navjot Mehta MD. Provider Scribe Attestation: All medical record entries made by the Scribe were at my direction and personally dictated by me. I have reviewed the chart and agree that the record accurately reflects my personal performance of the history, physical exam, medical decision making, and the department course for this patient. I have also personally directed, reviewed, and agree with the discharge instructions and disposition. - ECG O2 Sat by Pulse Oximetry: 98 (RA) Pulse Ox Interpretation: Normal Disposition - Clinical Impression Clinical Impression: Homelessness - Disposition Disposition: Routine/Home Disposition Time: 05:09 Condition: STABLE Forms: [employer] (Hungarian)
[2018-02-10 09:38] VITALS: BP 124/62; PULSE 72; RESP 16; TEMP 97.5
== END 2018-02-10 08:30 | disposition home or self-care (01) ==
LOC: H.ER 03:48
DX: Z59.0 Homelessness (principal)

== ENCOUNTER 2018-03-06 16:38 | Emergency (ER) | payer MEDICAID ==
[2018-03-06 16:38] VITALS: BMI 20.7
[2018-03-06 16:47] VITALS: TEMP 97.5
--- NOTE | 2018-03-06 17:50 | ED PDOC ---
HPI: General Adult History Per: Patient <Grady Yeung - Last Filed: 03/06/18 17:46> <Flor Roque - Last Filed: 03/10/18 11:57> Time Seen by Provider: 03/06/18 16:58 Chief Complaint (Nursing): Back Pain Additional Complaint(s): Pt. is homeless and states he got caught in the rain outside and now all his clothes are wet. Denies back pain and weakness contrary to triage note. Pt. states she has to get to the halfway before 7pm or else who will not be able to get a bed. Requesting food. Offers no complaints at this time. (Grady Yeung) Pt. is homeless and states he got caught in the rain outside and now all his clothes are wet. Denies back pain and weakness contrary to triage note. Pt. states she has to get to the halfway before 7pm or else who will not be able to get a bed. Requesting food. Offers no complaints at this time. (Flor Roque) Supervising Attending Note - Supervising Attending Note The Documented history was done by the: Physician Finishing Department Supervisor The documented physical exam was done by the: Physician Finishing Department Supervisor - Attestation: I have personally seen and examined this patient.: No I have fully participated in the care of the patient.: Yes I have reviewed all pertinent clinical information, including history, physical exam and plan: Yes <Flor Roque - Last Filed: 03/10/18 11:57> Past Medical History Reviewed: Historical Data, Nursing Documentation, Vital Signs - Medical History PMH: Back Problems, COPD, Depression, Gastritis, Schizophrenia - Family History Family History: States: No Known Family Hx <Grady Yeung - Last Filed: 03/06/18 17:46> <Flor Roque - Last Filed: 03/10/18 11:57> Vital Signs: Last Vital Signs Temp 97.5 F L 03/06/18 16:45 Pulse 78 03/06/18 22:20 Resp 17 03/06/18 22:20 BP 118/78 03/06/18 18:52 Pulse Ox 100 03/06/18 22:20 - Home Medications Home Medications: Ambulatory Orders Medication Instructions Recorded Ranitidine HCl [Zantac] 1 tab PO BID #30 tablet 02/16/17 Dicyclomine [Bentyl] 20 mg PO BID PRN #30 tab 04/06/17 RX: Ibuprofen [Motrin Tab] 600 mg PO Q8 PRN #60 tab 04/06/17 Tamsulosin [Flomax] 0.4 mg PO DAILY #10 cap 04/06/17 Famotidine [Pepcid] 20 mg PO Q12 #20 tab 04/12/17 Cyclobenzaprine [Cyclobenzaprine 10 mg PO TID PRN #15 tab 04/22/17 HCl] Acetaminophen [Tylenol 325mg tab] 650 mg PO TID #30 tab 05/01/17 RX: Clotrimazole 1% [Lotrimin AF 10 applic TOP BID #1 bottle 05/02/17 1%] Clotrimazole/Betamethasone 15 gm EXT BID #1 tube 05/18/17 [Lotrisone] Ibuprofen [Motrin] 600 mg PO Q6 PRN #15 tab 05/19/17 Oseltamivir [Tamiflu] 75 mg PO BID #10 cap 07/08/17 Oseltamivir Phosphate [Tamiflu] 75 mg PO BID #10 capsule 07/10/17 Ciprofloxacin [Cipro] 500 mg PO BID 7 Days tab 07/12/17 Famotidine [Pepcid] 20 mg PO Q12 #20 tab 08/25/17 Acetaminophen [Tylenol] 650 mg PO QID PRN #30 capsule 11/05/17 RX: traMADol [Ultram] 50 mg PO TID PRN #10 tab 11/05/17 Clotrimazole 1% Cream [Lotrimin 1%] 1 appful TP BID #1 tube 12/27/17 Butenafine HCl [Lotrimin Ultra] 0.5 gm TP BID #30 cream..g. 03/09/18 - Allergies Allergies/Adverse Reactions: Allergies Allergy/AdvReac Type Severity Reaction Status Date / Time No Known Allergies Allergy Verified 03/09/18 04:08 Review of Systems ROS Statement: Except As Marked, All Systems Reviewed And Found Negative <Grady Yeung - Last Filed: 03/06/18 17:46> Physical Exam - Physical Exam Appears: Positive for: Well, Non-toxic, No Acute Distress Head Exam: Positive for: ATRAUMATIC, NORMAL INSPECTION, NORMOCEPHALIC Skin: Positive for: Normal Color, Warm. Negative for: Rash Eye Exam: Positive for: Normal appearance Cardiovascular/Chest: Positive for: Regular Rate, Rhythm Respiratory: Positive for: Normal Breath Sounds Gastrointestinal/Abdominal: Positive for: Soft. Negative for: Tenderness Back: Positive for: Normal Inspection. Negative for: L CVA Tenderness, R CVA Tenderness, Vertebral Tenderness Neurologic/Psych: Positive for: Alert, Oriented (x3), Gait (Steady, unassisted). Negative for: Aphasia, Facial Droop <Grady Yeung - Last Filed: 03/06/18 17:46> <Grady Yeung - Last Filed: 03/06/18 17:46> <Flor Roque - Last Filed: 03/10/18 11:57> - Progress ED Course And Treament: Given food and new clothes. (Grady Yeung) Given food and new clothes. (Flor Roque) Disposition - Patient ED Disposition Is Patient to be Admitted: No - Disposition Disposition: Routine/Home Disposition Time: 17:51 <Grady Yeung - Last Filed: 03/06/18 17:46> <Flor Roque - Last Filed: 03/10/18 11:57> - Clinical Impression Clinical Impression: Homelessness - Disposition Referrals: [facility] [Outside] Condition: STABLE Additional Instructions: YAHAIRA PETTIT, thank you for letting us take care of you today. Your provider was Flor Roque MD and you were treated for WEAKNESS. The emergency medical care you received today was directed at your acute symptoms. If you were prescribed any medication, please fill it and take as directed. It may take several days for your symptoms to resolve. Return to the Emergency Department if your symptoms worsen, do not improve, or if you have any other problems. Please contact your doctor or call one of the physicians/clinics you have been referred to that are listed on the Patient Visit Information form that is included in your discharge packet. Bring any paperwork you were given at discharge with you along with any medications you are taking to your follow up visit. Our treatment cannot replace ongoing medical care by a primary care provider outside of the emergency department. Thank you for allowing the [facility] team to be part of your care today. If you had an X-Ray or CT scan: A Radiologist will review the ED reading if any change in treatment is needed we will contact you. If you had a blood, urine, or wound culture: It will take several days for the results, if any change in treatment is needed we will contact you. If you had an STI test: It will take 48 hours for the results. Please call after 1 week if you have not heard back.
[2018-03-06 18:53] VITALS: BP 118/78
[2018-03-06 19:47] VITALS: PULSE 78; O2SAT 100
[2018-03-07 03:57] VITALS: RESP 17
== END 2018-03-06 22:25 | disposition home or self-care (01) ==
LOC: H.ER 16:38
DX: Z59.0 Homelessness (principal)

== ENCOUNTER 2018-03-09 03:45 | Emergency (ER) | payer MEDICAID ==
[2018-03-09 03:45] VITALS: BMI 20.7
[2018-03-09 04:10] VITALS: RESP 16
--- NOTE | 2018-03-09 04:23 | ED PDOC ---
Lower Extremity Pain/Injury Time Seen by Provider: 03/09/18 04:21 Chief Complaint (Nursing): Lower Extremity Problem/Injury Chief Complaint (Provider): bilateral foot pain History Per: Patient (58 y/o undomiciled here with bilateral lower extremity burning sensation. Patient notes he has had wet boots/socks recently and is unsure if this is worsening symptoms. ) Past Medical History Reviewed: Historical Data, Nursing Documentation, Vital Signs Vital Signs: Last Vital Signs Temp 98.9 F 03/09/18 04:08 Pulse 74 03/09/18 04:08 Resp 16 03/09/18 04:08 BP 136/89 03/09/18 04:08 Pulse Ox 98 03/09/18 04:08 - Medical History PMH: Back Problems, COPD, Depression, Gastritis, Schizophrenia - Family History Family History: States: Unknown Family Hx - Home Medications Home Medications: Ambulatory Orders Medication Instructions Recorded Ranitidine HCl [Zantac] 1 tab PO BID #30 tablet 02/16/17 Dicyclomine [Bentyl] 20 mg PO BID PRN #30 tab 04/06/17 Ibuprofen [Motrin Tab] 600 mg PO Q8 PRN #60 tab 04/06/17 Tamsulosin [Flomax] 0.4 mg PO DAILY #10 cap 04/06/17 Famotidine [Pepcid] 20 mg PO Q12 #20 tab 04/12/17 Cyclobenzaprine [Cyclobenzaprine 10 mg PO TID PRN #15 tab 04/22/17 HCl] Acetaminophen [Tylenol 325mg tab] 650 mg PO TID #30 tab 05/01/17 Clotrimazole 1% [Lotrimin AF 1%] 10 applic TOP BID #1 bottle 05/02/17 Clotrimazole/Betamethasone 15 gm EXT BID #1 tube 05/18/17 [Lotrisone] Ibuprofen [Motrin] 600 mg PO Q6 PRN #15 tab 05/19/17 Oseltamivir [Tamiflu] 75 mg PO BID #10 cap 07/08/17 Oseltamivir Phosphate [Tamiflu] 75 mg PO BID #10 capsule 07/10/17 Ciprofloxacin [Cipro] 500 mg PO BID 7 Days tab 07/12/17 Famotidine [Pepcid] 20 mg PO Q12 #20 tab 08/25/17 Acetaminophen [Tylenol] 650 mg PO QID PRN #30 capsule 11/05/17 traMADol [Ultram] 50 mg PO TID PRN #10 tab 11/05/17 Clotrimazole 1% Cream [Lotrimin 1%] 1 appful TP BID #1 tube 12/27/17 Butenafine HCl [Lotrimin Ultra] 0.5 gm TP BID #30 cream..g. 03/09/18 - Allergies Allergies/Adverse Reactions: Allergies Allergy/AdvReac Type Severity Reaction Status Date / Time No Known Allergies Allergy Verified 03/09/18 04:08 Review of Systems ROS Statement: Except As Marked, All Systems Reviewed And Found Negative Physical Exam - Reviewed Nursing Documentation Reviewed: Yes Vital Signs Reviewed: Yes - Physical Exam Appears: Positive for: Well, Non-toxic, No Acute Distress Head Exam: Positive for: ATRAUMATIC, NORMAL INSPECTION, NORMOCEPHALIC Skin: Positive for: Normal Color, Warm, DRY Eye Exam: Positive for: EOMI, Normal appearance, PERRL ENT: Positive for: Normal ENT Inspection Neck: Positive for: Normal, Painless ROM Cardiovascular/Chest: Positive for: Regular Rate, Rhythm Respiratory: Positive for: CNT, Normal Breath Sounds Gastrointestinal/Abdominal: Positive for: Normal Exam, Soft Back: Positive for: Normal Inspection Extremity: Positive for: Normal ROM, Other (onchymycosis noted with multiple toe nails. ) Neurologic/Psych: Positive for: Alert, Oriented - ECG O2 Sat by Pulse Oximetry: 98 - Progress ED Course And Treament: Lotrimin 1% ordered to apply in ED Disposition - Clinical Impression Clinical Impression: Foot pain, bilateral, Onychomycosis - Patient ED Disposition Is Patient to be Admitted: No - Disposition Referrals: [facility] [Outside] Disposition: Routine/Home Disposition Time: 04:24 Condition: FAIR Prescriptions: Butenafine HCl [Lotrimin Ultra] 0.5 gm TP BID #30 cream..g. Instructions: Fungal Nail Infections, Ringworm, Athlete's Foot, and Jock Itch
[2018-03-09 06:55] VITALS: BP 115/63; PULSE 67; TEMP 98.1; O2SAT 97
== END 2018-03-09 06:00 | disposition home or self-care (01) ==
LOC: H.ER 03:45
DX: M79.673 Pain in unspecified foot (principal); B35.1 Tinea unguium

== ENCOUNTER 2018-03-09 12:26 | Emergency (ER) | payer MEDICAID ==
[2018-03-09 12:27] VITALS: BMI 20.7
--- NOTE | 2018-03-09 13:53 | RAD ---
Date of service: 03/09/2018 HISTORY: cough COMPARISON: 07/07/2017 FINDINGS: LUNGS: No active pulmonary disease. PLEURA: No significant pleural effusion identified, no pneumothorax apparent. CARDIOVASCULAR: Normal. OSSEOUS STRUCTURES: No significant abnormalities. VISUALIZED UPPER ABDOMEN: Normal. OTHER FINDINGS: None. IMPRESSION: No active disease.
--- NOTE | 2018-03-09 14:37 | ED PDOC ---
HPI: General Adult Time Seen by Provider: 03/09/18 12:58 Chief Complaint (Nursing): Lower Extremity Problem/Injury Chief Complaint (Provider): Burning Sensation to Lower Extremities History Per: Patient History/Exam Limitations: no limitations Onset/Duration Of Symptoms: Days Current Symptoms Are (Timing): Still Present Recently: Seen In ED Additional Complaint(s): Nazario Lopez is a 58 year old male, with a past medical history of depression, schizophrenia and COPD, who presents to the emergency department for evaluation of a burning sensation to bilateral lower extremities. Patient was seen here earlier this morning for the same complaint and was discharged at 04:30. Patient states he never filled his prescriptions. He also reports a dry cough onset for x3 weeks. Patient is nondomicile and well known to ED staff for multiple, frequent visits. No further medical complaints. Denies fever. PMD: None provided. Past Medical History Reviewed: Nursing Documentation, Vital Signs Vital Signs: Last Vital Signs Temp 95.5 F L 03/09/18 12:39 Pulse 66 03/09/18 12:39 Resp 19 03/09/18 12:39 BP 130/79 03/09/18 12:39 Pulse Ox 97 03/09/18 12:39 - Medical History PMH: Back Problems, COPD, Depression, Gastritis, Schizophrenia - Surgical History Surgical History: No Surg Hx - Family History Family History: States: Unknown Family Hx - Social History Current smoker - smoking cessation education provided: Yes (light smoker <10 cigarettes daily) - Home Medications Home Medications: Ambulatory Orders Medication Instructions Recorded Ranitidine HCl [Zantac] 1 tab PO BID #30 tablet 02/16/17 Dicyclomine [Bentyl] 20 mg PO BID PRN #30 tab 04/06/17 RX: Ibuprofen [Motrin Tab] 600 mg PO Q8 PRN #60 tab 04/06/17 Tamsulosin [Flomax] 0.4 mg PO DAILY #10 cap 04/06/17 Famotidine [Pepcid] 20 mg PO Q12 #20 tab 04/12/17 Cyclobenzaprine [Cyclobenzaprine 10 mg PO TID PRN #15 tab 04/22/17 HCl] Acetaminophen [Tylenol 325mg tab] 650 mg PO TID #30 tab 05/01/17 RX: Clotrimazole 1% [Lotrimin AF 10 applic TOP BID #1 bottle 05/02/17 1%] Clotrimazole/Betamethasone 15 gm EXT BID #1 tube 05/18/17 [Lotrisone] Ibuprofen [Motrin] 600 mg PO Q6 PRN #15 tab 05/19/17 Oseltamivir [Tamiflu] 75 mg PO BID #10 cap 07/08/17 Oseltamivir Phosphate [Tamiflu] 75 mg PO BID #10 capsule 07/10/17 Ciprofloxacin [Cipro] 500 mg PO BID 7 Days tab 07/12/17 Famotidine [Pepcid] 20 mg PO Q12 #20 tab 08/25/17 Acetaminophen [Tylenol] 650 mg PO QID PRN #30 capsule 11/05/17 RX: traMADol [Ultram] 50 mg PO TID PRN #10 tab 11/05/17 Clotrimazole 1% Cream [Lotrimin 1%] 1 appful TP BID #1 tube 12/27/17 Butenafine HCl [Lotrimin Ultra] 0.5 gm TP BID #30 cream..g. 03/09/18 - Allergies Allergies/Adverse Reactions: Allergies Allergy/AdvReac Type Severity Reaction Status Date / Time No Known Allergies Allergy Verified 03/09/18 04:08 Review of Systems ROS Statement: Except As Marked, All Systems Reviewed And Found Negative Respiratory: Positive for: Cough (dry ) Musculoskeletal: Positive for: Other (burning sensation to lower extremities) Physical Exam - Reviewed Nursing Documentation Reviewed: Yes Vital Signs Reviewed: Yes - Physical Exam Appears: Positive for: Non-toxic (disheveled), No Acute Distress Head Exam: Positive for: ATRAUMATIC, NORMOCEPHALIC Skin: Positive for: Normal Color, Warm, Dry Eye Exam: Positive for: EOMI, PERRL ENT: Positive for: Other (Airway patent, (-) stridor.) Neck: Positive for: Painless ROM, Supple Cardiovascular/Chest: Positive for: Regular Rate, Rhythm Respiratory: Positive for: Normal Breath Sounds. Negative for: Respiratory Dis tress Extremity: Positive for: Normal ROM, Other (onychomycosis noted to multiple toe nails (+) tinea pedis (+) poor foot hygiene). Negative for: Tenderness, Pedal Edema, Calf Tenderness Neurologic/Psych: Positive for: Alert, Oriented (x3), Gait (steady in ED). Negative for: Aphasia, Facial Droop - ECG O2 Sat by Pulse Oximetry: 97 (RA) Pulse Ox Interpretation: Normal Medical Decision Making Medical Decision Making: Time: 12:55 Initial Impression: Tinea pedis, Cough Initial Plan: --Chest portable [RAD] --Reevaluation 13:51 CXR FINDINGS: LUNGS: No active pulmonary disease. PLEURA: No significant pleural effusion identified, no pneumothorax apparent. CARDIOVASCULAR: Normal. OSSEOUS STRUCTURES: No significant abnormalities. VISUALIZED UPPER ABDOMEN: Normal. OTHER FINDINGS: None. IMPRESSION: No active disease. 1445 On re-evaluation, patient offers no additional complaints. On exam, patient remains AAOx3, in no acute distress. Lungs CTA, cardiac RRR, repeat neuro exam shows no focal findings. Vitals stable. Lab/Diagnostic results d/w with the patient in great detail. Diagnosis of cough, tinea pedis d/w patient. Based on history, exam, and diagnostic results, plan will be for outpatient follow up . Patient instructed to follow up with PMD / referral provided / the clinic in 1-2 days without fail. Advised to take medication as prescribed from previous ED visit. Return to the emergency room at any time for any new or worsening symptoms. Patient states he agrees with and understandings discharge instructions. States that he agrees with the plan and disposition. Verbalized and repeated discharge instructions and plan. I have given the patient opportunity to ask any additional questions. Scribe Attestation: Documented by Carlos Price, acting as a scribe for Flor Garcia PA-C. Provider Scribe Attestation: All medical record entries made by the Scribe were at my direction and personally dictated by me. I have reviewed the chart and agree that the record accurately reflects my personal performance of the history, physical exam, medical decision making, and the department course for this patient. I have also personally directed, reviewed, and agree with the discharge instructions and disposition. Disposition - Clinical Impression Clinical Impression: Tinea pedis, Fungal nail infection, Cough - Patient ED Disposition Is Patient to be Admitted: No Counseled Patient/Family Regarding: Studies Performed, Diagnosis, Need For Followup - Disposition [facility]] Disposition: Routine/Home Disposition Time: 14:47 Condition: STABLE Additional Instructions: USE RX FROM PREVIOUS ED VISIT TODAY. The emergency medical care you received today was directed towards your acute symptoms. If you were prescribed medication, please fill it at the pharmacy and take it as directed. It may take several days for your symptoms to resolve. Return to emergency department if your symptoms worsen, do not improve, or if you have any other problems. Please contact your doctor / referred provider / clinic in 2 days for further evaluation. The treatement in the emergency department cannot replace ongoing medical care by a primary doctor outside of the emergency department. Instructions: Ringworm, Athlete's Foot, and Jock Itch, Fungal Nail Infections, Cough, Adult (DC) Forms: [employer] (Hungarian) Print Language: GREENLANDIC - POA Present On Arrival: None
[2018-03-09 16:05] VITALS: BP 136/68; PULSE 68; RESP 18; TEMP 97.6
[2018-03-10 00:43] VITALS: O2SAT 97
== END 2018-03-09 15:50 | disposition home or self-care (01) ==
LOC: H.ER 12:26
DX: B35.3 Tinea pedis (principal); B35.1 Tinea unguium; R05 Cough

== ENCOUNTER 2018-03-10 03:12 | Emergency (ER) | payer MEDICAID ==
[2018-03-10 03:14] VITALS: BMI 20.7
[2018-03-10 04:36] VITALS: TEMP 98.3
--- NOTE | 2018-03-10 06:29 | ED PDOC ---
HPI: General Adult Time Seen by Provider: 03/10/18 03:41 Chief Complaint (Nursing): Abdominal Pain History Per: Patient History/Exam Limitations: no limitations Onset/Duration Of Symptoms: Mins Additional Complaint(s): Homeless M presenting with multiple complaints: states he's having total body pain, feet pain, and also has been urinating more than normal, but has not urinated once since being in the ED. PMD: non Past Medical History Reviewed: Historical Data, Nursing Documentation, Vital Signs Vital Signs: Last Vital Signs Temp 98.3 F 03/10/18 04:32 Pulse 65 03/10/18 04:32 Resp 16 03/10/18 04:32 BP 142/87 03/10/18 04:32 Pulse Ox 97 03/10/18 04:32 - Medical History PMH: Back Problems, COPD, Depression, Gastritis, Schizophrenia - Family History Family History: States: Unknown Family Hx - Home Medications Home Medications: Ambulatory Orders Medication Instructions Recorded Ranitidine HCl [Zantac] 1 tab PO BID #30 tablet 02/16/17 Dicyclomine [Bentyl] 20 mg PO BID PRN #30 tab 04/06/17 Ibuprofen [Motrin Tab] 600 mg PO Q8 PRN #60 tab 04/06/17 Tamsulosin [Flomax] 0.4 mg PO DAILY #10 cap 04/06/17 Famotidine [Pepcid] 20 mg PO Q12 #20 tab 04/12/17 Cyclobenzaprine [Cyclobenzaprine 10 mg PO TID PRN #15 tab 04/22/17 HCl] Acetaminophen [Tylenol 325mg tab] 650 mg PO TID #30 tab 05/01/17 Clotrimazole 1% [Lotrimin AF 1%] 10 applic TOP BID #1 bottle 05/02/17 Clotrimazole/Betamethasone 15 gm EXT BID #1 tube 05/18/17 [Lotrisone] Ibuprofen [Motrin] 600 mg PO Q6 PRN #15 tab 05/19/17 Oseltamivir [Tamiflu] 75 mg PO BID #10 cap 07/08/17 Oseltamivir Phosphate [Tamiflu] 75 mg PO BID #10 capsule 07/10/17 Ciprofloxacin [Cipro] 500 mg PO BID 7 Days tab 07/12/17 Famotidine [Pepcid] 20 mg PO Q12 #20 tab 08/25/17 Acetaminophen [Tylenol] 650 mg PO QID PRN #30 capsule 11/05/17 traMADol [Ultram] 50 mg PO TID PRN #10 tab 11/05/17 Clotrimazole 1% Cream [Lotrimin 1%] 1 appful TP BID #1 tube 12/27/17 Butenafine HCl [Lotrimin Ultra] 0.5 gm TP BID #30 cream..g. 03/09/18 - Allergies Allergies/Adverse Reactions: Allergies Allergy/AdvReac Type Severity Reaction Status Date / Time No Known Allergies Allergy Verified 03/09/18 04:08 Review of Systems ROS Statement: Except As Marked, All Systems Reviewed And Found Negative Constitutional: Negative for: Fever, Chills Gastrointestinal: Positive for: Abdominal Pain Musculoskeletal: Positive for: Shoulder Pain, Leg Pain Neurological: Positive for: Weakness Physical Exam - Reviewed Nursing Documentation Reviewed: Yes Vital Signs Reviewed: Yes - Physical Exam Appears: Positive for: Non-toxic, No Acute Distress. Negative for: Well (Disheveled) Head Exam: Positive for: ATRAUMATIC, NORMAL INSPECTION, NORMOCEPHALIC Skin: Positive for: Normal Color, Warm, DRY Eye Exam: Positive for: EOMI, Normal appearance, PERRL ENT: Positive for: Normal ENT Inspection Neck: Positive for: Normal, Painless ROM Cardiovascular/Chest: Positive for: Regular Rate, Rhythm Respiratory: Positive for: CNT, Normal Breath Sounds Gastrointestinal/Abdominal: Positive for: Normal Exam, Bowel Sounds, Soft. Negative for: Tenderness, Organomegaly, Mass, Distended, Guarding, Rebound Back: Positive for: Normal Inspection Extremity: Positive for: Normal ROM Neurologic/Psych: Positive for: Alert, Oriented - ECG O2 Sat by Pulse Oximetry: 97 Pulse Ox Interpretation: Normal Medical Decision Making Medical Decision Making: Patient presents with multiple non-acute complaints --Patient has normal vitals --Sleeping soundly prior to interview --Will discharge home Disposition - Clinical Impression Clinical Impression: Homelessness - Patient ED Disposition Is Patient to be Admitted: No - Disposition Referrals: [facility] [Outside] Disposition: Routine/Home Disposition Time: 06:33 Condition: IMPROVED
[2018-03-10 06:38] VITALS: BP 131/89; PULSE 70; RESP 24; O2SAT 100
== END 2018-03-10 06:42 | disposition home or self-care (01) ==
LOC: H.ER 03:12
DX: J44.9 Chronic obstructive pulmonary disease, unspecified (principal); Z86.59 Personal history of other mental and behavioral disorders; Z59.0 Homelessness

== ENCOUNTER 2018-03-23 01:54 | Emergency (ER) | payer MEDICAID ==
[2018-03-23 01:55] VITALS: BMI 20.7
[2018-03-23 02:25] VITALS: RESP 16; TEMP 98.8; O2SAT 98
--- NOTE | 2018-03-23 02:59 | ED PDOC ---
HPI: General Adult Time Seen by Provider: 03/23/18 02:05 Chief Complaint (Nursing): Lower Extremity Problem/Injury Chief Complaint (Provider): leg cramps History Per: Patient History/Exam Limitations: no limitations Onset/Duration Of Symptoms: Hrs (today) Additional Complaint(s): 58 year old homeless male, with no significant past medical history, who presents to the emergency department complaining of body aches and leg cramps onset today. Patient is well known to the ED for frequent visits and bed seeking behavior. Patient has no other complaints at this time. PMD: none provided Past Medical History Reviewed: Historical Data, Nursing Documentation, Vital Signs Vital Signs: Last Vital Signs Temp 98.8 F 03/23/18 02:23 Pulse 90 03/23/18 02:23 Resp 16 03/23/18 02:23 BP 138/86 03/23/18 02:23 Pulse Ox 98 03/23/18 02:23 - Medical History PMH: Back Problems, COPD, Depression, Gastritis, Schizophrenia - Surgical History Surgical History: No Surg Hx - Family History Family History: States: Unknown Family Hx - Home Medications Home Medications: Ambulatory Orders Medication Instructions Recorded Ranitidine HCl [Zantac] 1 tab PO BID #30 tablet 02/16/17 Dicyclomine [Bentyl] 20 mg PO BID PRN #30 tab 04/06/17 RX: Ibuprofen [Motrin Tab] 600 mg PO Q8 PRN #60 tab 04/06/17 Tamsulosin [Flomax] 0.4 mg PO DAILY #10 cap 04/06/17 Famotidine [Pepcid] 20 mg PO Q12 #20 tab 04/12/17 Cyclobenzaprine [Cyclobenzaprine 10 mg PO TID PRN #15 tab 04/22/17 HCl] Acetaminophen [Tylenol 325mg tab] 650 mg PO TID #30 tab 05/01/17 RX: Clotrimazole 1% [Lotrimin AF 10 applic TOP BID #1 bottle 05/02/17 1%] Clotrimazole/Betamethasone 15 gm EXT BID #1 tube 05/18/17 [Lotrisone] Ibuprofen [Motrin] 600 mg PO Q6 PRN #15 tab 05/19/17 Oseltamivir [Tamiflu] 75 mg PO BID #10 cap 07/08/17 Oseltamivir Phosphate [Tamiflu] 75 mg PO BID #10 capsule 07/10/17 Ciprofloxacin [Cipro] 500 mg PO BID 7 Days tab 07/12/17 Famotidine [Pepcid] 20 mg PO Q12 #20 tab 08/25/17 Acetaminophen [Tylenol] 650 mg PO QID PRN #30 capsule 11/05/17 RX: traMADol [Ultram] 50 mg PO TID PRN #10 tab 11/05/17 Clotrimazole 1% Cream [Lotrimin 1%] 1 appful TP BID #1 tube 12/27/17 Butenafine HCl [Lotrimin Ultra] 0.5 gm TP BID #30 cream..g. 03/09/18 - Allergies Allergies/Adverse Reactions: Allergies Allergy/AdvReac Type Severity Reaction Status Date / Time No Known Allergies Allergy Verified 03/23/18 02:23 Review of Systems ROS Statement: Except As Marked, All Systems Reviewed And Found Negative Musculoskeletal: Positive for: Leg Pain Physical Exam - Reviewed Nursing Documentation Reviewed: Yes Vital Signs Reviewed: Yes - Physical Exam Appears: Positive for: No Acute Distress Head Exam: Positive for: ATRAUMATIC, NORMAL INSPECTION, NORMOCEPHALIC Skin: Positive for: Normal Color, Warm, Dry Eye Exam: Positive for: Normal appearance, EOMI, PERRL Neck: Positive for: Painless ROM Cardiovascular/Chest: Positive for: Regular Rate, Rhythm. Negative for: Murmur Respiratory: Positive for: Normal Breath Sounds. Negative for: Respiratory Distress Gastrointestinal/Abdominal: Positive for: Normal Exam, Soft. Negative for: Tenderness Back: Positive for: Normal Inspection. Negative for: Vertebral Tenderness Extremity: Positive for: Normal ROM (all extremities). Negative for: Deformity, Swelling Neurologic/Psych: Positive for: Alert, Oriented, Gait (steady) - ECG O2 Sat by Pulse Oximetry: 98 (RA) Pulse Ox Interpretation: Normal Medical Decision Making Medical Decision Making: Time: 02:05 Initial Impression: Malingering Initial Plan: --Tylenol 325mg tab 975 mg PO --Reevaluation 04:35 Patient is medically stable for discharge and requires no further treatment in the ED at this time. Diagnosis of malingering. ----- Scribe Attestation: Documented by Carlos Price, acting as a scribe for Navjot Mehta MD. Provider Scribe Attestation: All medical record entries made by the Scribe were at my direction and personally dictated by me. I have reviewed the chart and agree that the record accurately reflects my personal performance of the history, physical exam, medical decision making, and the department course for this patient. I have also personally directed, reviewed, and agree with the discharge instructions and disposition. Disposition - Clinical Impression Clinical Impression: Homelessness - Disposition Disposition: Routine/Home Disposition Time: 04:35 Condition: STABLE Forms: [employer] (Hungarian)
[2018-03-23 06:55] VITALS: BP 140/85; PULSE 88
== END 2018-03-23 06:32 | disposition home or self-care (01) ==
LOC: H.ER 01:54
DX: Z59.0 Homelessness (principal)

== ENCOUNTER 2018-03-26 06:46 | Emergency (ER) | payer MEDICAID ==
[2018-03-26 06:47] VITALS: BMI 20.7
[2018-03-26 07:32] VITALS: TEMP 97.8
--- NOTE | 2018-03-26 13:41 | ED PDOC ---
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 Denies chest pain, headache or abd pain. Past Medical History Reviewed: Historical Data, Nursing Documentation, Vital Signs Vital Signs: Last Vital Signs Temp 97.8 F 03/26/18 07:27 Pulse 67 03/26/18 07:27 Resp 18 03/26/18 07:27 BP 149/74 03/26/18 07:27 Pulse Ox - Medical History PMH: Back Problems, COPD, Depression, Gastritis, Schizophrenia - Family History Family History: States: Unknown Family Hx - Immunization History Hx Tetanus Toxoid Vaccination: No Hx Influenza Vaccination: No Hx Pneumococcal Vaccination: No - Home Medications Home Medications: Ambulatory Orders Medication Instructions Recorded Ranitidine HCl [Zantac] 1 tab PO BID #30 tablet 02/16/17 Dicyclomine [Bentyl] 20 mg PO BID PRN #30 tab 04/06/17 Ibuprofen [Motrin Tab] 600 mg PO Q8 PRN #60 tab 04/06/17 Tamsulosin [Flomax] 0.4 mg PO DAILY #10 cap 04/06/17 Famotidine [Pepcid] 20 mg PO Q12 #20 tab 04/12/17 Cyclobenzaprine [Cyclobenzaprine 10 mg PO TID PRN #15 tab 04/22/17 HCl] Acetaminophen [Tylenol 325mg tab] 650 mg PO TID #30 tab 05/01/17 Clotrimazole 1% [Lotrimin AF 1%] 10 applic TOP BID #1 bottle 05/02/17 Clotrimazole/Betamethasone 15 gm EXT BID #1 tube 05/18/17 [Lotrisone] Ibuprofen [Motrin] 600 mg PO Q6 PRN #15 tab 05/19/17 Oseltamivir [Tamiflu] 75 mg PO BID #10 cap 07/08/17 Oseltamivir Phosphate [Tamiflu] 75 mg PO BID #10 capsule 07/10/17 Ciprofloxacin [Cipro] 500 mg PO BID 7 Days tab 07/12/17 Famotidine [Pepcid] 20 mg PO Q12 #20 tab 08/25/17 Acetaminophen [Tylenol] 650 mg PO QID PRN #30 capsule 11/05/17 traMADol [Ultram] 50 mg PO TID PRN #10 tab 11/05/17 Clotrimazole 1% Cream [Lotrimin 1%] 1 appful TP BID #1 tube 12/27/17 Butenafine HCl [Lotrimin Ultra] 0.5 gm TP BID #30 cream..g. 03/09/18 - Allergies Allergies/Adverse Reactions: Allergies Allergy/AdvReac Type Severity Reaction Status Date / Time No Known Allergies Allergy Verified 03/23/18 02:23 Review of Systems ROS Statement: Except As Marked, All Systems Reviewed And Found Negative Constitutional: Negative for: Fever Cardiovascular: Negative for: Chest Pain Respiratory: Negative for: Shortness of Breath Gastrointestinal: Negative for: Abdominal Pain Musculoskeletal: Positive for: Arm Pain, Back Pain, Leg Pain, Foot Pain, Other (myalgias) Skin: Negative for: Rash, Lesions, Jaundice Neurological: Negative for: Weakness, Numbness, Seizures Medical Decision Making Medical Decision Making: prior charts reviewed pt slept 5hrs comfortably, arousable to baseline Disposition - Clinical Impression Clinical Impression: Homelessness, Myalgia - Patient ED Disposition Is Patient to be Admitted: No Counseled Patient/Family Regarding: Studies Performed - Disposition Referrals: [facility] [Outside] Disposition: Routine/Home Disposition Time: 13:40 Condition: STABLE Instructions: Muscle and Bone Pain (DC) Forms: [employer] (Iraqi)
[2018-03-26 13:50] VITALS: BP 146/70; PULSE 72; RESP 16; O2SAT 99
== END 2018-03-26 13:50 | disposition home or self-care (01) ==
LOC: H.ER 06:46
DX: M79.10 Myalgia, unspecified site (principal); Z59.0 Homelessness

== ENCOUNTER 2018-03-27 23:33 | Emergency (ER) | payer MEDICAID ==
[2018-03-27 23:34] VITALS: BMI 20.7
[2018-03-28] VITALS: O2SAT 98
--- NOTE | 2018-03-28 04:56 | ED PDOC ---
HPI: General Adult Time Seen by Provider: 03/28/18 00:00 Chief Complaint (Nursing): Cough, Cold, Congestion Chief Complaint (Provider): Seeking Refugee History Per: Patient History/Exam Limitations: no limitations Onset/Duration Of Symptoms: Hrs Current Symptoms Are (Timing): Better Additional Complaint(s): 58 year old undomicile male presents to the ER seeking refugee from the cold. Denies any complaints. PMD: No Family Provider Past Medical History Reviewed: Historical Data, Nursing Documentation, Vital Signs Vital Signs: Last Vital Signs Temp 97.4 F L 03/27/18 23:58 Pulse 99 H 03/27/18 23:58 Resp 16 03/27/18 23:58 BP 154/68 H 03/27/18 23:58 Pulse Ox 98 03/27/18 23:58 - Medical History PMH: Back Problems, COPD, Depression, Gastritis, Schizophrenia - Family History Family History: States: Unknown Family Hx - Social History Current smoker - smoking cessation education provided: Yes Alcohol: Occasional - Immunization History Hx Tetanus Toxoid Vaccination: No Hx Influenza Vaccination: No Hx Pneumococcal Vaccination: No - Home Medications Home Medications: Ambulatory Orders Medication Instructions Recorded Ranitidine HCl [Zantac] 1 tab PO BID #30 tablet 02/16/17 Dicyclomine [Bentyl] 20 mg PO BID PRN #30 tab 04/06/17 Ibuprofen [Motrin Tab] 600 mg PO Q8 PRN #60 tab 04/06/17 Tamsulosin [Flomax] 0.4 mg PO DAILY #10 cap 04/06/17 Famotidine [Pepcid] 20 mg PO Q12 #20 tab 04/12/17 Cyclobenzaprine [Cyclobenzaprine 10 mg PO TID PRN #15 tab 04/22/17 HCl] Acetaminophen [Tylenol 325mg tab] 650 mg PO TID #30 tab 05/01/17 Clotrimazole 1% [Lotrimin AF 1%] 10 applic TOP BID #1 bottle 05/02/17 Clotrimazole/Betamethasone 15 gm EXT BID #1 tube 05/18/17 [Lotrisone] Ibuprofen [Motrin] 600 mg PO Q6 PRN #15 tab 05/19/17 Oseltamivir [Tamiflu] 75 mg PO BID #10 cap 07/08/17 Oseltamivir Phosphate [Tamiflu] 75 mg PO BID #10 capsule 07/10/17 Ciprofloxacin [Cipro] 500 mg PO BID 7 Days tab 07/12/17 Famotidine [Pepcid] 20 mg PO Q12 #20 tab 08/25/17 Acetaminophen [Tylenol] 650 mg PO QID PRN #30 capsule 11/05/17 traMADol [Ultram] 50 mg PO TID PRN #10 tab 11/05/17 Clotrimazole 1% Cream [Lotrimin 1%] 1 appful TP BID #1 tube 12/27/17 Butenafine HCl [Lotrimin Ultra] 0.5 gm TP BID #30 cream..g. 03/09/18 - Allergies Allergies/Adverse Reactions: Allergies Allergy/AdvReac Type Severity Reaction Status Date / Time No Known Allergies Allergy Verified 03/23/18 02:23 Review of Systems ROS Statement: Except As Marked, All Systems Reviewed And Found Negative Constitutional: Negative for: Fever Cardiovascular: Negative for: Chest Pain Respiratory: Negative for: Cough, Shortness of Breath Gastrointestinal: Negative for: Nausea, Vomiting, Abdominal Pain, Diarrhea Psych: Negative for: Suicidal ideation (homicidal ideation) Physical Exam - Reviewed Nursing Documentation Reviewed: Yes Vital Signs Reviewed: Yes - Physical Exam Appears: Positive for: Well, Non-toxic, No Acute Distress Head Exam: Positive for: ATRAUMATIC, NORMAL INSPECTION, NORMOCEPHALIC Skin: Positive for: Normal Color, Warm, Dry. Negative for: Rash Neurologic/Psych: Positive for: Alert, Oriented (x3). Negative for: Motor/Sensory Deficits - ECG O2 Sat by Pulse Oximetry: 98 (RA) Pulse Ox Interpretation: Normal Medical Decision Making Medical Decision Making: No acute ER intervention necessary at this point. Scribe Attestation: Documented by Angella Robertson acting as a scribe for Yevgeniy Morris MD Provider Scribe Attestation: All medical record entries made by the Scribe were at my direction and personally dictated by me. I have reviewed the chart and agree that the record accurately reflects my personal performance of the history, physical exam, medical decision making, and the department course for this patient. I have also personally directed, reviewed, and agree with the discharge instructions and disposition. Disposition - Clinical Impression Clinical Impression: Homelessness - Disposition Disposition: Routine/Home Disposition Time: 06:51 Condition: STABLE Forms: [employer] (Kosovan)
[2018-03-28 07:11] VITALS: BP 141/82; PULSE 79; RESP 18; TEMP 97.9
== END 2018-03-28 06:20 | disposition home or self-care (01) ==
LOC: H.ER 23:33
DX: Z59.0 Homelessness (principal)

== ENCOUNTER 2018-03-30 05:41 | Emergency (ER) | payer MEDICAID ==
[2018-03-30 05:42] VITALS: BMI 20.7
[2018-03-30 06:12] VITALS: BP 125/73; PULSE 75; RESP 17; TEMP 97.7; O2SAT 100
--- NOTE | 2018-03-30 06:27 | ED PDOC ---
Lower Extremity Pain/Injury Time Seen by Provider: 03/30/18 06:10 Chief Complaint (Nursing): Lower Extremity Problem/Injury Chief Complaint (Provider): Lower Extremity Problem/Injury History Per: Patient History/Exam Limitations: no limitations Additional Complaint(s): 58 years old homeless male well known to provider with bed seeking behavior presents to ER for evaluation of pain to legs due to walking exac erbation and feeling cold due to change in weather. He reports an episode of diarrhea. Patient denies any nausea, chest pain, shortness of breath, fever or vomiting. PMD: non provided Past Medical History Reviewed: Historical Data, Nursing Documentation, Vital Signs Vital Signs: Last Vital Signs Temp 97.7 F 03/30/18 06:10 Pulse 75 03/30/18 06:10 Resp 17 03/30/18 06:10 BP 125/73 03/30/18 06:10 Pulse Ox 100 03/30/18 06:10 - Medical History PMH: Back Problems, COPD, Depression, Gastritis, Schizophrenia - Surgical History Surgical History: No Surg Hx - Family History Family History: States: Unknown Family Hx - Immunization History Hx Tetanus Toxoid Vaccination: No Hx Influenza Vaccination: No Hx Pneumococcal Vaccination: No - Home Medications Home Medications: Ambulatory Orders Medication Instructions Recorded Ranitidine HCl [Zantac] 1 tab PO BID #30 tablet 02/16/17 Dicyclomine [Bentyl] 20 mg PO BID PRN #30 tab 04/06/17 RX: Ibuprofen [Motrin Tab] 600 mg PO Q8 PRN #60 tab 04/06/17 Tamsulosin [Flomax] 0.4 mg PO DAILY #10 cap 04/06/17 Famotidine [Pepcid] 20 mg PO Q12 #20 tab 04/12/17 Cyclobenzaprine [Cyclobenzaprine 10 mg PO TID PRN #15 tab 04/22/17 HCl] Acetaminophen [Tylenol 325mg tab] 650 mg PO TID #30 tab 05/01/17 RX: Clotrimazole 1% [Lotrimin AF 10 applic TOP BID #1 bottle 05/02/17 1%] Clotrimazole/Betamethasone 15 gm EXT BID #1 tube 05/18/17 [Lotrisone] Ibuprofen [Motrin] 600 mg PO Q6 PRN #15 tab 05/19/17 Oseltamivir [Tamiflu] 75 mg PO BID #10 cap 07/08/17 Oseltamivir Phosphate [Tamiflu] 75 mg PO BID #10 capsule 07/10/17 Ciprofloxacin [Cipro] 500 mg PO BID 7 Days tab 07/12/17 Famotidine [Pepcid] 20 mg PO Q12 #20 tab 08/25/17 Acetaminophen [Tylenol] 650 mg PO QID PRN #30 capsule 11/05/17 RX: traMADol [Ultram] 50 mg PO TID PRN #10 tab 11/05/17 Clotrimazole 1% Cream [Lotrimin 1%] 1 appful TP BID #1 tube 12/27/17 Butenafine HCl [Lotrimin Ultra] 0.5 gm TP BID #30 cream..g. 03/09/18 - Allergies Allergies/Adverse Reactions: Allergies Allergy/AdvReac Type Severity Reaction Status Date / Time No Known Allergies Allergy Verified 03/23/18 02:23 Review of Systems ROS Statement: Except As Marked, All Systems Reviewed And Found Negative Constitutional: Negative for: Fever Cardiovascular: Negative for: Chest Pain Respiratory: Negative for: Shortness of Breath Gastrointestinal: Positive for: Diarrhea. Negative for: Nausea, Vomiting Musculoskeletal: Positive for: Leg Pain (bilateral) Physical Exam - Reviewed Nursing Documentation Reviewed: Yes Vital Signs Reviewed: Yes - Physical Exam Appears: Positive for: Non-toxic, No Acute Distress Head Exam: Positive for: ATRAUMATIC, NORMOCEPHALIC Skin: Positive for: Normal Color, Warm, Dry Eye Exam: Positive for: Normal appearance, EOMI, PERRL Neck: Positive for: Normal, Painless ROM, Supple Cardiovascular/Chest: Positive for: Regular Rate, Rhythm. Negative for: Murmur Respiratory: Positive for: Normal Breath Sounds. Negative for: Wheezing Gastrointestinal/Abdominal: Positive for: Normal Exam, Soft. Negative for: Tenderness Extremity: Positive for: Normal ROM. Negative for: Pedal Edema, Swelling Neurologic/Psych: Positive for: Alert, Oriented (x3) - ECG O2 Sat by Pulse Oximetry: 100 (RA) Pulse Ox Interpretation: Normal Medical Decision Making Medical Decision Making: Time: 614 Initial Impression: 58 years old male with chronic leg pain and malingering disorder. Initial Plan: --Bentyl 20 mg PO --Tylenol 325 mg PO ----- Scribe Attestation: Documented by Rosemarie Da Silva, acting as a scribe for Navjot Mehta MD. Provider Scribe Attestation: All medical record entries made by the Scribe were at my direction and pers onally dictated by me. I have reviewed the chart and agree that the record accurately reflects my personal performance of the history, physical exam, medical decision making, and the department course for this patient. I have also personally directed, reviewed, and agree with the discharge instructions and disposition. Disposition - Clinical Impression Clinical Impression: Homelessness, Chronic leg pain - Patient ED Disposition Is Patient to be Admitted: No - Disposition Disposition: Routine/Home Disposition Time: 06:30 Condition: STABLE Forms: [employer] (Monegasque)
== END 2018-03-30 07:03 | disposition home or self-care (01) ==
LOC: H.ER 05:41
DX: Z59.0 Homelessness (principal); G89.29 Other chronic pain

== ENCOUNTER 2018-03-31 00:02 | Emergency (ER) | payer MEDICAID ==
[2018-03-31 00:02] VITALS: BMI 20.7
[2018-03-31 00:19] VITALS: BP 111/67; PULSE 75; RESP 17; TEMP 98.2; O2SAT 99
--- NOTE | 2018-03-31 00:21 | ED PDOC ---
HPI: General Adult Time Seen by Provider: 03/31/18 00:20 Chief Complaint (Nursing): Pain, Chronic Chief Complaint (Provider): pain History Per: Patient Additional Complaint(s): 58-year-old non-domiciled male presents with generalized body aches ongoing for several days. Patient states he has been walking a lot and feels cold secondary to the change in weather. He denies any chest pain, shortness of breath or dyspnea on exertion, no nausea, vomiting, diarrhea or constipation. Past Medical History Reviewed: Historical Data, Nursing Documentation, Vital Signs Vital Signs: Last Vital Signs Temp 98.2 F 03/31/18 00:17 Pulse 75 03/31/18 00:17 Resp 17 03/31/18 00:17 BP 111/67 03/31/18 00:17 Pulse Ox 99 03/31/18 00:17 - Medical History PMH: Back Problems, COPD, Depression, Gastritis, Schizophrenia - Family History Family History: States: No Known Family Hx - Living Arrangements Living Arrangements: Other (non-domiciled) - Social History Current smoker - smoking cessation education provided: Yes Alcohol: None Drugs: Denies - Home Medications Home Medications: Ambulatory Orders Medication Instructions Recorded Ranitidine HCl [Zantac] 1 tab PO BID #30 tablet 02/16/17 Dicyclomine [Bentyl] 20 mg PO BID PRN #30 tab 04/06/17 Ibuprofen [Motrin Tab] 600 mg PO Q8 PRN #60 tab 04/06/17 Tamsulosin [Flomax] 0.4 mg PO DAILY #10 cap 04/06/17 Famotidine [Pepcid] 20 mg PO Q12 #20 tab 04/12/17 Cyclobenzaprine [Cyclobenzaprine 10 mg PO TID PRN #15 tab 04/22/17 HCl] Acetaminophen [Tylenol 325mg tab] 650 mg PO TID #30 tab 05/01/17 Clotrimazole 1% [Lotrimin AF 1%] 10 applic TOP BID #1 bottle 05/02/17 Clotrimazole/Betamethasone 15 gm EXT BID #1 tube 05/18/17 [Lotrisone] Ibuprofen [Motrin] 600 mg PO Q6 PRN #15 tab 05/19/17 Oseltamivir [Tamiflu] 75 mg PO BID #10 cap 07/08/17 Oseltamivir Phosphate [Tamiflu] 75 mg PO BID #10 capsule 07/10/17 Ciprofloxacin [Cipro] 500 mg PO BID 7 Days tab 07/12/17 Famotidine [Pepcid] 20 mg PO Q12 #20 tab 08/25/17 Acetaminophen [Tylenol] 650 mg PO QID PRN #30 capsule 11/05/17 traMADol [Ultram] 50 mg PO TID PRN #10 tab 11/05/17 Clotrimazole 1% Cream [Lotrimin 1%] 1 appful TP BID #1 tube 12/27/17 Butenafine HCl [Lotrimin Ultra] 0.5 gm TP BID #30 cream..g. 03/09/18 - Allergies Allergies/Adverse Reactions: Allergies Allergy/AdvReac Type Severity Reaction Status Date / Time No Known Allergies Allergy Verified 03/31/18 00:19 Review of Systems ROS Statement: Except As Marked, All Systems Reviewed And Found Negative Constitutional: Positive for: Other (body pain). Negative for: Fever, Chills Cardiovascular: Negative for: Chest Pain Respiratory: Negative for: Shortness of Breath Gastrointestinal: Negative for: Nausea, Vomiting Neurological: Negative for: Headache, Dizziness Physical Exam - Reviewed Nursing Documentation Reviewed: Yes Vital Signs Reviewed: Yes - Physical Exam Appears: Positive for: Well, Non-toxic, No Acute Distress Skin: Positive for: Normal Color. Negative for: Rash Eye Exam: Positive for: Normal appearance Cardiovascular/Chest: Positive for: Regular Rate, Rhythm Respiratory: Positive for: Normal Breath Sounds Extremity: Positive for: Normal ROM Neurologic/Psych: Positive for: Alert, Oriented, Gait (steady) - ECG O2 Sat by Pulse Oximetry: 99 Pulse Ox Interpretation: Normal Medical Decision Making Medical Decision Makin58 year old male with body pain, (+) bed seeking behavior Plan: PO motrin Patient was observed in emergency room for several hours. His condition remained stable throughout his stay. 6:00 am - patient is awake, alert, stable for discharge. Disposition - Clinical Impression Clinical Impression: Chronic back pain - Patient ED Disposition Is Patient to be Admitted: No Counseled Patient/Family Regarding: Need For Followup - Disposition Referrals: [facility] [Outside] Disposition: Routine/Home Disposition Time: 06:00 Condition: STABLE Instructions: Chronic Pain Forms: [employer] (Italian)
[2018-03-31] MEDS ORDERED: Alum-Mag Hydrox-Simethicone Susp (30 mL) PO STA (01:03)
[2018-03-31] MEDS ORDERED: Alum-Mag Hydrox-Simethicone Susp (30 mL) ONE (01:05)
== END 2018-03-31 05:30 | disposition home or self-care (01) ==
LOC: H.ER 00:02
DX: M54.9 Dorsalgia, unspecified (principal); G89.29 Other chronic pain; J44.9 Chronic obstructive pulmonary disease, unspecified; F17.200 Nicotine dependence, unspecified, uncomplicated; Z86.59 Personal history of other mental and behavioral disorders

== ENCOUNTER 2018-04-07 09:05 | Emergency (ER) | payer MEDICAID ==
[2018-04-07 09:10] VITALS: BMI 22.2
--- NOTE | 2018-04-07 09:20 | ED PDOC ---
HPI: General Adult Time Seen by Provider: 04/07/18 09:17 Chief Complaint (Provider): body aches History Per: Patient Additional Complaint(s): 58 y/o non-domiciled male presents with generalized body aches. Patient has been outside in the rain and has been walking a lot. He denies any fever or chills. Patient denies fall or trauma. No chest pain, shortness of breath, headache or dizziness. PMD: none Past Medical History Reviewed: Historical Data, Nursing Documentation, Vital Signs Vital Signs: Last Vital Signs Temp 97.5 F L 04/07/18 09:12 Pulse 66 04/07/18 09:12 Resp 17 04/07/18 09:12 BP 145/78 04/07/18 09:12 Pulse Ox - Medical History PMH: Back Problems, COPD, Depression, Gastritis, Schizophrenia - Family History Family History: States: No Known Family Hx - Living Arrangements Living Arrangements: Other (non-domiciled) - Social History Current smoker - smoking cessation education provided: Yes Alcohol: None Drugs: Denies - Home Medications Home Medications: Ambulatory Orders Medication Instructions Recorded Ranitidine HCl [Zantac] 1 tab PO BID #30 tablet 02/16/17 Dicyclomine [Bentyl] 20 mg PO BID PRN #30 tab 04/06/17 Ibuprofen [Motrin Tab] 600 mg PO Q8 PRN #60 tab 04/06/17 Tamsulosin [Flomax] 0.4 mg PO DAILY #10 cap 04/06/17 Famotidine [Pepcid] 20 mg PO Q12 #20 tab 04/12/17 Cyclobenzaprine [Cyclobenzaprine 10 mg PO TID PRN #15 tab 04/22/17 HCl] Acetaminophen [Tylenol 325mg tab] 650 mg PO TID #30 tab 05/01/17 Clotrimazole 1% [Lotrimin AF 1%] 10 applic TOP BID #1 bottle 05/02/17 Clotrimazole/Betamethasone 15 gm EXT BID #1 tube 05/18/17 [Lotrisone] Ibuprofen [Motrin] 600 mg PO Q6 PRN #15 tab 05/19/17 Oseltamivir [Tamiflu] 75 mg PO BID #10 cap 07/08/17 Oseltamivir Phosphate [Tamiflu] 75 mg PO BID #10 capsule 07/10/17 Ciprofloxacin [Cipro] 500 mg PO BID 7 Days tab 07/12/17 Famotidine [Pepcid] 20 mg PO Q12 #20 tab 08/25/17 Acetaminophen [Tylenol] 650 mg PO QID PRN #30 capsule 11/05/17 traMADol [Ultram] 50 mg PO TID PRN #10 tab 11/05/17 Clotrimazole 1% Cream [Lotrimin 1%] 1 appful TP BID #1 tube 12/27/17 Butenafine HCl [Lotrimin Ultra] 0.5 gm TP BID #30 cream..g. 03/09/18 - Allergies Allergies/Adverse Reactions: Allergies Allergy/AdvReac Type Severity Reaction Status Date / Time No Known Allergies Allergy Verified 04/07/18 09:24 Review of Systems ROS Statement: Except As Marked, All Systems Reviewed And Found Negative Constitutional: Positive for: Other (body aches). Negative for: Fever, Chills Cardiovascular: Negative for: Chest Pain Respiratory: Negative for: Cough Gastrointestinal: Negative for: Nausea, Vomiting Neurological: Negative for: Weakness, Headache, Dizziness Physical Exam - Reviewed Nursing Documentation Reviewed: Yes Vital Signs Reviewed: Yes - Physical Exam Appears: Positive for: Well, Non-toxic, No Acute Distress Skin: Positive for: Normal Color. Negative for: Rash Eye Exam: Positive for: Normal appearance Cardiovascular/Chest: Positive for: Regular Rate, Rhythm Respiratory: Positive for: Normal Breath Sounds. Negative for: Wheezing, Respiratory Distress Back: Negative for: L CVA Tenderness, R CVA Tenderness Extremity: Positive for: Normal ROM Neurologic/Psych: Positive for: Alert, Oriented, Gait (steady) - ECG Pulse Ox Interpretation: Normal Medical Decision Making Medical Decision Makin58 y/o male with body aches Patient is afebrile, well appearing Plan: PO motrin and tylenol Patient states he feels better after meds given. He was advised to continue with NSAIDs and follow-up with clinic. Disposition - Clinical Impression Clinical Impression: Low back pain - Patient ED Disposition Is Patient to be Admitted: No Counseled Patient/Family Regarding: Diagnosis, Need For Followup - Disposition Referrals: [facility] [Outside] Disposition: Routine/Home Disposition Time: 12:11 Condition: STABLE Additional Instructions: Tylenol or Motrin for pain as needed. Follow-up with clinic. Instructions: Low Back Pain in Adults, Chronic Pain (DC)
[2018-04-07 10:21] VITALS: O2SAT 97
[2018-04-07 15:00] VITALS: BP 116/60; PULSE 60; RESP 14; TEMP 98.8
== END 2018-04-07 14:44 | disposition home or self-care (01) ==
LOC: H.ER 09:05
DX: M54.5 Low back pain (principal); F17.200 Nicotine dependence, unspecified, uncomplicated; J44.9 Chronic obstructive pulmonary disease, unspecified; Z86.59 Personal history of other mental and behavioral disorders

== ENCOUNTER 2018-04-11 03:58 | Emergency (ER) | payer MEDICAID ==
[2018-04-11 03:58] VITALS: BMI 22.2
[2018-04-11 04:22] VITALS: BP 125/70; PULSE 67; RESP 15; TEMP 97.5; O2SAT 95
--- NOTE | 2018-04-11 04:42 | ED PDOC ---
HPI: General Adult Time Seen by Provider: 04/11/18 04:09 Chief Complaint (Nursing): Back Pain Chief Complaint (Provider): Back Pain History Per: Patient History/Exam Limitations: no limitations Current Symptoms Are (Timing): Still Present Additional Complaint(s): 58 year old undomiciled male, well known to the ED and this provider for bed seeking behavior presents to the ED via EMS without medical complaints. Patient states that he was cold. PMD: [facility] Past Medical History Reviewed: Historical Data, Nursing Documentation, Vital Signs Vital Signs: Last Vital Signs Temp 97.5 F L 04/11/18 04:16 Pulse 67 04/11/18 04:16 Resp 15 04/11/18 04:16 BP 125/70 04/11/18 04:16 Pulse Ox 95 04/11/18 04:16 - Medical History PMH: Back Problems, COPD, Depression, Gastritis, Schizophrenia - Surgical History Surgical History: No Surg Hx - Family History Family History: States: Unknown Family Hx - Home Medications Home Medications: Ambulatory Orders Medication Instructions Recorded Ranitidine HCl [Zantac] 1 tab PO BID #30 tablet 02/16/17 Dicyclomine [Bentyl] 20 mg PO BID PRN #30 tab 04/06/17 Ibuprofen [Motrin Tab] 600 mg PO Q8 PRN #60 tab 04/06/17 Tamsulosin [Flomax] 0.4 mg PO DAILY #10 cap 04/06/17 Famotidine [Pepcid] 20 mg PO Q12 #20 tab 04/12/17 Cyclobenzaprine [Cyclobenzaprine 10 mg PO TID PRN #15 tab 04/22/17 HCl] Acetaminophen [Tylenol 325mg tab] 650 mg PO TID #30 tab 05/01/17 Clotrimazole 1% [Lotrimin AF 1%] 10 applic TOP BID #1 bottle 05/02/17 Clotrimazole/Betamethasone 15 gm EXT BID #1 tube 05/18/17 [Lotrisone] Ibuprofen [Motrin] 600 mg PO Q6 PRN #15 tab 05/19/17 Oseltamivir [Tamiflu] 75 mg PO BID #10 cap 07/08/17 Oseltamivir Phosphate [Tamiflu] 75 mg PO BID #10 capsule 07/10/17 Ciprofloxacin [Cipro] 500 mg PO BID 7 Days tab 07/12/17 Famotidine [Pepcid] 20 mg PO Q12 #20 tab 08/25/17 Acetaminophen [Tylenol] 650 mg PO QID PRN #30 capsule 11/05/17 traMADol [Ultram] 50 mg PO TID PRN #10 tab 11/05/17 Clotrimazole 1% Cream [Lotrimin 1%] 1 appful TP BID #1 tube 12/27/17 Butenafine HCl [Lotrimin Ultra] 0.5 gm TP BID #30 cream..g. 03/09/18 - Allergies Allergies/Adverse Reactions: Allergies Allergy/AdvReac Type Severity Reaction Status Date / Time No Known Allergies Allergy Verified 04/11/18 04:17 Review of Systems ROS Statement: Except As Marked, All Systems Reviewed And Found Negative Physical Exam - Reviewed Nursing Documentation Reviewed: Yes Vital Signs Reviewed: Yes - Physical Exam Appears: Positive for: Non-toxic, No Acute Distress Head Exam: Positive for: ATRAUMATIC, NORMAL INSPECTION, NORMOCEPHALIC Skin: Positive for: Normal Color, Warm, Dry Eye Exam: Positive for: EOMI, Normal appearance, PERRL Neck: Positive for: Normal, Painless ROM, Supple Cardiovascular/Chest: Positive for: Regular Rate, Rhythm Respiratory: Positive for: CNT, Normal Breath Sounds Extremity: Positive for: Normal ROM (x 4) Neurologic/Psych: Positive for: Alert, Oriented. Negative for: Motor/Sensory Deficits - ECG O2 Sat by Pulse Oximetry: 95 (RA) Pulse Ox Interpretation: Normal Medical Decision Making Medical Decision Makin:20 Impression: malingering Initial Plan: --Tylenol 975 mg PO Scribe Attestation: Documented by Yessi Rosa, acting as a scribe for Navjot Mehta MD Provider Scribe Attestation: All medical record entries made by the Scribe were at my direction and personally dictated by me. I have reviewed the chart and agree that the record accurately reflects my personal performance of the history, physical exam, medical decision making, and the department course for this patient. I have also personally directed, reviewed, and agree with the discharge instructions and disposition. Disposition - Clinical Impression Clinical Impression: Malingering, Homeless single person - Patient ED Disposition Is Patient to be Admitted: No - Disposition Disposition: Routine/Home Disposition Time: 04:45 Condition: STABLE Forms: [employer] (Telugu)
== END 2018-04-11 07:15 | disposition home or self-care (01) ==
LOC: H.ER 03:58
DX: M54.9 Dorsalgia, unspecified (principal)

== ENCOUNTER 2018-04-15 02:44 | Emergency (ER) | payer MEDICAID ==
[2018-04-15 02:45] VITALS: BMI 22.2
[2018-04-15 03:38] VITALS: BP 135/86; PULSE 89; RESP 18; TEMP 98.6; O2SAT 98
--- NOTE | 2018-04-15 04:41 | ED PDOC ---
HPI: General Adult Time Seen by Provider: 04/15/18 03:33 Chief Complaint (Nursing): Medical Clearance Chief Complaint (Provider): Medical Clearance History Per: Patient History/Exam Limitations: no limitations Additional Complaint(s): 58 year old undomiciled male, well known to the ED and this provider for bed seeking behavior presents to the ED via EMS without medical complaints. Patient states that he was cold. PMD: [facility] Past Medical History Reviewed: Historical Data, Nursing Documentation, Vital Signs Vital Signs: Last Vital Signs Temp 98.6 F 04/15/18 03:36 Pulse 89 04/15/18 03:36 Resp 18 04/15/18 03:36 BP 135/86 04/15/18 03:36 Pulse Ox 98 04/15/18 03:36 - Medical History PMH: Back Problems, COPD, Depression, Gastritis, Schizophrenia - Family History Family History: States: Unknown Family Hx - Home Medications Home Medications: Ambulatory Orders Medication Instructions Recorded Ranitidine HCl [Zantac] 1 tab PO BID #30 tablet 02/16/17 Dicyclomine [Bentyl] 20 mg PO BID PRN #30 tab 04/06/17 RX: Ibuprofen [Motrin Tab] 600 mg PO Q8 PRN #60 tab 04/06/17 Tamsulosin [Flomax] 0.4 mg PO DAILY #10 cap 04/06/17 Famotidine [Pepcid] 20 mg PO Q12 #20 tab 04/12/17 Cyclobenzaprine [Cyclobenzaprine 10 mg PO TID PRN #15 tab 04/22/17 HCl] Acetaminophen [Tylenol 325mg tab] 650 mg PO TID #30 tab 05/01/17 RX: Clotrimazole 1% [Lotrimin AF 10 applic TOP BID #1 bottle 05/02/17 1%] Clotrimazole/Betamethasone 15 gm EXT BID #1 tube 05/18/17 [Lotrisone] Ibuprofen [Motrin] 600 mg PO Q6 PRN #15 tab 05/19/17 Oseltamivir [Tamiflu] 75 mg PO BID #10 cap 07/08/17 Oseltamivir Phosphate [Tamiflu] 75 mg PO BID #10 capsule 07/10/17 Ciprofloxacin [Cipro] 500 mg PO BID 7 Days tab 07/12/17 Famotidine [Pepcid] 20 mg PO Q12 #20 tab 03/16/18 Acetaminophen [Tylenol] 650 mg PO QID PRN #30 capsule 11/05/17 RX: traMADol [Ultram] 50 mg PO TID PRN #10 tab 11/05/17 Clotrimazole 1% Cream [Lotrimin 1%] 1 appful TP BID #1 tube 12/27/17 Butenafine HCl [Lotrimin Ultra] 0.5 gm TP BID #30 cream..g. 03/09/18 - Allergies Allergies/Adverse Reactions: Allergies Allergy/AdvReac Type Severity Reaction Status Date / Time No Known Allergies Allergy Verified 04/11/18 04:17 Review of Systems ROS Statement: Except As Marked, All Systems Reviewed And Found Negative Physical Exam - Reviewed Nursing Documentation Reviewed: Yes Vital Signs Reviewed: Yes - Physical Exam Appears: Positive for: Well, Non-toxic, No Acute Distress Head Exam: Positive for: ATRAUMATIC, NORMAL INSPECTION, NORMOCEPHALIC Skin: Positive for: Normal Color, Warm, Dry Eye Exam: Positive for: EOMI, Normal appearance, PERRL Neck: Positive for: Normal, Painless ROM Cardiovascular/Chest: Positive for: Regular Rate, Rhythm. Negative for: Murmur Respiratory: Positive for: Normal Breath Sounds. Negative for: Respiratory Distress Extremity: Positive for: Normal ROM. Negative for: Pedal Edema, Deformity Neurologic/Psych: Positive for: Alert, Oriented. Negative for: Motor/Sensory Deficits - ECG O2 Sat by Pulse Oximetry: 98 (RA) Pulse Ox Interpretation: Normal Medical Decision Making Medical Decision Making: Time: 03:33 Initial Impression: Malingering Initial Plan: Patient is exhibiting bed seeking behavior. He is stable for discharge. Scribe Attestation: Documented by Chip Vinson acting as a scribe for aNvjot Mehta MD Provider Scribe Attestation: All medical record entries made by the Scribe were at my direction and personally dictated by me. I have reviewed the chart and agree that the record accurately reflects my personal performance of the history, physical exam, medical decision making, and the department course for this patient. I have also personally directed, reviewed, and agree with the discharge instructions and disposition. Disposition - Clinical Impression Clinical Impression: Homelessness - Disposition Disposition: Routine/Home Disposition Time: 04:51 Condition: STABLE Instructions: General (DC) Forms: [employer] (Prydeinig)
== END 2018-04-15 06:07 | disposition home or self-care (01) ==
LOC: H.ER 02:44
DX: Z76.5 Malingerer [conscious simulation] (principal)

== ENCOUNTER 2018-04-16 23:45 | Emergency (ER) | payer MEDICAID ==
[2018-04-16 23:45] VITALS: BMI 22.2
[2018-04-17 00:21] VITALS: TEMP 98.6; O2SAT 98
--- NOTE | 2018-04-17 00:50 | ED PDOC ---
HPI: General Adult Time Seen by Provider: 04/17/18 00:36 Chief Complaint (Nursing): Cough, Cold, Congestion Chief Complaint (Provider): cold History Per: Patient Additional Complaint(s): 58 y/o male presents to ED stating it is cold outside. Patient requesting new socks, a warm blanket, and a urinal. Contrary to triage note, patient denies acute medical complaints. Past Medical History Reviewed: Historical Data, Nursing Documentation, Vital Signs Vital Signs: Last Vital Signs Temp 98.6 F 04/17/18 00:19 Pulse 92 H 04/17/18 00:19 Resp 16 04/17/18 00:19 BP 116/68 04/17/18 00:19 Pulse Ox 98 04/17/18 00:19 - Medical History PMH: Back Problems, COPD, Depression, Gastritis, Schizophrenia - Family History Family History: States: Unknown Family Hx - Home Medications Home Medications: Ambulatory Orders Medication Instructions Recorded Ranitidine HCl [Zantac] 1 tab PO BID #30 tablet 02/16/17 Dicyclomine [Bentyl] 20 mg PO BID PRN #30 tab 04/06/17 Ibuprofen [Motrin Tab] 600 mg PO Q8 PRN #60 tab 04/06/17 Tamsulosin [Flomax] 0.4 mg PO DAILY #10 cap 04/06/17 Famotidine [Pepcid] 20 mg PO Q12 #20 tab 04/12/17 Cyclobenzaprine [Cyclobenzaprine 10 mg PO TID PRN #15 tab 04/22/17 HCl] Acetaminophen [Tylenol 325mg tab] 650 mg PO TID #30 tab 05/01/17 Clotrimazole 1% [Lotrimin AF 1%] 10 applic TOP BID #1 bottle 05/02/17 Clotrimazole/Betamethasone 15 gm EXT BID #1 tube 05/18/17 [Lotrisone] Ibuprofen [Motrin] 600 mg PO Q6 PRN #15 tab 05/19/17 Oseltamivir [Tamiflu] 75 mg PO BID #10 cap 07/08/17 Oseltamivir Phosphate [Tamiflu] 75 mg PO BID #10 capsule 07/10/17 Ciprofloxacin [Cipro] 500 mg PO BID 7 Days tab 07/12/17 Famotidine [Pepcid] 20 mg PO Q12 #20 tab 08/25/17 Acetaminophen [Tylenol] 650 mg PO QID PRN #30 capsule 11/05/17 traMADol [Ultram] 50 mg PO TID PRN #10 tab 11/05/17 Clotrimazole 1% Cream [Lotrimin 1%] 1 appful TP BID #1 tube 12/27/17 Butenafine HCl [Lotrimin Ultra] 0.5 gm TP BID #30 cream..g. 03/09/18 - Allergies Allergies/Adverse Reactions: Allergies Allergy/AdvReac Type Severity Reaction Status Date / Time No Known Allergies Allergy Verified 04/17/18 00:19 Review of Systems ROS Statement: Except As Marked, All Systems Reviewed And Found Negative Physical Exam - Reviewed Nursing Documentation Reviewed: Yes Vital Signs Reviewed: Yes - Physical Exam Appears: Positive for: Well, Non-toxic, No Acute Distress Head Exam: Positive for: ATRAUMATIC, NORMAL INSPECTION, NORMOCEPHALIC Skin: Positive for: Normal Color Eye Exam: Positive for: Normal appearance ENT: Positive for: Normal ENT Inspection Cardiovascular/Chest: Positive for: Regular Rate, Rhythm Respiratory: Positive for: Normal Breath Sounds Gastrointestinal/Abdominal: Positive for: Normal Exam Back: Positive for: Normal Inspection Extremity: Positive for: Normal ROM Neurologic/Psych: Positive for: Alert, Oriented (x3) - ECG O2 Sat by Pulse Oximetry: 98 - Progress ED Course And Treament: Patient given food, new socks and states he is now feeling better and ready to be discharged Patient requires no further intervention in the ED and is stable for discharge at this time Return precautions given Disposition - Clinical Impression Clinical Impression: Malingerer - Patient ED Disposition Is Patient to be Admitted: No Counseled Patient/Family Regarding: Diagnosis, Need For Followup - Disposition Disposition: Routine/Home Disposition Time: 05:00 Condition: IMPROVED
[2018-04-17 05:18] VITALS: BP 120/77; PULSE 77; RESP 14
== END 2018-04-17 05:00 | disposition home or self-care (01) ==
LOC: H.ER 23:45
DX: Z76.5 Malingerer [conscious simulation] (principal); Z86.59 Personal history of other mental and behavioral disorders; J44.9 Chronic obstructive pulmonary disease, unspecified

== ENCOUNTER 2018-04-20 21:00 | Emergency (ER) | payer MEDICAID ==
[2018-04-20 21:00] VITALS: BMI 22.2
--- NOTE | 2018-04-20 22:17 | ED PDOC ---
HPI: General Adult Time Seen by Provider: 04/20/18 22:15 Chief Complaint (Nursing): Medical Clearance Chief Complaint (Provider): FOOT PAIN History Per: Patient (58 Y/O UNDOMICILED MALE HERE WITH BILATERAL FEET PAIN ONGOING. NOTES HE IS COLD DUE TO BEING CAUGHT IN RAIN. NO OTHER COMPLAINTS.) Past Medical History Reviewed: Historical Data, Nursing Documentation, Vital Signs Vital Signs: Last Vital Signs Temp 97.8 F 04/20/18 21:31 Pulse 87 04/20/18 21:31 Resp 16 04/20/18 21:31 BP 148/92 H 04/20/18 21:31 Pulse Ox 97 04/20/18 21:31 - Medical History PMH: Back Problems, COPD, Depression, Gastritis, Schizophrenia - Family History Family History: States: Unknown Family Hx - Home Medications Home Medications: Ambulatory Orders Medication Instructions Recorded Ranitidine HCl [Zantac] 1 tab PO BID #30 tablet 02/16/17 Dicyclomine [Bentyl] 20 mg PO BID PRN #30 tab 04/06/17 Ibuprofen [Motrin Tab] 600 mg PO Q8 PRN #60 tab 04/06/17 Tamsulosin [Flomax] 0.4 mg PO DAILY #10 cap 04/06/17 Famotidine [Pepcid] 20 mg PO Q12 #20 tab 04/12/17 Cyclobenzaprine [Cyclobenzaprine 10 mg PO TID PRN #15 tab 04/22/17 HCl] Acetaminophen [Tylenol 325mg tab] 650 mg PO TID #30 tab 05/01/17 Clotrimazole 1% [Lotrimin AF 1%] 10 applic TOP BID #1 bottle 05/02/17 Clotrimazole/Betamethasone 15 gm EXT BID #1 tube 05/18/17 [Lotrisone] Ibuprofen [Motrin] 600 mg PO Q6 PRN #15 tab 05/19/17 Oseltamivir [Tamiflu] 75 mg PO BID #10 cap 07/08/17 Oseltamivir Phosphate [Tamiflu] 75 mg PO BID #10 capsule 07/10/17 Ciprofloxacin [Cipro] 500 mg PO BID 7 Days tab 07/12/17 Famotidine [Pepcid] 20 mg PO Q12 #20 tab 08/25/17 Acetaminophen [Tylenol] 650 mg PO QID PRN #30 capsule 11/05/17 traMADol [Ultram] 50 mg PO TID PRN #10 tab 11/05/17 Clotrimazole 1% Cream [Lotrimin 1%] 1 appful TP BID #1 tube 12/27/17 Butenafine HCl [Lotrimin Ultra] 0.5 gm TP BID #30 cream..g. 03/09/18 - Allergies Allergies/Adverse Reactions: Allergies Allergy/AdvReac Type Severity Reaction Status Date / Time No Known Allergies Allergy Verified 04/17/18 00:19 Review of Systems ROS Statement: Except As Marked, All Systems Reviewed And Found Negative Physical Exam - Reviewed Nursing Documentation Reviewed: Yes Vital Signs Reviewed: Yes - Physical Exam Appears: Positive for: Well, Non-toxic, No Acute Distress Head Exam: Positive for: ATRAUMATIC, NORMAL INSPECTION, NORMOCEPHALIC Skin: Positive for: Normal Color, Warm, DRY Eye Exam: Positive for: EOMI, Normal appearance, PERRL ENT: Positive for: Normal ENT Inspection Neck: Positive for: Normal, Painless ROM Cardiovascular/Chest: Positive for: Regular Rate, Rhythm Respiratory: Positive for: CNT, Normal Breath Sounds Gastrointestinal/Abdominal: Positive for: Normal Exam, Soft Back: Positive for: Normal Inspection Extremity: Positive for: Normal ROM, Other (NO ULCERATIVE LESIONS NOTED. MULTIPLE CALLOUSES. PATIENTS' LOWER EXTREMITIES NOTED MOIST.) Neurologic/Psych: Positive for: Alert, Oriented - ECG O2 Sat by Pulse Oximetry: 97 Disposition - Clinical Impression Clinical Impression: Homelessness, Foot pain, bilateral - Disposition Disposition: Routine/Home Disposition Time: 22:17 Condition: FAIR Instructions: General (DC), Wound Care (DC)
[2018-04-21 05:01] VITALS: BP 136/84; PULSE 79; RESP 18; TEMP 98.1; O2SAT 98
== END 2018-04-21 05:05 | disposition home or self-care (01) ==
LOC: H.ER 21:00
DX: M79.672 Pain in left foot (principal); Z59.0 Homelessness

== ENCOUNTER 2018-05-27 02:08 | Emergency (ER) | payer MEDICAID ==
[2018-05-27 02:45] VITALS: BMI 25.1
[2018-05-27 02:47] VITALS: BP 134/76; PULSE 68; RESP 18; TEMP 97.8; O2SAT 97
--- NOTE | 2018-05-27 04:21 | ED PDOC ---
Lower Extremity Pain/Injury Time Seen by Provider: 05/27/18 02:54 Chief Complaint (Nursing): Lower Extremity Problem/Injury Chief Complaint (Provider): Lower Extemity Problem History Per: Patient History/Exam Limitations: no limitations Onset/Duration Of Symptoms: Days (1x) Current Symptoms Are (Timing): Still Present Severity: Moderate Additional Complaint(s): 58 year old homeless male presents to the ED with complaints of bilateral foot pain that started today from walking too much. Patient is well known to the ED for bed seeking behavior. PMD: Summer Rodriguez MD Past Medical History Reviewed: Historical Data, Nursing Documentation, Vital Signs Vital Signs: Last Vital Signs Temp 97.8 F 05/27/18 02:45 Pulse 68 05/27/18 02:45 Resp 18 05/27/18 02:45 BP 134/76 05/27/18 02:45 Pulse Ox 97 05/27/18 02:45 - Medical History PMH: Back Problems, COPD, Depression, Gastritis, Schizophrenia Denies: Chronic Kidney Disease - Surgical History Surgical History: No Surg Hx - Family History Family History: States: No Known Family Hx - Living Arrangements Living Arrangements: Other (homeless) - Social History Current smoker - smoking cessation education provided: Yes Alcohol: Other (yes) Drugs: Denies - Home Medications Home Medications: Ambulatory Orders Medication Instructions Recorded Ranitidine HCl [Zantac] 1 tab PO BID #30 tablet 02/16/17 Dicyclomine [Bentyl] 20 mg PO BID PRN #30 tab 04/06/17 Ibuprofen [Motrin Tab] 600 mg PO Q8 PRN #60 tab 04/06/17 Tamsulosin [Flomax] 0.4 mg PO DAILY #10 cap 04/06/17 Famotidine [Pepcid] 20 mg PO Q12 #20 tab 04/12/17 Cyclobenzaprine [Cyclobenzaprine 10 mg PO TID PRN #15 tab 04/22/17 HCl] Acetaminophen [Tylenol 325mg tab] 650 mg PO TID #30 tab 05/01/17 Clotrimazole 1% [Lotrimin AF 1%] 10 applic TOP BID #1 bottle 05/02/17 Clotrimazole/Betamethasone 15 gm EXT BID #1 tube 05/18/17 [Lotrisone] Ibuprofen [Motrin] 600 mg PO Q6 PRN #15 tab 05/19/17 Oseltamivir Cap [Tamiflu] 75 mg PO BID #10 cap 07/08/17 Oseltamivir Phosphate [Tamiflu] 75 mg PO BID #10 capsule 07/10/17 Ciprofloxacin [Cipro] 500 mg PO BID 7 Days tab 07/12/17 Famotidine [Pepcid] 20 mg PO Q12 #20 tab 08/25/17 Acetaminophen [Tylenol] 650 mg PO QID PRN #30 capsule 11/05/17 traMADol [Ultram] 50 mg PO TID PRN #10 tab 11/05/17 Clotrimazole 1% Cream [Lotrimin 1%] 1 appful TP BID #1 tube 12/27/17 Butenafine HCl [Lotrimin Ultra] 0.5 gm TP BID #30 cream..g. 03/09/18 - Allergies Allergies/Adverse Reactions: Allergies Allergy/AdvReac Type Severity Reaction Status Date / Time No Known Allergies Allergy Verified 05/27/18 02:45 Review of Systems ROS Statement: Except As Marked, All Systems Reviewed And Found Negative Musculoskeletal: Positive for: Foot Pain (bilateral foot pain) Physical Exam - Reviewed Nursing Documentation Reviewed: Yes Vital Signs Reviewed: Yes - Physical Exam Appears: Positive for: Well, Non-toxic, No Acute Distress Head Exam: Positive for: ATRAUMATIC, NORMOCEPHALIC Skin: Positive for: Normal Color Extremity: Positive for: Other (feet: poor hygeine. (-) swelling, (-) erythema) Neurologic/Psych: Positive for: Alert, Oriented (3x) - ECG O2 Sat by Pulse Oximetry: 97 (RA) Pulse Ox Interpretation: Normal Medical Decision Making Medical Decision Makin:54 Initial impression: 58 year old male with homelessness and bed seeking behavior. Scribe Attestation: Documented Lorraine Andres, acting as a scribe for Yevgeniy Morris MD. Provider Scribe Attestation: All medical record entries made by the Scribe were at my direction and personally dictated by me. I have reviewed the chart and agree that the record accurately reflects my personal performance of the history, physical exam, medical decision making, and the department course for this patient. I have also personally directed, reviewed, and agree with the discharge instructions and disposition. Disposition - Clinical Impression Clinical Impression: Homeless single person - Patient ED Disposition Is Patient to be Admitted: No - Disposition Disposition: Routine/Home Disposition Time: 06:27 Condition: STABLE Forms: [facility] ([place])
== END 2018-05-27 05:30 | disposition home or self-care (01) ==
LOC: H.ER 02:08
DX: Z76.5 Malingerer [conscious simulation] (principal); Z59.0 Homelessness

== ENCOUNTER 2018-05-27 20:49 | Emergency (ER) | payer MEDICAID ==
[2018-05-27 20:49] VITALS: BMI 25.1
[2018-05-27 21:29] VITALS: RESP 16
--- NOTE | 2018-05-27 21:38 | ED PDOC ---
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 Patient is requesting a blanket at this time. Denies other complaints. PMD: none provided Past Medical History Reviewed: Historical Data, Nursing Documentation, Vital Signs Vital Signs: Last Vital Signs Temp 97.5 F L 05/27/18 21:24 Pulse 74 05/27/18 21:24 Resp 16 05/27/18 21:24 BP 139/70 05/27/18 21:24 Pulse Ox 100 05/27/18 21:24 - Medical History PMH: Back Problems, COPD, Depression, Gastritis, Schizophrenia Denies: Chronic Kidney Disease - Family History Family History: States: Unknown Family Hx - Living Arrangements Living Arrangements: Other (homeless) - Home Medications Home Medications: Ambulatory Orders Medication Instructions Recorded Ranitidine HCl [Zantac] 1 tab PO BID #30 tablet 02/16/17 Dicyclomine [Bentyl] 20 mg PO BID PRN #30 tab 04/06/17 Ibuprofen [Motrin Tab] 600 mg PO Q8 PRN #60 tab 04/06/17 Tamsulosin [Flomax] 0.4 mg PO DAILY #10 cap 04/06/17 Famotidine [Pepcid] 20 mg PO Q12 #20 tab 04/12/17 Cyclobenzaprine [Cyclobenzaprine 10 mg PO TID PRN #15 tab 04/22/17 HCl] Acetaminophen [Tylenol 325mg tab] 650 mg PO TID #30 tab 05/01/17 Clotrimazole 1% [Lotrimin AF 1%] 10 applic TOP BID #1 bottle 05/02/17 Clotrimazole/Betamethasone 15 gm EXT BID #1 tube 05/18/17 [Lotrisone] Ibuprofen [Motrin] 600 mg PO Q6 PRN #15 tab 05/19/17 Oseltamivir Cap [Tamiflu] 75 mg PO BID #10 cap 07/08/17 Oseltamivir Phosphate [Tamiflu] 75 mg PO BID #10 capsule 07/10/17 Ciprofloxacin [Cipro] 500 mg PO BID 7 Days tab 07/12/17 Famotidine [Pepcid] 20 mg PO Q12 #20 tab 08/25/17 Acetaminophen [Tylenol] 650 mg PO QID PRN #30 capsule 11/05/17 traMADol [Ultram] 50 mg PO TID PRN #10 tab 11/05/17 Clotrimazole 1% Cream [Lotrimin 1%] 1 appful TP BID #1 tube 12/27/17 Butenafine HCl [Lotrimin Ultra] 0.5 gm TP BID #30 cream..g. 03/09/18 - Allergies Allergies/Adverse Reactions: Allergies Allergy/AdvReac Type Severity Reaction Status Date / Time No Known Allergies Allergy Verified 05/27/18 02:45 Review of Systems ROS Statement: Except As Marked, All Systems Reviewed And Found Negative Constitutional: Positive for: Other (feeling cold and wet) Physical Exam - Reviewed Nursing Documentation Reviewed: Yes Vital Signs Reviewed: Yes - Physical Exam Appears: Positive for: No Acute Distress Skin: Positive for: Normal Color. Negative for: Rash (or lesions noted) Eye Exam: Positive for: Normal appearance Cardiovascular/Chest: Positive for: Regular Rate, Rhythm Respiratory: Positive for: Normal Breath Sounds. Negative for: Respiratory Distress Extremity: Positive for: Normal ROM - ECG O2 Sat by Pulse Oximetry: 100 (RA) Pulse Ox Interpretation: Normal Medical Decision Making Medical Decision Making: Time: 2138 Initial Impression: homelessness, feeling cold Initial Plan: --Patient offered new clothes and will be allowed to stay until he warms up Scribe Attestation: Documented by Daysi Recinos, acting as a scribe for Ara Donato PA-C. Provider Scribe Attestation: All medical record entries made by the Scribe were at my direction and personally dictated by me. I have reviewed the chart and agree that the record accurately reflects my personal performance of the history, physical exam, medical decision making, and the department course for this patient. I have also personally directed, reviewed, and agree with the discharge instructions and disposition. Disposition - Clinical Impression Clinical Impression: Hand pain, Homelessness - Patient ED Disposition Is Patient to be Admitted: No - Disposition Disposition: Routine/Home Disposition Time: 21:45 Condition: FAIR Instructions: General (DC)
[2018-05-28 04:53] VITALS: BP 114/79; PULSE 78; TEMP 97.9; O2SAT 98
== END 2018-05-28 04:30 | disposition home or self-care (01) ==
LOC: H.ER 20:49
DX: M79.643 Pain in unspecified hand (principal); Z59.0 Homelessness

== ENCOUNTER 2018-05-28 21:39 | Emergency (ER) | payer MEDICAID ==
[2018-05-28 21:39] VITALS: BMI 25.1
[2018-05-28 23:39] VITALS: O2SAT 96
--- NOTE | 2018-05-29 00:21 | ED PDOC ---
HPI: General Adult Time Seen by Provider: 05/29/18 00:00 Chief Complaint (Nursing): Lower Extremity Problem/Injury Chief Complaint (Provider): eval Additional Complaint(s): 58 y/o male presents requesting new socks and a bed to rest in for a little while to warm up. Patient well known to ED with frequent visits for same. Past Medical History Reviewed: Historical Data, Nursing Documentation, Vital Signs Vital Signs: Last Vital Signs Temp 97.9 F 05/28/18 23:36 Pulse 68 05/28/18 23:36 Resp 17 05/28/18 23:36 BP 136/69 05/28/18 23:36 Pulse Ox 96 05/28/18 23:36 - Medical History PMH: Back Problems, COPD, Depression, Gastritis, Schizophrenia Denies: Chronic Kidney Disease - Family History Family History: States: Unknown Family Hx - Home Medications Home Medications: Ambulatory Orders Medication Instructions Recorded Ranitidine HCl [Zantac] 1 tab PO BID #30 tablet 02/16/17 Dicyclomine [Bentyl] 20 mg PO BID PRN #30 tab 04/06/17 Ibuprofen [Motrin Tab] 600 mg PO Q8 PRN #60 tab 04/06/17 Tamsulosin [Flomax] 0.4 mg PO DAILY #10 cap 04/06/17 Famotidine [Pepcid] 20 mg PO Q12 #20 tab 04/12/17 Cyclobenzaprine [Cyclobenzaprine 10 mg PO TID PRN #15 tab 04/22/17 HCl] Acetaminophen [Tylenol 325mg tab] 650 mg PO TID #30 tab 05/01/17 Clotrimazole 1% [Lotrimin AF 1%] 10 applic TOP BID #1 bottle 05/02/17 Clotrimazole/Betamethasone 15 gm EXT BID #1 tube 05/18/17 [Lotrisone] Ibuprofen [Motrin] 600 mg PO Q6 PRN #15 tab 05/19/17 Oseltamivir Cap [Tamiflu] 75 mg PO BID #10 cap 07/08/17 Oseltamivir Phosphate [Tamiflu] 75 mg PO BID #10 capsule 07/10/17 Ciprofloxacin [Cipro] 500 mg PO BID 7 Days tab 07/12/17 Famotidine [Pepcid] 20 mg PO Q12 #20 tab 08/25/17 Acetaminophen [Tylenol] 650 mg PO QID PRN #30 capsule 11/05/17 traMADol [Ultram] 50 mg PO TID PRN #10 tab 11/05/17 Clotrimazole 1% Cream [Lotrimin 1%] 1 appful TP BID #1 tube 12/27/17 Butenafine HCl [Lotrimin Ultra] 0.5 gm TP BID #30 cream..g. 03/09/18 - Allergies Allergies/Adverse Reactions: Allergies Allergy/AdvReac Type Severity Reaction Status Date / Time No Known Allergies Allergy Verified 05/28/18 23:39 Review of Systems ROS Statement: Except As Marked, All Systems Reviewed And Found Negative Physical Exam - Reviewed Nursing Documentation Reviewed: Yes Vital Signs Reviewed: Yes - Physical Exam Appears: Positive for: Well, Non-toxic, No Acute Distress Head Exam: Positive for: ATRAUMATIC, NORMAL INSPECTION, NORMOCEPHALIC Skin: Positive for: Normal Color Eye Exam: Positive for: Normal appearance ENT: Positive for: Normal ENT Inspection Cardiovascular/Chest: Positive for: Regular Rate, Rhythm Respiratory: Positive for: Normal Breath Sounds Gastrointestinal/Abdominal: Positive for: Normal Exam Back: Positive for: Normal Inspection Extremity: Positive for: Normal ROM Neurologic/Psych: Positive for: Alert, Oriented (x3) - ECG O2 Sat by Pulse Oximetry: 96 Disposition - Clinical Impression Clinical Impression: [facility] - Patient ED Disposition Is Patient to be Admitted: No - Disposition Disposition Time: 05:00 Condition: IMPROVED
[2018-05-29 05:47] VITALS: BP 114/73; PULSE 70; RESP 18; TEMP 97.5
== END 2018-05-29 05:15 | disposition home or self-care (01) ==
LOC: H.ER 21:39
DX: Z76.5 Malingerer [conscious simulation] (principal); Z86.59 Personal history of other mental and behavioral disorders; J44.9 Chronic obstructive pulmonary disease, unspecified

== ENCOUNTER 2018-05-29 21:41 | Emergency (ER) | payer MEDICAID ==
[2018-05-29 21:41] VITALS: BMI 25.1
[2018-05-29 22:25] VITALS: BP 149/72; PULSE 66; RESP 18; TEMP 98.2; O2SAT 97
--- NOTE | 2018-05-30 01:47 | ED PDOC ---
HPI: General Adult Time Seen by Provider: 05/30/18 00:00 Chief Complaint (Nursing): Finger,Hand,&Wrist Chief Complaint (Provider): cold Additional Complaint(s): 58 y/o male presents to ED seeking [facility] from the cold. 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 Denies acute medical or psychiatric complaints. Past Medical History Reviewed: Historical Data, Nursing Documentation, Vital Signs Vital Signs: Last Vital Signs Temp 98.2 F 05/29/18 22:24 Pulse 66 05/29/18 22:24 Resp 18 05/29/18 22:24 BP 149/72 05/29/18 22:24 Pulse Ox 97 05/29/18 22:24 - Medical History PMH: Back Problems, COPD, Depression, Gastritis, Schizophrenia Denies: Chronic Kidney Disease - Family History Family History: States: Unknown Family Hx - Home Medications Home Medications: Ambulatory Orders Medication Instructions Recorded Ranitidine HCl [Zantac] 1 tab PO BID #30 tablet 02/16/17 Dicyclomine [Bentyl] 20 mg PO BID PRN #30 tab 04/06/17 Ibuprofen [Motrin Tab] 600 mg PO Q8 PRN #60 tab 04/06/17 Tamsulosin [Flomax] 0.4 mg PO DAILY #10 cap 04/06/17 Famotidine [Pepcid] 20 mg PO Q12 #20 tab 04/12/17 Cyclobenzaprine [Cyclobenzaprine 10 mg PO TID PRN #15 tab 04/22/17 HCl] Acetaminophen [Tylenol 325mg tab] 650 mg PO TID #30 tab 05/01/17 Clotrimazole 1% [Lotrimin AF 1%] 10 applic TOP BID #1 bottle 05/02/17 Clotrimazole/Betamethasone 15 gm EXT BID #1 tube 05/18/17 [Lotrisone] Ibuprofen [Motrin] 600 mg PO Q6 PRN #15 tab 05/19/17 Oseltamivir Cap [Tamiflu] 75 mg PO BID #10 cap 07/08/17 Oseltamivir Phosphate [Tamiflu] 75 mg PO BID #10 capsule 07/10/17 Ciprofloxacin [Cipro] 500 mg PO BID 7 Days tab 07/12/17 Famotidine [Pepcid] 20 mg PO Q12 #20 tab 08/25/17 Acetaminophen [Tylenol] 650 mg PO QID PRN #30 capsule 11/05/17 traMADol [Ultram] 50 mg PO TID PRN #10 tab 11/05/17 Clotrimazole 1% Cream [Lotrimin 1%] 1 appful TP BID #1 tube 12/27/17 Butenafine HCl [Lotrimin Ultra] 0.5 gm TP BID #30 cream..g. 03/09/18 - Allergies Allergies/Adverse Reactions: Allergies Allergy/AdvReac Type Severity Reaction Status Date / Time No Known Allergies Allergy Verified 05/30/18 22:44 Review of Systems ROS Statement: Except As Marked, All Systems Reviewed And Found Negative Physical Exam - Reviewed Nursing Documentation Reviewed: Yes Vital Signs Reviewed: Yes - Physical Exam Appears: Positive for: Well, Non-toxic, No Acute Distress Head Exam: Positive for: ATRAUMATIC, NORMAL INSPECTION, NORMOCEPHALIC Skin: Positive for: Normal Color Eye Exam: Positive for: Normal appearance ENT: Positive for: Normal ENT Inspection Cardiovascular/Chest: Positive for: Regular Rate, Rhythm Respiratory: Positive for: Normal Breath Sounds Gastrointestinal/Abdominal: Positive for: Normal Exam Back: Positive for: Normal Inspection Extremity: Positive for: Normal ROM Neurologic/Psych: Positive for: Alert, Oriented (x3) - ECG O2 Sat by Pulse Oximetry: 97 - Progress ED Course And Treament: Patient requires no further intervention in the ED and is stable for discharge at this time Disposition - Clinical Impression Clinical Impression: [facility]aling[facility] - Patient ED Disposition Is Patient to be Admitted: No Counseled Patient/Family Regarding: Diagnosis, Need For Followup - Disposition Disposition: Routine/Home Disposition Time: 04:00 Condition: IMPROVED
== END 2018-05-30 05:43 | disposition home or self-care (01) ==
LOC: H.ER 21:41
DX: Z76.5 Malingerer [conscious simulation] (principal)

== ENCOUNTER 2018-05-30 22:26 | Emergency (ER) | payer MEDICAID ==
[2018-05-30 22:26] VITALS: BMI 25.1
[2018-05-30 22:49] VITALS: RESP 18
--- NOTE | 2018-05-30 23:45 | ED PDOC ---
HPI: General Adult Time Seen by Provider: 05/30/18 23:16 Chief Complaint (Nursing): Lower Extremity Problem/Injury Chief Complaint (Provider): cold History Per: Patient Additional Complaint(s): 58 y/o male presents to ED seeking [facility] from the cold. 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 Denies acute medical or psychiatric complaints. Requesting new socks Past Medical History Reviewed: Historical Data, Nursing Documentation, Vital Signs Vital Signs: Last Vital Signs Temp 98.3 F 05/30/18 22:45 Pulse 76 05/30/18 22:45 Resp 18 05/30/18 22:45 BP 148/70 05/30/18 22:45 Pulse Ox 97 05/30/18 22:45 - Medical History PMH: Back Problems, COPD, Depression, Gastritis, Schizophrenia Denies: Chronic Kidney Disease - Family History Family History: States: Unknown Family Hx - Home Medications Home Medications: Ambulatory Orders Medication Instructions Recorded Ranitidine HCl [Zantac] 1 tab PO BID #30 tablet 02/16/17 Dicyclomine [Bentyl] 20 mg PO BID PRN #30 tab 04/06/17 Ibuprofen [Motrin Tab] 600 mg PO Q8 PRN #60 tab 04/06/17 Tamsulosin [Flomax] 0.4 mg PO DAILY #10 cap 04/06/17 Famotidine [Pepcid] 20 mg PO Q12 #20 tab 04/12/17 Cyclobenzaprine [Cyclobenzaprine 10 mg PO TID PRN #15 tab 04/22/17 HCl] Acetaminophen [Tylenol 325mg tab] 650 mg PO TID #30 tab 05/01/17 Clotrimazole 1% [Lotrimin AF 1%] 10 applic TOP BID #1 bottle 05/02/17 Clotrimazole/Betamethasone 15 gm EXT BID #1 tube 05/18/17 [Lotrisone] Ibuprofen [Motrin] 600 mg PO Q6 PRN #15 tab 05/19/17 Oseltamivir Cap [Tamiflu] 75 mg PO BID #10 cap 07/08/17 Oseltamivir Phosphate [Tamiflu] 75 mg PO BID #10 capsule 07/10/17 Ciprofloxacin [Cipro] 500 mg PO BID 7 Days tab 07/12/17 Famotidine [Pepcid] 20 mg PO Q12 #20 tab 08/25/17 Acetaminophen [Tylenol] 650 mg PO QID PRN #30 capsule 11/05/17 traMADol [Ultram] 50 mg PO TID PRN #10 tab 11/05/17 Clotrimazole 1% Cream [Lotrimin 1%] 1 appful TP BID #1 tube 12/27/17 Butenafine HCl [Lotrimin Ultra] 0.5 gm TP BID #30 cream..g. 03/09/18 - Allergies Allergies/Adverse Reactions: Allergies Allergy/AdvReac Type Severity Reaction Status Date / Time No Known Allergies Allergy Verified 05/30/18 22:44 Review of Systems ROS Statement: Except As Marked, All Systems Reviewed And Found Negative Physical Exam - Reviewed Nursing Documentation Reviewed: Yes Vital Signs Reviewed: Yes - Physical Exam Appears: Positive for: Well, Non-toxic, No Acute Distress Head Exam: Positive for: ATRAUMATIC, NORMAL INSPECTION, NORMOCEPHALIC Skin: Positive for: Normal Color Eye Exam: Positive for: Normal appearance ENT: Positive for: Normal ENT Inspection Cardiovascular/Chest: Positive for: Regular Rate, Rhythm Respiratory: Positive for: Normal Breath Sounds Gastrointestinal/Abdominal: Positive for: Normal Exam Extremity: Positive for: Normal ROM Neurologic/Psych: Positive for: Alert, Oriented (x3) - ECG O2 Sat by Pulse Oximetry: 97 - Progress ED Course And Treament: Patient requires no further intervention in the ED and is stable for discharge at this time Disposition - Clinical Impression Clinical Impression: Maling[facility] - Patient ED Disposition Is Patient to be Admitted: No Counseled Patient/Family Regarding: Diagnosis, Need For Followup - Disposition Disposition: Routine/Home Disposition Time: 03:54 Condition: IMPROVED
[2018-05-31 06:48] VITALS: BP 137/68; PULSE 81; TEMP 98.5; O2SAT 99
== END 2018-05-31 05:50 | disposition home or self-care (01) ==
LOC: H.ER 22:26
DX: Z76.5 Malingerer [conscious simulation] (principal)

== ENCOUNTER 2018-05-31 21:28 | Emergency (ER) | payer MEDICAID ==
[2018-05-31 21:29] VITALS: BMI 25.1
[2018-05-31 21:57] VITALS: O2SAT 99
--- NOTE | 2018-06-01 04:49 | ED PDOC ---
Lower Extremity Pain/Injury Time Seen by Provider: 06/01/18 01:34 Chief Complaint (Nursing): Lower Extremity Problem/Injury Chief Complaint (Provider): Foot pain, asking for blanket and foot Additional Complaint(s): 58 yo male, homeless, presents with foot pain because it has been raining. Pt denies other complaints. PT asking for blanket and juice in ER. NAD Past Medical History Reviewed: Historical Data, Nursing Documentation, Vital Signs Vital Signs: Last Vital Signs Temp 98.2 F 05/31/18 21:56 Pulse 75 05/31/18 21:56 Resp 16 05/31/18 21:56 BP 119/68 05/31/18 21:56 Pulse Ox 99 05/31/18 21:56 - Medical History PMH: Back Problems, COPD, Depression, Gastritis, Schizophrenia Denies: Chronic Kidney Disease - Surgical History Surgical History: No Surg Hx - Family History Family History: States: Unknown Family Hx - Home Medications Home Medications: Ambulatory Orders Medication Instructions Recorded Ranitidine HCl [Zantac] 1 tab PO BID #30 tablet 02/16/17 Dicyclomine [Bentyl] 20 mg PO BID PRN #30 tab 04/06/17 Ibuprofen [Motrin Tab] 600 mg PO Q8 PRN #60 tab 04/06/17 Tamsulosin [Flomax] 0.4 mg PO DAILY #10 cap 04/06/17 Famotidine [Pepcid] 20 mg PO Q12 #20 tab 04/12/17 Cyclobenzaprine [Cyclobenzaprine 10 mg PO TID PRN #15 tab 04/22/17 HCl] Acetaminophen [Tylenol 325mg tab] 650 mg PO TID #30 tab 05/01/17 Clotrimazole 1% [Lotrimin AF 1%] 10 applic TOP BID #1 bottle 05/02/17 Clotrimazole/Betamethasone 15 gm EXT BID #1 tube 05/18/17 [Lotrisone] Ibuprofen [Motrin] 600 mg PO Q6 PRN #15 tab 05/19/17 Oseltamivir Cap [Tamiflu] 75 mg PO BID #10 cap 07/08/17 Oseltamivir Phosphate [Tamiflu] 75 mg PO BID #10 capsule 07/10/17 Ciprofloxacin [Cipro] 500 mg PO BID 7 Days tab 07/12/17 Famotidine [Pepcid] 20 mg PO Q12 #20 tab 08/25/17 Acetaminophen [Tylenol] 650 mg PO QID PRN #30 capsule 11/05/17 traMADol [Ultram] 50 mg PO TID PRN #10 tab 11/05/17 Clotrimazole 1% Cream [Lotrimin 1%] 1 appful TP BID #1 tube 12/27/17 Butenafine HCl [Lotrimin Ultra] 0.5 gm TP BID #30 cream..g. 03/09/18 - Allergies Allergies/Adverse Reactions: Allergies Allergy/AdvReac Type Severity Reaction Status Date / Time No Known Allergies Allergy Verified 05/30/18 22:44 Review of Systems ROS Statement: Except As Marked, All Systems Reviewed And Found Negative Constitutional: Negative for: Fever, Chills Cardiovascular: Negative for: Chest Pain, Palpitations Respiratory: Negative for: Cough, Shortness of Breath Gastrointestinal: Negative for: Nausea, Vomiting, Abdominal Pain, Diarrhea Musculoskeletal: Negative for: Neck Pain, Shoulder Pain Neurological: Negative for: Weakness, Numbness Physical Exam - Reviewed Nursing Documentation Reviewed: Yes Vital Signs Reviewed: Yes - Physical Exam Appears: Positive for: Well, Non-toxic, No Acute Distress Head Exam: Positive for: ATRAUMATIC, NORMAL INSPECTION, NORMOCEPHALIC Skin: Positive for: Normal Color, Warm, DRY Eye Exam: Positive for: Normal appearance ENT: Positive for: Normal ENT Inspection Neck: Positive for: Normal, Painless ROM Cardiovascular/Chest: Positive for: Regular Rate, Rhythm Respiratory: Positive for: Normal Breath Sounds. Negative for: Accessory Muscle Use, Respiratory Distress Back: Positive for: Normal Inspection Extremity: Positive for: Normal ROM Neurologic/Psych: Positive for: Alert, Oriented - ECG O2 Sat by Pulse Oximetry: 99 Disposition - Clinical Impression Clinical Impression: Homelessness, Foot pain, bilateral - Patient ED Disposition Is Patient to be Admitted: No Counseled Patient/Family Regarding: Need For Followup - Disposition Disposition: Routine/Home Disposition Time: 04:49 Condition: GOOD
[2018-06-01 06:57] VITALS: BP 133/72; PULSE 64; RESP 18; TEMP 98.4
== END 2018-06-01 04:55 | disposition home or self-care (01) ==
LOC: H.ER 21:28
DX: M79.673 Pain in unspecified foot (principal); Z59.0 Homelessness

== ENCOUNTER 2018-06-01 21:09 | Emergency (ER) | payer MEDICAID ==
--- NOTE | 2018-06-01 22:53 | ED PDOC ---
HPI: General Adult Time Seen by Provider: 06/01/18 22:52 Chief Complaint (Nursing): Lower Extremity Problem/Injury Chief Complaint (Provider): lower extremity problem History Per: Patient (58 y/o male here undomiciled here with bilateral feet pain. Patient states feet are cold.) Past Medical History Reviewed: Historical Data, Nursing Documentation, Vital Signs - Medical History PMH: Back Problems, COPD, Depression, Gastritis, Schizophrenia Denies: Chronic Kidney Disease - Family History Family History: States: Unknown Family Hx - Home Medications Home Medications: Ambulatory Orders Medication Instructions Recorded Ranitidine HCl [Zantac] 1 tab PO BID #30 tablet 02/16/17 Dicyclomine [Bentyl] 20 mg PO BID PRN #30 tab 04/06/17 Ibuprofen [Motrin Tab] 600 mg PO Q8 PRN #60 tab 04/06/17 Tamsulosin [Flomax] 0.4 mg PO DAILY #10 cap 04/06/17 Famotidine [Pepcid] 20 mg PO Q12 #20 tab 04/12/17 Cyclobenzaprine [Cyclobenzaprine 10 mg PO TID PRN #15 tab 04/22/17 HCl] Acetaminophen [Tylenol 325mg tab] 650 mg PO TID #30 tab 05/01/17 Clotrimazole 1% [Lotrimin AF 1%] 10 applic TOP BID #1 bottle 05/02/17 Clotrimazole/Betamethasone 15 gm EXT BID #1 tube 05/18/17 [Lotrisone] Ibuprofen [Motrin] 600 mg PO Q6 PRN #15 tab 05/19/17 Oseltamivir Cap [Tamiflu] 75 mg PO BID #10 cap 07/08/17 Oseltamivir Phosphate [Tamiflu] 75 mg PO BID #10 capsule 07/10/17 Ciprofloxacin [Cipro] 500 mg PO BID 7 Days tab 07/12/17 Famotidine [Pepcid] 20 mg PO Q12 #20 tab 08/25/17 Acetaminophen [Tylenol] 650 mg PO QID PRN #30 capsule 11/05/17 traMADol [Ultram] 50 mg PO TID PRN #10 tab 11/05/17 Clotrimazole 1% Cream [Lotrimin 1%] 1 appful TP BID #1 tube 12/27/17 Butenafine HCl [Lotrimin Ultra] 0.5 gm TP BID #30 cream..g. 03/09/18 - Allergies Allergies/Adverse Reactions: Allergies Allergy/AdvReac Type Severity Reaction Status Date / Time No Known Allergies Allergy Verified 05/30/18 22:44 Review of Systems ROS Statement: Except As Marked, All Systems Reviewed And Found Negative Physical Exam - Reviewed Nursing Documentation Reviewed: Yes Vital Signs Reviewed: Yes - Physical Exam Appears: Positive for: Well, Non-toxic, No Acute Distress Head Exam: Positive for: ATRAUMATIC, NORMAL INSPECTION, NORMOCEPHALIC Skin: Positive for: Normal Color, Warm, DRY Eye Exam: Positive for: EOMI, Normal appearance, PERRL ENT: Positive for: Normal ENT Inspection Neck: Positive for: Normal, Painless ROM Cardiovascular/Chest: Positive for: Regular Rate, Rhythm Respiratory: Positive for: CNT, Normal Breath Sounds Gastrointestinal/Abdominal: Positive for: Normal Exam, Soft Back: Positive for: Normal Inspection Extremity: Positive for: Normal ROM Neurologic/Psych: Positive for: Alert, Oriented Disposition - Clinical Impression Clinical Impression: Pain in both feet - Patient ED Disposition Is Patient to be Admitted: No - Disposition Disposition: Routine/Home Disposition Time: 22:53 Condition: FAIR Instructions: Muscle and Bone Pain (DC)
[2018-06-01 22:56] VITALS: BP 135/82; PULSE 67; RESP 18; TEMP 98.1; O2SAT 99
== END 2018-06-01 22:58 | disposition home or self-care (01) ==
LOC: H.ER 21:09
DX: M79.672 Pain in left foot (principal); M79.671 Pain in right foot; Z59.0 Homelessness; Z86.59 Personal history of other mental and behavioral disorders; J44.9 Chronic obstructive pulmonary disease, unspecified

== ENCOUNTER 2018-06-02 20:05 | Emergency (ER) | payer MEDICAID ==
[2018-06-02 20:19] VITALS: RESP 16; TEMP 98; O2SAT 97
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
[2018-06-02 23:35] VITALS: BP 121/47; PULSE 63
== END 2018-06-02 23:35 | disposition home or self-care (01) ==
LOC: H.ER 20:05
DX: T69.9XXA Effect of reduced temperature, unspecified, initial encounter (principal); X31.XXXA Exposure to excessive natural cold, initial encounter; Z59.0 Homelessness

== ENCOUNTER 2018-06-03 14:42 | Emergency (ER) | payer MEDICAID ==
--- NOTE | 2018-06-03 15:10 | ED PDOC ---
Lower Extremity Pain/Injury Time Seen by Provider: 06/03/18 15:02 Chief Complaint (Nursing): Lower Extremity Problem/Injury Chief Complaint (Provider): bilateral foot pain History Per: Patient History/Exam Limitations: no limitations Onset/Duration Of Symptoms: Other (months (3months)) Current Symptoms Are (Timing): Still Present Additional Complaint(s): known well to ER for homelessness, reporting his feet hurt from the cold and is seeking relief. PMD None Past Medical History Vital Signs: Last Vital Signs Temp 97.6 F 06/03/18 14:49 Pulse 62 06/03/18 14:49 Resp 19 06/03/18 14:49 BP 138/68 06/03/18 14:49 Pulse Ox 99 06/03/18 14:49 - Medical History PMH: Back Problems, COPD, Depression, Gastritis, Schizophrenia Denies: Chronic Kidney Disease - Family History Family History: States: Unknown Family Hx - Home Medications Home Medications: Ambulatory Orders Medication Instructions Recorded Ranitidine HCl [Zantac] 1 tab PO BID #30 tablet 02/16/17 Dicyclomine [Bentyl] 20 mg PO BID PRN #30 tab 04/06/17 Ibuprofen [Motrin Tab] 600 mg PO Q8 PRN #60 tab 04/06/17 Tamsulosin [Flomax] 0.4 mg PO DAILY #10 cap 04/06/17 Famotidine [Pepcid] 20 mg PO Q12 #20 tab 04/12/17 Cyclobenzaprine [Cyclobenzaprine 10 mg PO TID PRN #15 tab 04/22/17 HCl] Acetaminophen [Tylenol 325mg tab] 650 mg PO TID #30 tab 05/01/17 Clotrimazole 1% [Lotrimin AF 1%] 10 applic TOP BID #1 bottle 05/02/17 Clotrimazole/Betamethasone 15 gm EXT BID #1 tube 05/18/17 [Lotrisone] Ibuprofen [Motrin] 600 mg PO Q6 PRN #15 tab 05/19/17 Oseltamivir Cap [Tamiflu] 75 mg PO BID #10 cap 07/08/17 Oseltamivir Phosphate [Tamiflu] 75 mg PO BID #10 capsule 07/10/17 Ciprofloxacin [Cipro] 500 mg PO BID 7 Days tab 07/12/17 Famotidine [Pepcid] 20 mg PO Q12 #20 tab 08/25/17 Acetaminophen [Tylenol] 650 mg PO QID PRN #30 capsule 11/05/17 traMADol [Ultram] 50 mg PO TID PRN #10 tab 11/05/17 Clotrimazole 1% Cream [Lotrimin 1%] 1 appful TP BID #1 tube 12/27/17 Butenafine HCl [Lotrimin Ultra] 0.5 gm TP BID #30 cream..g. 03/09/18 - Allergies Allergies/Adverse Reactions: Allergies Allergy/AdvReac Type Severity Reaction Status Date / Time No Known Allergies Allergy Verified 05/30/18 22:44 Review of Systems ROS Statement: Except As Marked, All Systems Reviewed And Found Negative Musculoskeletal: Positive for: Foot Pain Physical Exam - Reviewed Vital Signs Reviewed: Yes - Physical Exam Appears: Positive for: No Acute Distress (dissheveled and unkempt) Head Exam: Positive for: ATRAUMATIC, NORMOCEPHALIC Neck: Positive for: Painless ROM Respiratory: Negative for: Respiratory Distress Extremity: Positive for: Other (bilateral feet with chronic skin ruddiness and pedal edema, no deformity, no warmth or lesions) Neurologic/Psych: Positive for: Alert. Negative for: Motor/Sensory Deficits - ECG O2 Sat by Pulse Oximetry: 99 Disposition - Clinical Impression Clinical Impression: Foot pain - Disposition Referrals: [facility] [Outside] Disposition: Routine/Home Disposition Time: 15:13 Condition: STABLE Additional Instructions: PLEASE STAY IN HALFWAY AND WARMING STATIONS TO PREVENT FROSTBITE Instructions: Dependent Edema (DC), Frostbite (DC)
[2018-06-03 19:05] VITALS: BP 118/73; PULSE 78; RESP 16; TEMP 98; O2SAT 98
== END 2018-06-03 19:05 | disposition home or self-care (01) ==
LOC: SUPCPDRO 14:42 → H.ER 14:42
DX: M79.673 Pain in unspecified foot (principal)

== ENCOUNTER 2018-06-04 20:29 | Emergency (ER) | payer MEDICAID ==
[2018-06-04 20:39] VITALS: BP 145/70; PULSE 73; RESP 16; TEMP 98; O2SAT 97
--- NOTE | 2018-06-04 20:49 | ED PDOC ---
HPI: General Adult Time Seen by Provider: 06/04/18 20:40 Chief Complaint (Nursing): Lower Extremity Problem/Injury Chief Complaint (Provider): Medical Problem, General History Per: Patient History/Exam Limitations: no limitations Severity: Mild Additional Complaint(s): 58 year old male, well known to the ED and to provider presents to the ED requesting a place to stay and keep warm. Patient is homeless, and has no complaints at this time contrary to triage note. PMD: None provided Past Medical History Reviewed: Historical Data, Nursing Documentation, Vital Signs Vital Signs: Last Vital Signs Temp 98 F 06/04/18 20:36 Pulse 73 06/04/18 20:36 Resp 16 06/04/18 20:36 BP 145/70 06/04/18 20:36 Pulse Ox 97 06/04/18 20:36 - Medical History PMH: Back Problems, COPD, Depression, Gastritis, Schizophrenia Denies: Chronic Kidney Disease - Family History Family History: States: No Known Family Hx - Living Arrangements Living Arrangements: Other (homeless) - Social History Current smoker - smoking cessation education provided: Yes Alcohol: Other (yes) Drugs: Denies - Home Medications Home Medications: Ambulatory Orders Medication Instructions Recorded Ranitidine HCl [Zantac] 1 tab PO BID #30 tablet 02/16/17 Dicyclomine [Bentyl] 20 mg PO BID PRN #30 tab 04/06/17 Ibuprofen [Motrin Tab] 600 mg PO Q8 PRN #60 tab 04/06/17 Tamsulosin [Flomax] 0.4 mg PO DAILY #10 cap 04/06/17 Famotidine [Pepcid] 20 mg PO Q12 #20 tab 04/12/17 Cyclobenzaprine [Cyclobenzaprine 10 mg PO TID PRN #15 tab 04/22/17 HCl] Acetaminophen [Tylenol 325mg tab] 650 mg PO TID #30 tab 05/01/17 Clotrimazole 1% [Lotrimin AF 1%] 10 applic TOP BID #1 bottle 05/02/17 Clotrimazole/Betamethasone 15 gm EXT BID #1 tube 05/18/17 [Lotrisone] Ibuprofen [Motrin] 600 mg PO Q6 PRN #15 tab 05/19/17 Oseltamivir Cap [Tamiflu] 75 mg PO BID #10 cap 07/08/17 Oseltamivir Phosphate [Tamiflu] 75 mg PO BID #10 capsule 07/10/17 Ciprofloxacin [Cipro] 500 mg PO BID 7 Days tab 07/12/17 Famotidine [Pepcid] 20 mg PO Q12 #20 tab 08/25/17 Acetaminophen [Tylenol] 650 mg PO QID PRN #30 capsule 11/05/17 traMADol [Ultram] 50 mg PO TID PRN #10 tab 11/05/17 Clotrimazole 1% Cream [Lotrimin 1%] 1 appful TP BID #1 tube 12/27/17 Butenafine HCl [Lotrimin Ultra] 0.5 gm TP BID #30 cream..g. 03/09/18 - Allergies Allergies/Adverse Reactions: Allergies Allergy/AdvReac Type Severity Reaction Status Date / Time No Known Allergies Allergy Verified 06/04/18 20:37 Review of Systems ROS Statement: Except As Marked, All Systems Reviewed And Found Negative Physical Exam - Reviewed Nursing Documentation Reviewed: Yes Vital Signs Reviewed: Yes - Physical Exam Appears: Positive for: Well, Non-toxic, No Acute Distress Head Exam: Positive for: ATRAUMATIC, NORMOCEPHALIC Cardiovascular/Chest: Positive for: Regular Rate, Rhythm Respiratory: Positive for: Normal Breath Sounds Neurologic/Psych: Positive for: Alert, Oriented (3x), Gait (steady, unassisted) - ECG O2 Sat by Pulse Oximetry: 97 (RA) Pulse Ox Interpretation: Normal Medical Decision Making Medical Decision Makin:40 Initial impression: 58 year old male requesting a bed. Scribe Attestation: Documented by Flor Andres, acting as a scribe for Grady Corea Provider Scribe Attestation: All medical record entries made by the Scribe were at my direction and personally dictated by me. I have reviewed the chart and agree that the record accurately reflects my personal performance of the history, physical exam, medical decision making, and the department course for this patient. I have also personally directed, reviewed, and agree with the discharge instructions and disposition. Disposition - Clinical Impression Clinical Impression: Malingerer - Patient ED Disposition Is Patient to be Admitted: No - Disposition Disposition: Routine/Home Disposition Time: 21:00 Condition: STABLE Instructions: General (DC) Forms: [employer] (Slovak)
== END 2018-06-04 23:12 | disposition home or self-care (01) ==
LOC: H.ER 20:29
DX: Z76.5 Malingerer [conscious simulation] (principal); Z59.0 Homelessness; F17.200 Nicotine dependence, unspecified, uncomplicated; Z86.59 Personal history of other mental and behavioral disorders; J44.9 Chronic obstructive pulmonary disease, unspecified

== ENCOUNTER 2018-06-05 12:09 | Emergency (ER) | payer MEDICAID ==
[2018-06-05 12:27] VITALS: TEMP 98.1
--- NOTE | 2018-06-05 15:16 | ED PDOC ---
Lower Extremity Pain/Injury Time Seen by Provider: 06/05/18 13:10 Chief Complaint (Nursing): Lower Extremity Problem/Injury Chief Complaint (Provider): lower extremity pain History Per: Patient History/Exam Limitations: no limitations Onset/Duration Of Symptoms: Days, Intermittent Episodes Current Symptoms Are (Timing): Gone Now Severity: None Additional Complaint(s): Pt is well known to this ED and provider as a malingerer and homeless individual that often looks for long-term from the weather. Pt has no symptoms that he can articulate - Risk Factors DVT Risk Factors: Pos: None Past Medical History Reviewed: Historical Data, Nursing Documentation, Vital Signs Vital Signs: Last Vital Signs Temp 98.1 F 06/05/18 12:23 Pulse 85 06/05/18 12:23 Resp 16 06/05/18 12:23 BP 161/84 H 06/05/18 12:23 Pulse Ox 98 06/05/18 12:23 - Medical History PMH: Back Problems, COPD, Depression, Gastritis, Schizophrenia Denies: Chronic Kidney Disease - Family History Family History: States: Unknown Family Hx - Home Medications Home Medications: Ambulatory Orders Medication Instructions Recorded Ranitidine HCl [Zantac] 1 tab PO BID #30 tablet 02/16/17 Dicyclomine [Bentyl] 20 mg PO BID PRN #30 tab 04/06/17 Ibuprofen [Motrin Tab] 600 mg PO Q8 PRN #60 tab 04/06/17 Tamsulosin [Flomax] 0.4 mg PO DAILY #10 cap 04/06/17 Famotidine [Pepcid] 20 mg PO Q12 #20 tab 04/12/17 Cyclobenzaprine [Cyclobenzaprine 10 mg PO TID PRN #15 tab 04/22/17 HCl] Acetaminophen [Tylenol 325mg tab] 650 mg PO TID #30 tab 05/01/17 Clotrimazole 1% [Lotrimin AF 1%] 10 applic TOP BID #1 bottle 05/02/17 Clotrimazole/Betamethasone 15 gm EXT BID #1 tube 05/18/17 [Lotrisone] Ibuprofen [Motrin] 600 mg PO Q6 PRN #15 tab 05/19/17 Oseltamivir Cap [Tamiflu] 75 mg PO BID #10 cap 07/08/17 Oseltamivir Phosphate [Tamiflu] 75 mg PO BID #10 capsule 07/10/17 Ciprofloxacin [Cipro] 500 mg PO BID 7 Days tab 07/12/17 Famotidine [Pepcid] 20 mg PO Q12 #20 tab 08/25/17 Acetaminophen [Tylenol] 650 mg PO QID PRN #30 capsule 11/05/17 traMADol [Ultram] 50 mg PO TID PRN #10 tab 11/05/17 Clotrimazole 1% Cream [Lotrimin 1%] 1 appful TP BID #1 tube 12/27/17 Butenafine HCl [Lotrimin Ultra] 0.5 gm TP BID #30 cream..g. 03/09/18 - Allergies Allergies/Adverse Reactions: Allergies Allergy/AdvReac Type Severity Reaction Status Date / Time No Known Allergies Allergy Verified 06/05/18 12:23 Review of Systems ROS Statement: Except As Marked, All Systems Reviewed And Found Negative Musculoskeletal: Positive for: Foot Pain Physical Exam - Reviewed Nursing Documentation Reviewed: Yes Vital Signs Reviewed: Yes - Physical Exam Appears: Positive for: Well, Non-toxic, No Acute Distress. Negative for: Uncomfortable Head Exam: Positive for: ATRAUMATIC, NORMAL INSPECTION Skin: Positive for: Normal Color, Warm, Dry. Negative for: Diaphoresis, Pallor, Rash Eye Exam: Positive for: Normal appearance. Negative for: Nystagmus, Periorbital swelling, Periorbital tenderness Neck: Positive for: Normal, Painless ROM, Supple. Negative for: Decreased ROM Cardiovascular/Chest: Positive for: Regular Rate, Rhythm Respiratory: Positive for: Normal Breath Sounds Pulses-Carotid (L): 2+ Pulses-Carotid (R): 2+ Pulses-Radial (L): 2+ Pulses-Radial (R): 2+ Extremity: Positive for: Normal ROM, Capillary Refill (<2 seconds). Negative for: Tenderness, Pedal Edema, Calf Tenderness, Deformity, Swelling - ECG O2 Sat by Pulse Oximetry: 98 Medical Decision Making Medical Decision Making: Pt is discharged from the ED with no further treatment necessary at this facility Pt is stable for discharge Disposition - Clinical Impression Clinical Impression: Homeless Doctor Will See Patient In The: Office Counseled Patient/Family Regarding: Studies Performed, Diagnosis, Need For Followup - Disposition Referrals: [facility] [Outside] formerly [facility] [Outside] Disposition: Routine/Home Disposition Time: 15:18 Condition: STABLE Forms: [employer] (Setswana)
[2018-06-05 15:36] VITALS: BP 138/63; PULSE 64; RESP 18; O2SAT 96
== END 2018-06-05 16:20 | disposition home or self-care (01) ==
LOC: H.ER 12:09
DX: Z59.0 Homelessness (principal)

== ENCOUNTER 2018-06-06 20:09 | Emergency (ER) | payer MEDICAID ==
[2018-06-06 20:09] VITALS: BMI 23.1
[2018-06-06 20:21] VITALS: RESP 16
--- NOTE | 2018-06-07 00:14 | ED PDOC ---
HPI: General Adult Time Seen by Provider: 06/06/18 22:37 Chief Complaint (Nursing): Medical Clearance Chief Complaint (Provider): cold outside History Per: Patient History/Exam Limitations: no limitations Additional Complaint(s): 58 y/o male presents seeking care home from the cold. Patient well known to ED with multiple visits for bed seeking behavior; he denies complaints otherwise. Past Medical History Reviewed: Historical Data, Nursing Documentation, Vital Signs Vital Signs: Last Vital Signs Temp 98.2 F 06/06/18 20:21 Pulse 72 06/06/18 20:21 Resp 16 06/06/18 20:21 BP 127/75 06/06/18 20:21 Pulse Ox 95 06/06/18 20:21 - Medical History PMH: Back Problems, COPD, Depression, Gastritis, Schizophrenia Denies: Chronic Kidney Disease - Surgical History Surgical History: No Surg Hx - Family History Family History: States: Unknown Family Hx - Home Medications Home Medications: Ambulatory Orders Medication Instructions Recorded Ranitidine HCl [Zantac] 1 tab PO BID #30 tablet 02/16/17 Dicyclomine [Bentyl] 20 mg PO BID PRN #30 tab 04/06/17 Ibuprofen [Motrin Tab] 600 mg PO Q8 PRN #60 tab 04/06/17 Tamsulosin [Flomax] 0.4 mg PO DAILY #10 cap 04/06/17 Famotidine [Pepcid] 20 mg PO Q12 #20 tab 04/12/17 Cyclobenzaprine [Cyclobenzaprine 10 mg PO TID PRN #15 tab 04/22/17 HCl] Acetaminophen [Tylenol 325mg tab] 650 mg PO TID #30 tab 05/01/17 Clotrimazole 1% [Lotrimin AF 1%] 10 applic TOP BID #1 bottle 05/02/17 Clotrimazole/Betamethasone 15 gm EXT BID #1 tube 05/18/17 [Lotrisone] Ibuprofen [Motrin] 600 mg PO Q6 PRN #15 tab 05/19/17 Oseltamivir Cap [Tamiflu] 75 mg PO BID #10 cap 07/08/17 Oseltamivir Phosphate [Tamiflu] 75 mg PO BID #10 capsule 07/10/17 Ciprofloxacin [Cipro] 500 mg PO BID 7 Days tab 07/12/17 Famotidine [Pepcid] 20 mg PO Q12 #20 tab 03/16/18 Acetaminophen [Tylenol] 650 mg PO QID PRN #30 capsule 11/05/17 traMADol [Ultram] 50 mg PO TID PRN #10 tab 11/05/17 Clotrimazole 1% Cream [Lotrimin 1%] 1 appful TP BID #1 tube 12/27/17 Butenafine HCl [Lotrimin Ultra] 0.5 gm TP BID #30 cream..g. 03/09/18 Clotrimazole 1% Cream [Lotrimin 1% 1 applic EXT BID #2 tube 06/06/18 CREAM] - Allergies Allergies/Adverse Reactions: Allergies Allergy/AdvReac Type Severity Reaction Status Date / Time No Known Allergies Allergy Verified 06/06/18 07:16 Review of Systems ROS Statement: Except As Marked, All Systems Reviewed And Found Negative Physical Exam - Reviewed Nursing Documentation Reviewed: Yes Vital Signs Reviewed: Yes - Physical Exam Appears: Positive for: Well, Non-toxic, No Acute Distress Head Exam: Positive for: ATRAUMATIC, NORMAL INSPECTION, NORMOCEPHALIC Skin: Positive for: Normal Color Eye Exam: Positive for: Normal appearance ENT: Positive for: Normal ENT Inspection Cardiovascular/Chest: Positive for: Regular Rate, Rhythm Respiratory: Positive for: Normal Breath Sounds Gastrointestinal/Abdominal: Positive for: Normal Exam Back: Positive for: Normal Inspection Extremity: Positive for: Normal ROM Neurologic/Psych: Positive for: Alert, Oriented (x3) - ECG O2 Sat by Pulse Oximetry: 95 Disposition - Clinical Impression Clinical Impression: Malingering Counseled Patient/Family Regarding: Diagnosis, Need For Followup - Disposition Disposition: Routine/Home Disposition Time: 03:00 Condition: IMPROVED Instructions: General (DC)
[2018-06-07 06:50] VITALS: BP 120/73; PULSE 71; TEMP 98.4; O2SAT 99
== END 2018-06-07 05:05 | disposition home or self-care (01) ==
LOC: H.ER 20:09
DX: Z76.5 Malingerer [conscious simulation] (principal); Z86.59 Personal history of other mental and behavioral disorders; J44.9 Chronic obstructive pulmonary disease, unspecified

== ENCOUNTER 2018-06-07 21:00 | Emergency (ER) | payer MEDICAID ==
[2018-06-07 21:00] VITALS: BMI 23.1
[2018-06-07 21:53] VITALS: BP 145/74; PULSE 78; RESP 16; TEMP 97.8; O2SAT 98
--- NOTE | 2018-06-07 22:35 | ED PDOC ---
Lower Extremity Pain/Injury Time Seen by Provider: 06/07/18 21:55 Chief Complaint (Nursing): Lower Extremity Problem/Injury History Per: Patient History/Exam Limitations: no limitations Onset/Duration Of Symptoms: Days Current Symptoms Are (Timing): Still Present Severity: Mild Additional Complaint(s): Pt. is homeless with complaint of chronic bilateral feet pain from "being on his feet so much". He reports his feet often get cold additionally. Pt. well known to this ED for bed seeking behavior. Pt. denies any injury or new complaint. Past Medical History Reviewed: Historical Data, Nursing Documentation, Vital Signs Vital Signs: Last Vital Signs Temp 97.8 F 06/07/18 21:49 Pulse 78 06/07/18 21:49 Resp 16 06/07/18 21:49 BP 145/74 06/07/18 21:49 Pulse Ox 98 06/07/18 21:49 - Medical History PMH: Back Problems, COPD, Depression, Gastritis, Schizophrenia Denies: Chronic Kidney Disease - Surgical History Surgical History: No Surg Hx - Family History Family History: States: Unknown Family Hx - Home Medications Home Medications: Ambulatory Orders Medication Instructions Recorded Ranitidine HCl [Zantac] 1 tab PO BID #30 tablet 02/16/17 Dicyclomine [Bentyl] 20 mg PO BID PRN #30 tab 04/06/17 Ibuprofen [Motrin Tab] 600 mg PO Q8 PRN #60 tab 04/06/17 Tamsulosin [Flomax] 0.4 mg PO DAILY #10 cap 04/06/17 Famotidine [Pepcid] 20 mg PO Q12 #20 tab 04/12/17 Cyclobenzaprine [Cyclobenzaprine 10 mg PO TID PRN #15 tab 04/22/17 HCl] Acetaminophen [Tylenol 325mg tab] 650 mg PO TID #30 tab 05/01/17 Clotrimazole 1% [Lotrimin AF 1%] 10 applic TOP BID #1 bottle 05/02/17 Clotrimazole/Betamethasone 15 gm EXT BID #1 tube 05/18/17 [Lotrisone] Ibuprofen [Motrin] 600 mg PO Q6 PRN #15 tab 05/19/17 Oseltamivir Cap [Tamiflu] 75 mg PO BID #10 cap 07/08/17 Oseltamivir Phosphate [Tamiflu] 75 mg PO BID #10 capsule 07/10/17 Ciprofloxacin [Cipro] 500 mg PO BID 7 Days tab 07/12/17 Famotidine [Pepcid] 20 mg PO Q12 #20 tab 08/25/17 Acetaminophen [Tylenol] 650 mg PO QID PRN #30 capsule 11/05/17 traMADol [Ultram] 50 mg PO TID PRN #10 tab 11/05/17 Clotrimazole 1% Cream [Lotrimin 1%] 1 appful TP BID #1 tube 12/27/17 Butenafine HCl [Lotrimin Ultra] 0.5 gm TP BID #30 cream..g. 03/09/18 Clotrimazole 1% Cream [Lotrimin 1% 1 applic EXT BID #2 tube 06/06/18 CREAM] - Allergies Allergies/Adverse Reactions: Allergies Allergy/AdvReac Type Severity Reaction Status Date / Time No Known Allergies Allergy Verified 06/07/18 21:49 Physical Exam - Physical Exam Appears: Positive for: Well, Non-toxic Head Exam: Positive for: ATRAUMATIC Skin: Positive for: Normal Color Eye Exam: Positive for: Normal appearance Respiratory: Positive for: Normal Breath Sounds Extremity: Positive for: Normal ROM, Tenderness (mild tenderness to the plantar forefoot bilaterally, no erythema, no ecchymosis, no skin lestions. cap refill <2sec. toes warm mobile.) - ECG O2 Sat by Pulse Oximetry: 98 Medical Decision Making Medical Decision Making: Pt. well appearing, nontoxic, no evidence of frostbite or infectious process. pt. ambulating with steady gait. Disposition - Clinical Impression Clinical Impression: Chronic foot pain - Patient ED Disposition Is Patient to be Admitted: No - Disposition Disposition: Routine/Home Disposition Time: 22:44 Condition: STABLE Instructions: Metatarsalgia (DC)
== END 2018-06-08 00:13 | disposition home or self-care (01) ==
LOC: H.ER 21:00
DX: M79.673 Pain in unspecified foot (principal)

== ENCOUNTER 2018-06-08 06:53 | Emergency (ER) | payer MEDICAID ==
[2018-06-08 06:53] VITALS: BMI 23.1
--- NOTE | 2018-06-08 08:42 | ED PDOC ---
Lower Extremity Pain/Injury Time Seen by Provider: 06/08/18 07:06 Chief Complaint (Nursing): Lower Extremity Problem/Injury Chief Complaint (Provider): Lower Extremity Problem/Injury History Per: Patient History/Exam Limitations: no limitations Onset/Duration Of Symptoms: Days Current Symptoms Are (Timing): Still Present Additional Complaint(s): 58 y/o male presents to the ED complaining of bilateral foot pain. Patient is well known to ED provider and staff for bilateral foot pain and bed seeking behavior. Patient has been seen in this ED multiple times for same symptoms. PMD: no provider Past Medical History Reviewed: Historical Data, Nursing Documentation, Vital Signs Vital Signs: Last Vital Signs Temp 97.7 F 06/08/18 07:01 Pulse 70 06/08/18 07:01 Resp 17 06/08/18 07:01 BP 138/67 06/08/18 07:01 Pulse Ox 98 06/08/18 07:01 - Medical History PMH: Back Problems, COPD, Depression, Gastritis, Schizophrenia Denies: Chronic Kidney Disease - Surgical History Surgical History: No Surg Hx - Family History Family History: States: Unknown Family Hx - Living Arrangements Living Arrangements: Other (HOMELESS) - Home Medications Home Medications: Ambulatory Orders Medication Instructions Recorded Ranitidine HCl [Zantac] 1 tab PO BID #30 tablet 02/16/17 Dicyclomine [Bentyl] 20 mg PO BID PRN #30 tab 04/06/17 Ibuprofen [Motrin Tab] 600 mg PO Q8 PRN #60 tab 04/06/17 Tamsulosin [Flomax] 0.4 mg PO DAILY #10 cap 04/06/17 Famotidine [Pepcid] 20 mg PO Q12 #20 tab 04/12/17 Cyclobenzaprine [Cyclobenzaprine 10 mg PO TID PRN #15 tab 04/22/17 HCl] Acetaminophen [Tylenol 325mg tab] 650 mg PO TID #30 tab 05/01/17 Clotrimazole 1% [Lotrimin AF 1%] 10 applic TOP BID #1 bottle 05/02/17 Clotrimazole/Betamethasone 15 gm EXT BID #1 tube 05/18/17 [Lotrisone] Ibuprofen [Motrin] 600 mg PO Q6 PRN #15 tab 05/19/17 Oseltamivir Cap [Tamiflu] 75 mg PO BID #10 cap 07/08/17 Oseltamivir Phosphate [Tamiflu] 75 mg PO BID #10 capsule 07/10/17 Ciprofloxacin [Cipro] 500 mg PO BID 7 Days tab 07/12/17 Famotidine [Pepcid] 20 mg PO Q12 #20 tab 08/25/17 Acetaminophen [Tylenol] 650 mg PO QID PRN #30 capsule 11/05/17 traMADol [Ultram] 50 mg PO TID PRN #10 tab 11/05/17 Clotrimazole 1% Cream [Lotrimin 1%] 1 appful TP BID #1 tube 12/27/17 Butenafine HCl [Lotrimin Ultra] 0.5 gm TP BID #30 cream..g. 03/09/18 Clotrimazole 1% Cream [Lotrimin 1% 1 applic EXT BID #2 tube 06/06/18 CREAM] Ibuprofen [Motrin] 600 mg PO Q6H PRN #20 tab 06/08/18 Butenafine HCl [Lotrimin Ultra] 0.5 gm TP BID #30 cream..g. 06/10/18 - Allergies Allergies/Adverse Reactions: Allergies Allergy/AdvReac Type Severity Reaction Status Date / Time No Known Allergies Allergy Verified 06/11/18 08:36 Review of Systems ROS Statement: Except As Marked, All Systems Reviewed And Found Negative Musculoskeletal: Positive for: Foot Pain (BILATERAL) Physical Exam - Reviewed Nursing Documentation Reviewed: Yes Vital Signs Reviewed: Yes - Physical Exam Appears: Positive for: No Acute Distress Head Exam: Positive for: ATRAUMATIC Skin: Positive for: Normal Color, Warm, Dry Eye Exam: Positive for: Normal appearance, EOMI, PERRL Neck: Positive for: Normal, Painless ROM, Supple Cardiovascular/Chest: Positive for: Regular Rate, Rhythm. Negative for: Murmur Respiratory: Positive for: Normal Breath Sounds. Negative for: Respiratory Distress Gastrointestinal/Abdominal: Positive for: Normal Exam, Soft. Negative for: Tenderness Extremity: Positive for: Normal ROM. Negative for: Pedal Edema, Deformity Neurologic/Psych: Positive for: Alert, Oriented. Negative for: Motor/Sensory Deficits - ECG O2 Sat by Pulse Oximetry: 98 (RA) Pulse Ox Interpretation: Normal Medical Decision Making Medical Decision Making: Scribe Attestation: Documented by Teresa Mason, acting as a scribe for Maliha Hathaway MD. Provider Scribe Attestation: All medical record entries made by the Scribe were at my direction and personally dictated by me. I have reviewed the chart and agree that the record accurately reflects my personal performance of the history, physical exam, medical decision making, and the department course for this patient. I have also personally directed, reviewed, and agree with the discharge instructions and disposition. Disposition - Clinical Impression Clinical Impression: Chronic foot pain - Disposition Referrals: Podiatry Clinic [Outside] Disposition: Routine/Home Disposition Time: 12:09 Condition: STABLE Prescriptions: Ibuprofen [Motrin] 600 mg PO Q6H PRN #20 tab PRN Reason: Pain, Moderate (4-7) Instructions: Chronic Pain Forms: [facility] (Korean)
[2018-06-08 12:17] VITALS: BP 130/70; PULSE 79; RESP 18; TEMP 97.8
[2018-06-11 22:44] VITALS: O2SAT 98
== END 2018-06-08 12:35 | disposition home or self-care (01) ==
LOC: H.ER 06:53
DX: G89.29 Other chronic pain (principal)

== ENCOUNTER 2018-06-08 18:04 | Emergency (ER) | payer MEDICAID ==
[2018-06-08 18:05] VITALS: BMI 23.1
[2018-06-08 20:23] VITALS: RESP 18; O2SAT 98
--- NOTE | 2018-06-08 21:57 | ED PDOC ---
Lower Extremity Pain/Injury Time Seen by Provider: 06/08/18 20:29 Chief Complaint (Nursing): Lower Extremity Problem/Injury Chief Complaint (Provider): Bilateral Foot Pain History Per: Patient History/Exam Limitations: no limitations Onset/Duration Of Symptoms: Other (chronic) Current Symptoms Are (Timing): Still Present Additional Complaint(s): 58 year old homeless male well known to the ED for bed seeking behavior and has had frequent visits for his chronic foot pain, presents today for chronic bilateral foot pain and also reports feeling cold bc he was outside in the rain all day. His wet shoes were making his foot pain worse. Patient's feet pain is unchanged from his last visit. PMD: none provided Past Medical History Reviewed: Historical Data, Nursing Documentation, Vital Signs Vital Signs: Last Vital Signs Temp 98.1 F 06/08/18 20:21 Pulse 69 06/08/18 20:21 Resp 18 06/08/18 20:21 BP 133/70 06/08/18 20:21 Pulse Ox 98 06/08/18 20:21 - Medical History PMH: Back Problems, COPD, Depression, Gastritis, Schizophrenia, Chronic Pain (bilateral feet) Denies: Chronic Kidney Disease - Surgical History Surgical History: No Surg Hx - Family History Family History: States: Unknown Family Hx - Living Arrangements Living Arrangements: Other (homeless) - Home Medications Home Medications: Ambulatory Orders Medication Instructions Recorded Ranitidine HCl [Zantac] 1 tab PO BID #30 tablet 02/16/17 Dicyclomine [Bentyl] 20 mg PO BID PRN #30 tab 04/06/17 Ibuprofen [Motrin Tab] 600 mg PO Q8 PRN #60 tab 04/06/17 Tamsulosin [Flomax] 0.4 mg PO DAILY #10 cap 04/06/17 Famotidine [Pepcid] 20 mg PO Q12 #20 tab 04/12/17 Cyclobenzaprine [Cyclobenzaprine 10 mg PO TID PRN #15 tab 04/22/17 HCl] Acetaminophen [Tylenol 325mg tab] 650 mg PO TID #30 tab 05/01/17 Clotrimazole 1% [Lotrimin AF 1%] 10 applic TOP BID #1 bottle 05/02/17 Clotrimazole/Betamethasone 15 gm EXT BID #1 tube 05/18/17 [Lotrisone] Ibuprofen [Motrin] 600 mg PO Q6 PRN #15 tab 05/19/17 Oseltamivir Cap [Tamiflu] 75 mg PO BID #10 cap 07/08/17 Oseltamivir Phosphate [Tamiflu] 75 mg PO BID #10 capsule 07/10/17 Ciprofloxacin [Cipro] 500 mg PO BID 7 Days tab 07/12/17 Famotidine [Pepcid] 20 mg PO Q12 #20 tab 08/25/17 Acetaminophen [Tylenol] 650 mg PO QID PRN #30 capsule 11/05/17 traMADol [Ultram] 50 mg PO TID PRN #10 tab 11/05/17 Clotrimazole 1% Cream [Lotrimin 1%] 1 appful TP BID #1 tube 12/27/17 Butenafine HCl [Lotrimin Ultra] 0.5 gm TP BID #30 cream..g. 03/09/18 Clotrimazole 1% Cream [Lotrimin 1% 1 applic EXT BID #2 tube 06/06/18 CREAM] Ibuprofen [Motrin] 600 mg PO Q6H PRN #20 tab 06/08/18 - Allergies Allergies/Adverse Reactions: Allergies Allergy/AdvReac Type Severity Reaction Status Date / Time No Known Allergies Allergy Verified 06/08/18 20:21 Review of Systems ROS Statement: Except As Marked, All Systems Reviewed And Found Negative Musculoskeletal: Positive for: Foot Pain (bilateral) Physical Exam - Reviewed Nursing Documentation Reviewed: Yes Vital Signs Reviewed: Yes - Physical Exam Appears: Positive for: No Acute Distress Head Exam: Positive for: ATRAUMATIC, NORMOCEPHALIC Skin: Positive for: Normal Color, Warm Cardiovascular/Chest: Positive for: Regular Rate, Rhythm Respiratory: Positive for: Normal Breath Sounds. Negative for: Respiratory Distress Extremity: Positive for: Normal ROM (bilateral feet: no skin changes, no signs of infection.) - ECG O2 Sat by Pulse Oximetry: 98 (RA) Pulse Ox Interpretation: Normal Medical Decision Making Medical Decision Making: Time: 2034 Initial Impression: b/l chronic foot pain, homelessness Pt. ate/drank, sleeping, nontoxic. Scribe Attestation: Documented by Daysi Recinos, acting as a scribe for eHidi Georges PA-C. Provider Scribe Attestation: All medical record entries made by the Scribe were at my direction and personally dictated by me. I have reviewed the chart and agree that the record accurately reflects my personal performance of the history, physical exam, medical decision making, and the department course for this patient. I have also personally directed, reviewed, and agree with the discharge instructions and disposition. Disposition - Clinical Impression Clinical Impression: Chronic foot pain - Patient ED Disposition Is Patient to be Admitted: Transfer of Care (ELIZABETH Reynolds) - Disposition Disposition: Transfer of Care Disposition Time: 22:25 Condition: STABLE Forms: [employer] (Maltese) Patient Signed Over To: Krystina Saravia
--- NOTE | 2018-06-09 03:19 | ED PDOC ---
- ECG O2 Sat by Pulse Oximetry: 98 (RA) - Progress ED Course And Treament: Case endorsed to hand sign writer from José Manuel ARRIAGA pending re-eval On re-eval, patient states he is feeling better and would like to be discharged Patient requires no further intervention in the ED and is stable for discharge at this time Disposition - Clinical Impression Clinical Impression: Chronic foot pain - POA Present On Arrival: None - Disposition Disposition: Routine/Home Disposition Time: 03:17 Condition: IMPROVED
[2018-06-09 04:07] VITALS: BP 120/77; PULSE 72; TEMP 98.7
== END 2018-06-09 04:36 | disposition home or self-care (01) ==
LOC: H.ER 18:04
DX: G89.29 Other chronic pain (principal)

== ENCOUNTER 2018-06-09 22:00 | Emergency (ER) | payer MEDICAID ==
[2018-06-09 22:00] VITALS: BMI 23.1
--- NOTE | 2018-06-09 22:26 | ED PDOC ---
Lower Extremity Pain/Injury Time Seen by Provider: 06/09/18 22:14 Chief Complaint (Nursing): Lower Extremity Problem/Injury Chief Complaint (Provider): Chronic Pain, Homelessness History Per: Patient History/Exam Limitations: no limitations Additional Complaint(s): 58 year old non domiciled male well known to the ED for daily visits presents to the ED for evaluation of bilateral chronic foot pain and feeling cold from being outside. Patient was seen here yesterday twice for the same complaints. Symptoms unchanged from prior visits. 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 Denies fever/chills, calf pain, pedal edema, prolonged immobility. PMD: none provided Past Medical History Reviewed: Historical Data, Nursing Documentation, Vital Signs Vital Signs: Last Vital Signs Temp 98.2 F 06/09/18 22:07 Pulse 72 06/09/18 22:07 Resp 18 06/09/18 22:07 BP 151/66 H 06/09/18 22:07 Pulse Ox 99 06/09/18 22:07 - Medical History PMH: Back Problems, COPD, Depression, Gastritis, Schizophrenia, Chronic Pain (bilateral feet) - Family History Family History: States: Unknown Family Hx - Living Arrangements Living Arrangements: Other (homeless) - Home Medications Home Medications: Ambulatory Orders Medication Instructions Recorded Ranitidine HCl [Zantac] 1 tab PO BID #30 tablet 02/16/17 Dicyclomine [Bentyl] 20 mg PO BID PRN #30 tab 04/06/17 Ibuprofen [Motrin Tab] 600 mg PO Q8 PRN #60 tab 04/06/17 Tamsulosin [Flomax] 0.4 mg PO DAILY #10 cap 04/06/17 Famotidine [Pepcid] 20 mg PO Q12 #20 tab 04/12/17 Cyclobenzaprine [Cyclobenzaprine 10 mg PO TID PRN #15 tab 04/22/17 HCl] Acetaminophen [Tylenol 325mg tab] 650 mg PO TID #30 tab 05/01/17 Clotrimazole 1% [Lotrimin AF 1%] 10 applic TOP BID #1 bottle 05/02/17 Clotrimazole/Betamethasone 15 gm EXT BID #1 tube 05/18/17 [Lotrisone] Ibuprofen [Motrin] 600 mg PO Q6 PRN #15 tab 05/19/17 Oseltamivir Cap [Tamiflu] 75 mg PO BID #10 cap 07/08/17 Oseltamivir Phosphate [Tamiflu] 75 mg PO BID #10 capsule 07/10/17 Ciprofloxacin [Cipro] 500 mg PO BID 7 Days tab 07/12/17 Famotidine [Pepcid] 20 mg PO Q12 #20 tab 08/25/17 Acetaminophen [Tylenol] 650 mg PO QID PRN #30 capsule 11/05/17 traMADol [Ultram] 50 mg PO TID PRN #10 tab 11/05/17 Clotrimazole 1% Cream [Lotrimin 1%] 1 appful TP BID #1 tube 12/27/17 Butenafine HCl [Lotrimin Ultra] 0.5 gm TP BID #30 cream..g. 03/09/18 Clotrimazole 1% Cream [Lotrimin 1% 1 applic EXT BID #2 tube 06/06/18 CREAM] Ibuprofen [Motrin] 600 mg PO Q6H PRN #20 tab 06/08/18 - Allergies Allergies/Adverse Reactions: Allergies Allergy/AdvReac Type Severity Reaction Status Date / Time No Known Allergies Allergy Verified 06/09/18 22:07 Review of Systems ROS Statement: Except As Marked, All Systems Reviewed And Found Negative Constitutional: Positive for: Other (homelessness) Musculoskeletal: Positive for: Foot Pain (chronic, bilateral) Physical Exam - Reviewed Nursing Documentation Reviewed: Yes Vital Signs Reviewed: Yes - Physical Exam Comments: GENERAL APPEARANCE: Patient is awake, alert, oriented x 3, in no acute distress. SKIN: Warm, dry; (-) cyanosis. NECK: Supple, FROM CHEST AND RESPIRATORY: (-)wheezing; (-) rales, (-) rhonchi; breath sounds equal bilaterally. Respirations even and nonlabored. HEART AND CARDIOVASCULAR: (-) irregularity ABDOMEN AND GI: Soft; (-) tenderness. EXTREMITIES: FROM (-) deformity, (-) edema (-) erythema (+) sensation intact NEURO AND PSYCH: Mental status as above; (-) focal findings. Gait: steady. Speech: clear. (-) facial asymmetry - ECG O2 Sat by Pulse Oximetry: 99 (RA) Pulse Ox Interpretation: Normal Medical Decision Making Medical Decision Making: Time: 2224 Initial Impression: chronic foot pain, homelessness, cold exposure -Re-evaluation 2350 Patient sleeping comfortably. No distress noted. 0115 Patient sleeping comfortably. No distress noted. 0330 Patient sleeping comfortably. No distress noted. 0500 On re-evaluation, patient reports improvement of symptoms. On exam, patient remains AAOx3, in no acute distress. Vitals stable. Lab/Diagnostic results d/w the patient in great detail. Diagnosis of cold exposure, chronic foot pain, homelessness d/w the patient. Based on history, exam and diagnostic results, plan will be for outpatient follow up with clinic. Given information for warming shelters. Patient instructed to follow-up with pmd / referral provided / the clinic in 1- 2 days without fail. Return to the emergency room at any time for any new or worsening symptoms. Patient states he fully agrees with and understands discharge instructions. States that he agrees with the plan and disposition. Verbalized and repeated discharge instructions and plan. I have given the patient opportunity to ask any additional questions. Disposition - Clinical Impression Clinical Impression: Homelessness, Chronic foot pain - Patient ED Disposition Is Patient to be Admitted: No Counseled Patient/Family Regarding: Studies Performed, Diagnosis, Need For Followup - Disposition Referrals: Podiatry Clinic [Outside] [facility] [Outside] Disposition: Routine/Home Disposition Time: 05:00 Condition: STABLE Additional Instructions: The emergency medical care you received today was directed at your acute symptoms. If you were prescribed any medication, please fill it and take as directed. It may take several days for your symptoms to resolve. Return to the Emergency Department if your symptoms worsen, do not improve, or if you have any other problems. Please contact your doctor in 2 days for re-evaluation and follow up / or call one of the physicians/clinics you have been referred to that are listed on the Patient Visit Information form that is included in your discharge packet. Bring any paperwork you were given at discharge with you along with any medications you are taking to your follow up visit. Our treatment cannot replace ongoing medical care by a primary care provider (PCP) outside of the emergency department. Instructions: Chronic Pain Forms: [employer] (Yoruba) Print Language: ITALIAN - POA Present On Arrival: None
[2018-06-10 05:26] VITALS: BP 122/70; PULSE 86; RESP 16; TEMP 98.4; O2SAT 98
== END 2018-06-10 05:00 | disposition home or self-care (01) ==
LOC: H.ER 22:00
DX: G89.29 Other chronic pain (principal); Z59.0 Homelessness

== ENCOUNTER 2018-06-10 20:31 | Emergency (ER) | payer MEDICAID ==
[2018-06-10 20:31] VITALS: BMI 23.1
[2018-06-10 20:53] VITALS: BP 137/83; PULSE 70; RESP 18; TEMP 98.2; O2SAT 98
--- NOTE | 2018-06-10 21:14 | ED PDOC ---
Lower Extremity Pain/Injury Time Seen by Provider: 06/10/18 21:02 Chief Complaint (Nursing): Lower Extremity Problem/Injury Chief Complaint (Provider): Lower Extremity Problem/Injury History Per: Patient History/Exam Limitations: no limitations Onset/Duration Of Symptoms: Days (1x day) Current Symptoms Are (Timing): Still Present Severity: Moderate Additional Complaint(s): 58 year old undomiciled male well known to the ED and to provider presents to the ED for an evaluation of bilateral foot pain that started today. Patient reports experiencing a burning sensation at the base of his feet. Patient plans to follow up with podiatry in the next 3x days. Patient denies having fevers and chills. PMD: [facility] Past Medical History Reviewed: Historical Data, Nursing Documentation, Vital Signs Vital Signs: Last Vital Signs Temp 98.2 F 06/10/18 20:50 Pulse 70 06/10/18 20:50 Resp 18 06/10/18 20:50 BP 137/83 06/10/18 20:50 Pulse Ox 98 06/10/18 20:50 CHANTALE Report Viewed: Yes - Medical History PMH: Back Problems, COPD, Depression, Gastritis, Schizophrenia, Chronic Pain (bilateral feet) Denies: Chronic Kidney Disease - Surgical History Surgical History: No Surg Hx - Family History Family History: States: No Known Family Hx - Living Arrangements Living Arrangements: Other (homeless) - Social History Current smoker - smoking cessation education provided: Yes Alcohol: Other (yes) Drugs: Denies - Home Medications Home Medications: Ambulatory Orders Medication Instructions Recorded Ranitidine HCl [Zantac] 1 tab PO BID #30 tablet 02/16/17 Dicyclomine [Bentyl] 20 mg PO BID PRN #30 tab 04/06/17 Ibuprofen [Motrin Tab] 600 mg PO Q8 PRN #60 tab 04/06/17 Tamsulosin [Flomax] 0.4 mg PO DAILY #10 cap 04/06/17 Famotidine [Pepcid] 20 mg PO Q12 #20 tab 04/12/17 Cyclobenzaprine [Cyclobenzaprine 10 mg PO TID PRN #15 tab 04/22/17 HCl] Acetaminophen [Tylenol 325mg tab] 650 mg PO TID #30 tab 05/01/17 Clotrimazole 1% [Lotrimin AF 1%] 10 applic TOP BID #1 bottle 05/02/17 Clotrimazole/Betamethasone 15 gm EXT BID #1 tube 05/18/17 [Lotrisone] Ibuprofen [Motrin] 600 mg PO Q6 PRN #15 tab 05/19/17 Oseltamivir Cap [Tamiflu] 75 mg PO BID #10 cap 07/08/17 Oseltamivir Phosphate [Tamiflu] 75 mg PO BID #10 capsule 07/10/17 Ciprofloxacin [Cipro] 500 mg PO BID 7 Days tab 07/12/17 Famotidine [Pepcid] 20 mg PO Q12 #20 tab 08/25/17 Acetaminophen [Tylenol] 650 mg PO QID PRN #30 capsule 11/05/17 traMADol [Ultram] 50 mg PO TID PRN #10 tab 11/05/17 Clotrimazole 1% Cream [Lotrimin 1%] 1 appful TP BID #1 tube 12/27/17 Butenafine HCl [Lotrimin Ultra] 0.5 gm TP BID #30 cream..g. 03/09/18 Clotrimazole 1% Cream [Lotrimin 1% 1 applic EXT BID #2 tube 06/06/18 CREAM] Ibuprofen [Motrin] 600 mg PO Q6H PRN #20 tab 06/08/18 Butenafine HCl [Lotrimin Ultra] 0.5 gm TP BID #30 cream..g. 06/10/18 - Allergies Allergies/Adverse Reactions: Allergies Allergy/AdvReac Type Severity Reaction Status Date / Time No Known Allergies Allergy Verified 06/09/18 22:07 Review of Systems ROS Statement: Except As Marked, All Systems Reviewed And Found Negative Constitutional: Negative for: Fever, Chills Musculoskeletal: Positive for: Foot Pain (bilateral, burning at bases of feet) Physical Exam - Reviewed Nursing Documentation Reviewed: Yes Vital Signs Reviewed: Yes - Physical Exam Appears: Positive for: Well, Non-toxic, No Acute Distress Head Exam: Positive for: ATRAUMATIC, NORMOCEPHALIC Skin: Positive for: Normal Color, Warm, Dry Pulses-Dorsalis Pedis (L): 2+ Pulses-Dorsalis Pedis (R): 2+ Pulses-Post. Tibialis (L): 2+ Pulses-Post. Tibialis (R): 2+ Extremity: Positive for: Other (toenails noted with onychomysosis. scathing of skin at base of plantar surface (bilaterally). (-) erythema, (-) cellulitis, (-) signs of infection) Neurologic/Psych: Positive for: Alert, Oriented (3x) - ECG O2 Sat by Pulse Oximetry: 98 (RA) Pulse Ox Interpretation: Normal Medical Decision Making Medical Decision Makin:02 Initial impression: 58 year old male with bilateral foot pain Initial plan: * lotrimin 1% cream 1 applic top * reevaluation Scribe Attestation: Documented by Flor Andres, acting as a scribe for Ara Donato PA-C. Provider Scribe Attestation: All medical record entries made by the Scribe were at my direction and personally dictated by me. I have reviewed the chart and agree that the record accurately reflects my personal performance of the history, physical exam, medical decision making, and the department course for this patient. I have also personally directed, reviewed, and agree with the discharge instructions and disposition. Disposition - Clinical Impression Clinical Impression: Tinea pedis - Patient ED Disposition Is Patient to be Admitted: No - Disposition Disposition: Routine/Home Disposition Time: 21:31 Condition: FAIR Prescriptions: Butenafine HCl [Lotrimin Ultra] 0.5 gm TP BID #30 cream..g. Instructions: Athlete's Foot (DC)
== END 2018-06-10 22:53 | disposition home or self-care (01) ==
LOC: H.ER 20:31
DX: B35.3 Tinea pedis (principal)

== ENCOUNTER 2018-06-11 08:08 | Emergency (ER) | payer MEDICAID ==
[2018-06-11 08:12] VITALS: BMI 22.4
[2018-06-11 08:14] VITALS: BP 148/80; PULSE 76; RESP 18; TEMP 97.3; O2SAT 96
--- NOTE | 2018-06-11 11:46 | ED PDOC ---
Lower Extremity Pain/Injury Time Seen by Provider: 06/11/18 08:31 Chief Complaint (Nursing): Lower Extremity Problem/Injury Chief Complaint (Provider): Lower Extremity Problem/Injury History Per: Patient History/Exam Limitations: no limitations Additional Complaint(s): 58 y/o homeless male presents to ER for evaluation of foot pain from walking on his feet. Patient is well known to ER for bed seeking behavior. He has no other complaints at this time. PMD: non provided Past Medical History Reviewed: Historical Data, Nursing Documentation, Vital Signs Vital Signs: Last Vital Signs Temp 97.3 F L 06/11/18 08:12 Pulse 76 06/11/18 08:12 Resp 18 06/11/18 08:12 BP 148/80 06/11/18 08:12 Pulse Ox 96 06/11/18 08:12 - Medical History PMH: Back Problems, COPD, Depression, Gastritis, Schizophrenia, Chronic Pain (bilateral feet) Denies: Chronic Kidney Disease - Surgical History Surgical History: No Surg Hx - Family History Family History: States: Unknown Family Hx - Social History Current smoker - smoking cessation education provided: Yes Alcohol: Social Drugs: Denies - Home Medications Home Medications: Ambulatory Orders Medication Instructions Recorded Ranitidine HCl [Zantac] 1 tab PO BID #30 tablet 02/16/17 Dicyclomine [Bentyl] 20 mg PO BID PRN #30 tab 04/06/17 Ibuprofen [Motrin Tab] 600 mg PO Q8 PRN #60 tab 04/06/17 Tamsulosin [Flomax] 0.4 mg PO DAILY #10 cap 04/06/17 Famotidine [Pepcid] 20 mg PO Q12 #20 tab 04/12/17 Cyclobenzaprine [Cyclobenzaprine 10 mg PO TID PRN #15 tab 04/22/17 HCl] Acetaminophen [Tylenol 325mg tab] 650 mg PO TID #30 tab 05/01/17 Clotrimazole 1% [Lotrimin AF 1%] 10 applic TOP BID #1 bottle 05/02/17 Clotrimazole/Betamethasone 15 gm EXT BID #1 tube 05/18/17 [Lotrisone] Ibuprofen [Motrin] 600 mg PO Q6 PRN #15 tab 05/19/17 Oseltamivir Cap [Tamiflu] 75 mg PO BID #10 cap 07/08/17 Oseltamivir Phosphate [Tamiflu] 75 mg PO BID #10 capsule 07/10/17 Ciprofloxacin [Cipro] 500 mg PO BID 7 Days tab 07/12/17 Famotidine [Pepcid] 20 mg PO Q12 #20 tab 08/25/17 Acetaminophen [Tylenol] 650 mg PO QID PRN #30 capsule 11/05/17 traMADol [Ultram] 50 mg PO TID PRN #10 tab 11/05/17 Clotrimazole 1% Cream [Lotrimin 1%] 1 appful TP BID #1 tube 12/27/17 Butenafine HCl [Lotrimin Ultra] 0.5 gm TP BID #30 cream..g. 03/09/18 Clotrimazole 1% Cream [Lotrimin 1% 1 applic EXT BID #2 tube 06/06/18 CREAM] Ibuprofen [Motrin] 600 mg PO Q6H PRN #20 tab 06/08/18 Butenafine HCl [Lotrimin Ultra] 0.5 gm TP BID #30 cream..g. 06/10/18 - Allergies Allergies/Adverse Reactions: Allergies Allergy/AdvReac Type Severity Reaction Status Date / Time No Known Allergies Allergy Verified 06/11/18 08:36 Review of Systems ROS Statement: Except As Marked, All Systems Reviewed And Found Negative Musculoskeletal: Positive for: Foot Pain (bilateral) Physical Exam - Reviewed Nursing Documentation Reviewed: Yes Vital Signs Reviewed: Yes - Physical Exam Appears: Positive for: Well, No Acute Distress Extremity: Positive for: Normal ROM, Other (Poor foot care. No erythema) Neurologic/Psych: Positive for: Alert, Oriented (x3) - ECG O2 Sat by Pulse Oximetry: 96 (RA) Pulse Ox Interpretation: Normal Medical Decision Making Medical Decision Making: Time: 1030 A/P: 58 y/o homeless male with bed seeking behavior Scribe Attestation: Documented by Rosemarie Da Silva, acting as a scribe for Yevgeniy Morris MD. Provider Scribe Attestation: All medical record entries made by the Scribe were at my direction and personally dictated by me. I have reviewed the chart and agree that the record accurately reflects my personal performance of the history, physical exam, medical decision making, and the department course for this patient. I have also personally directed, reviewed, and agree with the discharge instructions and disposition. Disposition - Clinical Impression Clinical Impression: Foot pain, bilateral, Homelessness - Patient ED Disposition Is Patient to be Admitted: No - Disposition Disposition: Routine/Home Disposition Time: 13:15 Condition: STABLE Instructions: Muscle and Bone Pain (DC) Forms: [facility] (Yi)
== END 2018-06-11 13:15 | disposition home or self-care (01) ==
LOC: H.ER 08:08
DX: M79.672 Pain in left foot (principal); M79.671 Pain in right foot; Z59.0 Homelessness; F17.200 Nicotine dependence, unspecified, uncomplicated; Z86.59 Personal history of other mental and behavioral disorders; G89.29 Other chronic pain; J44.9 Chronic obstructive pulmonary disease, unspecified

== ENCOUNTER 2018-06-11 19:46 | Emergency (ER) | payer MEDICAID ==
[2018-06-11 19:46] VITALS: BMI 22.4
--- NOTE | 2018-06-11 20:27 | ED PDOC ---
Lower Extremity Pain/Injury Time Seen by Provider: 06/11/18 19:50 Chief Complaint (Nursing): Lower Extremity Problem/Injury Chief Complaint (Provider): Bilateral Feet Pain History Per: Patient History/Exam Limitations: no limitations Onset/Duration Of Symptoms: Days Current Symptoms Are (Timing): Still Present Additional Complaint(s): 58 year old undomiciled male presents to the ED for an evaluation of chronic bilateral feet pain. Patient is a frequent ED visitor and reports he is wet from the rain currently. He states he takes Lotrimin. Otherwise, patient denies any other complaints. Past Medical History Reviewed: Historical Data, Nursing Documentation, Vital Signs Vital Signs: Last Vital Signs Temp 98.0 F 06/11/18 19:47 Pulse 83 06/11/18 19:47 Resp 16 06/11/18 19:47 BP 135/79 06/11/18 19:47 Pulse Ox 97 06/11/18 19:47 - Medical History PMH: Back Problems, COPD, Depression, Gastritis, Schizophrenia, Chronic Pain (bilateral feet) Denies: Chronic Kidney Disease - Family History Family History: States: Unknown Family Hx - Home Medications Home Medications: Ambulatory Orders Medication Instructions Recorded Ranitidine HCl [Zantac] 1 tab PO BID #30 tablet 02/16/17 Dicyclomine [Bentyl] 20 mg PO BID PRN #30 tab 04/06/17 Ibuprofen [Motrin Tab] 600 mg PO Q8 PRN #60 tab 04/06/17 Tamsulosin [Flomax] 0.4 mg PO DAILY #10 cap 04/06/17 Famotidine [Pepcid] 20 mg PO Q12 #20 tab 04/12/17 Cyclobenzaprine [Cyclobenzaprine 10 mg PO TID PRN #15 tab 04/22/17 HCl] Acetaminophen [Tylenol 325mg tab] 650 mg PO TID #30 tab 05/01/17 Clotrimazole 1% [Lotrimin AF 1%] 10 applic TOP BID #1 bottle 05/02/17 Clotrimazole/Betamethasone 15 gm EXT BID #1 tube 05/18/17 [Lotrisone] Ibuprofen [Motrin] 600 mg PO Q6 PRN #15 tab 05/19/17 Oseltamivir Cap [Tamiflu] 75 mg PO BID #10 cap 07/08/17 Oseltamivir Phosphate [Tamiflu] 75 mg PO BID #10 capsule 07/10/17 Ciprofloxacin [Cipro] 500 mg PO BID 7 Days tab 07/12/17 Famotidine [Pepcid] 20 mg PO Q12 #20 tab 08/25/17 Acetaminophen [Tylenol] 650 mg PO QID PRN #30 capsule 11/05/17 traMADol [Ultram] 50 mg PO TID PRN #10 tab 11/05/17 Clotrimazole 1% Cream [Lotrimin 1%] 1 appful TP BID #1 tube 12/27/17 Butenafine HCl [Lotrimin Ultra] 0.5 gm TP BID #30 cream..g. 03/09/18 Clotrimazole 1% Cream [Lotrimin 1% 1 applic EXT BID #2 tube 06/06/18 CREAM] Ibuprofen [Motrin] 600 mg PO Q6H PRN #20 tab 06/08/18 Butenafine HCl [Lotrimin Ultra] 0.5 gm TP BID #30 cream..g. 06/10/18 - Allergies Allergies/Adverse Reactions: Allergies Allergy/AdvReac Type Severity Reaction Status Date / Time No Known Allergies Allergy Verified 06/11/18 08:36 Review of Systems ROS Statement: Except As Marked, All Systems Reviewed And Found Negative Constitutional: Negative for: Fever, Chills Respiratory: Negative for: Cough, Shortness of Breath Gastrointestinal: Negative for: Abdominal Pain Musculoskeletal: Positive for: Foot Pain (bilateral chronic) Skin: Negative for: Rash Physical Exam - Reviewed Nursing Documentation Reviewed: Yes Vital Signs Reviewed: Yes - Physical Exam Appears: Positive for: Non-toxic, No Acute Distress Head Exam: Positive for: ATRAUMATIC, NORMAL INSPECTION, NORMOCEPHALIC Skin: Positive for: Normal Color, Warm, Dry. Negative for: Rash Eye Exam: Positive for: Normal appearance Extremity: Positive for: Normal ROM, Other (undergoing onychomycosis treatment, no sign of ulcer) Neurologic/Psych: Positive for: Alert, Oriented (x3). Negative for: Motor/Sens ory Deficits - ECG O2 Sat by Pulse Oximetry: 97 (RA) Pulse Ox Interpretation: Normal Medical Decision Making Medical Decision Making: Time: 1949 ------- Scribe Attestation: Documented by Angella Robertson, acting as a scribe for Ara Donato PA-C. Provider Scribe Attestation: All medical record entries made by the Scribe were at my direction and personally dictated by me. I have reviewed the chart and agree that the record accurately reflects my personal performance of the history, physical exam, medical decision making, and the department course for this patient. I have also personally directed, reviewed, and agree with the discharge instructions and disposition. Disposition - Clinical Impression Clinical Impression: Foot pain, bilateral - Patient ED Disposition Is Patient to be Admitted: No - Disposition Disposition: Routine/Home Disposition Time: 20:00 Condition: FAIR Instructions: Athlete's Foot
[2018-06-12 00:11] VITALS: BP 122/60; PULSE 78; RESP 18; TEMP 98; O2SAT 100
== END 2018-06-12 00:10 | disposition home or self-care (01) ==
LOC: H.ER 19:46
DX: M79.672 Pain in left foot (principal); M79.671 Pain in right foot; Z86.59 Personal history of other mental and behavioral disorders; G89.29 Other chronic pain; J44.9 Chronic obstructive pulmonary disease, unspecified

== ENCOUNTER 2018-06-12 16:13 | Emergency (ER) | payer MEDICAID ==
[2018-06-12 16:14] VITALS: BMI 22.4
[2018-06-12 16:37] VITALS: TEMP 98.5; O2SAT 99
--- NOTE | 2018-06-12 17:14 | ED PDOC ---
Lower Extremity Pain/Injury Time Seen by Provider: 06/12/18 17:10 Chief Complaint (Nursing): Lower Extremity Problem/Injury Chief Complaint (Provider): Homelessness History Per: Patient History/Exam Limitations: no limitations Additional Complaint(s): 58 year old male well known to the ED for multiple daily visits for malingering presents today saying the shelters are full and he has no where to go and his feet hurt. Denies changes in foot pain from previous visits. PMD: none provided Past Medical History Reviewed: Historical Data, Nursing Documentation, Vital Signs Vital Signs: Last Vital Signs Temp 98.5 F 06/12/18 16:34 Pulse Resp 18 06/12/18 16:34 BP Pulse Ox 99 06/12/18 16:34 - Medical History PMH: Back Problems, COPD, Depression, Gastritis, Schizophrenia, Chronic Pain (bilateral feet) Denies: Chronic Kidney Disease - Family History Family History: States: Unknown Family Hx - Living Arrangements Living Arrangements: Other (homeless) - Home Medications Home Medications: Ambulatory Orders Medication Instructions Recorded Ranitidine HCl [Zantac] 1 tab PO BID #30 tablet 02/16/17 Dicyclomine [Bentyl] 20 mg PO BID PRN #30 tab 04/06/17 Ibuprofen [Motrin Tab] 600 mg PO Q8 PRN #60 tab 04/06/17 Tamsulosin [Flomax] 0.4 mg PO DAILY #10 cap 04/06/17 Famotidine [Pepcid] 20 mg PO Q12 #20 tab 04/12/17 Cyclobenzaprine [Cyclobenzaprine 10 mg PO TID PRN #15 tab 04/22/17 HCl] Acetaminophen [Tylenol 325mg tab] 650 mg PO TID #30 tab 05/01/17 Clotrimazole 1% [Lotrimin AF 1%] 10 applic TOP BID #1 bottle 05/02/17 Clotrimazole/Betamethasone 15 gm EXT BID #1 tube 05/18/17 [Lotrisone] Ibuprofen [Motrin] 600 mg PO Q6 PRN #15 tab 05/19/17 Oseltamivir Cap [Tamiflu] 75 mg PO BID #10 cap 07/08/17 Oseltamivir Phosphate [Tamiflu] 75 mg PO BID #10 capsule 07/10/17 Ciprofloxacin [Cipro] 500 mg PO BID 7 Days tab 07/12/17 Famotidine [Pepcid] 20 mg PO Q12 #20 tab 08/25/17 Acetaminophen [Tylenol] 650 mg PO QID PRN #30 capsule 11/05/17 traMADol [Ultram] 50 mg PO TID PRN #10 tab 11/05/17 Clotrimazole 1% Cream [Lotrimin 1%] 1 appful TP BID #1 tube 12/27/17 Butenafine HCl [Lotrimin Ultra] 0.5 gm TP BID #30 cream..g. 03/09/18 Clotrimazole 1% Cream [Lotrimin 1% 1 applic EXT BID #2 tube 06/06/18 CREAM] Ibuprofen [Motrin] 600 mg PO Q6H PRN #20 tab 06/08/18 Butenafine HCl [Lotrimin Ultra] 0.5 gm TP BID #30 cream..g. 06/10/18 - Allergies Allergies/Adverse Reactions: Allergies Allergy/AdvReac Type Severity Reaction Status Date / Time No Known Allergies Allergy Verified 06/11/18 08:36 Review of Systems ROS Statement: Except As Marked, All Systems Reviewed And Found Negative Musculoskeletal: Positive for: Foot Pain (bilateral, unchanged from multiple previous visits) Physical Exam - Reviewed Nursing Documentation Reviewed: Yes Vital Signs Reviewed: Yes - Physical Exam Appears: Positive for: Well, Non-toxic, No Acute Distress Head Exam: Positive for: ATRAUMATIC, NORMAL INSPECTION Skin: Positive for: Normal Color Eye Exam: Positive for: Normal appearance Neck: Positive for: Normal, Painless ROM, Supple. Negative for: Decreased ROM Cardiovascular/Chest: Positive for: Regular Rate, Rhythm Respiratory: Positive for: Normal Breath Sounds. Negative for: Crackles, Rales, Rhonchi, Stridor, Wheezing, Respiratory Distress Extremity: Positive for: Normal ROM (bilateral feet) Neurologic/Psych: Positive for: Alert, Oriented (x3) - ECG O2 Sat by Pulse Oximetry: 99 (RA) Pulse Ox Interpretation: Normal Medical Decision Making Medical Decision Making: Time: 1709 Initial Impression: homelessness Initial Plan: --Patient stable for discharge. No emergency care is required at this time, as this is patient's fourth visit in the past two days for the same complaint. Pt is exhibiting bed-seeking behavior Scribe Attestation: Documented by Daysi Recinos, acting as a scribe for Tony Peterson PA-C. Provider Scribe Attestation: All medical record entries made by the Scribe were at my direction and personally dictated by me. I have reviewed the chart and agree that the record accurately reflects my personal performance of the history, physical exam, medical decision making, and the department course for this patient. I have also personally directed, reviewed, and agree with the discharge instructions and disposition. Disposition - Clinical Impression Clinical Impression: Homeless - Patient ED Disposition Is Patient to be Admitted: No Counseled Patient/Family Regarding: Studies Performed, Diagnosis, Need For Followup - Disposition Disposition: Routine/Home Disposition Time: 17:15 Condition: STABLE Forms: [facility] (Romanian)
[2018-06-12 22:02] VITALS: BP 134/68; PULSE 88; RESP 16
== END 2018-06-12 18:30 | disposition home or self-care (01) ==
LOC: H.ER 16:13
DX: G89.29 Other chronic pain (principal); Z59.0 Homelessness

== ENCOUNTER 2018-06-13 07:28 | Emergency (ER) | payer MEDICAID ==
[2018-06-13 07:28] VITALS: BMI 22.4
[2018-06-13 07:34] VITALS: BP 136/67; PULSE 68; RESP 20; TEMP 97.5; O2SAT 95
--- NOTE | 2018-06-13 07:57 | ED PDOC ---
Lower Extremity Pain/Injury Time Seen by Provider: 06/13/18 07:38 Chief Complaint (Nursing): Lower Extremity Problem/Injury Chief Complaint (Provider): Bilateral Feet Blistering History Per: Patient History/Exam Limitations: no limitations Current Symptoms Are (Timing): Still Present Additional Complaint(s): 58 year old homeless man well known to the ED for his frequent daily visits presents today for evaluation of blistering to both his feet from walking in wet shoes. He offers no other complaints. PMD: none provided Past Medical History Reviewed: Historical Data, Nursing Documentation, Vital Signs Vital Signs: Last Vital Signs Temp 97.5 F L 06/13/18 07:33 Pulse 68 06/13/18 07:33 Resp 20 06/13/18 07:33 BP 136/67 06/13/18 07:33 Pulse Ox 95 06/13/18 07:33 - Medical History PMH: Back Problems, COPD, Depression, Gastritis, Schizophrenia, Chronic Pain (bilateral feet) Denies: Chronic Kidney Disease - Family History Family History: States: Unknown Family Hx - Home Medications Home Medications: Ambulatory Orders Medication Instructions Recorded Ranitidine HCl [Zantac] 1 tab PO BID #30 tablet 02/16/17 Dicyclomine [Bentyl] 20 mg PO BID PRN #30 tab 04/06/17 Ibuprofen [Motrin Tab] 600 mg PO Q8 PRN #60 tab 04/06/17 Tamsulosin [Flomax] 0.4 mg PO DAILY #10 cap 04/06/17 Famotidine [Pepcid] 20 mg PO Q12 #20 tab 04/12/17 Cyclobenzaprine [Cyclobenzaprine 10 mg PO TID PRN #15 tab 04/22/17 HCl] Acetaminophen [Tylenol 325mg tab] 650 mg PO TID #30 tab 05/01/17 Clotrimazole 1% [Lotrimin AF 1%] 10 applic TOP BID #1 bottle 05/02/17 Clotrimazole/Betamethasone 15 gm EXT BID #1 tube 05/18/17 [Lotrisone] Ibuprofen [Motrin] 600 mg PO Q6 PRN #15 tab 05/19/17 Oseltamivir Cap [Tamiflu] 75 mg PO BID #10 cap 07/08/17 Oseltamivir Phosphate [Tamiflu] 75 mg PO BID #10 capsule 07/10/17 Ciprofloxacin [Cipro] 500 mg PO BID 7 Days tab 07/12/17 Famotidine [Pepcid] 20 mg PO Q12 #20 tab 08/25/17 Acetaminophen [Tylenol] 650 mg PO QID PRN #30 capsule 11/05/17 traMADol [Ultram] 50 mg PO TID PRN #10 tab 11/05/17 Clotrimazole 1% Cream [Lotrimin 1%] 1 appful TP BID #1 tube 12/27/17 Butenafine HCl [Lotrimin Ultra] 0.5 gm TP BID #30 cream..g. 03/09/18 Clotrimazole 1% Cream [Lotrimin 1% 1 applic EXT BID #2 tube 06/06/18 CREAM] Ibuprofen [Motrin] 600 mg PO Q6H PRN #20 tab 06/08/18 Butenafine HCl [Lotrimin Ultra] 0.5 gm TP BID #30 cream..g. 06/10/18 - Allergies Allergies/Adverse Reactions: Allergies Allergy/AdvReac Type Severity Reaction Status Date / Time No Known Allergies Allergy Verified 06/11/18 08:36 Review of Systems ROS Statement: Except As Marked, All Systems Reviewed And Found Negative Skin: Positive for: Other (blisters to bilateral feet) Physical Exam - Reviewed Nursing Documentation Reviewed: Yes Vital Signs Reviewed: Yes - Physical Exam Appears: Positive for: No Acute Distress Head Exam: Positive for: ATRAUMATIC, NORMOCEPHALIC Eye Exam: Positive for: Normal appearance Cardiovascular/Chest: Positive for: Regular Rate, Rhythm Respiratory: Positive for: Normal Breath Sounds. Negative for: Respiratory Distress Extremity: Positive for: Normal ROM (of bilateral LE), Other (bilateral feet: erythematous, with interdigital blisters but no drainage) - ECG O2 Sat by Pulse Oximetry: 95 (RA) Pulse Ox Interpretation: Normal Medical Decision Making Medical Decision Making: Time: 075 Initial Impression: feet consistent with athletes foot secondary to wet shoes; will treat for tinea pedis Initial Plan: --Nizoral 1 applic TOP Scribe Attestation: Documented by Daysi Recinos, acting as a scribe for Tr Liao MD. Provider Scribe Attestation: All medical record entries made by the Scribe were at my direction and personally dictated by me. I have reviewed the chart and agree that the record accurately reflects my personal performance of the history, physical exam, medical decision making, and the department course for this patient. I have also personally directed, reviewed, and agree with the discharge instructions and disposition. Disposition - Clinical Impression Clinical Impression: Tinea pedis - Patient ED Disposition Is Patient to be Admitted: No Counseled Patient/Family Regarding: Diagnosis, Need For Followup - Disposition Referrals: Podiatry Clinic [Outside] Disposition: Routine/Home Disposition Time: 08:21 Condition: FAIR Instructions: Athlete's Foot Forms: [employer] (Maldivian)
== END 2018-06-13 09:05 | disposition home or self-care (01) ==
LOC: H.ER 07:28
DX: B35.3 Tinea pedis (principal)

== ENCOUNTER 2018-06-18 07:10 | Emergency (ER) | payer MEDICAID ==
[2018-06-18 07:11] VITALS: BMI 22.4
[2018-06-18 07:37] VITALS: O2SAT 98
--- NOTE | 2018-06-18 08:26 | ED PDOC ---
Lower Extremity Pain/Injury Time Seen by Provider: 06/18/18 07:38 Chief Complaint (Nursing): Lower Extremity Problem/Injury Chief Complaint (Provider): Lower Extremity Problem/Injury History Per: Patient History/Exam Limitations: no limitations Onset/Duration Of Symptoms: Days (x1) Current Symptoms Are (Timing): Still Present Additional Complaint(s): 58 year old male, well known to this ED for multiple visits, presents with chronic bilateral foot pain. Patient reports that his feet got wet and is now requesting new socks. Otherwise offers no complaints. PMD: none provided Past Medical History Reviewed: Historical Data, Nursing Documentation, Vital Signs Vital Signs: Last Vital Signs Temp Pulse Resp BP Pulse Ox 98 06/18/18 07:35 - Medical History PMH: Back Problems, COPD, Depression, Gastritis, Schizophrenia, Chronic Pain (bilateral feet) Denies: Chronic Kidney Disease - Surgical History Surgical History: No Surg Hx - Family History Family History: States: Unknown Family Hx - Home Medications Home Medications: Ambulatory Orders Medication Instructions Recorded Ranitidine HCl [Zantac] 1 tab PO BID #30 tablet 02/16/17 Dicyclomine [Bentyl] 20 mg PO BID PRN #30 tab 04/06/17 Ibuprofen [Motrin Tab] 600 mg PO Q8 PRN #60 tab 04/06/17 Tamsulosin [Flomax] 0.4 mg PO DAILY #10 cap 04/06/17 Famotidine [Pepcid] 20 mg PO Q12 #20 tab 04/12/17 Cyclobenzaprine [Cyclobenzaprine 10 mg PO TID PRN #15 tab 04/22/17 HCl] Acetaminophen [Tylenol 325mg tab] 650 mg PO TID #30 tab 05/01/17 Clotrimazole 1% [Lotrimin AF 1%] 10 applic TOP BID #1 bottle 05/02/17 Clotrimazole/Betamethasone 15 gm EXT BID #1 tube 05/18/17 [Lotrisone] Ibuprofen [Motrin] 600 mg PO Q6 PRN #15 tab 05/19/17 Oseltamivir Cap [Tamiflu] 75 mg PO BID #10 cap 07/08/17 Oseltamivir Phosphate [Tamiflu] 75 mg PO BID #10 capsule 07/10/17 Ciprofloxacin [Cipro] 500 mg PO BID 7 Days tab 01/31/18 Famotidine [Pepcid] 20 mg PO Q12 #20 tab 08/25/17 Acetaminophen [Tylenol] 650 mg PO QID PRN #30 capsule 11/05/17 traMADol [Ultram] 50 mg PO TID PRN #10 tab 11/05/17 Clotrimazole 1% Cream [Lotrimin 1%] 1 appful TP BID #1 tube 12/27/17 Butenafine HCl [Lotrimin Ultra] 0.5 gm TP BID #30 cream..g. 03/09/18 Clotrimazole 1% Cream [Lotrimin 1% 1 applic EXT BID #2 tube 06/06/18 CREAM] Ibuprofen [Motrin] 600 mg PO Q6H PRN #20 tab 06/08/18 Butenafine HCl [Lotrimin Ultra] 0.5 gm TP BID #30 cream..g. 06/10/18 - Allergies Allergies/Adverse Reactions: Allergies Allergy/AdvReac Type Severity Reaction Status Date / Time No Known Allergies Allergy Verified 06/18/18 07:35 Review of Systems ROS Statement: Except As Marked, All Systems Reviewed And Found Negative Musculoskeletal: Positive for: Foot Pain (chronic bilateral foot pain) Physical Exam - Reviewed Nursing Documentation Reviewed: Yes Vital Signs Reviewed: Yes - Physical Exam Appears: Positive for: No Acute Distress Head Exam: Positive for: ATRAUMATIC Skin: Positive for: Normal Color, Warm, Dry Eye Exam: Positive for: Normal appearance Pulses-Dorsalis Pedis (L): 2+ Pulses-Dorsalis Pedis (R): 2+ Extremity: Positive for: Normal ROM (x 4), Other (no acute changes, erythema, edema, ecchymosis and lesions). Negative for: Calf Tenderness, Deformity, Swelling Neurologic/Psych: Positive for: Alert, Oriented. Negative for: Motor/Sensory Deficits - ECG O2 Sat by Pulse Oximetry: 98 (RA) Pulse Ox Interpretation: Normal Disposition - Clinical Impression Clinical Impression: Chronic foot pain - Disposition Referrals: Podiatry Clinic [Outside] Condition: STABLE Instructions: Chronic Pain (DC) Forms: [employer] (Nicaraguan)
[2018-06-18 10:26] VITALS: BP 155/90; PULSE 66; RESP 18; TEMP 97.2
== END 2018-06-18 10:18 | disposition home or self-care (01) ==
LOC: H.ER 07:10
DX: M79.672 Pain in left foot (principal); M79.671 Pain in right foot; Z86.59 Personal history of other mental and behavioral disorders; G89.29 Other chronic pain; J44.9 Chronic obstructive pulmonary disease, unspecified

== ENCOUNTER 2018-06-18 20:38 | Emergency (ER) | payer MEDICAID ==
[2018-06-18 20:38] VITALS: BMI 22.4
[2018-06-18 21:35] VITALS: BP 130/78; PULSE 70; RESP 20; TEMP 97.6; O2SAT 98
--- NOTE | 2018-06-19 00:31 | ED PDOC ---
Lower Extremity Pain/Injury Time Seen by Provider: 06/18/18 23:05 Chief Complaint (Nursing): Lower Extremity Problem/Injury History Per: Patient History/Exam Limitations: no limitations Onset/Duration Of Symptoms: Persistent Current Symptoms Are (Timing): Better Severity: Mild Additional Complaint(s): Pt. well known to ED for chronic bilateral foot pain and bed seeking behavior presents to ED tonight bc he is cold, needs to rest, and his feet were hurting. Pt. reports no feet pain at present and is ambulating without difficulty. Past Medical History Vital Signs: Last Vital Signs Temp 97.6 F 06/18/18 21:33 Pulse 70 06/18/18 21:33 Resp 20 06/18/18 21:33 BP 130/78 06/18/18 21:33 Pulse Ox 98 06/18/18 21:33 - Medical History PMH: Back Problems, COPD, Depression, Gastritis, Schizophrenia, Chronic Pain (bilateral feet) Denies: Chronic Kidney Disease - Family History Family History: States: Unknown Family Hx - Home Medications Home Medications: Ambulatory Orders Medication Instructions Recorded Ranitidine HCl [Zantac] 1 tab PO BID #30 tablet 02/16/17 Dicyclomine [Bentyl] 20 mg PO BID PRN #30 tab 04/06/17 Ibuprofen [Motrin Tab] 600 mg PO Q8 PRN #60 tab 04/06/17 Tamsulosin [Flomax] 0.4 mg PO DAILY #10 cap 04/06/17 Famotidine [Pepcid] 20 mg PO Q12 #20 tab 04/12/17 Cyclobenzaprine [Cyclobenzaprine 10 mg PO TID PRN #15 tab 04/22/17 HCl] Acetaminophen [Tylenol 325mg tab] 650 mg PO TID #30 tab 05/01/17 Clotrimazole 1% [Lotrimin AF 1%] 10 applic TOP BID #1 bottle 05/02/17 Clotrimazole/Betamethasone 15 gm EXT BID #1 tube 05/18/17 [Lotrisone] Ibuprofen [Motrin] 600 mg PO Q6 PRN #15 tab 05/19/17 Oseltamivir Cap [Tamiflu] 75 mg PO BID #10 cap 07/08/17 Oseltamivir Phosphate [Tamiflu] 75 mg PO BID #10 capsule 07/10/17 Ciprofloxacin [Cipro] 500 mg PO BID 7 Days tab 07/12/17 Famotidine [Pepcid] 20 mg PO Q12 #20 tab 08/25/17 Acetaminophen [Tylenol] 650 mg PO QID PRN #30 capsule 11/05/17 traMADol [Ultram] 50 mg PO TID PRN #10 tab 11/05/17 Clotrimazole 1% Cream [Lotrimin 1%] 1 appful TP BID #1 tube 12/27/17 Butenafine HCl [Lotrimin Ultra] 0.5 gm TP BID #30 cream..g. 03/09/18 Clotrimazole 1% Cream [Lotrimin 1% 1 applic EXT BID #2 tube 06/06/18 CREAM] Ibuprofen [Motrin] 600 mg PO Q6H PRN #20 tab 06/08/18 Butenafine HCl [Lotrimin Ultra] 0.5 gm TP BID #30 cream..g. 06/10/18 - Allergies Allergies/Adverse Reactions: Allergies Allergy/AdvReac Type Severity Reaction Status Date / Time No Known Allergies Allergy Verified 06/18/18 07:35 Review of Systems Constitutional: Negative for: Fever, Chills Cardiovascular: Negative for: Chest Pain Musculoskeletal: Positive for: Foot Pain. Negative for: Back Pain, Leg Pain Physical Exam - Reviewed Nursing Documentation Reviewed: Yes Vital Signs Reviewed: Yes - Physical Exam Appears: Positive for: Well, Non-toxic Head Exam: Positive for: ATRAUMATIC Skin: Positive for: Normal Color, Warm, Dry. Negative for: Pallor, Cyanosis Eye Exam: Positive for: Normal appearance Cardiovascular/Chest: Positive for: Regular Rate, Rhythm Respiratory: Positive for: Normal Breath Sounds Extremity: Positive for: Normal ROM. Negative for: Tenderness Neurologic/Psych: Positive for: Alert, Oriented, Gait (wnl) - ECG O2 Sat by Pulse Oximetry: 98 Medical Decision Making Medical Decision Making: Pt. well appearing, resting comfortably. Pt. alert and oriented, ambulates with steady gait. Disposition - Clinical Impression Clinical Impression: Foot pain, bilateral, Exposure to environmental cold - Patient ED Disposition Is Patient to be Admitted: No - Disposition Disposition: Routine/Home Disposition Time: 00:34 Condition: STABLE Instructions: Metatarsalgia (DC)
== END 2018-06-19 04:30 | disposition home or self-care (01) ==
LOC: H.ER 20:38
DX: M79.672 Pain in left foot (principal); M79.671 Pain in right foot; G89.29 Other chronic pain; J44.9 Chronic obstructive pulmonary disease, unspecified; Z86.59 Personal history of other mental and behavioral disorders; T69.9XXA Effect of reduced temperature, unspecified, initial encounter; X31.XXXA Exposure to excessive natural cold, initial encounter

== ENCOUNTER 2018-06-19 16:29 | Emergency (ER) | payer MEDICAID ==
[2018-06-19 16:29] VITALS: BMI 22.4
[2018-06-19 17:41] VITALS: BP 139/96; PULSE 69; RESP 18; TEMP 97.8; O2SAT 98
--- NOTE | 2018-06-19 18:15 | ED PDOC ---
HPI: General Adult Time Seen by Provider: 06/19/18 17:48 Chief Complaint (Nursing): Male Genitourinary Chief Complaint (Provider): Medical Evaluation History Per: Patient History/Exam Limitations: no limitations Additional Complaint(s): 58 year old homeless male well known to the ED for nearly daily visits presents to the ED requesting to lie down and warm up. Patient reports that as a result of the cold weather, he urinated on himself today to try to warm up. Patient is requesting to dry off in ED. Patient is also requesting tea and food upon arrival. Patient denies having any physical complaints. PMD: [facility] Past Medical History Reviewed: Historical Data, Nursing Documentation, Vital Signs Vital Signs: Last Vital Signs Temp 97.8 F 06/19/18 17:39 Pulse 69 06/19/18 17:39 Resp 18 06/19/18 17:39 BP 139/96 H 06/19/18 17:39 Pulse Ox 98 06/19/18 17:39 CHANTALE Report Viewed: Yes - Medical History PMH: Back Problems, COPD, Depression, Gastritis, Schizophrenia, Chronic Pain (bilateral feet) - Family History Family History: States: No Known Family Hx - Living Arrangements Living Arrangements: Other (homeless) - Home Medications Home Medications: Ambulatory Orders Medication Instructions Recorded Ranitidine HCl [Zantac] 1 tab PO BID #30 tablet 02/16/17 Dicyclomine [Bentyl] 20 mg PO BID PRN #30 tab 04/06/17 RX: Ibuprofen [Motrin Tab] 600 mg PO Q8 PRN #60 tab 04/06/17 Tamsulosin [Flomax] 0.4 mg PO DAILY #10 cap 04/06/17 Famotidine [Pepcid] 20 mg PO Q12 #20 tab 04/12/17 Cyclobenzaprine [Cyclobenzaprine 10 mg PO TID PRN #15 tab 04/22/17 HCl] Acetaminophen [Tylenol 325mg tab] 650 mg PO TID #30 tab 05/01/17 RX: Clotrimazole 1% [Lotrimin AF 10 applic TOP BID #1 bottle 05/02/17 1%] Clotrimazole/Betamethasone 15 gm EXT BID #1 tube 05/18/17 [Lotrisone] Ibuprofen [Motrin] 600 mg PO Q6 PRN #15 tab 05/19/17 Oseltamivir Cap [Tamiflu] 75 mg PO BID #10 cap 07/08/17 Oseltamivir Phosphate [Tamiflu] 75 mg PO BID #10 capsule 07/10/17 Ciprofloxacin [Cipro] 500 mg PO BID 7 Days tab 07/12/17 Famotidine [Pepcid] 20 mg PO Q12 #20 tab 08/25/17 Acetaminophen [Tylenol] 650 mg PO QID PRN #30 capsule 11/05/17 RX: traMADol [Ultram] 50 mg PO TID PRN #10 tab 11/05/17 Clotrimazole 1% Cream [Lotrimin 1%] 1 appful TP BID #1 tube 12/27/17 Butenafine HCl [Lotrimin Ultra] 0.5 gm TP BID #30 cream..g. 03/09/18 Clotrimazole 1% Cream [Lotrimin 1% 1 applic EXT BID #2 tube 06/06/18 CREAM] Ibuprofen [Motrin] 600 mg PO Q6H PRN #20 tab 06/08/18 Butenafine HCl [Lotrimin Ultra] 0.5 gm TP BID #30 cream..g. 06/10/18 - Allergies Allergies/Adverse Reactions: Allergies Allergy/AdvReac Type Severity Reaction Status Date / Time No Known Allergies Allergy Verified 06/21/18 12:22 Review of Systems ROS Statement: Except As Marked, All Systems Reviewed And Found Negative Constitutional: Positive for: Other (cold exposure) Physical Exam - Reviewed Nursing Documentation Reviewed: Yes Vital Signs Reviewed: Yes - Physical Exam Comments: GENERAL APPEARANCE: Patient is awake, alert, oriented x 3, in no acute distress. SKIN: Warm, dry; (-) cyanosis. NECK: Supple, FROM CHEST AND RESPIRATORY: (-)wheezing; (-) rales, (-) rhonchi; breath sounds equal bilaterally. Respirations even and nonlabored. HEART AND CARDIOVASCULAR: (-) irregularity ABDOMEN AND GI: Soft; (-) tenderness. EXTREMITIES: FROM (-) deformity, (-) edema (-) erythema (+) sensation intact NEURO AND PSYCH: Mental status as above; (-) focal findings. Gait: steady. Speech: clear. (-) facial asymmetry - ECG O2 Sat by Pulse Oximetry: 98 (RA) Pulse Ox Interpretation: Normal Medical Decision Making Medical Decision Makin:45 Clinical impression: 58 year old homeless male with homelessness and cold exposure. -Re-evaluation 184 Patient sleeping comfortably. No distress noted. 1999 On re-evaluation, patient reports improvement of symptoms. On exam, patient remains AAOx3, in no acute distress. Vitals stable. Lab/Diagnostic results d/w the patient in great detail. Diagnosis of cold exposure, homelessness, malingering d/w the patient. Based on history, exam and diagnostic results, plan will be for outpatient follow up with clinic. Patient provided with information for warming centers. Patient instructed to follow-up with pmd / referral provided / the clinic in 1- 2 days without fail. Return to the emergency room at any time for any new or worsening symptoms. Patient states he fully agrees with and understands discharge instructions. States that he agrees with the plan and disposition. Verbalized and repeated discharge instructions and plan. I have given the patient opportunity to ask any additional questions. Scribe Attestation: Documented byFlor Andres, acting as a scribe for Flor Corea Provider Scribe Attestation: All medical record entries made by the Scribe were at my direction and personal ly dictated by me. I have reviewed the chart and agree that the record accurately reflects my personal performance of the history, physical exam, medical decision making, and the department course for this patient. I have also personally directed, reviewed, and agree with the discharge instructions and disposition. Disposition - Clinical Impression Clinical Impression: Exposure to environmental cold, Malingering - Patient ED Disposition Is Patient to be Admitted: No Counseled Patient/Family Regarding: Studies Performed, Diagnosis, Need For Followup - Disposition Referrals: [facility] [Outside] Disposition: Routine/Home Disposition Time: 20:00 Condition: STABLE Additional Instructions: The emergency medical care you received today was directed at your acute symptoms. If you were prescribed any medication, please fill it and take as directed. It may take several days for your symptoms to resolve. Return to the Emergency Department if your symptoms worsen, do not improve, or if you have any other problems. Please contact your doctor in 2 days for re-evaluation and follow up / or call one of the physicians/clinics you have been referred to that are listed on the Patient Visit Information form that is included in your discharge packet. Bring any paperwork you were given at discharge with you along with any medications you are taking to your follow up visit. Our treatment cannot replace ongoing medical care by a primary care provider (PCP) outside of the emergency department. Instructions: General (DC) Forms: [employer] (Kinyarwanda) Print Language: MACANESE - POA Present On Arrival: None
== END 2018-06-19 20:34 | disposition home or self-care (01) ==
LOC: H.ER 16:29
DX: Z76.5 Malingerer [conscious simulation] (principal); Z59.0 Homelessness; T69.9XXA Effect of reduced temperature, unspecified, initial encounter

== ENCOUNTER 2018-06-20 01:57 | Emergency (ER) | payer MEDICAID ==
[2018-06-20 01:57] VITALS: BMI 22.4
--- NOTE | 2018-06-20 03:01 | ED PDOC ---
HPI: General Adult Time Seen by Provider: 06/20/18 02:12 Chief Complaint (Nursing): Lower Extremity Problem/Injury Chief Complaint (Provider): Lower Extremity Problem/Injury History Per: Patient History/Exam Limitations: no limitations Onset/Duration Of Symptoms: Days Current Symptoms Are (Timing): Still Present Recently: Seen In ED Additional Complaint(s): 58 year old undomiciled male, well known to this provider and the ED for chronic leg pain and malingering, presents to the ED feeling cold. He offers no other complaints. PMD: none provided Past Medical History Reviewed: Historical Data, Nursing Documentation, Vital Signs Vital Signs: Last Vital Signs Temp 97.6 F 06/20/18 02:39 Pulse 89 06/20/18 02:39 Resp 18 06/20/18 02:39 BP 131/88 06/20/18 02:39 Pulse Ox 98 06/20/18 02:39 CHANTALE Report Viewed: Yes - Medical History PMH: Back Problems, COPD, Depression, Gastritis, Schizophrenia, Chronic Pain (bilateral feet) Denies: Chronic Kidney Disease - Surgical History Surgical History: No Surg Hx - Family History Family History: States: Unknown Family Hx - Home Medications Home Medications: Ambulatory Orders Medication Instructions Recorded Ranitidine HCl [Zantac] 1 tab PO BID #30 tablet 02/16/17 Dicyclomine [Bentyl] 20 mg PO BID PRN #30 tab 04/06/17 Ibuprofen [Motrin Tab] 600 mg PO Q8 PRN #60 tab 04/06/17 Tamsulosin [Flomax] 0.4 mg PO DAILY #10 cap 04/06/17 Famotidine [Pepcid] 20 mg PO Q12 #20 tab 04/12/17 Cyclobenzaprine [Cyclobenzaprine 10 mg PO TID PRN #15 tab 04/22/17 HCl] Acetaminophen [Tylenol 325mg tab] 650 mg PO TID #30 tab 05/01/17 Clotrimazole 1% [Lotrimin AF 1%] 10 applic TOP BID #1 bottle 05/02/17 Clotrimazole/Betamethasone 15 gm EXT BID #1 tube 05/18/17 [Lotrisone] Ibuprofen [Motrin] 600 mg PO Q6 PRN #15 tab 05/19/17 Oseltamivir Cap [Tamiflu] 75 mg PO BID #10 cap 07/08/17 Oseltamivir Phosphate [Tamiflu] 75 mg PO BID #10 capsule 07/10/17 Ciprofloxacin [Cipro] 500 mg PO BID 7 Days tab 07/12/17 Famotidine [Pepcid] 20 mg PO Q12 #20 tab 08/25/17 Acetaminophen [Tylenol] 650 mg PO QID PRN #30 capsule 11/05/17 traMADol [Ultram] 50 mg PO TID PRN #10 tab 11/05/17 Clotrimazole 1% Cream [Lotrimin 1%] 1 appful TP BID #1 tube 12/27/17 Butenafine HCl [Lotrimin Ultra] 0.5 gm TP BID #30 cream..g. 03/09/18 Clotrimazole 1% Cream [Lotrimin 1% 1 applic EXT BID #2 tube 06/06/18 CREAM] Ibuprofen [Motrin] 600 mg PO Q6H PRN #20 tab 06/08/18 Butenafine HCl [Lotrimin Ultra] 0.5 gm TP BID #30 cream..g. 06/10/18 - Allergies Allergies/Adverse Reactions: Allergies Allergy/AdvReac Type Severity Reaction Status Date / Time No Known Allergies Allergy Verified 06/20/18 02:40 Review of Systems ROS Statement: Except As Marked, All Systems Reviewed And Found Negative Physical Exam - Reviewed Nursing Documentation Reviewed: Yes Vital Signs Reviewed: Yes - Physical Exam Appears: Positive for: No Acute Distress Head Exam: Positive for: ATRAUMATIC, NORMAL INSPECTION, NORMOCEPHALIC Skin: Positive for: Normal Color. Negative for: Rash Eye Exam: Positive for: EOMI, Normal appearance, PERRL Cardiovascular/Chest: Positive for: Regular Rate, Rhythm Respiratory: Positive for: Normal Breath Sounds. Negative for: Respiratory Distress Extremity: Positive for: Normal ROM (x 4) Neurologic/Psych: Positive for: Alert, Oriented (x 3). Negative for: Motor/Sensory Deficits - ECG O2 Sat by Pulse Oximetry: 98 (RA) Pulse Ox Interpretation: Normal Medical Decision Making Medical Decision Makin:50 --Patient to be observed in the ED. 05:00 --Patient requires no treatment in the ED and is stable for discharge. Scribe Attestation: Documented by Yessi Rosa, acting as a scribe for Navjot Mehta MD Provider Scribe Attestation: All medical record entries made by the Scribe were at my direction and pe rsonally dictated by me. I have reviewed the chart and agree that the record accurately reflects my personal performance of the history, physical exam, medical decision making, and the department course for this patient. I have also personally directed, reviewed, and agree with the discharge instructions and disposition. Disposition - Clinical Impression Clinical Impression: Homelessness, Malingering - Patient ED Disposition Is Patient to be Admitted: No - Disposition Disposition: Routine/Home Disposition Time: 05:00 Condition: STABLE Forms: [employer] (Cypriot)
[2018-06-20 07:11] VITALS: BP 130/79; PULSE 78; RESP 16; TEMP 97.9; O2SAT 96
== END 2018-06-20 06:35 | disposition home or self-care (01) ==
LOC: H.ER 01:57
DX: Z76.5 Malingerer [conscious simulation] (principal); Z59.0 Homelessness

== ENCOUNTER 2018-06-20 19:51 | Emergency (ER) | payer MEDICAID ==
[2018-06-20 19:51] VITALS: BMI 22.4
[2018-06-20 21:52] VITALS: O2SAT 99
--- NOTE | 2018-06-20 22:20 | ED PDOC ---
HPI: General Adult Time Seen by Provider: 06/20/18 22:02 Chief Complaint (Nursing): Lower Extremity Problem/Injury Chief Complaint (Provider): cold History Per: Patient Additional Complaint(s): 58 y/o male presents seeking detention from the cold. States clothes are wet. Denies acute medical or psychiatric complaints Past Medical History Reviewed: Historical Data, Nursing Documentation, Vital Signs Vital Signs: Last Vital Signs Temp 97.4 F L 06/20/18 21:50 Pulse 76 06/20/18 21:50 Resp 16 06/20/18 21:50 BP 135/88 06/20/18 21:50 Pulse Ox 99 06/20/18 21:50 - Medical History PMH: Back Problems, COPD, Depression, Gastritis, Schizophrenia, Chronic Pain (bilateral feet) Denies: Chronic Kidney Disease - Family History Family History: States: Unknown Family Hx - Home Medications Home Medications: Ambulatory Orders Medication Instructions Recorded Ranitidine HCl [Zantac] 1 tab PO BID #30 tablet 02/16/17 Dicyclomine [Bentyl] 20 mg PO BID PRN #30 tab 04/06/17 Ibuprofen [Motrin Tab] 600 mg PO Q8 PRN #60 tab 04/06/17 Tamsulosin [Flomax] 0.4 mg PO DAILY #10 cap 04/06/17 Famotidine [Pepcid] 20 mg PO Q12 #20 tab 04/12/17 Cyclobenzaprine [Cyclobenzaprine 10 mg PO TID PRN #15 tab 04/22/17 HCl] Acetaminophen [Tylenol 325mg tab] 650 mg PO TID #30 tab 05/01/17 Clotrimazole 1% [Lotrimin AF 1%] 10 applic TOP BID #1 bottle 05/02/17 Clotrimazole/Betamethasone 15 gm EXT BID #1 tube 05/18/17 [Lotrisone] Ibuprofen [Motrin] 600 mg PO Q6 PRN #15 tab 05/19/17 Oseltamivir Cap [Tamiflu] 75 mg PO BID #10 cap 07/08/17 Oseltamivir Phosphate [Tamiflu] 75 mg PO BID #10 capsule 07/10/17 Ciprofloxacin [Cipro] 500 mg PO BID 7 Days tab 07/12/17 Famotidine [Pepcid] 20 mg PO Q12 #20 tab 08/25/17 Acetaminophen [Tylenol] 650 mg PO QID PRN #30 capsule 11/05/17 traMADol [Ultram] 50 mg PO TID PRN #10 tab 11/05/17 Clotrimazole 1% Cream [Lotrimin 1%] 1 appful TP BID #1 tube 12/27/17 Butenafine HCl [Lotrimin Ultra] 0.5 gm TP BID #30 cream..g. 03/09/18 Clotrimazole 1% Cream [Lotrimin 1% 1 applic EXT BID #2 tube 06/06/18 CREAM] Ibuprofen [Motrin] 600 mg PO Q6H PRN #20 tab 06/08/18 Butenafine HCl [Lotrimin Ultra] 0.5 gm TP BID #30 cream..g. 06/10/18 - Allergies Allergies/Adverse Reactions: Allergies Allergy/AdvReac Type Severity Reaction Status Date / Time No Known Allergies Allergy Verified 06/20/18 21:50 Review of Systems ROS Statement: Except As Marked, All Systems Reviewed And Found Negative Physical Exam - Reviewed Nursing Documentation Reviewed: Yes Vital Signs Reviewed: Yes - Physical Exam Appears: Positive for: Well, Non-toxic, No Acute Distress Head Exam: Positive for: ATRAUMATIC, NORMAL INSPECTION, NORMOCEPHALIC Skin: Positive for: Normal Color Eye Exam: Positive for: Normal appearance ENT: Positive for: Normal ENT Inspection Cardiovascular/Chest: Positive for: Regular Rate, Rhythm Respiratory: Positive for: Normal Breath Sounds Gastrointestinal/Abdominal: Positive for: Normal Exam Back: Positive for: Normal Inspection Extremity: Positive for: Normal ROM Neurologic/Psych: Positive for: Alert, Oriented (x3) - ECG O2 Sat by Pulse Oximetry: 99 - Progress ED Course And Treament: socks given Patient allowed to rest in ED and states he is feeling better and ready for discharge on re-eval Disposition - Clinical Impression Clinical Impression: Malingering - Patient ED Disposition Is Patient to be Admitted: No Counseled Patient/Family Regarding: Diagnosis, Need For Followup - Disposition Disposition: Routine/Home Disposition Time: 00:00 Condition: IMPROVED
[2018-06-21 02:59] VITALS: BP 132/79; PULSE 83; RESP 17; TEMP 98.1
== END 2018-06-21 02:52 | disposition home or self-care (01) ==
LOC: H.ER 19:51
DX: Z76.5 Malingerer [conscious simulation] (principal)